=== PATIENT | male | born 1935 | race Caucasian/White ===

== ENCOUNTER → 2018-07-04 | Outpatient (CLI) | payer MEDICARE ==
--- NOTE | 2018-07-04 14:16 | XR ---
EXAMINATION TYPE: XR chest 2V DATE OF EXAM: 07/04/2018 COMPARISON: NONE TECHNIQUE: PA and lateral views submitted. HISTORY: Shortness of breath FINDINGS: The lungs are clear and there is no pneumothorax, pleural effusion, or focal pneumonia. The sternum is somewhat prominent bilaterally and there is a 7 mm nodule left upper lobe. Additional nodule in th e right upper lobe. These could potentially related to granuloma. Hypertrophic and degenerative dyson e of the spine. No overt failure. IMPRESSION: 1. Mediastinum is prominent could been the basis of adenopathy. Additionally there is a single nodule noted bilaterally. Recommend follow-up CT scan of the chest.
== END | disposition home or self-care (01) ==
LOC: RADXRMAIN 13:44
PROVIDERS: ATTEND Internal Medicine Hematology & Oncology
DX: R91.1 Solitary pulmonary nodule (principal); I12.9 Hypertensive chronic kidney disease with stage 1 through stage 4 chronic kidney disease, or unspecified chronic kidney disease; N18.9 Chronic kidney disease, unspecified; D63.1 Anemia in chronic kidney disease; M10.9 Gout, unspecified
CPT/HCPCS: 71046

== ENCOUNTER 2018-07-18 13:55 | Inpatient (IN) | payer MEDICARE ==
[2018-07-18 14:58] LABS: Anisocytosis Slight; Basophils % (A) 1 %; Eosinophils # (A) 0.2 k/uL (0-0.7); Eosinophils % (A) 3 %; HCT 42.2 % (39.0-53.0); Hypochromasia Marked; Lymphocytes # (A) 1.2 k/uL (1.0-4.8); Lymphocytes % (A) 20 %; MCH 30.6 pg (25.0-35.0); MCHC 30.9 g/dL (31.0-37.0); MCV 99.2 fL (80.0-100.0); Macrocytosis Slight; Mean Platelet Volume 7.3; Monocytes # (A) 0.5 k/uL (0-1.0); Monocytes % (A) 8 %; Neutrophils % (A) 67 %; Platelet Count 230 k/uL (150-450); RBC 4.25 m/uL (4.30-5.90); RDW 16.8 % (11.5-15.5)
[2018-07-18 15:07] LABS: Albumin 4.4 g/dL (3.5-5.0); Calcium 8.7 mg/dL (8.4-10.2); Total Bilirubin 0.4 mg/dL (0.2-1.3); Total Protein 7.3 g/dL (6.3-8.2)
[2018-07-18 15:09] LABS: Appearance,Urine Clear (Clear); Bilirubin,Urine Negative (Negative); Blood,Urine Negative (Negative); Color,Urine Yellow; Glucose,Urine (UA) Negative (Negative); Ketones,Urine Negative (Negative); Leukocyte Esterase,Urine Negative (Negative); Nitrite,Urine Negative (Negative); PH, Urine 5.5 (5.0-8.0); Protein,Urine 2+ (Negative); Squamous Epithelial Cell,Urine <1 /hpf (0-4); Urobilinogen,Urine <2.0 mg/dL (<2.0); WBC,Urine 1 /hpf (0-5)
[2018-07-18 15:10] LABS: Potassium 6.5 mmol/L (3.5-5.1)
[2018-07-18] MEDS ORDERED: SODIUM POLYSTYRENE SULFONATE 15 GM/60 ML BOTTLE PO STA (15:31)
[2018-07-18] MEDS ORDERED: SODIUM CHLORIDE 0.9% 1,000 ML IV ONE (16:23)
[2018-07-18] MEDS ORDERED: SODIUM CHLORIDE 0.9% 1,000 ML IV STA (16:23)
[2018-07-18] MEDS ORDERED: SODIUM CHLORIDE 0.9% 500 ML IV STA (16:23)
--- NOTE | 2018-07-18 16:25 | ED ---
General Adult HPI - General Chief complaint: Recheck/Abnormal Lab/Rx Stated complaint: abnormal lab-sent by Time Seen by Provider: 07/18/18 15:31 Source: patient, RN notes reviewed, old records reviewed Mode of arrival: ambulatory Limitations: no limitations - History of Present Illness Initial comments: This is a 3-year-old male today. This male presents today for evaluation regarding renal disease renal failure. Patient has had history of worsening kidney function. Had lab tests that showed significant worsening BUN/ creatinine just yesterday. Patient denies any pain no chest pain or shortness with no bowel pain does admit to minor minor decreased appetite and weakness. No recent new changes in medications - Related Data Home Medications Medication Instructions Recorded Confirmed Eye Health Formula 2 cap PO DAILY 07/16/15 07/18/18 Garlic 1 tab PO DAILY 07/16/15 07/18/18 Levothyroxine Sodium [Synthroid] 100 mcg PO DAILY 07/16/15 07/18/18 Lisinopril [Zestril] 10 mg PO DAILY 07/16/15 07/18/18 Multivitamin [Men's Multi-Vitamin] 1 tab PO DAILY 07/16/15 07/18/18 Simvastatin 20 mg PO HS 07/16/15 07/18/18 Theophylline 12 Hour [Wilman-Dur] 100 mg PO HS@199907/16/15 07/18/18 Triamterene/Hydrochlorothiazid 1 cap PO DAILY 07/16/15 07/18/18 [Triamterene-Hctz 37.5-25 mg Cp] Tylenol Arthritis 650 mg PO BID PRN 07/16/15 07/18/18 Verapamil Sr [Isoptin Sr] 240 mg PO DAILY 07/16/15 07/18/18 sitaGLIPtin PHOS/metFORMIN HCL 1 tab PO BID 07/16/15 07/18/18 [Janumet 50-1,000 mg Tablet] Allergies Allergy/AdvReac Type Severity Reaction Status Date / Time ciprofloxacin [From Cipro] Allergy Unknown Verified 07/18/18 14:20 Review of Systems ROS Statement: Those systems with pertinent positive or pertinent negative responses have been documented in the HPI. ROS Other: All systems not noted in ROS Statement are negative. Past Medical History Past Medical History: Thyroid Disorder Additional Past Medical History / Comment(s): 07/16/15 Pt presented to [facility] ER with having been diagnosed with UTI 10 days ago. He took a total of 14 cipro pills and was getting better for a day or so then started getting worse with painful urination, burning, frequent urination and loss of apetite and nauseous. He has lost 10# in 2 weeks. Other HX: NIDDM, hypothyroidism, diverticulosis, rectal polyps,psoriasis, glaucoma,gout History of Any Multi-Drug Resistant Organisms: None Reported Past Surgical History: Cholecystectomy Additional Past Surgical History / Comment(s): colonoscopy with polypectomy Past Anesthesia/Blood Transfusion Reactions: No Reported Reaction Additional Past Anesthesia/Blood Transfusion Reaction / Comment(s): Pt states he has never recieved blood. Past Psychological History: No Psychological Hx Reported Smoking Status: Former smoker Past Alcohol Use History: None Reported Past Drug Use History: None Reported - Past Family History Father Family Medical History: Cancer Additional Family Medical History / Comment(s): Father of prostate cancer. He was an alcoholic Mother Family Medical History: Cancer Additional Family Medical History / Comment(s): Mother of some kind of cancer. General Exam Limitations: no limitations General appearance: alert, in no apparent distress Head exam: Present: atraumatic, normocephalic, normal inspection Eye exam: Present: normal appearance, PERRL, EOMI. Absent: scleral icterus, conjunctival injection, periorbital swelling ENT exam: Present: normal exam, mucous membranes moist Neck exam: Present: normal inspection. Absent: tenderness, meningismus, lymphadenopathy Respiratory exam: Present: normal lung sounds bilaterally. Absent: respiratory distress, wheezes, rales, rhonchi, stridor Cardiovascular Exam: Present: regular rate, normal rhythm, normal heart sounds. Absent: systolic murmur, diastolic murmur, rubs, gallop, clicks GI/Abdominal exam: Present: soft, normal bowel sounds. Absent: distended, tenderness, guarding, rebound, rigid Extremities exam: Present: normal inspection, full ROM, normal capillary refill. Absent: tenderness, pedal edema, joint swelling, calf tenderness Back exam: Present: normal inspection Neurological exam: Present: alert, oriented X3, CN II-XII intact Psychiatric exam: Present: normal affect, normal mood Skin exam: Present: warm, dry, intact, normal color. Absent: rash Course Vital Signs 07/18/18 07/18/18 07/18/18 14:15 16:06 16:17 Temperature 97.6 F Pulse Rate 59 L 70 71 Respiratory 18 18 18 Rate Blood Pressure 175/72 207/89 190/102 O2 Sat by Pulse 98 99 97 Oximetry - Reevaluation(s) Reevaluation #1: 07/18/18 16:24 Medical record and prior lab tests are reviewed EKG Findings - EKG Comments: EKG Findings:: EKG shows sinus bradycardia rate of 56, WA 162, QRS 148, QTc 468 Medical Decision Making - Medical Decision Making 80 female the ER for evaluation, patient coming in with worsening of kidney function, creatinine from 2-3, patient does appear dehydrated on exam Sunday showing renal evaluation and nephrology - Lab Data Result diagrams: 07/18/18 14:45 07/18/18 14:45 Lab Results 07/18/18 07/18/18 07/18/18 Range/Units 14:45 14:45 14:45 WBC 6.0 (3.8-10.6) k/uL RBC 4.25 L (4.30-5.90) m/uL Hgb 13.0 (13.0-17.5) gm/dL Hct 42.2 (39.0-53.0) % MCV 99.2 (80.0-100.0) fL MCH 30.6 (25.0-35.0) pg MCHC 30.9 L (31.0-37.0) g/dL RDW 16.8 H (11.5-15.5) % Plt Count 230 (150-450) k/uL Neutrophils % 67 % Lymphocytes % 20 % Monocytes % 8 % Eosinophils % 3 % Basophils % 1 % Neutrophils # 4.0 (1.3-7.7) k/uL Lymphocytes # 1.2 (1.0-4.8) k/uL Monocytes # 0.5 (0-1.0) k/uL Eosinophils # 0.2 (0-0.7) k/uL Basophils # 0.0 (0-0.2) k/uL Hypochromasia Marked Anisocytosis Slight Macrocytosis Slight Sodium 141 (137-145) mmol/L Potassium 6.5 H* (3.5-5.1) mmol/L Chloride 113 H (98-107) mmol/L Carbon Dioxide 13 L (22-30) mmol/L Anion Gap 15 mmol/L BUN 61 H (9-20) mg/dL Creatinine 3.08 H (0.66-1.25) mg/dL Est GFR (CKD-EPI)AfAm 21 (>60 ml/min/1.73 sqM) Est GFR (CKD-EPI)NonAf 18 (>60 ml/min/1.73 sqM) Glucose 105 H (74-99) mg/dL Calcium 8.7 (8.4-10.2) mg/dL Total Bilirubin 0.4 (0.2-1.3) mg/dL AST 20 (17-59) U/L ALT 22 (21-72) U/L Alkaline Phosphatase 69 (38-126) U/L Total Protein 7.3 (6.3-8.2) g/dL Albumin 4.4 (3.5-5.0) g/dL Amylase 140 H (30-110) U/L Lipase 668 H (23-300) U/L Urine Color Yellow Urine Appearance Clear (Clear) Urine pH 5.5 (5.0-8.0) Ur Specific [place] 1.010 (1.001-1.035) Urine Protein 2+ H (Negative) Urine Glucose (UA) Negative (Negative) Urine Ketones Negative (Negative) Urine Blood Negative (Negative) Urine Nitrite Negative (Negative) Urine Bilirubin Negative (Negative) Urine Urobilinogen <2.0 (<2.0) mg/dL Ur Leukocyte Esterase Negative (Negative) Urine WBC 1 (0-5) /hpf Ur Squamous Epith Cells <1 (0-4) /hpf Disposition Clinical Impression: Acute renal failure, Dehydration Disposition: ADMITTED IP TO THIS HOSP Condition: Fair Is patient prescribed a controlled substance at d/c from ED?: No Referrals: Carmelo Matamoros MD [Primary Care Provider] - 1-2 days
[2018-07-18] MEDS ORDERED: LABETALOL 5 MG/ML VIAL MDV IVP STA (17:23)
[2018-07-18] MEDS ORDERED: hydrALAZINE HCL 20 MG/ML 1 ML VIAL IVP STA (18:21)
[2018-07-18 21:01] LABS: Glucose,Whole Blood 93 mg/dL (75-99)
[2018-07-18] MEDS: VERAPAMIL SR 240 MG TABLET.ER PO SCH (22:51)
[2018-07-18] MEDS: ATORVASTATIN 10 MG TAB PO SCH (22:51)
[2018-07-19 07:14] LABS: Glucose,Whole Blood 78 mg/dL (75-99)
[2018-07-19] MEDS ORDERED: INSULIN ASPART 100 UNIT/ML 1 ML 10 ML VIAL SQ SCH (07:30)
[2018-07-19] MEDS ORDERED: SODIUM BICARB 8.4% 50 ML SYR (1 MEQ/ML) IV ONE (08:45)
[2018-07-19] MEDS ORDERED: LISINOPRIL 10 MG TAB PO SCH (09:00)
--- NOTE | 2018-07-19 09:10 | P.NPCON ---
History of Present Illness - Reason for Consult acute renal failure, hyperkalemia - History of Present Illness Reason for consultation: Acute kidney injury History of present illness: Patient is a 83-year-old male seen in renal consultation for acute kidney injury. Patient appears to have chronic kidney disease stage III with baseline creatinine in the range of 1.5 for 2 from 2014. Patient states he had blood work done yesterday and due to acute renal failure and hyperkalemia he was advised to go to the hospital. His creatinine on admission was 3.08. Labs from today are pending at this time. He was also noted to be hyperkalemic with potassium level of 6.5 for which she did receive Kayexalate. Patient was noted to be extremely acidotic with a bicarb level of 13. He denies diarrhea. Patient states he was started on metformin about a week ago and dose of his lisinopril was decreased. He admits to good urine output. No vomiting or diarrhea. Denies chest pain or shortness of breath. Hemodynamically he is stable. Denies use of NSAIDs. Patient does have history of diabetes mellitus which she states was diagnosed over 20 years ago. Vital signs are stable. General: The patient appeared well nourished and normally developed. HEENT: Head exam is unremarkable. Neck is without jugular venous distension. LUNGS: Lungs are clear to auscultation and percussion. Breath sounds decreased. HEART: Rate and Rhythm are regular. First and second heart sounds normal. No murmurs, rubs or gallops. ABDOMEN: Abdominal exam reveals normal bowel sounds. Non-tender and non- distended. No evidence of peritonitis. EXTREMITITES: No clubbing, cyanosis, or edema. Past Medical History Past Medical History: Diabetes Mellitus, Hyperlipidemia, Hypertension, Osteoarthritis (OA), Thyroid Disorder Additional Past Medical History / Comment(s): Other HX: diverticulosis, rectal polyps,psoriasis, glaucoma,gout; uti; panceatitis History of Any Multi-Drug Resistant Organisms: None Reported Past Surgical History: Cholecystectomy Additional Past Surgical History / Comment(s): colonoscopy with polypectomy Past Anesthesia/Blood Transfusion Reactions: No Reported Reaction Additional Past Anesthesia/Blood Transfusion Reaction / Comment(s): Pt states he has never recieved blood. Past Psychological History: No Psychological Hx Reported Additional Psychological History / Comment(s): Pt lives alone. He is independent. He uses no assistive device or home care. He walks up to 4 miles a day normally. He drives. has 1 small dog, rosales Smoking Status: Former smoker Past Alcohol Use History: None Reported Additional Past Alcohol Use History / Comment(s): Pt states he quit smoking in 1986. He quit drinking alcohol 8 yrs ago-stating " I had my fun with it." Past Drug Use History: None Reported - Past Family History Father Family Medical History: Cancer Additional Family Medical History / Comment(s): Father of prostate cancer. He was an alcoholic Mother Family Medical History: Cancer Additional Family Medical History / Comment(s): Mother of some kind of cancer. Medications and Allergies Home Medications Medication Instructions Recorded Confirmed Type Garlic 1 tab PO DAILY 07/16/15 07/18/18 History Levothyroxine Sodium [Synthroid] 100 mcg PO DAILY 07/16/15 07/18/18 History Lisinopril [Zestril] 10 mg PO DAILY 07/16/15 07/18/18 History Simvastatin 20 mg PO HS 07/16/15 07/18/18 History Verapamil Sr [Isoptin Sr] 240 mg PO HS 07/16/15 07/18/18 History Albuterol Inhaler [Ventolin Hfa 2 puff INHALATION RT-Q6H PRN 07/18/18 07/18/18 History Inhaler] Aspirin [Adult Low Dose Aspirin EC] 81 mg PO DAILY 07/18/18 07/18/18 History Bacitracin Oint 1 applic TOPICAL DAILY 07/18/18 07/18/18 History Epoetin Garcia [Procrit] 4,000 unit SQ Q14D 07/18/18 07/18/18 History Metoprolol Tartrate [Lopressor] 25 mg PO DAILY 07/18/18 07/18/18 History Triamcinolone 0.1% Cream [Kenalog 1 applic TOPICAL DAILY 07/18/18 07/18/18 History 0.1% Cream] Vit C/E/Zn/Coppr/Lutein/Zeaxan 2 cap PO DAILY 07/18/18 07/18/18 History [Preservision Areds 2 Softgel] metFORMIN HCL [Glucophage] 500 mg PO DAILY 07/18/18 07/18/18 History Allergies Allergy/AdvReac Type Severity Reaction Status Date / Time ciprofloxacin [From Cipro] AdvReac Nausea & Verified 07/18/18 16:30 Vomiting Physical Exam Vitals: Vital Signs Temp Pulse Pulse Resp BP BP BP 07/19/18 07:00 97.7 F 93 17 132/84 07/19/18 06:28 97.8 F 71 16 170/71 07/18/18 20:12 74 135/69 07/18/18 19:15 97.3 F L 76 18 198/89 07/18/18 18:56 73 18 178/82 07/18/18 18:22 73 18 180/84 07/18/18 17:36 78 18 220/110 07/18/18 16:17 71 18 190/102 07/18/18 16:06 70 18 207/89 07/18/18 14:15 97.6 F 59 L 18 175/72 Pulse Ox 07/19/18 07:00 07/19/18 06:28 98 07/18/18 20:12 97 07/18/18 19:15 97 07/18/18 18:56 96 07/18/18 18:22 95 07/18/18 17:36 97 07/18/18 16:17 97 07/18/18 16:06 99 07/18/18 14:15 98 Intake and Output 07/18/18 07/19/18 07/19/18 22:59 06:59 14:59 Intake Total 100 Output Total 600 Balance 100 -600 Intake: IV 100 Sodium Chloride 0.9% 1, 100 000 ml @ 100 mls/hr IV . Q10H ONE Rx#:[id number] Output: Urine 600 Other: Voiding Method Toilet Toilet # Voids 1 Results - Lab Results Most recent lab results Calcium 8.7 mg/dL (8.4-10.2) 07/18/18 14:45 07/18/18 14:45 07/18/18 14:45 Assessment and Plan Plan: Assessment: 1. Nonoliguric acute kidney injury likely prerenal. Rule out urinary retention. Creatinine was 3.08 on admission. Labs from today are pending at this time. 2. Metabolic acidosis secondary to acute kidney injury and metformin. 3. Hyperkalemia secondary to acute kidney injury and metabolic acidosis. Lisinopril also contribute factor. 4. Diabetes mellitus. 5. Hypertension with chronic kidney disease. Controlled. 6. Chronic kidney disease stage III with baseline creatinine in the range of 1.5-2 from 2015. Plan: Start normal saline at 50 mL an hour. 2 A of sodium bicarb IV push. Start oral sodium bicarbonate 1300 mg twice daily. Avoid nephrotoxic agents and hypotensive episodes. Discontinue lisinopril for now. Avoid metformin at this time. Follow-up morning labs. Thank you for the consultation. I will continue to follow the patient with you during his hospital stay.
[2018-07-19 09:25] LABS: Anisocytosis Slight; HCT 36.7 % (39.0-53.0); HGB 11.1 gm/dL (13.0-17.5); Hypochromasia Marked; MCH 30.1 pg (25.0-35.0); MCHC 30.3 g/dL (31.0-37.0); MCV 99.1 fL (80.0-100.0); Macrocytosis Slight; Mean Platelet Volume 7.7; Platelet Count 194 k/uL (150-450); RDW 16.5 % (11.5-15.5); WBC 4.8 k/uL (3.8-10.6)
[2018-07-19] MEDS: SODIUM CHLORIDE 0.9% 1,000 ML IV SCH (09:32)
[2018-07-19 09:33] LABS: Albumin 3.3 g/dL (3.5-5.0); Calcium 7.9 mg/dL (8.4-10.2); Potassium 4.8 mmol/L (3.5-5.1); Total Bilirubin 0.3 mg/dL (0.2-1.3); Total Protein 5.8 g/dL (6.3-8.2)
[2018-07-19] MEDS: SODIUM BICARBONATE TAB 650 MG TAB PO SCH ×2 (09:33→21:01)
[2018-07-19] MEDS: METOPROLOL TARTRATE 25 MG TAB PO SCH (09:35)
[2018-07-19] MEDS ORDERED: ALBUTEROL NEBULIZED 2.5 MG/3 ML INHALATION PRN (11:20)
--- NOTE | 2018-07-19 11:20 | P.HPIM ---
History of Present Illness 83-year-old doesn't gentleman came in with a from primary care physician office after he presented with the acute kidney injury patient baseline creatinine 2015 is around 1.4 patient has chronic kidney disease stage III from diabetic nephropathy, patient's creatinine is 2 days about 3 because of which she sent in to ER. Patient blood is on lisinopril as well as metformin since his metformin patient was having problems he believes. Patient is hyperkalemic Azolid potassium of 6.4% capsulate potassium has come down. Patient has a significant anion gap as well as non-anion gap metabolic acidosis from uremia, possible lactic acidosis along with noniron gap metabolic is doses from hyperchloremia patient was seen by nephrology in the recommending 50 mL of IV normal saline along with the bicarbonate supplementation. Lisinopril and metformin were discontinued. Patient had any fever chills patient and diarrhea nausea vomiting. Patient is urinating well. Patient probably has acute blood necrosis nonoliguric. Denied any recent NSAID use. Review of Systems REVIEW OF SYSTEMS: CONSTITUTIONAL: No fever, no malaise, no fatigue. HEENT: No recent visual problems or hearing problems. Denied any sore throat. CARDIOVASCULAR: No chest pain, orthopnea, PND, no palpitations, no syncope. PULMONARY: No shortness of breath, no cough, no hemoptysis. GASTROINTESTINAL: No diarrhea, no nausea, no vomiting, no abdominal pain. Normoactive bowel sounds. NEUROLOGICAL: No headaches, no weakness, no numbness. HEMATOLOGICAL: Denies any bleeding or petechiae. GENITOURINARY: Denies any burning micturition, frequency, or urgency. MUSCULOSKELETAL/RHEUMATOLOGICAL: Denies any joint pain, swelling, or any muscle pain. ENDOCRINE: Denies any polyuria or polydipsia. The rest of the 14-point review of systems is negative. Past Medical History Past Medical History: Diabetes Mellitus, Hyperlipidemia, Hypertension, Osteoarthritis (OA), Thyroid Disorder Additional Past Medical History / Comment(s): Other HX: diverticulosis, rectal polyps,psoriasis, glaucoma,gout; uti; panceatitis History of Any Multi-Drug Resistant Organisms: None Reported Past Surgical History: Cholecystectomy Additional Past Surgical History / Comment(s): colonoscopy with polypectomy Past Anesthesia/Blood Transfusion Reactions: No Reported Reaction Additional Past Anesthesia/Blood Transfusion Reaction / Comment(s): Pt states he has never recieved blood. Past Psychological History: No Psychological Hx Reported Additional Psychological History / Comment(s): Pt lives alone. He is independent. He uses no assistive device or home care. He walks up to 4 miles a day normally. He drives. has 1 small dog, rosales Smoking Status: Former smoker Past Alcohol Use History: None Reported Additional Past Alcohol Use History / Comment(s): Pt states he quit smoking in 1986. He quit drinking alcohol 8 yrs ago-stating " I had my fun with it." Past Drug Use History: None Reported - Past Family History Father Family Medical History: Cancer Additional Family Medical History / Comment(s): Father of prostate cancer. He was an alcoholic Mother Family Medical History: Cancer Additional Family Medical History / Comment(s): Mother of some kind of cancer. Medications and Allergies Home Medications Medication Instructions Recorded Confirmed Type Garlic 1 tab PO DAILY 07/16/15 07/18/18 History Levothyroxine Sodium [Synthroid] 100 mcg PO DAILY 07/16/15 07/18/18 History Lisinopril [Zestril] 10 mg PO DAILY 07/16/15 07/18/18 History Simvastatin 20 mg PO HS 07/16/15 07/18/18 History Verapamil Sr [Isoptin Sr] 240 mg PO HS 07/16/15 07/18/18 History Albuterol Inhaler [Ventolin Hfa 2 puff INHALATION RT-Q6H PRN 07/18/18 07/18/18 History Inhaler] Aspirin [Adult Low Dose Aspirin EC] 81 mg PO DAILY 07/18/18 07/18/18 History Bacitracin Oint 1 applic TOPICAL DAILY 07/18/18 07/18/18 History Epoetin Garcia [Procrit] 4,000 unit SQ Q14D 07/18/18 07/18/18 History Metoprolol Tartrate [Lopressor] 25 mg PO DAILY 07/18/18 07/18/18 History Triamcinolone 0.1% Cream [Kenalog 1 applic TOPICAL DAILY 07/18/18 07/18/18 History 0.1% Cream] Vit C/E/Zn/Coppr/Lutein/Zeaxan 2 cap PO DAILY 07/18/18 07/18/18 History [Preservision Areds 2 Softgel] metFORMIN HCL [Glucophage] 500 mg PO DAILY 07/18/18 07/18/18 History Allergies Allergy/AdvReac Type Severity Reaction Status Date / Time ciprofloxacin [From Cipro] AdvReac Nausea & Verified 07/18/18 16:30 Vomiting Physical Exam Vitals: Vital Signs Temp Pulse Pulse Resp BP BP BP 07/19/18 07:00 97.7 F 93 17 132/84 07/19/18 06:28 97.8 F 71 16 170/71 07/18/18 20:12 74 135/69 07/18/18 19:15 97.3 F L 76 18 198/89 07/18/18 18:56 73 18 178/82 07/18/18 18:22 73 18 180/84 07/18/18 17:36 78 18 220/110 07/18/18 16:17 71 18 190/102 07/18/18 16:06 70 18 207/89 07/18/18 14:15 97.6 F 59 L 18 175/72 Pulse Ox 07/19/18 07:00 07/19/18 06:28 98 07/18/18 20:12 97 07/18/18 19:15 97 07/18/18 18:56 96 07/18/18 18:22 95 07/18/18 17:36 97 07/18/18 16:17 97 07/18/18 16:06 99 07/18/18 14:15 98 Intake and Output 07/18/18 07/19/18 07/19/18 22:59 06:59 14:59 Intake Total 100 Output Total 600 Balance 100 -600 Intake: IV 100 Sodium Chloride 0.9% 1, 100 000 ml @ 100 mls/hr IV . Q10H ONE Rx#:[id number] Output: Urine 600 Other: Voiding Method Toilet Toilet # Voids 1 PHYSICAL EXAMINATION: GENERAL: The patient is alert and oriented x3, not in any acute distress. Well developed, well nourished. HEENT: Pupils are round and equally reacting to light. EOMI. No scleral icterus. No conjunctival pallor. Normocephalic, atraumatic. No pharyngeal erythema. No thyromegaly. CARDIOVASCULAR: S1 and S2 present. No murmurs, rubs, or gallops. PULMONARY: Chest is clear to auscultation, no wheezing or crackles. ABDOMEN: Soft, nontender, nondistended, normoactive bowel sounds. No palpable organomegaly. MUSCULOSKELETAL: No joint swelling or deformity. EXTREMITIES: No cyanosis, clubbing, or pedal edema. NEUROLOGICAL: Gross neurological examination did not reveal any focal deficits. SKIN: No rashes. Results CBC & Chem 7: 07/19/18 09:01 07/19/18 09:01 Labs: Abnormal Lab Results - Last 24 Hours (Table) 07/18/18 07/18/18 07/18/18 Range/Units 14:45 14:45 14:45 RBC 4.25 L (4.30-5.90) m/uL Hgb (13.0-17.5) gm/dL Hct (39.0-53.0) % MCHC 30.9 L (31.0-37.0) g/dL RDW 16.8 H (11.5-15.5) % Potassium 6.5 H* (3.5-5.1) mmol/L Chloride 113 H (98-107) mmol/L Carbon Dioxide 13 L (22-30) mmol/L BUN 61 H (9-20) mg/dL Creatinine 3.08 H (0.66-1.25) mg/dL Glucose 105 H (74-99) mg/dL Calcium (8.4-10.2) mg/dL Total Protein (6.3-8.2) g/dL Albumin (3.5-5.0) g/dL Amylase 140 H (30-110) U/L Lipase 668 H (23-300) U/L Urine Protein 2+ H (Negative) 07/19/18 07/19/18 Range/Units 09:01 09:01 RBC 3.70 L (4.30-5.90) m/uL Hgb 11.1 L (13.0-17.5) gm/dL Hct 36.7 L (39.0-53.0) % MCHC 30.3 L (31.0-37.0) g/dL RDW 16.5 H (11.5-15.5) % Potassium (3.5-5.1) mmol/L Chloride 116 H (98-107) mmol/L Carbon Dioxide 17 L (22-30) mmol/L BUN 52 H (9-20) mg/dL Creatinine 2.64 H (0.66-1.25) mg/dL Glucose 158 H (74-99) mg/dL Calcium 7.9 L (8.4-10.2) mg/dL Total Protein 5.8 L (6.3-8.2) g/dL Albumin 3.3 L (3.5-5.0) g/dL Amylase (30-110) U/L Lipase (23-300) U/L Urine Protein (Negative) Thrombosis Risk Factor Assmnt - Choose All That Apply Any of the Below Risk Factors Present?: No Other Risk Factors: Yes Each Risk Factor Represents 3 Points: Age 75 years or older Other congenital or acquired thrombophilia - If yes, enter type in comment: No Thrombosis Risk Factor Assessment Total Risk Factor Score: 3 Thrombosis Risk Factor Assessment Level: Moderate Risk Assessment and Plan Plan: -Acute renal failure probably due to nonoliguric acute tubular necrosis medication-induced from metformin and lisinopril both of which were discontinued. Patient will be on sliding scale insulin for now -Metabolic acidosis both anion gap from uremia and possible lactic acidosis from metformin which was discontinued and non-anion gap metabolic acidosis from hyperchloremia anion gap metabolic acidosis did improve continue with IV fluids continue with bicarbonate supplementation -Hyperkalemia secondary to acute kidney injury and lisinopril, lisinopril was discontinued 10-chronic kidney disease stage III from diabetic nephropathy -Hypertension -Hyperlipidemia -Hypothyroidism -Type 2 diabetes mellitus patient will be on sliding scale insulin.
[2018-07-19 11:28] LABS: Glucose,Whole Blood 141 mg/dL (75-99)
[2018-07-19] MEDS: INSULIN ASPART 100 UNIT/ML 1 ML 10 ML VIAL SQ SCH ×3 (12:04→21:00)
[2018-07-19 12:13] VITALS: BMI 20.7
[2018-07-19 15:58] LABS: Hemoglobin A1C 4.7 % (4.0-6.0)
[2018-07-19 17:25] LABS: Glucose,Whole Blood 105 mg/dL (75-99)
--- NOTE | 2018-07-19 20:29 | P.CONS ---
History of Present Illness - Reason for Consult Consult date: 07/19/18 Anemia Requesting physician: Jimmy Amaya - Chief Complaint Acute Renal Failure - History of Present Illness Mr Friend is a patient of Dr. Matamoros who was recently seen in office for CBC check and procrit injection for his known Chronic Kidney Disease Anemia. During his evaluation on 07/18/18, his renal function resulted at 3x his normal baseline. He was seen on 07/04/18 as well at that time with increased creatinine and advised to go to ED at that time. Alsoo during this time he was started on metformin and lisinopril was decreased. Mr. friend has a known history of uncontrolled diabetes, Chronic Kidney disease, Gout, COPD, Anemia and Hypertension. On Admission his potassium was elevated, BUN, Creat = 3.08, as well as amylase and lipase. He presented with metabolic acidosis. Nephrology was consulted and IV hydration with sodium bicarb was started. Nephrotoxins held. Metformin held. He denies any decreased or difficulties with urination. Denies any N/V/D. Review of Systems A 14 point review of systems assessed and completed and all negative except HPI Past Medical History Past Medical History: Diabetes Mellitus, Hyperlipidemia, Hypertension, Osteoarthritis (OA), Thyroid Disorder Additional Past Medical History / Comment(s): Other HX: diverticulosis, rectal polyps,psoriasis, glaucoma,gout; uti; panceatitis History of Any Multi-Drug Resistant Organisms: None Reported Past Surgical History: Cholecystectomy Additional Past Surgical History / Comment(s): colonoscopy with polypectomy Past Anesthesia/Blood Transfusion Reactions: No Reported Reaction Additional Past Anesthesia/Blood Transfusion Reaction / Comm: Pt states he has never recieved blood. Past Psychological History: No Psychological Hx Reported Additional Psychological History / Comment(s): Pt lives alone. He is independent. He uses no assistive device or home care. He walks up to 4 miles a day normally. He drives. has 1 small dog, rosales Smoking Status: Former smoker Past Alcohol Use History: None Reported Additional Past Alcohol Use History / Comment(s): Pt states he quit smoking in 1986. He quit drinking alcohol 8 yrs ago-stating " I had my fun with it." Past Drug Use History: None Reported - Past Family History Father Family Medical History: Cancer Additional Family Medical History / Comment(s): Father of prostate cancer. He was an alcoholic Mother Family Medical History: Cancer Additional Family Medical History / Comment(s): Mother of some kind of cancer. Medications and Allergies Home Medications Medication Instructions Recorded Confirmed Type Garlic 1 tab PO DAILY 07/16/15 07/18/18 History Levothyroxine Sodium [Synthroid] 100 mcg PO DAILY 07/16/15 07/18/18 History Lisinopril [Zestril] 10 mg PO DAILY 07/16/15 07/18/18 History Simvastatin 20 mg PO HS 07/16/15 07/18/18 History Verapamil Sr [Isoptin Sr] 240 mg PO HS 07/16/15 07/18/18 History Albuterol Inhaler [Ventolin Hfa 2 puff INHALATION RT-Q6H PRN 07/18/18 07/18/18 History Inhaler] Aspirin [Adult Low Dose Aspirin EC] 81 mg PO DAILY 07/18/18 07/18/18 History Bacitracin Oint 1 applic TOPICAL DAILY 07/18/18 07/18/18 History Epoetin Garcia [Procrit] 4,000 unit SQ Q14D 07/18/18 07/18/18 History Metoprolol Tartrate [Lopressor] 25 mg PO DAILY 07/18/18 07/18/18 History Triamcinolone 0.1% Cream [Kenalog 1 applic TOPICAL DAILY 07/18/18 07/18/18 History 0.1% Cream] Vit C/E/Zn/Coppr/Lutein/Zeaxan 2 cap PO DAILY 07/18/18 07/18/18 History [Preservision Areds 2 Softgel] metFORMIN HCL [Glucophage] 500 mg PO DAILY 07/18/18 07/18/18 History Allergies Allergy/AdvReac Type Severity Reaction Status Date / Time ciprofloxacin [From Cipro] AdvReac Nausea & Verified 07/18/18 16:30 Vomiting Physical Exam Vitals: Vital Signs Temp Pulse Pulse Resp BP BP BP 07/19/18 10:41 68 07/19/18 07:00 97.7 F 93 17 132/84 07/19/18 06:28 97.8 F 71 16 170/71 07/18/18 20:12 74 135/69 07/18/18 19:15 97.3 F L 76 18 198/89 07/18/18 18:56 73 18 178/82 07/18/18 18:22 73 18 180/84 07/18/18 17:36 78 18 220/110 07/18/18 16:17 71 18 190/102 07/18/18 16:06 70 18 207/89 07/18/18 14:15 97.6 F 59 L 18 175/72 Pulse Ox 07/19/18 10:41 07/19/18 07:00 07/19/18 06:28 98 07/18/18 20:12 97 07/18/18 19:15 97 07/18/18 18:56 96 07/18/18 18:22 95 07/18/18 17:36 97 07/18/18 16:17 97 07/18/18 16:06 99 07/18/18 14:15 98 Intake and Output 07/18/18 07/19/18 07/19/18 22:59 06:59 14:59 Intake Total 100 120 Output Total 600 Balance 100 -600 120 Intake: IV 100 Sodium Chloride 0.9% 1, 100 000 ml @ 100 mls/hr IV . Q10H [facility] Rx#:[id number] Oral 120 Output: Urine 600 Other: Voiding Method Toilet Toilet Urinal # Voids 1 Weight 59.874 kg General: NAD, Alert and oriented x3 HEENT: NC, NT, Neck Supple, Trachea Midline LUNGS: Lungs are clear to auscultation. Breath sounds decreased bibasilar, no increased respiratory effort. HEART: RRR, S1, S2. ABDOMEN: normal bowel sounds. Non-tender and non-distended. EXTREMITITES: no rashNo clubbing, cyanosis, or edema. Results CBC & Chem 7: 07/19/18 09:01 07/19/18 09:01 Labs: Abnormal Lab Results - Last 24 Hours (Table) 07/18/18 07/18/18 07/18/18 Range/Units 14:45 14:45 14:45 RBC 4.25 L (4.30-5.90) m/uL Hgb (13.0-17.5) gm/dL Hct (39.0-53.0) % MCHC 30.9 L (31.0-37.0) g/dL RDW 16.8 H (11.5-15.5) % Potassium 6.5 H* (3.5-5.1) mmol/L Chloride 113 H (98-107) mmol/L Carbon Dioxide 13 L (22-30) mmol/L BUN 61 H (9-20) mg/dL Creatinine 3.08 H (0.66-1.25) mg/dL Glucose 105 H (74-99) mg/dL POC Glucose (mg/dL) (75-99) mg/dL Calcium (8.4-10.2) mg/dL Total Protein (6.3-8.2) g/dL Albumin (3.5-5.0) g/dL Amylase 140 H (30-110) U/L Lipase 668 H (23-300) U/L Urine Protein 2+ H (Negative) 07/19/18 07/19/18 07/19/18 Range/Units 09:01 09:01 11:28 RBC 3.70 L (4.30-5.90) m/uL Hgb 11.1 L (13.0-17.5) gm/dL Hct 36.7 L (39.0-53.0) % MCHC 30.3 L (31.0-37.0) g/dL RDW 16.5 H (11.5-15.5) % Potassium (3.5-5.1) mmol/L Chloride 116 H (98-107) mmol/L Carbon Dioxide 17 L (22-30) mmol/L BUN 52 H (9-20) mg/dL Creatinine 2.64 H (0.66-1.25) mg/dL Glucose 158 H (74-99) mg/dL POC Glucose (mg/dL) 141 H (75-99) mg/dL Calcium 7.9 L (8.4-10.2) mg/dL Total Protein 5.8 L (6.3-8.2) g/dL Albumin 3.3 L (3.5-5.0) g/dL Amylase (30-110) U/L Lipase (23-300) U/L Urine Protein (Negative) Assessment and Plan Plan: Assessment and Recommendations: 1. Acute Kidney Injury, On Chronic Kidney Disease Stage 3: - Nephrology is following - No Nephrotoxins 2. Metabolic Acidosis secondary to medications and Acute Kidney Injury - Sodium Bicarbonate and IV Hydration per Nephrology 3. Uncontrolled Diabetes: - Patient re-educated and re-enforced to follow-up with endocrinology for management of diabetes as outpatient 4. Normocytic Anemia secondary to Chronic Kidney Disease: - Received Procrit 40K every two weeks in office - Held this week for hemoglobin greater than 11. Re-education on importance of follow-up with Endocrinology and Nephrology was discussed. Patient states understanding.
[2018-07-19 20:50] VITALS: TEMP 97.9
[2018-07-19] MEDS: ATORVASTATIN 10 MG TAB PO SCH (21:01)
[2018-07-19] MEDS: VERAPAMIL SR 240 MG TABLET.ER PO SCH (21:01)
[2018-07-19 21:33] LABS: Glucose,Whole Blood 168 mg/dL (75-99)
[2018-07-20] MEDS: SODIUM CHLORIDE 0.9% 1,000 ML IV SCH (05:43)
[2018-07-20 06:25] VITALS: BP 147/88; PULSE 50; RESP 18
[2018-07-20] MEDS ORDERED: LEVOTHYROXINE 100 MCG TAB PO SCH (06:30)
[2018-07-20 07:00] LABS: Glucose,Whole Blood 106 mg/dL (75-99)
[2018-07-20] MEDS: SODIUM BICARBONATE TAB 650 MG TAB PO SCH (07:46)
[2018-07-20] MEDS: METOPROLOL TARTRATE 25 MG TAB PO SCH (07:46)
[2018-07-20] MEDS: INSULIN ASPART 100 UNIT/ML 1 ML 10 ML VIAL SQ SCH (07:47)
[2018-07-20 08:11] LABS: Calcium 7.8 mg/dL (8.4-10.2); Potassium 4.9 mmol/L (3.5-5.1)
[2018-07-20] MEDS ORDERED: TRIAMCINOLONE 0.1% CREAM 80 GM TUBE TOPICAL SCH (09:00)
[2018-07-20] MEDS ORDERED: BACITRACIN 500 UNIT/GM OINT 28.4 GM TUBE TOPICAL SCH (09:00)
[2018-07-20] MEDS ORDERED: amLODIPine 5 MG TAB PO SCH (09:00)
--- NOTE | 2018-07-20 09:02 | P.PN ---
Subjective Patient is seen in follow-up for acute kidney injury on chronic kidney disease. Patient has chronic kidney disease stage III with baseline creatinine in the range of 1.5-2 from 2015. Etiology is diabetic kidney disease. Creatinine was 3.08 on admission and is down to 2.6 today. Potassium level is now in the normal range. Oral intake is good. No vomiting or diarrhea. Denies chest pain or shortness of breath. Vital signs are stable. General: The patient appeared well nourished and normally developed. HEENT: Head exam is unremarkable. Neck is without jugular venous distension. LUNGS: Lungs are clear to auscultation and percussion. Breath sounds decreased. HEART: Rate and Rhythm are regular. First and second heart sounds normal. No murmurs, rubs or gallops. ABDOMEN: Abdominal exam reveals normal bowel sounds. Non-tender and non- distended. No evidence of peritonitis. EXTREMITITES: No clubbing, cyanosis, or edema. Objective - Vital Signs Vital signs: Vital Signs Temp 97.9 F 07/20/18 05:00 Pulse 50 L 07/20/18 05:00 Resp 18 07/20/18 05:00 BP 147/88 07/20/18 05:00 Pulse Ox 96 07/20/18 05:00 Intake & Output 07/19/18 07/20/18 07/20/18 18:59 06:59 18:59 Intake Total 470 550 Output Total 169 Balance 301 550 Weight 59.874 kg Intake: Intake, IV Titration 350 550 Amount Sodium Chloride 0.9% 1, 350 550 000 ml @ 50 mls/hr IV . Q20H [facility] Rx#:[id number] Oral 120 Output: Post Void Residual 169 Other: Voiding Method Toilet Toilet Urinal Urinal # Voids 1 - Labs CBC & Chem 7: 07/19/18 09:01 07/20/18 06:55 Labs: Abnormal Lab Results - Last 24 Hours (Table) 07/19/18 07/19/18 07/19/18 Range/Units 09:01 09:01 11:28 RBC 3.70 L (4.30-5.90) m/uL Hgb 11.1 L (13.0-17.5) gm/dL Hct 36.7 L (39.0-53.0) % MCHC 30.3 L (31.0-37.0) g/dL RDW 16.5 H (11.5-15.5) % Chloride 116 H (98-107) mmol/L Carbon Dioxide 17 L (22-30) mmol/L BUN 52 H (9-20) mg/dL Creatinine 2.64 H (0.66-1.25) mg/dL Glucose 158 H (74-99) mg/dL POC Glucose (mg/dL) 141 H (75-99) mg/dL Calcium 7.9 L (8.4-10.2) mg/dL Total Protein 5.8 L (6.3-8.2) g/dL Albumin 3.3 L (3.5-5.0) g/dL 07/19/18 07/19/18 07/20/18 Range/Units 17:13 20:53 06:55 RBC (4.30-5.90) m/uL Hgb (13.0-17.5) gm/dL Hct (39.0-53.0) % MCHC (31.0-37.0) g/dL RDW (11.5-15.5) % Chloride 118 H (98-107) mmol/L Carbon Dioxide 19 L (22-30) mmol/L BUN 53 H (9-20) mg/dL Creatinine 2.60 H (0.66-1.25) mg/dL Glucose (74-99) mg/dL POC Glucose (mg/dL) 105 H 168 H (75-99) mg/dL Calcium 7.8 L (8.4-10.2) mg/dL Total Protein (6.3-8.2) g/dL Albumin (3.5-5.0) g/dL 07/20/18 Range/Units 06:59 RBC (4.30-5.90) m/uL Hgb (13.0-17.5) gm/dL Hct (39.0-53.0) % MCHC (31.0-37.0) g/dL RDW (11.5-15.5) % Chloride (98-107) mmol/L Carbon Dioxide (22-30) mmol/L BUN (9-20) mg/dL Creatinine (0.66-1.25) mg/dL Glucose (74-99) mg/dL POC Glucose (mg/dL) 106 H (75-99) mg/dL Calcium (8.4-10.2) mg/dL Total Protein (6.3-8.2) g/dL Albumin (3.5-5.0) g/dL Assessment and Plan Plan: Assessment: 1. Nonoliguric acute kidney injury mostly prerenal improving with IV hydration. No evidence of urinary retention. Creatinine was 3.08 on admission and is down to 2.6 today. 2. Metabolic acidosis secondary to acute kidney injury and metformin. Improving. 3. Hyperkalemia secondary to acute kidney injury and metabolic acidosis. Lisinopril also contribute factor. Resolved. 4. Diabetes mellitus. 5. Hypertension with chronic kidney disease. Blood pressures on the higher side. 6. Chronic kidney disease stage III with baseline creatinine in the range of 1.5-2 from 2015. Plan: Maintain normal saline at 50 mL an hour. Continue oral sodium bicarbonate 1300 mg twice daily. Avoid nephrotoxic agents and hypotensive episodes. Discontinued lisinopril for now. Avoid metformin at this time. Add amlodipine 5 mg once daily. Anticipate discharge soon. He will need to follow-up as an outpatient in the next 1-2 weeks.
--- NOTE | 2018-07-20 12:28 | P.DS ---
Providers Date of admission: 07/18/18 16:23 Attending physician: Mimi Reese Consults: 07/18/18 16:23 Consult Physician Routine Consulting Provider: Carmelo Matamoros Consult Reason/Comments: known Do you want consulting provider notified?: Yes Consult Physician Routine Consulting Provider: Mari Oro Consult Reason/Comments: renalDz Do you want consulting provider notified?: Yes Primary care physician: [facility] Course: 83-year-old doesn't gentleman came in with a from primary care physician office after he presented with the acute kidney injury patient baseline creatinine 2015 is around 1.4 patient has chronic kidney disease stage III from diabetic nephropathy, patient's creatinine is 2 days about 3 because of which she sent in to ER. Patient blood is on lisinopril as well as metformin since his metformin patient was having problems he believes. Patient is hyperkalemic Azolid potassium of 6.4% capsulate potassium has come down. Patient has a significant anion gap as well as non-anion gap metabolic acidosis from uremia, possible lactic acidosis along with noniron gap metabolic is doses from hyperchloremia patient was seen by nephrology in the recommending 50 mL of IV normal saline along with the bicarbonate supplementation. Lisinopril and metformin were discontinued. Patient had any fever chills patient and diarrhea nausea vomiting. Patient is urinating well. Patient probably has acute blood necrosis nonoliguric. Denied any recent NSAID use. 07/20/2018 Patient's creatinine remained stable compared to yesterday was cleared by neurology and they're recommending to hold off on metformin and lisinopril patient will be discharged on amlodipine 5 mg for blood pressure and patient is not requiring anything for his blood sugars at this time. PHYSICAL EXAMINATION: GENERAL: The patient is alert and oriented x3, not in any acute distress. Well developed, well nourished. HEENT: Pupils are round and equally reacting to light. EOMI. No scleral icterus. No conjunctival pallor. Normocephalic, atraumatic. No pharyngeal erythema. No thyromegaly. CARDIOVASCULAR: S1 and S2 present. No murmurs, rubs, or gallops. PULMONARY: Chest is clear to auscultation, no wheezing or crackles. ABDOMEN: Soft, nontender, nondistended, normoactive bowel sounds. No palpable organomegaly. MUSCULOSKELETAL: No joint swelling or deformity. EXTREMITIES: No cyanosis, clubbing, or pedal edema. NEUROLOGICAL: Gross neurological examination did not reveal any focal deficits. SKIN: No rashes. Assessment and Plan Plan: -Acute renal failure probably due to nonoliguric acute tubular necrosis medication-induced from metformin and lisinopril both of which were discontinued. -Metabolic acidosis both anion gap from uremia and possible lactic acidosis from metformin which was discontinued and non-anion gap metabolic acidosis from hyperchloremia anion gap metabolic acidosis did improve continue with IV fluids , patient is being discharged on bicarbonate tablets -Hyperkalemia secondary to acute kidney injury and lisinopril, lisinopril was discontinued 10-chronic kidney disease stage III from diabetic nephropathy improved now -Hypertension -Hyperlipidemia -Hypothyroidism -Type 2 diabetes mellitus patient will be on sliding scale insulin. Patient Condition at Discharge: Fair Plan - Discharge Summary Discharge Rx Participant: No New Discharge Prescriptions: New amLODIPine [Norvasc] 5 mg PO DAILY #30 tab Discontinued Lisinopril [Zestril] 10 mg PO DAILY metFORMIN HCL [Glucophage] 500 mg PO DAILY No Action Levothyroxine Sodium [Synthroid] 100 mcg PO DAILY Garlic 1 tab PO DAILY Verapamil Sr [Isoptin Sr] 240 mg PO HS Simvastatin 20 mg PO HS Triamcinolone 0.1% Cream [Kenalog 0.1% Cream] 1 applic TOPICAL DAILY Albuterol Inhaler [Ventolin Hfa Inhaler] 2 puff INHALATION RT-Q6H PRN PRN Reason: Shortness Of Breath Vit C/E/Zn/Coppr/Lutein/Zeaxan [Preservision Areds 2 Softgel] 2 cap PO DAILY Metoprolol Tartrate [Lopressor] 25 mg PO DAILY Epoetin Garcia [Procrit] 4,000 unit SQ Q14D Bacitracin Oint 1 applic TOPICAL DAILY Aspirin [Adult Low Dose Aspirin EC] 81 mg PO DAILY Discharge Medication List Garlic 1 tab PO DAILY 07/16/15 [History] Levothyroxine Sodium [Synthroid] 100 mcg PO DAILY 07/16/15 [History] Simvastatin 20 mg PO HS 07/16/15 [History] Verapamil Sr [Isoptin Sr] 240 mg PO HS 07/16/15 [History] Albuterol Inhaler [Ventolin Hfa Inhaler] 2 puff INHALATION RT-Q6H PRN 07/18/18 [ History] Aspirin [Adult Low Dose Aspirin EC] 81 mg PO DAILY 07/18/18 [History] Bacitracin Oint 1 applic TOPICAL DAILY 07/18/18 [History] Epoetin Garcia [Procrit] 4,000 unit SQ Q14D 07/18/18 [History] Metoprolol Tartrate [Lopressor] 25 mg PO DAILY 07/18/18 [History] Triamcinolone 0.1% Cream [Kenalog 0.1% Cream] 1 applic TOPICAL DAILY 07/18/18 [ History] Vit C/E/Zn/Coppr/Lutein/Zeaxan [Preservision Areds 2 Softgel] 2 cap PO DAILY [History] amLODIPine [Norvasc] 5 mg PO DAILY #30 tab 07/20/18 [Rx] Follow up Appointment(s)/Referral(s): Carmelo Matamoros MD [Primary Care Provider] - 3 Days Rosendo Melton DO [STAFF PHYSICIAN] - 1 Week Patient Instructions/Handouts: Amlodipine (By mouth), Dehydration (DC), Acute Kidney Injury (DC), Hyperkalemia (DC) Discharge Disposition: HOME SELF-CARE
--- NOTE | 2018-07-20 14:17 | US ---
EXAMINATION TYPE: US kidneys/renal and bladder DATE OF EXAM: 07/20/2018 COMPARISON: None CLINICAL HISTORY: 82-year-old male with acute kidney injury. Patient stated in hospital for change in medication resulting in interactions and affects on kidneys TECHNIQUE: Multiple sonographic images of the kidneys and bladder are obtained. FINDINGS: EXAM MEASUREMENTS: Right Kidney: 11.5 x 6.4 x 5.3 cm Left Kidney: 11.4 x 5.6 x 5.8 cm Post Void Residual Volume: not assessed as patient just voided half hour prior to coming to US depar tment. Right Kidney: No hydronephrosis. There is a mid cortical cyst = 2.6 x 2.3 x 2.6cm Left Kidney: No hydronephrosis. There is mild perinephric edema which could represent senescent dyson e or could signify chronic kidney disease. Bladder: not prepped Bilateral Jets seen: no, only right ureteral jet was seen after 3 minute observation IMPRESSION: 1. No hydronephrosis. Incidental benign 2.6 cm right renal cyst. 2. Mild perinephric edema could represent senescent change or could signify chronic kidney disease.
== END 2018-07-20 14:34 | disposition home or self-care (01) | DRG 683 ==
LOC: EC 13:55 → 5MS5E 16:23
PROVIDERS: ADMIT Hospitalist; ATTEND Hospitalist
DX: N17.0 Acute kidney failure with tubular necrosis (principal); E87.2 Acidosis; E11.22 Type 2 diabetes mellitus with diabetic chronic kidney disease; E78.5 Hyperlipidemia, unspecified; E86.0 Dehydration; E87.5 Hyperkalemia; E87.8 Other disorders of electrolyte and fluid balance, not elsewhere classified; J44.9 Chronic obstructive pulmonary disease, unspecified; D63.1 Anemia in chronic kidney disease; N18.3 Chronic kidney disease, stage 3 (moderate); E03.9 Hypothyroidism, unspecified; T38.3X5A Adverse effect of insulin and oral hypoglycemic [antidiabetic] drugs, initial encounter; T46.4X5A Adverse effect of angiotensin-converting-enzyme inhibitors, initial encounter; H40.9 Unspecified glaucoma; I12.9 Hypertensive chronic kidney disease with stage 1 through stage 4 chronic kidney disease, or unspecified chronic kidney disease; K57.90 Diverticulosis of intestine, part unspecified, without perforation or abscess without bleeding; L40.9 Psoriasis, unspecified; M10.9 Gout, unspecified; M19.90 Unspecified osteoarthritis, unspecified site; Z79.82 Long term (current) use of aspirin; Z79.84 Long term (current) use of oral hypoglycemic drugs; Z79.899 Other long term (current) drug therapy; Z79.890 Hormone replacement therapy; Z88.1 Allergy status to other antibiotic agents; Z90.49 Acquired absence of other specified parts of digestive tract; Z87.19 Personal history of other diseases of the digestive system; Z87.891 Personal history of nicotine dependence; Z80.42 Family history of malignant neoplasm of prostate; Z81.1 Family history of alcohol abuse and dependence; Y92.009 Unspecified place in unspecified non-institutional (private) residence as the place of occurrence of the external cause
CPT/HCPCS: 36415; 76770; 80048; 80053; 81001; 82150; 83036; 83690; 85025; 85027; 93005; 96361; 96374; 99285

== ENCOUNTER → 2018-08-08 | Outpatient (CLI) | payer MEDICARE ==
--- NOTE | 2018-08-08 13:57 | CT ---
EXAMINATION TYPE: CT chest wo con DATE OF EXAM: 08/08/2018 COMPARISON: None HISTORY: Previous abnormal cxr. CT DLP: [address] of the chest was performed with lung and mediastinal window settings submitted. The la ck of contrast limits evaluation of the vascular, mediastinal and parenchymal structures including th e upper abdomen. LUNGS: The lungs are clear and free of infiltrate. No atelectasis. No pulmonary nodule or mass is de tected. No pleural effusion. No CT evidence of interstitial lung disease. MEDIASTINUM/SAUL: Thoracic aorta is of normal caliber with limited evaluation given lack of contrast . The heart is not enlarged. No evidence for mediastinal mass. No lymph nodes greater than 1cm. UPPER ABDOMEN: Renal cystic changes noted. OTHER: No significant other abnormality. IMPRESSION: 1. No distinct abnormality appreciated at this time.
== END | disposition home or self-care (01) ==
LOC: RADCTMAIN 13:04
PROVIDERS: ATTEND Internal Medicine Hematology & Oncology
DX: R91.8 Other nonspecific abnormal finding of lung field (principal)
CPT/HCPCS: 71250

== ENCOUNTER 2018-12-18 09:20 | Inpatient (IN) | payer MEDICARE ==
[2018-12-18] MEDS ORDERED: IPRATROPIUM-ALBUTEROL 3 ML NEB INHALATION STA ×2 (10:00→12:14)
[2018-12-18] MEDS ORDERED: methylPREDNISolone SOD SUCCI 125 MG/2 ML VIAL IV STA (10:00)
[2018-12-18] MEDS ORDERED: FUROSEMIDE 10 MG/ML 4 ML VIAL IV STA (10:00)
[2018-12-18 10:18] LABS: Anisocytosis Slight; Basophils % (A) 0 %; Eosinophils # (A) 0.1 k/uL (0-0.7); Eosinophils % (A) 1 %; HCT 31.1 % (39.0-53.0); HGB 9.5 gm/dL (13.0-17.5); Hypochromasia Slight; Lymphocytes # (A) 0.6 k/uL (1.0-4.8); Lymphocytes % (A) 6 %; MCH 28.2 pg (25.0-35.0); MCHC 30.7 g/dL (31.0-37.0); Mean Platelet Volume 6.2; Monocytes # (A) 0.7 k/uL (0-1.0); Monocytes % (A) 7 %; Neutrophils # (A) 7.9 k/uL (1.3-7.7); Neutrophils % (A) 83 %; Platelet Count 368 k/uL (150-450); Poikilocytosis Slight; RBC 3.38 m/uL (4.30-5.90); RDW 17.5 % (11.5-15.5); WBC 9.5 k/uL (3.8-10.6)
[2018-12-18 10:30] LABS: Albumin 3.8 g/dL (3.5-5.0); Calcium 8.4 mg/dL (8.4-10.2); Magnesium 2.4 mg/dL (1.6-2.3); Potassium 5.1 mmol/L (3.5-5.1); Total Bilirubin 0.4 mg/dL (0.2-1.3); Total Protein 6.4 g/dL (6.3-8.2)
--- NOTE | 2018-12-18 10:38 | XR ---
EXAMINATION TYPE: XR chest 2V DATE OF EXAM: 12/18/2018 COMPARISON: Prior chest x-ray 07/04/[address] chest 08/08/2018 HISTORY: Difficulty breathing, shortness of breath TECHNIQUE: Frontal and lateral views of the chest are obtained. FINDINGS: There is blunting of the costophrenic angles which is developed in the interval. Heart siz e not significantly changed accounting for differences in technique, there are cardiac leads. Pulmona ry vascularity and tucker show similar appearance. No pneumothorax. The aorta is dense and aneurysmal. There are coronary artery calcifications. Prominent lung volume may be indicative of COPD. Interstiti um is increased. Prominence of pulmonary artery may be due to pulmonary artery hypertension IMPRESSION: Small pleural effusions and associated atelectasis, there may be pulmonary venous hypert ension and interstitial edema, correlate to exclude pneumonia. Aortic aneurysm and additional finding s above. Follow-up recommended.
[2018-12-18 10:40] LABS: Partial Thromboplastin Time 26.8 sec (22.0-30.0); Prothrombin Time 10.5 sec (9.0-12.0)
[2018-12-18 10:43] LABS: Creatine Kinase 259 U/L (55-170)
--- NOTE | 2018-12-18 10:47 | ED ---
SOB HPI - General Chief Complaint: Shortness of Breath Stated Complaint: SAVANNAH Time Seen by Provider: 12/18/18 09:51 Source: patient, RN notes reviewed Mode of arrival: ambulatory Limitations: no limitations - History of Present Illness Initial Comments: This is a 83-year-old male with a history of asthma renal failure who states he is short of breath for last 3-4 days he states she's had edema to his lower extremities with weeping he states he'll get blisters and then the popping yellow fluid comes out. He denies any overt chest pain fevers chills or sweats he does have exertional dyspnea. Minimal cough. He does state that he has a history of smoking he quit smoking past also used to be a drinker he quit drinking alcohol. He has ever prior history of pancreatitis. He also states he did fall recently but states it was a slowed the stent and did not really injure himself he did have a 4 head abrasion. He denies any focal weakness to his upper or lower extremities no other modifying factors at this time. MD Complaint: shortness of breath - Related Data Home Medications Medication Instructions Recorded Confirmed Garlic 1 tab PO DAILY 07/16/15 12/18/18 Simvastatin 20 mg PO HS 07/16/15 12/18/18 Verapamil Sr [Isoptin Sr] 240 mg PO HS 07/16/15 12/18/18 Aspirin [Adult Low Dose Aspirin EC] 81 mg PO DAILY 07/18/18 12/18/18 Vit C/E/Zn/Coppr/Lutein/Zeaxan 2 cap PO DAILY 07/18/18 12/18/18 [Preservision Areds 2 Softgel] Calcitriol [Rocaltrol] 0.25 mcg PO MOWEFR 12/18/18 12/18/18 Calcium Acetate [Phoslo] 667 mg PO DAILY 12/18/18 12/18/18 Ergocalciferol (Vitamin D2) 50,000 unit PO QMONTH 12/18/18 12/18/18 [Vitamin D2] Gabapentin [Neurontin] 300 mg PO BID 12/18/18 12/18/18 Levothyroxine Sodium [Synthroid] 150 mcg PO DAILY 12/18/18 12/18/18 hydrALAZINE HCL [Apresoline] 50 mg PO TID 01/30/19 01/30/19 Previous Rx's Medication Instructions Recorded Sodium Bicarbonate Tab 1,300 mg PO BID #120 tablet 07/20/18 amLODIPine [Norvasc] 5 mg PO DAILY #30 tab 07/20/18 Allergies Allergy/AdvReac Type Severity Reaction Status Date / Time lisinopril Allergy Unknown Verified 12/18/18 10:50 metformin Allergy Unknown Verified 12/18/18 10:50 ciprofloxacin [From Cipro] AdvReac Nausea & Verified 12/18/18 10:50 Vomiting Review of Systems ROS Statement: Those systems with pertinent positive or pertinent negative responses have been documented in the HPI. ROS Other: All systems not noted in ROS Statement are negative. Past Medical History Past Medical History: Diabetes Mellitus, Hyperlipidemia, Hypertension, Osteoarthritis (OA), Thyroid Disorder Additional Past Medical History / Comment(s): Other HX: diverticulosis, rectal polyps,psoriasis, glaucoma,gout; uti; panceatitis History of Any Multi-Drug Resistant Organisms: None Reported Past Surgical History: Cholecystectomy Additional Past Surgical History / Comment(s): colonoscopy with polypectomy Past Anesthesia/Blood Transfusion Reactions: No Reported Reaction Additional Past Anesthesia/Blood Transfusion Reaction / Comment(s): Pt states he has never recieved blood. Past Psychological History: No Psychological Hx Reported Smoking Status: Former smoker Past Alcohol Use History: None Reported Past Drug Use History: None Reported - Past Family History Father Family Medical History: Cancer Additional Family Medical History / Comment(s): Father of prostate cancer. He was an alcoholic Mother Family Medical History: Cancer Additional Family Medical History / Comment(s): Mother of some kind of cancer. General Exam - General Exam Comments Initial Comments: This is a well-developed asthenic appearing male who is awake alert oriented 3 and does demonstrate a [place] Coma Scale of 15 Limitations: no limitations General appearance: alert Head exam: Present: normocephalic, other (Contusion abrasion noted to the right forehead no step-off or crepitation) Eye exam: Present: normal appearance, PERRL, EOMI. Absent: scleral icterus, conjunctival injection, periorbital swelling ENT exam: Present: mucous membranes dry Neck exam: Present: normal inspection, full ROM, other (No stridor JVD or bruits ). Absent: tenderness, meningismus, lymphadenopathy Respiratory exam: Present: wheezes, decreased breath sounds. Absent: respiratory distress, rales, rhonchi, stridor Cardiovascular Exam: Present: regular rate, normal rhythm, normal heart sounds. Absent: systolic murmur, diastolic murmur, rubs, gallop, clicks GI/Abdominal exam: Present: soft, normal bowel sounds. Absent: distended, tenderness, guarding, rebound, rigid Extremities exam: Present: normal inspection, full ROM, normal capillary refill. Absent: tenderness, pedal edema, joint swelling, calf tenderness Back exam: Present: normal inspection Neurological exam: Present: alert, oriented X3, CN II-XII intact Psychiatric exam: Present: normal affect, normal mood Skin exam: Present: warm, normal color, other (Gabo his dermatitis demonstrate a both lower extremities with edema and some excoriation along with some weeping noted.). Absent: rash Course Vital Signs 12/18/18 12/18/18 12/18/18 09:24 10:53 10:59 Temperature 97.9 F Pulse Rate 67 64 62 Respiratory 16 12 Rate Blood Pressure 159/56 O2 Sat by Pulse 96 Oximetry 12/18/18 12/18/18 11:13 11:58 Temperature Pulse Rate 63 63 Respiratory 18 18 Rate Blood Pressure 158/68 151/80 O2 Sat by Pulse 96 97 Oximetry - Reevaluation(s) Reevaluation #1: 12/18/18 11:26 Patient received little relief thus far in his ability to breathe Reevaluation #2: 12/18/18 12:17 Still has not received much relief from the treatment rendered another updraft will be ordered. We did discuss the clinical findings as well as the lab results. Medical Decision Making - Medical Decision Making I did discuss findings with patient he does have a history of chronic renal insufficiency. He presents with evidence of acute chronic renal insufficiency as well as CHF and anemia COPD exacerbation. He will be admitted the case will be discussed with Dr. Matamoros's office and admission to the hospitalist - Lab Data Result diagrams: 12/18/18 09:50 12/18/18 09:50 Lab Results 12/18/18 12/18/18 12/18/18 Range/Units 09:50 09:50 09:50 WBC 9.5 (3.8-10.6) k/uL RBC 3.38 L (4.30-5.90) m/uL Hgb 9.5 L (13.0-17.5) gm/dL Hct 31.1 L (39.0-53.0) % MCV 92.0 (80.0-100.0) fL MCH 28.2 (25.0-35.0) pg MCHC 30.7 L (31.0-37.0) g/dL RDW 17.5 H (11.5-15.5) % Plt Count 368 (150-450) k/uL Neutrophils % 83 % Lymphocytes % 6 % Monocytes % 7 % Eosinophils % 1 % Basophils % 0 % Neutrophils # 7.9 H (1.3-7.7) k/uL Lymphocytes # 0.6 L (1.0-4.8) k/uL Monocytes # 0.7 (0-1.0) k/uL Eosinophils # 0.1 (0-0.7) k/uL Basophils # 0.0 (0-0.2) k/uL Hypochromasia Slight Poikilocytosis Slight Anisocytosis Slight PT (9.0-12.0) sec INR (<1.2) APTT (22.0-30.0) sec D-Dimer (<0.60) mg/L FEU Sodium 138 (137-145) mmol/L Potassium 5.1 (3.5-5.1) mmol/L Chloride 108 H (98-107) mmol/L Carbon Dioxide 15 L (22-30) mmol/L Anion Gap 15 mmol/L BUN 95 H (9-20) mg/dL Creatinine 4.38 H (0.66-1.25) mg/dL Est GFR (CKD-EPI)AfAm 13 (>60 ml/min/1.73 sqM) Est GFR (CKD-EPI)NonAf 12 (>60 ml/min/1.73 sqM) Glucose 157 H (74-99) mg/dL Calcium 8.4 (8.4-10.2) mg/dL Magnesium 2.4 H (1.6-2.3) mg/dL Total Bilirubin 0.4 (0.2-1.3) mg/dL AST 22 (17-59) U/L ALT 34 (21-72) U/L Alkaline Phosphatase 87 (38-126) U/L Total Creatine Kinase 259 H (55-170) U/L CK-MB (CK-2) 5.6 H (0.0-2.4) ng/mL CK-MB (CK-2) Rel Index 2.2 Troponin I <0.012 (0.000-0.034) ng/mL NT-Pro-B Natriuret Pep pg/mL Total Protein 6.4 (6.3-8.2) g/dL Albumin 3.8 (3.5-5.0) g/dL 12/18/18 12/18/18 Range/Units 09:50 09:50 WBC (3.8-10.6) k/uL RBC (4.30-5.90) m/uL Hgb (13.0-17.5) gm/dL Hct (39.0-53.0) % MCV (80.0-100.0) fL MCH (25.0-35.0) pg MCHC (31.0-37.0) g/dL RDW (11.5-15.5) % Plt Count (150-450) k/uL Neutrophils % % Lymphocytes % % Monocytes % % Eosinophils % % Basophils % % Neutrophils # (1.3-7.7) k/uL Lymphocytes # (1.0-4.8) k/uL Monocytes # (0-1.0) k/uL Eosinophils # (0-0.7) k/uL Basophils # (0-0.2) k/uL Hypochromasia Poikilocytosis Anisocytosis PT 10.5 (9.0-12.0) sec INR 1.0 (<1.2) APTT 26.8 (22.0-30.0) sec D-Dimer 4.15 H (<0.60) mg/L FEU Sodium (137-145) mmol/L Potassium (3.5-5.1) mmol/L Chloride (98-107) mmol/L Carbon Dioxide (22-30) mmol/L Anion Gap mmol/L BUN (9-20) mg/dL Creatinine (0.66-1.25) mg/dL Est GFR (CKD-EPI)AfAm (>60 ml/min/1.73 sqM) Est GFR (CKD-EPI)NonAf (>60 ml/min/1.73 sqM) Glucose (74-99) mg/dL Calcium (8.4-10.2) mg/dL Magnesium (1.6-2.3) mg/dL Total Bilirubin (0.2-1.3) mg/dL AST (17-59) U/L ALT (21-72) U/L Alkaline Phosphatase (38-126) U/L Total Creatine Kinase (55-170) U/L CK-MB (CK-2) (0.0-2.4) ng/mL CK-MB (CK-2) Rel Index Troponin I (0.000-0.034) ng/mL NT-Pro-B Natriuret Pep 41690 pg/mL Total Protein (6.3-8.2) g/dL Albumin (3.5-5.0) g/dL - EKG Data -: EKG Interpreted by Me EKG shows normal: sinus rhythm (Sinus rhythm a 66 MD interval 120 QRS duration 152 daily since QTC 472/494 right bundle-branch block pattern and left anterior fascicular block no definite acute ST-T wave changes) - Radiology Data Radiology results: report reviewed (I did review the imaging and reports are is evidence of bilateral pleural effusions recent complete report), image reviewed Critical Care Time Critical Care Time: Yes Critical Care Time: 30 a.m. is in critical care time which consisted presentation with history physical labs x-rays reevaluation of the patient to responsive therapy review of old charting discussion with patient's attending discussion with the hospitalist initial orders documentation of the above. Disposition Clinical Impression: Congestive heart failure, Acute exacerbation of chronic obstructive airways disease, Adult respiratory distress syndrome, Acute on chronic renal failure, Anemia Disposition: ADMITTED IP TO THIS HOSP Condition: Serious Referrals: Carmelo Matamoros MD [Primary Care Provider] - 1-2 days
[2018-12-18 10:56] LABS: Creatine Kinase MB 5.6 ng/mL (0.0-2.4); Troponin I <0.012 ng/mL (0.000-0.034)
[2018-12-18 10:58] LABS: D-Dimer 4.15 mg/L FEU (<0.60)
[2018-12-18] MEDS ORDERED: NITROGLYCERIN OINT 1 INCH/GM PACKET TOPICAL STA (11:30)
--- NOTE | 2018-12-18 12:18 | CT ---
EXAMINATION TYPE: CT brain wo con DATE OF EXAM: 12/18/2018 COMPARISON: HISTORY: Weakness and difficulty breathing. CT DLP: 1138.4 mGycm Automated exposure control for dose reduction was used. Helical imaging through the brain FINDINGS: There is no hemorrhage or hydrocephalus. Cortical atrophy is likely age-related. Periventricular low- attenuation is present, low density also present within the mary and left cerebral peduncle of questi onable chronicity. Cerebral vascular calcifications are present. IMPRESSION: PROBABLE AGE-RELATED ATROPHY AND CHRONIC SMALL VESSEL ISCHEMIA. CONSIDER MRI INDICATED.
--- NOTE | 2018-12-18 15:28 | NM ---
EXAMINATION TYPE: NM pul vent and perfuse DATE OF EXAM: 12/18/2018 COMPARISON: Chest x-ray same date HISTORY: Elevated d-dimer, difficulty breathing and shortness of breath TECHNIQUE: Utilizing inhalation of 42.1 mCi Tc 99m DTPA aerosol and intravenous injection of 5.4 mCi of Tc 99m MAA, ventilation and perfusion images are acquired post injection in multiple projections. FINDINGS: The radio pharmaceutical uptake on perfusion imaging is more homogenous than on ventilation imaging. No significant mismatch evident. IMPRESSION: Low probability for pulmonary embolism
[2018-12-18] MEDS ORDERED: IPRATROPIUM-ALBUTEROL 3 ML NEB INHALATION PRN (15:53)
[2018-12-18] MEDS ORDERED: IPRATROPIUM-ALBUTEROL 3 ML NEB INHALATION SCH (16:00)
--- NOTE | 2018-12-18 16:03 | P.HPIM ---
History of Present Illness H&P Date: 12/18/18 Chief Complaint: Shortness of breath 83-year-old male with PMH of asthma, diabetes mellitus, hypertension, hyperlipidemia, thyroid disorder presents the ED for shortness of breath. Patient reports dyspnea for the past 2 weeks. Patient states that his breathing is worse when bending over or with exertion. Patient also reports lower extremity edema over the past 2 weeks and weeping fluid filled blisters. He denies any cough or chest pain. He denies any PND. Patient denies any exercise, unable to determine her exercise tolerance. He denies any headaches, nausea, vomiting, fever, palpitations, changes in urination or bowel habits. No changes in appetite or weight. On presentation to the ED, his vital signs are stable. CBC showed a hemoglobin of 9.5. D-dimer is elevated at 4.15. CMP shows metabolic acidosis with a creatinine of 4.38. Initial troponin is less than 0.012. BNP was 14,400. Patient is admitted for COPD exacerbation. Nephrology is consulted for possible initiation of dialysis. Review of Systems All systems: negative Past Medical History Past Medical History: Asthma, Cancer, COPD, Diabetes Mellitus, Hyperlipidemia, Hypertension, Osteoarthritis (OA), Renal Disease, Thyroid Disorder Additional Past Medical History / Comment(s): NIDDM type II, neuropathy bilateral legs and feet, current sores bilateral lower legs, current "corn" bottom R foot, CKD stage III/diabetic nephropathy, UTI, gout feet years ago, skin cancer removals, pancreatitis, hypothyroid. History of Any Multi-Drug Resistant Organisms: None Reported Past Surgical History: Cholecystectomy Additional Past Surgical History / Comment(s): colonoscopy with polypectomy, skin cancer removed from forehead. Past Anesthesia/Blood Transfusion Reactions: No Reported Reaction Additional Past Anesthesia/Blood Transfusion Reaction / Comment(s): Pt states he has never recieved blood. Past Psychological History: No Psychological Hx Reported Additional Psychological History / Comment(s): Pt lives alone. He is independent. He uses no assistive device or home care. He drives. has 1 small dog, [employer]sales Smoking Status: Former smoker Past Alcohol Use History: None Reported Additional Past Alcohol Use History / Comment(s): Pt states he quit smoking in 1982. He quit drinking alcohol 5 yrs ago. Past Drug Use History: None Reported - Past Family History Father Family Medical History: Cancer Additional Family Medical History / Comment(s): Father of prostate cancer. He was an alcoholic Mother Family Medical History: Cancer Additional Family Medical History / Comment(s): Mother of some kind of cancer pt unsure which kind. He states he knows she had breast cancer as well. Medications and Allergies Home Medications Medication Instructions Recorded Confirmed Type Garlic 1 tab PO DAILY 07/16/15 12/18/18 History Simvastatin 20 mg PO HS 07/16/15 12/18/18 History Verapamil Sr [Isoptin Sr] 240 mg PO HS 07/16/15 12/18/18 History Aspirin [Adult Low Dose Aspirin EC] 81 mg PO DAILY 07/18/18 12/18/18 History Vit C/E/Zn/Coppr/Lutein/Zeaxan 2 cap PO DAILY 07/18/18 12/18/18 History [Preservision Areds 2 Softgel] Sodium Bicarbonate Tab 1,300 mg PO BID #120 tablet 07/20/18 12/18/18 Rx amLODIPine [Norvasc] 5 mg PO DAILY #30 tab 07/20/18 12/18/18 Rx Calcitriol [Rocaltrol] 0.25 mcg PO MOWEFR 12/18/18 12/18/18 History Calcium Acetate [Phoslo] 667 mg PO DAILY 12/18/18 12/18/18 History Ergocalciferol (Vitamin D2) 50,000 unit PO QMONTH 12/18/18 12/18/18 History [Vitamin D2] Gabapentin [Neurontin] 300 mg PO BID 12/18/18 12/18/18 History Levothyroxine Sodium [Synthroid] 150 mcg PO DAILY 12/18/18 12/18/18 History hydrALAZINE HCL [Apresoline] 50 mg PO TID 12/18/18 12/18/18 History Allergies Allergy/AdvReac Type Severity Reaction Status Date / Time lisinopril Allergy Unknown Verified 12/18/18 10:50 metformin Allergy Unknown Verified 12/18/18 10:50 ciprofloxacin [From Cipro] AdvReac Nausea & Verified 12/18/18 10:50 Vomiting Physical Exam Vitals: Vital Signs Temp Pulse Resp BP Pulse Ox 12/18/18 14:00 82 18 162/69 12/18/18 13:00 80 18 159/96 100 12/18/18 12:32 64 12/18/18 12:24 66 14 12/18/18 11:58 63 18 151/80 97 12/18/18 11:13 63 18 158/68 96 12/18/18 10:59 62 12/18/18 10:53 64 12 12/18/18 09:24 97.9 F 67 16 159/56 96 Intake and Output 12/18/18 12/18/18 12/18/18 06:59 14:59 22:59 Other: Weight 73.028 kg General: [non toxic], [no distress], [appears at stated age] Derm: [warm], [dry] Head: [atraumatic], [normocephalic], [symmetric] Eyes: [EOMI], [no lid lag], [anicteric sclera] Mouth: [no lip lesion], [mucus membranes moist] Cardiovascular: [S1S2 reg], [no murmur], [positive posterior tibial pulse bilateral], Lungs: [Decreased breath sounds bilateral], [no rhonchi, no rales] , [no accessory muscle use] Abdominal: [soft], [ nontender to palpation], [no guarding], [no appreciable organomegaly] Ext: [no gross muscle atrophy], [no edema], [no contractures], [bilateral lower extremity with weeping superficial wounds and blisters] Neuro: [ CN II-XI grossly intact], [no focal neuro deficits] Psych: [Alert], [oriented], [appropriate affect] Results CBC & Chem 7: 12/18/18 09:50 12/18/18 09:50 Labs: Abnormal Lab Results - Last 24 Hours (Table) 12/18/18 12/18/18 12/18/18 Range/Units 09:50 09:50 09:50 RBC 3.38 L (4.30-5.90) m/uL Hgb 9.5 L (13.0-17.5) gm/dL Hct 31.1 L (39.0-53.0) % MCHC 30.7 L (31.0-37.0) g/dL RDW 17.5 H (11.5-15.5) % Neutrophils # 7.9 H (1.3-7.7) k/uL Lymphocytes # 0.6 L (1.0-4.8) k/uL D-Dimer (<0.60) mg/L FEU Chloride 108 H (98-107) mmol/L Carbon Dioxide 15 L (22-30) mmol/L BUN 95 H (9-20) mg/dL Creatinine 4.38 H (0.66-1.25) mg/dL Glucose 157 H (74-99) mg/dL Magnesium 2.4 H (1.6-2.3) mg/dL Total Creatine Kinase 259 H (55-170) U/L CK-MB (CK-2) 5.6 H (0.0-2.4) ng/mL 12/18/18 Range/Units 09:50 RBC (4.30-5.90) m/uL Hgb (13.0-17.5) gm/dL Hct (39.0-53.0) % MCHC (31.0-37.0) g/dL RDW (11.5-15.5) % Neutrophils # (1.3-7.7) k/uL Lymphocytes # (1.0-4.8) k/uL D-Dimer 4.15 H (<0.60) mg/L FEU Chloride (98-107) mmol/L Carbon Dioxide (22-30) mmol/L BUN (9-20) mg/dL Creatinine (0.66-1.25) mg/dL Glucose (74-99) mg/dL Magnesium (1.6-2.3) mg/dL Total Creatine Kinase (55-170) U/L CK-MB (CK-2) (0.0-2.4) ng/mL Thrombosis Risk Factor Assmnt - Choose All That Apply Any of the Below Risk Factors Present?: Yes Each Factor Represents 1 point: Abnormal pulmonary function (COPD), Obesity ( BMI >25) Each Risk Factor Represents 3 Points: Age 75 years or older Thrombosis Risk Factor Assessment Total Risk Factor Score: 5 Thrombosis Risk Factor Assessment Level: High Risk Assessment and Plan Assessment: Assessment and Plan 1. COPD exacerbation 2. ARI on CKD, acute renal failure with metabolic acidosis 3. Hypertension 4. Hypothyroidism 5. DVT and GI prophylaxis 1. Likely secondary to changes in weather. Continue DuoNeb 4 times a day scheduled and as needed for shortness of breath and wheezing. Continue Solu- Medrol 60 mg IV 3 times a day. Could be partially related to fluid overload from acute renal failure, continue Lasix 40 IV twice a day. Oxygen per nasal cannula to maintain oxygen saturation greater than 92%. 2. Creatinine is 4.38 with metabolic acidosis. Avoid nephrotoxins. Continue calcitriol and sodium bicarbonate tablets. Monitor and replace electrolytes. We'll follow nephrology recommendations. 3. BP 149/60. Continue hydralazine 50 mg by mouth 3 times a day, verapamil 240 mg by mouth at bedtime. Monitor vitals, adjust medications as necessary. 4. Stable. Continue Synthroid 150 g by mouth daily. 5. Heparin 5000 units subcutaneously twice a day. Patient being admitted for COPD exacerbation, pending clinical improvement. Noted to have elevated creatinine with metabolic acidosis, follow nephrology recommendations.
[2018-12-18] MEDS: FUROSEMIDE 10 MG/ML 4 ML VIAL IV SCH ×2 (16:40→20:14)
[2018-12-18] MEDS: CALCITRIOL 0.25 MCG CAP PO SCH (16:40)
[2018-12-18] MEDS: hydrALAZINE HCL 50 MG TAB PO SCH ×2 (16:53→22:48)
[2018-12-18] MEDS: methylPREDNISolone SOD SUCCI 125 MG/2 ML VIAL IV SCH ×2 (16:54→22:50)
[2018-12-18] MEDS: NITROGLYCERIN OINT 1 INCH/GM PACKET TOPICAL SCH ×2 (16:54→22:47)
[2018-12-18] MEDS: ATORVASTATIN 10 MG TAB PO SCH (20:14)
[2018-12-18] MEDS: GABAPENTIN 300 MG CAP PO SCH (20:14)
[2018-12-18] MEDS: HEPARIN SODIUM,PORCINE 5,000 UNIT/ML 1 ML VIAL SQ SCH (20:14)
[2018-12-18] MEDS: IPRATROPIUM-ALBUTEROL 3 ML NEB INHALATION SCH (20:15)
[2018-12-18] MEDS: SODIUM BICARBONATE TAB 650 MG TAB PO SCH (20:15)
[2018-12-18] MEDS ORDERED: VERAPAMIL SR 240 MG TABLET.ER PO SCH (21:00)
[2018-12-19 05:57] LABS: Glucose,Whole Blood 196 mg/dL (75-99)
[2018-12-19] MEDS: LEVOTHYROXINE 75 MCG TAB PO SCH (06:14)
[2018-12-19] MEDS ORDERED: INSULIN ASPART 100 UNIT/ML 1 ML 10 ML VIAL SQ SCH (07:30)
[2018-12-19] MEDS: ASPIRIN 81 MG PO SCH (08:34)
[2018-12-19] MEDS: HEPARIN SODIUM,PORCINE 5,000 UNIT/ML 1 ML VIAL SQ SCH ×2 (08:34→21:16)
[2018-12-19] MEDS: FUROSEMIDE 10 MG/ML 4 ML VIAL IV SCH ×2 (08:34→21:16)
[2018-12-19] MEDS: hydrALAZINE HCL 50 MG TAB PO SCH ×3 (08:34→21:16)
[2018-12-19] MEDS: methylPREDNISolone SOD SUCCI 125 MG/2 ML VIAL IV SCH ×3 (08:34→21:17)
[2018-12-19] MEDS: CALCIUM ACETATE 667 MG CAP PO SCH (08:34)
[2018-12-19] MEDS: SODIUM BICARBONATE TAB 650 MG TAB PO SCH ×2 (08:34→21:16)
[2018-12-19] MEDS: GABAPENTIN 300 MG CAP PO SCH ×2 (08:34→21:17)
[2018-12-19] MEDS: NITROGLYCERIN OINT 1 INCH/GM PACKET TOPICAL SCH ×4 (08:35→21:17)
--- NOTE | 2018-12-19 08:46 | P.CRDCN ---
History of Present Illness Consult date: 12/19/18 Requesting physician: Burke Kelly Consult reason: congestive heart failure Chief complaint: Shortness of breath History of present illness: This is an 83-year-old gentleman with history of chronic kidney disease, stage III he states that he was being worked up as an outpatient for possible dialysis. He also has history of hypertension, diabetes, hyperlipidemia, hypothyroidism, he presented to the hospital with progressive weakness and shortness of breath. Patient also has significant bilateral peripheral edema. He has open blistered an ulcerated areas noted on his lower extremities. Patient used to smoke he states that he quit smoking in 1986. According to the patient, he's been getting progressively more short of breath and states that he is extremely weak. He also states that he has had 2 falls, one inside the home and when outside the home. He denies any syncope he states that he just becomes extremely weak and falls to the ground. He does have a small area of ecchymosis noted on his forehead. Chest x-ray shows small pleural effusions and associated atelectasis, there may be some pulmonary venous hypertension and interstitial edema, correlate to exclude pneumonia. CAT scan of the brain reveals probable age-related atrophy and chronic small vessel ischemia. VQ scan was performed which came back low probability for pulmonary embolism. Blood pressure 170/70, heart rate in the 70s, 95% on 2 L of oxygen. White blood cell count 9.5, hemoglobin 9.5, platelet count 368. D- dimer 4.1. Sodium 138, potassium 5.1, BUN 95 and creatinine 4.3. Magnesium 2.4 , troponin 0.012, BNP level 14,400. At the time of my examination this morning , patient appears to be lying comfortably in bed, he is mildly short of breath with conversation. Past Medical History Past Medical History: Asthma, Cancer, COPD, Diabetes Mellitus, Hyperlipidemia, Hypertension, Osteoarthritis (OA), Renal Disease, Thyroid Disorder Additional Past Medical History / Comment(s): NIDDM type II, neuropathy bilateral legs and feet, current sores bilateral lower legs, current "corn" bottom R foot, CKD stage III/diabetic nephropathy, UTI, gout feet years ago, skin cancer removals, pancreatitis, hypothyroid. History of Any Multi-Drug Resistant Organisms: None Reported Past Surgical History: Cholecystectomy Additional Past Surgical History / Comment(s): colonoscopy with polypectomy, skin cancer removed from forehead. Past Anesthesia/Blood Transfusion Reactions: No Reported Reaction Additional Past Anesthesia/Blood Transfusion Reaction / Comment(s): Pt states he has never recieved blood. Past Psychological History: No Psychological Hx Reported Additional Psychological History / Comment(s): Pt lives alone. He is independent. He uses no assistive device or home care. He drives. has 1 small dog, rosales Smoking Status: Former smoker Past Alcohol Use History: None Reported Additional Past Alcohol Use History / Comment(s): Pt states he quit smoking in 1982. He quit drinking alcohol 5 yrs ago. Past Drug Use History: None Reported - Past Family History Father Family Medical History: Cancer Additional Family Medical History / Comment(s): Father of prostate cancer. He was an alcoholic Mother Family Medical History: Cancer Additional Family Medical History / Comment(s): Mother of some kind of cancer pt unsure which kind. He states he knows she had breast cancer as well. Medications and Allergies Home Medications Medication Instructions Recorded Confirmed Type Garlic 1 tab PO DAILY 07/16/15 12/18/18 History Simvastatin 20 mg PO HS 07/16/15 12/18/18 History Verapamil Sr [Isoptin Sr] 240 mg PO HS 07/16/15 12/18/18 History Aspirin [Adult Low Dose Aspirin EC] 81 mg PO DAILY 07/18/18 12/18/18 History Vit C/E/Zn/Coppr/Lutein/Zeaxan 2 cap PO DAILY 07/18/18 12/18/18 History [Preservision Areds 2 Softgel] Sodium Bicarbonate Tab 1,300 mg PO BID #120 tablet 07/20/18 12/18/18 Rx amLODIPine [Norvasc] 5 mg PO DAILY #30 tab 07/20/18 12/18/18 Rx Calcitriol [Rocaltrol] 0.25 mcg PO MOWEFR 12/18/18 12/18/18 History Calcium Acetate [Phoslo] 667 mg PO DAILY 12/18/18 12/18/18 History Ergocalciferol (Vitamin D2) 50,000 unit PO QMONTH 12/18/18 12/18/18 History [Vitamin D2] Gabapentin [Neurontin] 300 mg PO BID 12/18/18 12/18/18 History Levothyroxine Sodium [Synthroid] 150 mcg PO DAILY 12/18/18 12/18/18 History hydrALAZINE HCL [Apresoline] 50 mg PO TID 12/18/18 12/18/18 History Allergies Allergy/AdvReac Type Severity Reaction Status Date / Time lisinopril Allergy Unknown Verified 12/18/18 10:50 metformin Allergy Unknown Verified 12/18/18 10:50 ciprofloxacin [From Cipro] AdvReac Nausea & Verified 12/18/18 10:50 Vomiting Physical Exam Vitals: Vital Signs Temp Pulse Pulse Pulse Resp BP BP 12/19/18 04:00 97.7 F 71 20 170/75 12/18/18 23:42 78 18 12/18/18 23:40 97.9 F 78 18 159/69 12/18/18 20:32 78 12/18/18 20:15 73 12/18/18 20:00 97.8 F 75 18 157/71 12/18/18 16:45 88 12/18/18 16:39 84 12/18/18 16:25 97.6 F 70 18 169/73 12/18/18 15:44 71 18 149/60 12/18/18 14:00 82 18 162/69 12/18/18 13:00 80 18 159/96 12/18/18 12:32 64 12/18/18 12:24 66 14 12/18/18 11:58 63 18 151/80 12/18/18 11:13 63 18 158/68 12/18/18 10:59 62 12/18/18 10:53 64 12 12/18/18 09:24 97.9 F 67 16 159/56 Pulse Ox 12/19/18 04:00 95 12/18/18 23:42 12/18/18 23:40 93 L 12/18/18 20:32 12/18/18 20:15 12/18/18 20:00 93 L 12/18/18 16:45 12/18/18 16:39 12/18/18 16:25 94 L 12/18/18 15:44 100 12/18/18 14:00 12/18/18 13:00 100 12/18/18 12:32 12/18/18 12:24 12/18/18 11:58 97 12/18/18 11:13 96 12/18/18 10:59 12/18/18 10:53 12/18/18 09:24 96 Intake and Output 12/18/18 12/19/18 12/19/18 22:59 06:59 14:59 Intake Total 540 Output Total 500 Balance 540 -500 Intake: Oral 540 Output: Urine 500 Other: Voiding Method Urinal Urinal # Voids 1 1 Weight 69.1 kg PHYSICAL EXAMINATION: GENERAL: 83-year-old gentleman in no acute distress at the time of my examination HEENT: Head is atraumatic, normocephalic. Pupils equal, round. Sclera anicteric. Conjunctiva are clear. Mucous membranes of the mouth are moist. Neck is supple. There is no elevated jugular venous pressure. No carotid bruit is heard. HEART EXAMINATION: Heart S1, S2 normal. No murmur or gallop heard. CHEST EXAMINATION: Lungs reveal rales to bilateral bases with diminished air entry to the bases. ABDOMEN: Soft, nontender. Bowel sounds are heard. No organomegaly noted. EXTREMITIES: 1+ peripheral pulses with 2+ evidence of peripheral edema , evidence of erythema, blistered areas to lower extremities. NEUROLOGIC patient is awake, alert and oriented 3 . . Results 12/18/18 09:50 12/18/18 09:50 Cardiac Enzymes 12/18/18 12/18/18 Range/Units 09:50 09:50 AST 22 (17-59) U/L CK-MB (CK-2) 5.6 H (0.0-2.4) ng/mL Troponin I <0.012 (0.000-0.034) ng/mL Coagulation 12/18/18 Range/Units 09:50 PT 10.5 (9.0-12.0) sec APTT 26.8 (22.0-30.0) sec CBC 12/18/18 Range/Units 09:50 WBC 9.5 (3.8-10.6) k/uL RBC 3.38 L (4.30-5.90) m/uL Hgb 9.5 L (13.0-17.5) gm/dL Hct 31.1 L (39.0-53.0) % Plt Count 368 (150-450) k/uL Comprehensive Metabolic Panel 12/18/18 Range/Units 09:50 Sodium 138 (137-145) mmol/L Potassium 5.1 (3.5-5.1) mmol/L Chloride 108 H (98-107) mmol/L Carbon Dioxide 15 L (22-30) mmol/L BUN 95 H (9-20) mg/dL Creatinine 4.38 H (0.66-1.25) mg/dL Glucose 157 H (74-99) mg/dL Calcium 8.4 (8.4-10.2) mg/dL AST 22 (17-59) U/L ALT 34 (21-72) U/L Alkaline Phosphatase 87 (38-126) U/L Total Protein 6.4 (6.3-8.2) g/dL Albumin 3.8 (3.5-5.0) g/dL Current Medications Generic Name Dose Route Start Last Admin Trade Name Freq PRN Reason Stop Dose Admin Albuterol/Ipratropium 3 ml 12/18/18 20:00 12/18/18 20:15 Duoneb 0.5 Mg-3 Mg/3 Ml Soln INHALATION 3 ml RT-QID SILVIA Administration Albuterol/Ipratropium 3 ml 12/18/18 17:10 Duoneb 0.5 Mg-3 Mg/3 Ml Soln INHALATION RT-Q2H PRN Shortness Of Breath Or Wheezing Amlodipine Besylate 5 mg 12/19/18 09:00 Norvasc PO DAILY [facility] Aspirin 81 mg 12/19/18 09:00 Aspirin PO DAILY [facility] Atorvastatin Calcium 10 mg 12/18/18 21:00 12/18/18 20:14 Lipitor PO 10 mg HS SILVIA Administration Calcitriol 0.25 mcg 12/18/18 13:15 12/18/18 16:40 Rocaltrol PO Not Given MOWEFR [facility] Calcium Acetate 667 mg 12/19/18 09:00 Phoslo PO DAILY [facility] Ergocalciferol 50,000 unit 12/20/18 09:00 Vitamin D2 PO QMONTH [facility] Furosemide 40 mg 12/18/18 13:15 12/18/18 20:14 Lasix IV 40 mg Q12HR SIL[facility] Administration Gabapentin 300 mg 12/18/18 21:00 12/18/18 20:14 Neurontin PO 300 mg BID SILVIA Administration Heparin Sodium (Porcine) 5,000 unit 12/18/18 21:00 12/18/18 20:14 Heparin SQ 5,000 unit Q12HR [facility] Administration Hydralazine HCl 50 mg 12/18/18 16:00 12/18/18 22:48 Apresoline PO 50 mg TID SIL[facility] Administration Insulin Aspart 0 unit 12/19/18 12:30 Novolog SQ ACHS [facility] Protocol Levothyroxine Sodium 150 mcg 12/19/18 06:30 12/19/18 06:14 Synthroid PO 150 mcg DAILY@0630 S[facility] Administration Methylprednisolone Sodium Succinate 60 mg 12/18/18 16:00 12/18/18 22:50 Solu-Medrol IV 60 mg Q8HR [facility] Administration Nitroglycerin 1 inch 12/18/18 18:00 12/18/18 22:47 Nitro-Bid Oint TOPICAL 1 inch QID [facility] Administration Sodium Bicarbonate 1,300 mg 12/18/18 21:00 12/18/18 20:15 Sodium Bicarbonate Tab PO 1,300 mg BID [facility] Administration Verapamil HCl 240 mg 12/18/18 21:00 12/18/18 20:15 Isoptin Sr PO 240 mg HS [facility] Administration Intake and Output 12/18/18 12/19/18 12/19/18 22:59 06:59 14:59 Intake Total 540 Output Total 500 Balance 540 -500 Intake: Oral 540 Output: Urine 500 Other: Voiding Method Urinal Urinal # Voids 1 1 Weight 69.1 kg 12/18/18 09:50 12/18/18 09:50 EKG Interpretations (text) EKG shows a normal sinus rhythm with a right bundle branch block pattern Assessment and Plan Plan: Assessment and plan #1 symptoms of progressively worsening shortness of breath, likely combination of COPD exacerbation and congestive heart failure. LV function unknown BNP 14, 000 #2 acute on chronic kidney disease #3 hypertension #4 diabetes #5 hypothyroidism #6 hyperlipidemia #7 prior history of smoking Plan We will obtain an echocardiogram with Doppler study. Continue IV Lasix, monitoring intake and output along with daily weights and daily lytes BUN and creatinine. Patient is currently on Norvasc and verapamil which we will discontinue, we will start the patient on Coreg for more optimal blood pressure control. He's not on an BARBARA inhibitor or angiotensin danyelle at this time because of his renal function. Continue hydralazine and nitrates. Further recommendations to follow. DNP note has been reviewed, I agree with a documented findings and plan of care. Patient was seen and examined.
[2018-12-19] MEDS ORDERED: amLODIPine 5 MG TAB PO SCH (09:00)
[2018-12-19] MEDS: IPRATROPIUM-ALBUTEROL 3 ML NEB INHALATION SCH ×4 (09:43→21:13)
--- NOTE | 2018-12-19 10:49 | P.NPCON ---
History of Present Illness - Reason for Consult acute renal failure, chronic renal failure - History of Present Illness Reason for consultation: Acute kidney injury on chronic kidney disease History of present illness: Patient is a 83-year-old male seen in renal consultation for acute kidney injury on chronic kidney disease. Patient has chronic kidney disease stage IV with baseline creatinine near 3 secondary to diabetic kidney disease. Patient follows with me outpatient and I have referred him to vascular surgery for vein mapping and AV fistula placement. Patient presented to the hospital with lower extremity edema. He is currently maintained on Lasix 40 mg IV twice daily. Admits to good urine output. No hematuria or dysuria. Denies chest pain. He is quite dyspneic. He does have history of asthma. He has scattered wheezing. He is maintained on IV steroids and bronchodilator therapy. Hemodynamically stable. No fever. No cough. Vital signs are stable. General: The patient appeared well nourished and normally developed. HEENT: Head exam is unremarkable. Neck is without jugular venous distension. LUNGS: Diffuse wheezing. Breath sounds decreased. HEART: Rate and Rhythm are regular. First and second heart sounds normal. No murmurs, rubs or gallops. ABDOMEN: Abdominal exam reveals normal bowel sounds. Non-tender and non- distended. No evidence of peritonitis. EXTREMITITES: No clubbing, cyanosis, or edema. Past Medical History Past Medical History: Asthma, Cancer, COPD, Diabetes Mellitus, Hyperlipidemia, Hypertension, Osteoarthritis (OA), Renal Disease, Thyroid Disorder Additional Past Medical History / Comment(s): NIDDM type II, neuropathy bilateral legs and feet, current sores bilateral lower legs, current "corn" bottom R foot, CKD stage III/diabetic nephropathy, UTI, gout feet years ago, skin cancer removals, pancreatitis, hypothyroid. History of Any Multi-Drug Resistant Organisms: None Reported Past Surgical History: Cholecystectomy Additional Past Surgical History / Comment(s): colonoscopy with polypectomy, skin cancer removed from forehead. Past Anesthesia/Blood Transfusion Reactions: No Reported Reaction Additional Past Anesthesia/Blood Transfusion Reaction / Comment(s): Pt states he has never recieved blood. Past Psychological History: No Psychological Hx Reported Additional Psychological History / Comment(s): Pt lives alone. He is independent. He uses no assistive device or home care. He drives. has 1 small dog, yorkie Smoking Status: Former smoker Past Alcohol Use History: None Reported Additional Past Alcohol Use History / Comment(s): Pt states he quit smoking in 1982. He quit drinking alcohol 5 yrs ago. Past Drug Use History: None Reported - Past Family History Father Family Medical History: Cancer Additional Family Medical History / Comment(s): Father of prostate cancer. He was an alcoholic Mother Family Medical History: Cancer Additional Family Medical History / Comment(s): Mother of some kind of cancer pt unsure which kind. He states he knows she had breast cancer as well. Medications and Allergies Home Medications Medication Instructions Recorded Confirmed Type Garlic 1 tab PO DAILY 07/16/15 12/18/18 History Simvastatin 20 mg PO HS 07/16/15 12/18/18 History Verapamil Sr [Isoptin Sr] 240 mg PO HS 07/16/15 12/18/18 History Aspirin [Adult Low Dose Aspirin EC] 81 mg PO DAILY 07/18/18 12/18/18 History Vit C/E/Zn/Coppr/Lutein/Zeaxan 2 cap PO DAILY 07/18/18 12/18/18 History [Preservision Areds 2 Softgel] Sodium Bicarbonate Tab 1,300 mg PO BID #120 tablet 07/20/18 12/18/18 Rx amLODIPine [Norvasc] 5 mg PO DAILY #30 tab 07/20/18 12/18/18 Rx Calcitriol [Rocaltrol] 0.25 mcg PO MOWEFR 12/18/18 12/18/18 History Calcium Acetate [Phoslo] 667 mg PO DAILY 12/18/18 12/18/18 History Ergocalciferol (Vitamin D2) 50,000 unit PO QMONTH 12/18/18 12/18/18 History [Vitamin D2] Gabapentin [Neurontin] 300 mg PO BID 12/18/18 12/18/18 History Levothyroxine Sodium [Synthroid] 150 mcg PO DAILY 12/18/18 12/18/18 History hydrALAZINE HCL [Apresoline] 50 mg PO TID 12/18/18 12/18/18 History Allergies Allergy/AdvReac Type Severity Reaction Status Date / Time lisinopril Allergy Unknown Verified 12/18/18 10:50 metformin Allergy Unknown Verified 12/18/18 10:50 ciprofloxacin [From Cipro] AdvReac Nausea & Verified 12/18/18 10:50 Vomiting Physical Exam Vitals: Vital Signs Temp Pulse Pulse Pulse Pulse Resp BP 12/19/18 09:55 84 12/19/18 09:44 84 12/19/18 08:45 97.8 F 71 18 12/19/18 04:00 97.7 F 71 20 12/18/18 23:42 78 18 12/18/18 23:40 97.9 F 78 18 12/18/18 20:32 78 12/18/18 20:15 73 12/18/18 20:00 97.8 F 75 18 12/18/18 16:45 88 12/18/18 16:39 84 12/18/18 16:25 97.6 F 70 18 12/18/18 15:44 71 18 149/60 12/18/18 14:00 82 18 162/69 12/18/18 13:00 80 18 159/96 12/18/18 12:32 64 12/18/18 12:24 66 14 12/18/18 11:58 63 18 151/80 12/18/18 11:13 63 18 158/68 12/18/18 10:59 62 12/18/18 10:53 64 12 BP Pulse Ox 12/19/18 09:55 12/19/18 09:44 12/19/18 08:45 166/72 94 L 12/19/18 04:00 170/75 95 12/18/18 23:42 12/18/18 23:40 159/69 93 L 12/18/18 20:32 12/18/18 20:15 12/18/18 20:00 157/71 93 L 12/18/18 16:45 12/18/18 16:39 12/18/18 16:25 169/73 94 L 12/18/18 15:44 100 12/18/18 14:00 12/18/18 13:00 100 12/18/18 12:32 12/18/18 12:24 12/18/18 11:58 97 12/18/18 11:13 96 12/18/18 10:59 12/18/18 10:53 Intake and Output 12/18/18 12/19/18 12/19/18 22:59 06:59 14:59 Intake Total 540 Output Total 500 Balance 540 -500 Intake: Oral 540 Output: Urine 500 Other: Voiding Method Urinal Urinal Urinal # Voids 1 1 Weight 69.1 kg Results - Lab Results Most recent lab results Calcium 8.4 mg/dL (8.4-10.2) 12/18/18 09:50 Magnesium 2.4 mg/dL (1.6-2.3) H 12/18/18 09:50 12/18/18 09:50 12/18/18 09:50 Assessment and Plan Plan: assessment: 1. Acute kidney injury secondary to ATN secondary to cardiorenal syndrome. Possible progression of underlying chronic and disease. Creatinine 4.3 today. 2. Chronic kidney disease stage IV secondary to diabetic kidney disease with baseline creatinine near 3. Patient had refused kidney biopsy. 3. Diabetes mellitus. 4. Metabolic acidosis secondary to acute kidney injury maintained on oral sodium bicarbonate. 5. Anemia of chronic kidney disease. Rule out iron deficiency. 6. Dyspnea secondary to COPD exacerbation as well as volume overload. 7. Volume overload. 8. Hypertension with chronic any disease. 9. Chronic kidney disease mineral bone disease maintained on calcitriol and PhosLo. Plan: Maintain Lasix 40 mg IV twice daily for now. Follow-up echocardiogram. Avoid nephrotoxins. Check iron studies. Add Aranesp. Continue to monitor renal function and urine output. No urgent need for renal replacement therapy at this time. Thank you for the consultation. I will continue to follow patient with you during his hospital stay.
[2018-12-19 11:37] LABS: Potassium 5.2 mmol/L (3.5-5.1)
[2018-12-19 11:38] LABS: Calcium 8.1 mg/dL (8.4-10.2); Magnesium 2.3 mg/dL (1.6-2.3)
[2018-12-19] MEDS: CARVEDILOL 6.25 MG TAB PO SCH ×2 (12:35→17:22)
[2018-12-19 12:39] LABS: Glucose,Whole Blood 249 mg/dL (75-99)
[2018-12-19] MEDS: INSULIN ASPART 100 UNIT/ML 1 ML 10 ML VIAL SQ SCH ×3 (13:01→21:18)
[2018-12-19 14:16] LABS: Hemoglobin A1C 5.3 % (4.0-6.0)
--- NOTE | 2018-12-19 15:03 | P.PN ---
Subjective Progress Note Date: 12/19/18 Principal diagnosis: COPD exacerbation Patient seen and examined. No acute events overnight. Patient continues to report great difficulty in his breathing. Patient states that his breathing has not changed since yesterday. He denies any cough, chest pain or palpitations. Objective - Vital Signs Vital signs: Vital Signs Temp 97.7 F 12/19/18 12:00 Pulse 84 12/19/18 12:58 Resp 20 12/19/18 12:00 BP 161/70 12/19/18 12:00 Pulse Ox 91 L 12/19/18 12:00 Intake & Output 12/18/18 12/19/18 12/19/18 18:59 06:59 18:59 Intake Total 240 300 Output Total 500 Balance 240 -200 Weight 73.028 kg 69.1 kg 69.1 kg Intake: Oral 240 300 Output: Urine 500 Other: Voiding Method Urinal Urinal # Voids 1 - Exam General: [non toxic], [no distress], [appears at stated age] Derm: [warm], [dry] Head: [atraumatic], [normocephalic], [symmetric] Eyes: [EOMI], [no lid lag], [anicteric sclera] Mouth: [no lip lesion], [mucus membranes moist] Cardiovascular: [S1S2 reg], [no murmur], [positive posterior tibial pulse bilateral], Lungs: [Diffuse wheezing bilateral], [no rhonchi, no rales] , [no accessory muscle use] Abdominal: [soft], [ nontender to palpation], [no guarding], [no appreciable organomegaly] Ext: [no gross muscle atrophy], [no edema], [no contractures], [bilateral lower extremity with weeping superficial wounds and blisters] Neuro: [no focal neuro deficits] Psych: [Alert], [oriented], [appropriate affect] - Labs CBC & Chem 7: 12/18/18 09:50 12/19/18 10:46 Labs: Abnormal Lab Results - Last 24 Hours (Table) 12/19/18 12/19/18 12/19/18 Range/Units 05:56 10:46 12:37 Potassium 5.2 H (3.5-5.1) mmol/L Carbon Dioxide 16 L (22-30) mmol/L BUN 103 H* (9-20) mg/dL Creatinine 4.34 H (0.66-1.25) mg/dL Glucose 244 H (74-99) mg/dL POC Glucose (mg/dL) 196 H 249 H (75-99) mg/dL Calcium 8.1 L (8.4-10.2) mg/dL Microbiology - Last 24 Hours (Table) 12/18/18 10:10 Blood Culture - Preliminary Blood No Growth after 24 hours Assessment and Plan Assessment: Assessment and Plan 1. COPD exacerbation 2. ARI on CKD, acute renal failure with metabolic acidosis 3. Hypertension 4. Hypothyroidism 5. DVT and GI prophylaxis 1. Likely secondary to changes in weather. Continue DuoNeb 4 times a day scheduled and as needed for shortness of breath and wheezing. Continue Solu- Medrol 60 mg IV 3 times a day. Could be partially related to fluid overload from acute renal failure, continue Lasix 40 IV twice a day. Oxygen per nasal cannula to maintain oxygen saturation greater than 92%. BNP is 4000, cardiology consulted for concerns of heart failure. Will follow echocardiogram results. Will follow cardiology recommendations. 2. Creatinine is 4.38 to 4.34 with slightly improved metabolic acidosis. Avoid nephrotoxins. Continue calcitriol and sodium bicarbonate tablets. Monitor and replace electrolytes. We'll follow nephrology recommendations. 3. BP 161/70. Continue hydralazine 50 mg by mouth 3 times a day. Stop verapamil and start Coreg 6.25 mg by mouth twice a day. Monitor vitals, adjust medications as necessary. Will follow cardiology recommendations. 4. Stable. Continue Synthroid 150 g by mouth daily. 5. Heparin 5000 units subcutaneously twice a day. Patient being admitted for COPD exacerbation, pending clinical improvement. Noted to have elevated creatinine with metabolic acidosis, follow nephrology recommendations. Cardiology is following.
[2018-12-19 17:15] LABS: Glucose,Whole Blood 182 mg/dL (75-99)
[2018-12-19 20:31] LABS: Iron Saturation 7.96 (15.00-50.00)
--- NOTE | 2018-12-19 20:51 | ECHOF ---
Referral Reason:chf MEASUREMENTS -------- HEIGHT: 170.2 cm WEIGHT: 68.9 kg BP: IVSd: 1.2 cm (0.6 - 1.1) LVIDd: 4.6 cm (3.9 - 5.3) LVPWd: 1.4 cm (0.6 - 1.1) IVSs: 1.5 cm LVIDs: 3.7 cm LVPWs: 1.1 cm LA Diam: 4.5 cm (2.7 - 3.8) RVIDd: 2.6 cm (< 3.3) LAESV Index (A-L): 34.49 ml/m Ao Diam: 2.7 cm (2.0 - 3.7) LA Diam: 4.0 cm (2.7 - 3.8) AV Cusp: 2.2 cm (1.5 - 2.6) EPSS: 0.4 cm MV E Heriberto: 1.17 m/s MV DecT: 194 ms MV A Heriberto: 0.65 m/s MV E/A Ratio: 1.80 RAP: 15.00 mmHg RVSP: 67.11 mmHg MV EF SLOPE: 136.22 mm/s (70 - 150) MV EXCURSION: 23.60 mm (> 18.000) FINDINGS -------- Undetermined rhythm. This was a technically good study. The left ventricular size is normal. There is mild concentric left ventricular hypertrophy. Overa ll left ventricular systolic function is normal with, an EF between 55 - 60 %. The right ventricle is normal in size. The left atrium is moderately dilated. LA is moderately dilated 34-39 ml/m2 The right atrial size is normal. There is mild aortic valve sclerosis. There is no evidence of aortic regurgitation. Mild mitral regurgitation is present. Moderate tricuspid regurgitation present. There is moderate to severe pulmonary hypertension. The right ventricular systolic pressure, as measured by Doppler, is 67.11mmHg. Trace/mild (physiologic) pulmonic regurgitation. The aortic root size is normal. There is no pericardial effusion. CONCLUSIONS -------- 1. The left ventricular size is normal. 2. There is mild concentric left ventricular hypertrophy. 3. Overall left ventricular systolic function is normal with, an EF between 55 - 60 %. 4. The right ventricle is normal in size. 5. The left atrium is moderately dilated. 6. LA is moderately dilated 34-39 ml/m2 7. The right atrial size is normal. 8. There is mild aortic valve sclerosis. 9. Mild mitral regurgitation is present. 10. Moderate tricuspid regurgitation present. 11. There is moderate to severe pulmonary hypertension. 12. The right ventricular systolic pressure, as measured by Doppler, is 67.11mmHg. 13. Trace/mild (physiologic) pulmonic regurgitation. 14. The aortic root size is normal. 15. There is no pericardial effusion. PBX WIRE CHIEF: Joann Oliver RDCS
[2018-12-19 21:09] LABS: Glucose,Whole Blood 159 mg/dL (75-99)
[2018-12-19] MEDS: DARBEPOETIN ALFA 40 MCG/0.4 ML SYRINGE SQ SCH (21:15)
[2018-12-19] MEDS: ATORVASTATIN 10 MG TAB PO SCH (21:16)
[2018-12-20] MEDS: IPRATROPIUM-ALBUTEROL 3 ML NEB INHALATION PRN ×2 (05:34→09:07)
[2018-12-20 05:52] LABS: Glucose,Whole Blood 193 mg/dL (75-99)
[2018-12-20] MEDS: CARVEDILOL 6.25 MG TAB PO SCH ×3 (06:05→16:46)
[2018-12-20] MEDS: FUROSEMIDE 10 MG/ML 4 ML VIAL IV SCH ×3 (06:05→20:58)
[2018-12-20] MEDS: LEVOTHYROXINE 75 MCG TAB PO SCH (06:05)
[2018-12-20] MEDS: INSULIN ASPART 100 UNIT/ML 1 ML 10 ML VIAL SQ SCH ×4 (06:07→20:58)
[2018-12-20] MEDS: SODIUM BICARBONATE TAB 650 MG TAB PO SCH ×3 (07:55→22:38)
[2018-12-20] MEDS: methylPREDNISolone SOD SUCCI 125 MG/2 ML VIAL IV SCH ×3 (07:55→22:37)
[2018-12-20] MEDS: HEPARIN SODIUM,PORCINE 5,000 UNIT/ML 1 ML VIAL SQ SCH ×2 (07:55→20:58)
[2018-12-20] MEDS: CALCIUM ACETATE 667 MG CAP PO SCH (07:56)
[2018-12-20] MEDS: hydrALAZINE HCL 50 MG TAB PO SCH ×3 (07:56→20:57)
[2018-12-20] MEDS: GABAPENTIN 300 MG CAP PO SCH ×2 (07:56→20:57)
[2018-12-20] MEDS: ASPIRIN 81 MG PO SCH (07:56)
[2018-12-20] MEDS: NITROGLYCERIN OINT 1 INCH/GM PACKET TOPICAL SCH ×4 (07:56→22:36)
[2018-12-20 08:21] LABS: Calcium 8.1 mg/dL (8.4-10.2); Magnesium 2.4 mg/dL (1.6-2.3)
[2018-12-20] MEDS: IPRATROPIUM-ALBUTEROL 3 ML NEB INHALATION SCH ×4 (08:31→20:31)
[2018-12-20] MEDS ORDERED: ERGOCALCIFEROL 50,000 UNIT CAP PO SCH (09:00)
--- NOTE | 2018-12-20 09:13 | XR ---
EXAMINATION TYPE: XR chest 1V portable DATE OF EXAM: 12/20/2018 CLINICAL HISTORY: Difficulty breathing progress study. TECHNIQUE: Single AP portable upright view of the chest is obtained. COMPARISON: Chest x-ray from December 18 2018 FINDINGS: Cardiac silhouette size is stable and mildly enlarged. There are persistent small bilatera l pleural effusions. There is mild to moderate central vascular congestion increased in prominence fr om prior. No pneumothorax is seen bilaterally. Osseous structures are demineralized. Degenerative theresa nge right glenohumeral humeral joint is noted. IMPRESSION: Mild cardiomegaly with persistent small right greater than left pleural effusions, new mi ld interstitial edema and more prominent mild to moderate central vascular congestion is felt present . Suspect worsening CHF exacerbation. Correlate clinically.
[2018-12-20] MEDS ORDERED: FUROSEMIDE 10 MG/ML 4 ML VIAL IV STA (09:19)
[2018-12-20] MEDS ORDERED: SODIUM BICARB 8.4% 50 ML SYR (1 MEQ/ML) IV STA (09:27)
--- NOTE | 2018-12-20 09:28 | P.PN ---
Subjective Patient is seen in follow-up for acute kidney injury on chronic kidney disease. Patient is chronic kidney disease stage IV with baseline creatinine near 3 secondary to diabetic kidney disease. I have referred him to vascular surgery for vein mapping and AV fistula placement as an outpatient. Patient presented to the hospital with lower extremity edema and shortness of breath. He is maintained on Lasix 40 mg IV twice daily. Renal function is stable with creatinine at 4.29 today. Patient is quite dyspneic. He's currently receiving a breathing treatment. He is also on IV steroids. Admits to good urine output. Vital signs are stable. General: The patient appeared well nourished and normally developed. HEENT: Head exam is unremarkable. Neck is without jugular venous distension. LUNGS: Diffuse wheezing. Breath sounds decreased. HEART: Rate and Rhythm are regular. First and second heart sounds normal. No murmurs, rubs or gallops. ABDOMEN: Abdominal exam reveals normal bowel sounds. Non-tender and non- distended. No evidence of peritonitis. EXTREMITITES: Trace edema. Objective - Vital Signs Vital signs: Vital Signs Temp 97.7 F 12/19/18 16:00 Pulse 90 12/20/18 09:17 Resp 18 12/20/18 04:00 BP 149/72 12/20/18 04:00 Pulse Ox 90 L 12/20/18 04:00 Intake & Output 12/19/18 12/20/18 12/20/18 18:59 06:59 18:59 Intake Total 418 Output Total 175 150 Balance 243 -150 Weight 69.1 kg 69 kg Intake: Oral 418 Output: Urine 175 150 Other: Voiding Method Urinal # Voids 1 1 - Labs CBC & Chem 7: 12/18/18 09:50 12/20/18 07:38 Labs: Abnormal Lab Results - Last 24 Hours (Table) 12/19/18 12/19/18 12/19/18 Range/Units 10:46 10:57 12:37 Potassium 5.2 H (3.5-5.1) mmol/L Chloride (98-107) mmol/L Carbon Dioxide 16 L (22-30) mmol/L BUN 103 H* (9-20) mg/dL Creatinine 4.34 H (0.66-1.25) mg/dL Glucose 244 H (74-99) mg/dL POC Glucose (mg/dL) 249 H (75-99) mg/dL Calcium 8.1 L (8.4-10.2) mg/dL Magnesium (1.6-2.3) mg/dL Iron 23 L (65-175) ug/dL Iron Saturation 7.96 L (15.00-50.00) 12/19/18 12/19/18 12/20/18 Range/Units 17:14 21:07 05:52 Potassium (3.5-5.1) mmol/L Chloride (98-107) mmol/L Carbon Dioxide (22-30) mmol/L BUN (9-20) mg/dL Creatinine (0.66-1.25) mg/dL Glucose (74-99) mg/dL POC Glucose (mg/dL) 182 H 159 H 193 H (75-99) mg/dL Calcium (8.4-10.2) mg/dL Magnesium (1.6-2.3) mg/dL Iron (65-175) ug/dL Iron Saturation (15.00-50.00) 12/20/18 Range/Units 07:38 Potassium (3.5-5.1) mmol/L Chloride 108 H (98-107) mmol/L Carbon Dioxide 15 L (22-30) mmol/L BUN 113 H* (9-20) mg/dL Creatinine 4.29 H (0.66-1.25) mg/dL Glucose 171 H (74-99) mg/dL POC Glucose (mg/dL) (75-99) mg/dL Calcium 8.1 L (8.4-10.2) mg/dL Magnesium 2.4 H (1.6-2.3) mg/dL Iron (65-175) ug/dL Iron Saturation (15.00-50.00) Microbiology - Last 24 Hours (Table) 12/18/18 10:10 Blood Culture - Preliminary Blood No Growth after 24 hours Assessment and Plan Plan: assessment: 1. Acute kidney injury secondary to ATN secondary to cardiorenal syndrome. Possible progression of underlying chronic kidney disease. Creatinine stable at 4.29 today. 2. Chronic kidney disease stage IV secondary to diabetic kidney disease with baseline creatinine near 3. Patient had refused kidney biopsy. 3. Diabetes mellitus. 4. Metabolic acidosis secondary to acute kidney injury maintained on oral sodium bicarbonate. 5. Anemia of chronic kidney disease. Maintained on Aranesp. Severe iron deficiency noted. 6. Dyspnea secondary to COPD exacerbation as well as volume overload. 7. Volume overload. 8. Hypertension with chronic any disease. Controlled. 9. Chronic kidney disease mineral bone disease maintained on calcitriol and PhosLo. 10. Diastolic CHF with moderate tricuspid regurgitation and moderate to severe pulmonary hypertension. Plan: Maintain Lasix 40 mg IV twice daily for now. IV iron 3 doses. Avoid nephrotoxins. Continue to monitor renal function and urine output. No urgent need for renal replacement therapy at this time. Continue to assess on day-to-day basis. Check chest x-ray today. Check ABG. Increase dose of oral sodium bicarbonate.
[2018-12-20 09:30] LABS: ABG Base Excess -8.5 mmol/L; ABG HCO3 18 mmol/L (21-25); ABG Oxygen Saturation 93.2 % (94-97); ABG PCO2 36 mmHg (35-45); ABG PH 7.31 (7.35-7.45); ABG PO2 69 mmHg (83-108); ABG TCO2 19 mmol/L (19-24)
[2018-12-20] MEDS: SODIUM FERRIC GLUCONAT-SUCROSE 125 MG in SODIUM CHLORIDE 0.9% 100 ML IVPB SCH (10:15)
--- NOTE | 2018-12-20 10:15 | P.PN ---
Subjective Progress Note Date: 12/20/18 Principal diagnosis: CHF exacerbation Patient was seen and examined. Called by RN regarding patient's respiratory status. Patient continues to complain of dyspnea, worsened today. He also complains of wheezing. He denies any chest pain or palpitations. STAT Chest Xray ordered along with ABG. Chest XRay shows interstitial edema, central vascular congestion and small bilateral pleural effusions. RN notified for continuous pulse ox, Lasix 40 mg IV PUSH x 1 and albuterol neb treatment. Patient states he would like to be FULL CODE. Objective - Vital Signs Vital signs: Vital Signs Temp 97.7 F 12/19/18 16:00 Pulse 90 12/20/18 09:17 Resp 18 12/20/18 04:00 BP 149/72 12/20/18 04:00 Pulse Ox 90 L 12/20/18 04:00 Intake & Output 12/19/18 12/20/18 12/20/18 18:59 06:59 18:59 Intake Total 418 Output Total 175 150 Balance 243 -150 Weight 69.1 kg 69 kg Intake: Oral 418 Output: Urine 175 150 Other: Voiding Method Urinal # Voids 1 1 - Exam General: [non toxic], [labored breathing, unable to speak in full sentences], [ appears at stated age] Derm: [warm], [dry] Head: [atraumatic], [normocephalic], [symmetric] Eyes: [EOMI], [no lid lag], [anicteric sclera] Mouth: [no lip lesion], [mucus membranes moist] Cardiovascular: [S1S2 reg], [tachycardic], [positive DP pulse bilateral] Lungs: [Diffuse wheezing bilaterally], [rales at the bases] , [no accessory muscle use] Abdominal: [soft], [ nontender to palpation], [no guarding], [no appreciable organomegaly] Ext: [no gross muscle atrophy], [no edema], [no contractures], [bilateral lower extremity with weeping superficial wounds and blisters] Neuro: [no focal neuro deficits] Psych: [Alert], [oriented], [appropriate affect] - Labs CBC & Chem 7: 12/18/18 09:50 12/20/18 07:38 Labs: Abnormal Lab Results - Last 24 Hours (Table) 01/12/19/18 12/19/18 Range/Units 10:46 10:57 12:37 Potassium 5.2 H (3.5-5.1) mmol/L Chloride (98-107) mmol/L Carbon Dioxide 16 L (22-30) mmol/L BUN 103 H* (9-20) mg/dL Creatinine 4.34 H (0.66-1.25) mg/dL Glucose 244 H (74-99) mg/dL POC Glucose (mg/dL) 249 H (75-99) mg/dL Calcium 8.1 L (8.4-10.2) mg/dL Magnesium (1.6-2.3) mg/dL Iron 23 L (65-175) ug/dL Iron Saturation 7.96 L (15.00-50.00) 12/19/18 12/19/18 12/20/18 Range/Units 17:14 21:07 05:52 Potassium (3.5-5.1) mmol/L Chloride (98-107) mmol/L Carbon Dioxide (22-30) mmol/L BUN (9-20) mg/dL Creatinine (0.66-1.25) mg/dL Glucose (74-99) mg/dL POC Glucose (mg/dL) 182 H 159 H 193 H (75-99) mg/dL Calcium (8.4-10.2) mg/dL Magnesium (1.6-2.3) mg/dL Iron (65-175) ug/dL Iron Saturation (15.00-50.00) 12/20/18 Range/Units 07:38 Potassium (3.5-5.1) mmol/L Chloride 108 H (98-107) mmol/L Carbon Dioxide 15 L (22-30) mmol/L BUN 113 H* (9-20) mg/dL Creatinine 4.29 H (0.66-1.25) mg/dL Glucose 171 H (74-99) mg/dL POC Glucose (mg/dL) (75-99) mg/dL Calcium 8.1 L (8.4-10.2) mg/dL Magnesium 2.4 H (1.6-2.3) mg/dL Iron (65-175) ug/dL Iron Saturation (15.00-50.00) Microbiology - Last 24 Hours (Table) 12/18/18 10:10 Blood Culture - Preliminary Blood No Growth after 24 hours Assessment and Plan Assessment: Assessment and Plan 1. Acute respiratory failure 2. COPD exacerbation 3. Metabolic acidosis 4. ARI on CKD, acute renal failure 5. Hypertension 6. Hypothyroidism 7. DVT and GI prophylaxis 1. Multifactorial. Combination of fluid overload from acute renal failure and COPD exacerbation. Worsening dyspnea this morning. Given Lasix 40 mg IV at 6 AM, will give 1 dose of Lasix 40 mg IV push now. Stat chest x-ray shows worsening interstitial edema, pleural effusions bilaterally. Will check ABG, lactic acid. RN notified to start continuous pulse ox. Telemetry monitoring. Patient is low threshold for intubation. 2. Continue DuoNeb 4 times a day scheduled and as needed for shortness of breath and wheezing. Continue Solu-Medrol 60 mg IV 3 times a day. Could be partially related to fluid overload from acute renal failure, continue IV diuresing. Oxygen per nasal cannula to maintain oxygen saturation greater than 92%. BNP is 4000, cardiology consulted for concerns of heart failure. Will follow echocardiogram results. Will follow cardiology recommendations. 3. Bicarbonate is 15, same as admission. Likely secondary to combination of respiratory distress and CKD. Will follow ABGs results. Continue sodium bicarb tablets as per nephro recommendations. Daily BMP. 4. Creatinine is 4.38 to 4.34 to 4.29 with metabolic acidosis. Avoid nephrotoxins. Continue calcitriol and sodium bicarbonate tablets. Monitor and replace electrolytes. We'll follow nephrology recommendations. 5. BP 149/60. Continue hydralazine 50 mg by mouth 3 times a day. Stop verapamil and start Coreg 6.25 mg by mouth twice a day. Monitor vitals, adjust medications as necessary. Will follow cardiology recommendations. 6. Stable. Continue Synthroid 150 g by mouth daily. 7. Heparin 5000 units subcutaneously twice a day. Patient being admitted for COPD exacerbation, showing signs of respiratory distress and fluid overload. He is being given a total of 80 mg of Lasix this morning along with breathing treatments. He is maintaining low 90s on 3 L nasal cannula. There is a low threshold for intubation. We'll follow ABG results. We will follow nephrology and cardiology recommendations.
[2018-12-20] MEDS: CALCITRIOL 0.25 MCG CAP PO SCH (11:49)
[2018-12-20 12:02] LABS: Glucose,Whole Blood 142 mg/dL (75-99)
--- NOTE | 2018-12-20 12:08 | P.PN ---
Subjective Progress Note Date: 12/20/18 This is an 83-year-old gentleman with history of chronic kidney disease, stage III he states that he was being worked up as an outpatient for possible dialysis. He also has history of hypertension, diabetes, hyperlipidemia, hypothyroidism, he presented to the hospital with progressive weakness and shortness of breath. Patient also has significant bilateral peripheral edema. He has open blistered an ulcerated areas noted on his lower extremities. Patient used to smoke he states that he quit smoking in 1986. According to the patient, he's been getting progressively more short of breath and states that he is extremely weak. He also states that he has had 2 falls, one inside the home and when outside the home. He denies any syncope he states that he just becomes extremely weak and falls to the ground. He does have a small area of ecchymosis noted on his forehead. Chest x-ray shows small pleural effusions and associated atelectasis, there may be some pulmonary venous hypertension and interstitial edema, correlate to exclude pneumonia. CAT scan of the brain reveals probable age-related atrophy and chronic small vessel ischemia. VQ scan was performed which came back low probability for pulmonary embolism. Blood pressure 170/70, heart rate in the 70s, 95% on 2 L of oxygen. White blood cell count 9.5, hemoglobin 9.5, platelet count 368. D- dimer 4.1. Sodium 138, potassium 5.1, BUN 95 and creatinine 4.3. Magnesium 2.4 , troponin 0.012, BNP level 14,400. At the time of my examination this morning , patient appears to be lying comfortably in bed, he is mildly short of breath with conversation. 12/20/2018 Patient was seen and examined this morning, patient is currently on IV Lasix, renal function today, BUN 113 and creatinine 4.2, magnesium 2.4. Complaining of feeling short of breath today. He is on IV steroids as well. Patient states he's been putting out fair amounts of urine although the documentation is not suggestive of that. Objective - Vital Signs Vital signs: Vital Signs Temp 98.1 F 12/20/18 08:00 Pulse 90 12/20/18 11:54 Resp 18 12/20/18 08:00 BP 154/75 12/20/18 08:00 Pulse Ox 93 L 12/20/18 09:11 Intake & Output 12/19/18 12/20/18 12/20/18 18:59 06:59 18:59 Intake Total 418 118 Output Total 175 150 Balance 243 -150 118 Weight 69.1 kg 69 kg Intake: Oral 418 118 Output: Urine 175 150 Other: Voiding Method Urinal Urinal # Voids 1 1 1 - Exam PHYSICAL EXAMINATION: GENERAL: 83-year-old gentleman in no acute distress at the time of my examination HEENT: Head is atraumatic, normocephalic. Pupils equal, round. Sclera anicteric. Conjunctiva are clear. Mucous membranes of the mouth are moist. Neck is supple. There is no elevated jugular venous pressure. No carotid bruit is heard. HEART EXAMINATION: Heart S1, S2 normal. No murmur or gallop heard. CHEST EXAMINATION: Lungs reveal rales to bilateral bases with diminished air entry to the bases. ABDOMEN: Soft, nontender. Bowel sounds are heard. No organomegaly noted. EXTREMITIES: 1+ peripheral pulses with 2+ evidence of peripheral edema , evidence of erythema, blistered areas to lower extremities. NEUROLOGIC patient is awake, alert and oriented 3 . . - Labs CBC & Chem 7: 12/18/18 09:50 12/20/18 07:38 Labs: Abnormal Lab Results - Last 24 Hours (Table) 12/19/18 12/19/18 12/19/18 Range/Units 10:57 12:37 17:14 ABG pH (7.35-7.45) ABG pO2 (83-108) mmHg ABG HCO3 (21-25) mmol/L ABG O2 Saturation (94-97) % Chloride (98-107) mmol/L Carbon Dioxide (22-30) mmol/L BUN (9-20) mg/dL Creatinine (0.66-1.25) mg/dL Glucose (74-99) mg/dL POC Glucose (mg/dL) 249 H 182 H (75-99) mg/dL Calcium (8.4-10.2) mg/dL Magnesium (1.6-2.3) mg/dL Iron 23 L (65-175) ug/dL Iron Saturation 7.96 L (15.00-50.00) 12/19/18 12/20/18 12/20/18 Range/Units 21:07 05:52 07:38 ABG pH (7.35-7.45) ABG pO2 (83-108) mmHg ABG HCO3 (21-25) mmol/L ABG O2 Saturation (94-97) % Chloride 108 H (98-107) mmol/L Carbon Dioxide 15 L (22-30) mmol/L BUN 113 H* (9-20) mg/dL Creatinine 4.29 H (0.66-1.25) mg/dL Glucose 171 H (74-99) mg/dL POC Glucose (mg/dL) 159 H 193 H (75-99) mg/dL Calcium 8.1 L (8.4-10.2) mg/dL Magnesium 2.4 H (1.6-2.3) mg/dL Iron (65-175) ug/dL Iron Saturation (15.00-50.00) 12/20/18 12/20/18 Range/Units 09:20 11:34 ABG pH 7.31 L (7.35-7.45) ABG pO2 69 L (83-108) mmHg ABG HCO3 18 L (21-25) mmol/L ABG O2 Saturation 93.2 L (94-97) % Chloride (98-107) mmol/L Carbon Dioxide (22-30) mmol/L BUN (9-20) mg/dL Creatinine (0.66-1.25) mg/dL Glucose (74-99) mg/dL POC Glucose (mg/dL) 142 H (75-99) mg/dL Calcium (8.4-10.2) mg/dL Magnesium (1.6-2.3) mg/dL Iron (65-175) ug/dL Iron Saturation (15.00-50.00) Microbiology - Last 24 Hours (Table) 12/18/18 10:10 Blood Culture - Preliminary Blood No Growth after 24 hours Assessment and Plan Plan: Assessment and plan #1 symptoms of progressively worsening shortness of breath, likely combination of COPD exacerbation and congestive heart failure. LV function unknown BNP 14, 000 #2 acute on chronic kidney disease #3 hypertension #4 diabetes #5 hypothyroidism #6 hyperlipidemia #7 prior history of smoking Plan Echocardiogram with Doppler study was performed which revealed an ejection fraction of 55-60%. Moderate tricuspid regurg, moderate to severe pulmonary hypertension. We will continue current dose of IV Lasix. Patient is also scheduled to receive some iron today. Continue to monitor intake and output and daily weights. Review chest x-ray done today. DNP note has been reviewed, I agree with a documented findings and plan of care. Patient was seen and examined.
[2018-12-20 16:51] LABS: Glucose,Whole Blood 147 mg/dL (75-99)
[2018-12-20 20:39] LABS: Glucose,Whole Blood 132 mg/dL (75-99)
[2018-12-20] MEDS: ATORVASTATIN 10 MG TAB PO SCH (20:57)
[2018-12-20] MEDS: MELATONIN 3 MG TABLET PO SCH (23:21)
[2018-12-21] MEDS ORDERED: DOCUSATE 100 MG CAP PO PRN (04:07)
[2018-12-21] MEDS ORDERED: BISACODYL 10 MG SUPP RECTAL STA (04:07)
[2018-12-21] MEDS: LEVOTHYROXINE 75 MCG TAB PO SCH (06:52)
[2018-12-21] MEDS: CARVEDILOL 6.25 MG TAB PO SCH ×2 (06:52→17:36)
[2018-12-21] MEDS: INSULIN ASPART 100 UNIT/ML 1 ML 10 ML VIAL SQ SCH ×4 (06:53→21:26)
[2018-12-21 07:27] LABS: Calcium 7.9 mg/dL (8.4-10.2); Magnesium 2.4 mg/dL (1.6-2.3); Potassium 4.5 mmol/L (3.5-5.1)
[2018-12-21] MEDS: IPRATROPIUM-ALBUTEROL 3 ML NEB INHALATION SCH ×4 (08:01→19:59)
[2018-12-21 08:05] LABS: Glucose,Whole Blood 167 mg/dL (75-99)
[2018-12-21] MEDS: CALCIUM ACETATE 667 MG CAP PO SCH (08:50)
[2018-12-21] MEDS: SODIUM FERRIC GLUCONAT-SUCROSE 125 MG in SODIUM CHLORIDE 0.9% 100 ML IVPB SCH (09:01)
[2018-12-21] MEDS: ASPIRIN 81 MG PO SCH (09:02)
[2018-12-21] MEDS: HEPARIN SODIUM,PORCINE 5,000 UNIT/ML 1 ML VIAL SQ SCH (09:02)
[2018-12-21] MEDS: ONDANSETRON 4 MG/2 ML VIAL IVP PRN ×2 (09:02→20:59)
[2018-12-21] MEDS: NITROGLYCERIN OINT 1 INCH/GM PACKET TOPICAL SCH ×4 (09:02→23:04)
[2018-12-21] MEDS: methylPREDNISolone SOD SUCCI 125 MG/2 ML VIAL IV SCH (09:02)
[2018-12-21] MEDS: SODIUM BICARBONATE TAB 650 MG TAB PO SCH ×3 (09:02→22:13)
[2018-12-21] MEDS: GABAPENTIN 300 MG CAP PO SCH ×3 (09:02→21:28)
[2018-12-21] MEDS: hydrALAZINE HCL 50 MG TAB PO SCH ×3 (09:02→23:03)
[2018-12-21 09:55] LABS: Anisocytosis Slight; HCT 30.7 % (39.0-53.0); HGB 9.7 gm/dL (13.0-17.5); Hypochromasia Moderate; MCH 29.4 pg (25.0-35.0); MCHC 31.8 g/dL (31.0-37.0); MCV 92.7 fL (80.0-100.0); Platelet Count 317 k/uL (150-450); Poikilocytosis Slight; RBC 3.31 m/uL (4.30-5.90); RDW 17.3 % (11.5-15.5); WBC 8.9 k/uL (3.8-10.6)
[2018-12-21 11:09] LABS: Glucose,Whole Blood 186 mg/dL (75-99)
--- NOTE | 2018-12-21 13:04 | P.PN ---
Subjective Progress Note Date: 12/21/18 And examined for the follow-up of acute kidney injury. Nauseated and throwing up. Elevated BUN/creatinine. On Lasix and steroids. Computed tomography scan of the abdomen and pelvis pending results. Objective - Vital Signs Vital signs: Vital Signs Temp 97.8 F 12/21/18 12:00 Pulse 122 H 12/21/18 12:00 Resp 18 12/21/18 12:00 BP 132/77 12/21/18 12:00 Pulse Ox 93 L 12/21/18 12:00 Intake & Output 12/20/18 12/21/18 12/21/18 18:59 06:59 18:59 Intake Total 118 Output Total 850 Balance 118 -850 Weight 72 kg Intake: Oral 118 Output: Urine 850 Other: Voiding Method Urinal Urinal # Voids 1 1 - Exam Lying in bed no acute distress S1-S2 heard Lungs clear Trace edema - Labs CBC & Chem 7: 12/21/18 06:49 12/21/18 06:49 Labs: Abnormal Lab Results - Last 24 Hours (Table) 12/20/18 12/20/18 12/21/18 Range/Units 16:28 20:38 06:49 RBC (4.30-5.90) m/uL Hgb (13.0-17.5) gm/dL Hct (39.0-53.0) % RDW (11.5-15.5) % Carbon Dioxide 20 L (22-30) mmol/L BUN 125 H* (9-20) mg/dL Creatinine 4.23 H (0.66-1.25) mg/dL Glucose 173 H (74-99) mg/dL POC Glucose (mg/dL) 147 H 132 H (75-99) mg/dL Calcium 7.9 L (8.4-10.2) mg/dL Magnesium 2.4 H (1.6-2.3) mg/dL 12/21/18 12/21/18 12/21/18 Range/Units 06:49 08:04 11:08 RBC 3.31 L (4.30-5.90) m/uL Hgb 9.7 L (13.0-17.5) gm/dL Hct 30.7 L (39.0-53.0) % RDW 17.3 H (11.5-15.5) % Carbon Dioxide (22-30) mmol/L BUN (9-20) mg/dL Creatinine (0.66-1.25) mg/dL Glucose (74-99) mg/dL POC Glucose (mg/dL) 167 H 186 H (75-99) mg/dL Calcium (8.4-10.2) mg/dL Magnesium (1.6-2.3) mg/dL Microbiology - Last 24 Hours (Table) 12/18/18 10:10 Blood Culture - Preliminary Blood No Growth after 72 hours Assessment and Plan Assessment: #1 acute kidney injury secondary to cardiorenal syndrome with worsening renal function. #2 CK D3 baseline creatinine near 3, Secondary to diabetic kidney disease. #3 metabolic acidosis #4 COPD #5 hypertension with chronic kidney disease #6 diastolic CHF with pulmonary hypertension Plan: 1 nausea and vomiting suspected uremic symptoms. Awaiting CAT scan of the abdomen and pelvis results. 2 stop Lasix and decrease the dose of steroids as it can also elevated BUNs leading to symptoms #3 if symptoms does not improve by tomorrow we will get vascular surgery consult for initiation of dialysis.
[2018-12-21] MEDS ORDERED: SODIUM CHLORIDE 0.9% 1,000 ML IV SCH (13:15)
--- NOTE | 2018-12-21 14:11 | P.PN ---
Subjective Progress Note Date: 12/21/18 Principal diagnosis: uremia, nausea and vomiting, shortness of breath Patient seen and examined. Multiple episodes of coffee-ground emesis this morning. Patient continues to appeared dyspneic and short of breath. He is on 3 L saturating low 90s. Computed tomography scan of the abdomen and pelvis was ordered and read was pending at the time of examination. Discussed the case with Nephrology Dr. Patton, decision made for dialysis today. There is consult placed for Dr. Phillip, to gain vascular access. I discussed the case with Dr. Phillip around 2 PM, he will complacent Vik within a couple hours. Objective - Vital Signs Vital signs: Vital Signs Temp 97.8 F 12/21/18 12:00 Pulse 122 H 12/21/18 12:00 Resp 18 12/21/18 12:00 BP 132/77 12/21/18 12:00 Pulse Ox 93 L 12/21/18 12:00 Intake & Output 12/20/18 12/21/18 12/21/18 18:59 06:59 18:59 Intake Total 118 Output Total 850 Balance 118 -850 Weight 72 kg Intake: Oral 118 Output: Urine 850 Other: Voiding Method Urinal Urinal # Voids 1 1 - Exam General: [non toxic], [labored breathing, unable to speak in full sentences], [ appears at stated age] Derm: [warm], [dry] Head: [atraumatic], [normocephalic], [symmetric] Eyes: [EOMI], [no lid lag], [anicteric sclera] Mouth: [no lip lesion], [mucus membranes moist] Cardiovascular: [S1S2 reg], [tachycardic], [positive DP pulse bilateral] Lungs: [Diffuse wheezing bilaterally], [Rales bilaterally] , [no accessory muscle use] Abdominal: [soft], [mild distention], [no guarding], [no appreciable organomegaly] Ext: [no gross muscle atrophy], [1+ edema], [no contractures], [bilateral lower extremity with weeping superficial wounds and blisters] Neuro: [no focal neuro deficits] Psych: [Alert], [oriented], [appropriate affect] - Labs CBC & Chem 7: 12/21/18 06:49 12/21/18 06:49 Labs: Abnormal Lab Results - Last 24 Hours (Table) 12/20/18 12/20/18 12/21/18 Range/Units 16:28 20:38 06:49 RBC (4.30-5.90) m/uL Hgb (13.0-17.5) gm/dL Hct (39.0-53.0) % RDW (11.5-15.5) % Carbon Dioxide 20 L (22-30) mmol/L BUN 125 H* (9-20) mg/dL Creatinine 4.23 H (0.66-1.25) mg/dL Glucose 173 H (74-99) mg/dL POC Glucose (mg/dL) 147 H 132 H (75-99) mg/dL Calcium 7.9 L (8.4-10.2) mg/dL Magnesium 2.4 H (1.6-2.3) mg/dL 12/21/18 12/21/18 12/21/18 Range/Units 06:49 08:04 11:08 RBC 3.31 L (4.30-5.90) m/uL Hgb 9.7 L (13.0-17.5) gm/dL Hct 30.7 L (39.0-53.0) % RDW 17.3 H (11.5-15.5) % Carbon Dioxide (22-30) mmol/L BUN (9-20) mg/dL Creatinine (0.66-1.25) mg/dL Glucose (74-99) mg/dL POC Glucose (mg/dL) 167 H 186 H (75-99) mg/dL Calcium (8.4-10.2) mg/dL Magnesium (1.6-2.3) mg/dL Microbiology - Last 24 Hours (Table) 12/18/18 10:10 Blood Culture - Preliminary Blood No Growth after 72 hours Assessment and Plan Assessment: Assessment and Plan 1. nausea and vomiting, coffee-ground emesis 2. Acute respiratory failure 3. COPD exacerbation 4. Metabolic acidosis 5. ARI on CKD, acute renal failure 6. Hypertension 7. Hypothyroidism 8. DVT and GI prophylaxis 1. Likely secondary to uremia (worsened with Lasix and SoluMedrol). CT of the abdomen pelvis has been ordered and is pending read. Discussed with nephrology , agreeable for dialysis. Discussed with vascular surgery Dr. Phillip, will obtain a Vik within a couple hours. Dialyze today. 2. Multifactorial. Combination of fluid overload from acute renal failure and COPD exacerbation. Worsening dyspnea this morning. Nephrology and vascular surgery agreeable for dialysis today. Stat chest x-ray shows worsening interstitial edema, pleural effusions bilaterally. Lactic acid is negative. ABG shows metabolic acidosis. Telemetry monitoring. Patient is low threshold for intubation. We'll consult pulmonology. 3. Continue DuoNeb 4 times a day scheduled and as needed for shortness of breath and wheezing. Continue Solu-Medrol 60 mg IV 3 times a day. Could be partially related to fluid overload from acute renal failure, continue IV diuresing. Oxygen per nasal cannula to maintain oxygen saturation greater than 92%. BNP is 4000, cardiology consulted for concerns of heart failure. Echocardiogram shows EF of 55-60% with mild LVH. Will follow cardiology recommendations. 4. Bicarbonate is 15 to 20. Likely secondary to combination of respiratory distress and CKD. AB G shows metabolic acidosis. Continue sodium bicarb tablets as per nephro recommendations. Daily BMP. 5. Creatinine is 4.38 to 4.34 to 4.29 to 4.23 with metabolic acidosis. Avoid nephrotoxins. Continue calcitriol and sodium bicarbonate tablets. Monitor and replace electrolytes. We'll follow nephrology recommendations. 6. BP 132/77. Continue hydralazine 50 mg by mouth 3 times a day. Stop verapamil and start Coreg 6.25 mg by mouth twice a day. Monitor vitals, adjust medications as necessary. Will follow cardiology recommendations. 7. Stable. Continue Synthroid 150 g by mouth daily. 8. Heparin 5000 units subcutaneously twice a day. Patient being admitted for COPD exacerbation, showing signs of respiratory distress and fluid overload. discussed with nephrology and vascular surgery, agreeable for dialysis, Dr. Phillip will insert a Vik within a couple hours. He is maintaining low 90s on 3 L nasal cannula. There is a low threshold for intubation. We will follow nephrology, cardiology and pulmonology recommendations.
--- NOTE | 2018-12-21 14:14 | P.PN ---
Subjective Progress Note Date: 12/21/18 This is an 83-year-old gentleman with history of chronic kidney disease, stage III he states that he was being worked up as an outpatient for possible dialysis. He also has history of hypertension, diabetes, hyperlipidemia, hypothyroidism, he presented to the hospital with progressive weakness and shortness of breath. Patient also has significant bilateral peripheral edema. He has open blistered an ulcerated areas noted on his lower extremities. Patient used to smoke he states that he quit smoking in 1986. According to the patient, he's been getting progressively more short of breath and states that he is extremely weak. He also states that he has had 2 falls, one inside the home and when outside the home. He denies any syncope he states that he just becomes extremely weak and falls to the ground. He does have a small area of ecchymosis noted on his forehead. Chest x-ray shows small pleural effusions and associated atelectasis, there may be some pulmonary venous hypertension and interstitial edema, correlate to exclude pneumonia. CAT scan of the brain reveals probable age-related atrophy and chronic small vessel ischemia. VQ scan was performed which came back low probability for pulmonary embolism. Blood pressure 170/70, heart rate in the 70s, 95% on 2 L of oxygen. White blood cell count 9.5, hemoglobin 9.5, platelet count 368. D- dimer 4.1. Sodium 138, potassium 5.1, BUN 95 and creatinine 4.3. Magnesium 2.4 , troponin 0.012, BNP level 14,400. At the time of my examination this morning , patient appears to be lying comfortably in bed, he is mildly short of breath with conversation. 12/20/2018 Patient was seen and examined this morning, patient is currently on IV Lasix, renal function today, BUN 113 and creatinine 4.2, magnesium 2.4. Complaining of feeling short of breath today. He is on IV steroids as well. Patient states he's been putting out fair amounts of urine although the documentation is not suggestive of that. 12/21/2018 Patient was seen and examined this morning, being a short of breath today. Overall states he just does not feel well, very weak, nauseated. BUN 125 and creatinine 4.2. Blood pressure 132/70, heart rate in the 1 teens. Objective - Vital Signs Vital signs: Vital Signs Temp 97.8 F 12/21/18 12:00 Pulse 122 H 12/21/18 12:00 Resp 18 12/21/18 12:00 BP 132/77 12/21/18 12:00 Pulse Ox 93 L 12/21/18 12:00 Intake & Output 12/20/18 12/21/18 12/21/18 18:59 06:59 18:59 Intake Total 118 Output Total 850 Balance 118 -850 Weight 72 kg Intake: Oral 118 Output: Urine 850 Other: Voiding Method Urinal Urinal # Voids 1 1 - Exam PHYSICAL EXAMINATION: GENERAL: 83-year-old gentleman in mild distress at the time of my examination HEENT: Head is atraumatic, normocephalic. Pupils equal, round. Sclera anicteric. Conjunctiva are clear. Mucous membranes of the mouth are moist. Neck is supple. There is no elevated jugular venous pressure. No carotid bruit is heard. HEART EXAMINATION: Heart S1, S2 normal. No murmur or gallop heard. CHEST EXAMINATION: Lungs reveal rales to bilateral bases with diminished air entry to the bases. ABDOMEN: Soft, nontender. Bowel sounds are heard. No organomegaly noted. EXTREMITIES: 1+ peripheral pulses with 2+ evidence of peripheral edema , evidence of erythema, blistered areas to lower extremities. NEUROLOGIC patient is awake, alert and oriented 3 . . - Labs CBC & Chem 7: 12/21/18 06:49 12/21/18 06:49 Labs: Abnormal Lab Results - Last 24 Hours (Table) 12/20/18 12/20/18 12/21/18 Range/Units 16:28 20:38 06:49 RBC (4.30-5.90) m/uL Hgb (13.0-17.5) gm/dL Hct (39.0-53.0) % RDW (11.5-15.5) % Carbon Dioxide 20 L (22-30) mmol/L BUN 125 H* (9-20) mg/dL Creatinine 4.23 H (0.66-1.25) mg/dL Glucose 173 H (74-99) mg/dL POC Glucose (mg/dL) 147 H 132 H (75-99) mg/dL Calcium 7.9 L (8.4-10.2) mg/dL Magnesium 2.4 H (1.6-2.3) mg/dL 12/21/18 12/21/18 12/21/18 Range/Units 06:49 08:04 11:08 RBC 3.31 L (4.30-5.90) m/uL Hgb 9.7 L (13.0-17.5) gm/dL Hct 30.7 L (39.0-53.0) % RDW 17.3 H (11.5-15.5) % Carbon Dioxide (22-30) mmol/L BUN (9-20) mg/dL Creatinine (0.66-1.25) mg/dL Glucose (74-99) mg/dL POC Glucose (mg/dL) 167 H 186 H (75-99) mg/dL Calcium (8.4-10.2) mg/dL Magnesium (1.6-2.3) mg/dL Microbiology - Last 24 Hours (Table) 12/18/18 10:10 Blood Culture - Preliminary Blood No Growth after 72 hours Assessment and Plan Plan: Assessment and plan #1 symptoms of progressively worsening shortness of breath, likely combination of COPD exacerbation and congestive heart failure. LV function unknown BNP 14, 000 #2 acute on chronic kidney disease #3 hypertension #4 diabetes #5 hypothyroidism #6 hyperlipidemia #7 prior history of smoking Plan Echocardiogram with Doppler study was performed which revealed an ejection fraction of 55-60%. Moderate tricuspid regurg, moderate to severe pulmonary hypertension. We will continue current dose of IV Lasix. Patient may require dialysis soon, overall patient is doing much worse today than yesterday. We will speak with nephrology. DNP note has been reviewed, I agree with a documented findings and plan of care. Patient was seen and examined.
--- NOTE | 2018-12-21 15:28 | CT ---
EXAMINATION TYPE: CT abdomen pelvis wo con DATE OF EXAM: 12/21/2018 HISTORY: Pain and distention. CT DLP: 527.3 mGycm. Automated Exposure Control for Dose Reduction was Utilized. TECHNIQUE: CT scan of the abdomen and pelvis is performed without oral or IV contrast. COMPARISON: CT abdomen and pelvis July 16, 2015 FINDINGS: Within the limitations of a non-contrast study, the following observations are made. LUNG BASES: There is partial visualization of new small to moderate-sized bilateral pleural effusions and associated compressive atelectasis. Heart size is felt mildly enlarged with three-vessel fairly severe coronary artery calcification. LIVER/GB: Multiple cholecystectomy clips are redemonstrated. PANCREAS: No significant abnormality is seen. SPLEEN: No significant abnormality is seen. ADRENALS: No significant abnormality is seen. KIDNEYS: There is stable 2.4 cm simple appearing cyst laterally upper to mid pole level right kidney axial image 29. Bladder is distended extending into the upper pelvis and anterior lower abdomen, susi elate clinically to assess for possible catheterization. Scattered pelvic phleboliths are seen. BOWEL: No suspicious small or large bowel dilatation. Sigmoid colonic diverticulosis is present. GENITAL ORGANS: No gross abnormality seen. LYMPH NODES: No greater than 1cm abdominal or pelvic lymph nodes are appreciated. OSSEOUS STRUCTURES: Spine is straightened on sagittal images. Moderate multilevel spurring and disc s pace narrowing throughout the thoracolumbar spine is redemonstrated. Large bridging osteophytes in th e anterior and lateral thoracic spine are redemonstrated. Demineralization is present. Some narrowing and sclerosis bilateral sacroiliac joints is redemonstrated. Moderate to severe narrowing with mild to moderate spurring bilateral hip joints is redemonstrated. OTHER: Mild to moderate diffuse soft tissue anasarca over the abdomen and pelvis extending into bilat eral thigh region is seen. Moderate calcified plaque infrarenal dominant aorta extends into iliac bra nch vessels. IMPRESSION: 1. No bowel obstruction. No significant abdominal or pelvic ascites. 2. Small to moderate-sized bilateral pleural effusions with associated compressive atelectasis only p artially imaged with mild to moderate diffuse soft tissue anasarca, suspect fluid overload state, cor relate clinically this may be what is desired. 3. Note is made of distended bladder, correlate clinically.
[2018-12-21 16:16] LABS: Glucose,Whole Blood 307 mg/dL (75-99)
[2018-12-21 16:49] LABS: Anisocytosis Slight; HCT 29.6 % (39.0-53.0); HGB 9.2 gm/dL (13.0-17.5); Hypochromasia Moderate; MCH 28.4 pg (25.0-35.0); MCHC 30.9 g/dL (31.0-37.0); MCV 91.7 fL (80.0-100.0); Mean Platelet Volume 7.3; Platelet Count 273 k/uL (150-450); Poikilocytosis Slight; RBC 3.23 m/uL (4.30-5.90); RDW 17.4 % (11.5-15.5); WBC 12.7 k/uL (3.8-10.6)
[2018-12-21] MEDS ORDERED: LIDOCAINE 1% INJ 10MG/ML (20 ML MDV) ONE (17:00)
[2018-12-21] MEDS ORDERED: HEPARIN SODIUM 1,000 UN/ML (10ML VL) ONE (17:00)
[2018-12-21 17:04] LABS: Calcium 7.6 mg/dL (8.4-10.2); Potassium 4.3 mmol/L (3.5-5.1)
[2018-12-21 17:45] LABS: Amorphous Sediment,Urine Rare /hpf; Appearance,Urine Clear (Clear); Bilirubin,Urine Negative (Negative); Blood,Urine Negative (Negative); Color,Urine Yellow; Glucose,Urine (UA) Negative (Negative); Ketones,Urine Negative (Negative); Leukocyte Esterase,Urine Negative (Negative); Mucus,Urine Rare /hpf; Nitrite,Urine Negative (Negative); Protein,Urine 1+ (Negative); RBC,Urine <1 /hpf (0-5); Specific Gravity,Urine 1.011 (1.001-1.035); Urobilinogen,Urine <2.0 mg/dL (<2.0); WBC,Urine <1 /hpf (0-5)
[2018-12-21 17:50] LABS: Glucose,Whole Blood 151 mg/dL (75-99)
--- NOTE | 2018-12-21 17:58 | CONS ---
CONSULTATION HISTORY: This is an 83-year-old gentleman who has been admitted with acute shortness of breath and edema and history of diabetes and hypertension. The patient has acute kidney injury. BUN and creatinine high. I was consulted for placement of urgent dialysis catheter. He had a CT of the abdomen which showed no bowel obstruction. MEDICAL HISTORY: History of asthma, COPD, diabetes mellitus, hypertension, acute renal disease, thyroid disorder. SURGICAL HISTORY: Patient had a cholecystectomy in the past. PHYSICAL EXAMINATION: Patient is very short of breath. The patient's lungs have bilateral rhonchi. CT also showed patient has a large pleural effusion bilateral. Abdomen is soft, nontender. The patient has swelling of both lower extremities. ASSESSMENT: Acute renal failure. PLAN: Placement of the dialysis catheter. Risks and complication discussed, bleeding, infection, thrombosis. MMODL / IJN: [id number] /
--- NOTE | 2018-12-21 18:40 | PCN ---
PROCEDURE NOTE PREOP: Acute on chronic renal failure. PROCEDURE: A dialysis catheter placed right femoral approach. DESCRIPTION OF PROCEDURE: Patient was seen in the intensive care unit. Right groin was shaved and prepped and drapes applied in usual sterile manner. 1% lidocaine plain infiltrated. Micropuncture introduced into the right femoral vein and micropuncture guidewire was passed and 4- Maltese dilator advanced on top of the guidewire. Then we passed a regular guidewire. Then we advanced the dilator. 20 cm dialysis catheter advanced on top of the guidewire. Flushed with heparin saline and hep-locked. Secured with 3-0 nylon. Dressing applied. Patient tolerated the procedure well. MMODL / IJN: [id number] /
[2018-12-21] MEDS ORDERED: HEPARIN SODIUM,PORCINE 5,000 UNIT/ML 1 ML VIAL IV ONE (18:56)
[2018-12-21] MEDS ORDERED: HEPARIN SODIUM,PORCINE 5,000 UNIT/ML 1 ML VIAL IV PRN (18:56)
[2018-12-21] MEDS ORDERED: HEPARIN SOD,PORK IN 0.45% NACL 25,000 UNIT in 0.45% NACL 1 250ML.BAG IV SCH (19:00)
[2018-12-21 19:21] LABS: INR 0.9 (<1.2); Partial Thromboplastin Time 25.3 sec (22.0-30.0)
[2018-12-21] MEDS: SODIUM CHLORIDE 0.9% 500 ML 500 ML IV SCH (20:23)
[2018-12-21] MEDS: ATORVASTATIN 10 MG TAB PO SCH ×2 (20:47→21:28)
[2018-12-21] MEDS: PANTOPRAZOLE 40 MG/10 ML VIAL IVP SCH (20:48)
[2018-12-21 21:11] LABS: Glucose,Whole Blood 164 mg/dL (75-99)
[2018-12-21] MEDS: MELATONIN 3 MG TABLET PO SCH (21:28)
[2018-12-21] MEDS ORDERED: CARVEDILOL 6.25 MG TAB PO STA (21:52)
[2018-12-21] MEDS ORDERED: hydrALAZINE HCL 20 MG/ML 1 ML VIAL IVP PRN (21:54)
[2018-12-21 21:57] LABS: Prothrombin Time 10.1 sec (9.0-12.0)
[2018-12-21 23:03] LABS: Anisocytosis Slight; Basophils % (A) 0 %; Eosinophils # (A) 0.1 k/uL (0-0.7); Eosinophils % (A) 1 %; HCT 31.8 % (39.0-53.0); HGB 9.9 gm/dL (13.0-17.5); Hypochromasia Moderate; Lymphocytes # (A) 0.3 k/uL (1.0-4.8); Lymphocytes % (A) 2 %; MCH 28.4 pg (25.0-35.0); MCHC 31.1 g/dL (31.0-37.0); MCV 91.2 fL (80.0-100.0); Mean Platelet Volume 6.2; Monocytes # (A) 1.2 k/uL (0-1.0); Monocytes % (A) 9 %; Neutrophils # (A) 11.3 k/uL (1.3-7.7); Neutrophils % (A) 86 %; Platelet Count 255 k/uL (150-450); Poikilocytosis Slight; RBC 3.48 m/uL (4.30-5.90); RDW 17.1 % (11.5-15.5); WBC 13.2 k/uL (3.8-10.6)
[2018-12-21 23:11] LABS: Hepatitis B Surface AB- Quant 3.5 mIU/mL
--- NOTE | 2018-12-22 03:14 | XR ---
EXAMINATION TYPE: XR chest 1V portable DATE OF EXAM: 12/22/2018 COMPARISON: December 20, 2018 HISTORY: Short of breath TECHNIQUE: Single frontal view of the chest is obtained. FINDINGS: There is blunting of the costophrenic angles. There is mild pulmonary edema. There are lar ge pulmonary tucker consistent with pulmonary congestion. There is airspace infiltrate left lower lobe. IMPRESSION: There is evidence of congestive heart failure with pleural effusions. There is increasin g infiltrate left lower lobe compared to last exam.
[2018-12-22 03:44] LABS: ABG Base Excess -0.4 mmol/L; ABG HCO3 25 mmol/L (21-25); ABG Oxygen Saturation 77.5 % (94-97); ABG PCO2 41 mmHg (35-45); ABG PH 7.39 (7.35-7.45); ABG TCO2 26 mmol/L (19-24)
[2018-12-22 06:11] LABS: Anisocytosis Slight; Basophils % (A) 0 %; Eosinophils % (A) 0 %; HCT 30.3 % (39.0-53.0); HGB 9.5 gm/dL (13.0-17.5); Hypochromasia Moderate; Lymphocytes # (A) 0.4 k/uL (1.0-4.8); Lymphocytes % (A) 3 %; MCH 28.6 pg (25.0-35.0); MCHC 31.4 g/dL (31.0-37.0); MCV 91.1 fL (80.0-100.0); Mean Platelet Volume 6.4; Monocytes # (A) 1.2 k/uL (0-1.0); Monocytes % (A) 11 %; Neutrophils # (A) 9.6 k/uL (1.3-7.7); Neutrophils % (A) 84 %; Platelet Count 235 k/uL (150-450); Poikilocytosis Slight; RBC 3.33 m/uL (4.30-5.90); WBC 11.4 k/uL (3.8-10.6)
[2018-12-22] MEDS: LEVOTHYROXINE 75 MCG TAB PO SCH ×2 (06:16→09:04)
[2018-12-22 06:23] LABS: Albumin 3.4 g/dL (3.5-5.0); Calcium 7.5 mg/dL (8.4-10.2); Magnesium 2.2 mg/dL (1.6-2.3); Phosphorus 6.9 mg/dL (2.5-4.5); Potassium 4.1 mmol/L (3.5-5.1); Total Bilirubin 0.6 mg/dL (0.2-1.3)
[2018-12-22 06:43] LABS: Glucose,Whole Blood 143 mg/dL (75-99)
[2018-12-22] MEDS: INSULIN ASPART 100 UNIT/ML 1 ML 10 ML VIAL SQ SCH ×4 (06:49→20:10)
[2018-12-22] MEDS: IPRATROPIUM-ALBUTEROL 3 ML NEB INHALATION SCH ×4 (07:17→19:34)
[2018-12-22] MEDS: ONDANSETRON 4 MG/2 ML VIAL IVP PRN (07:58)
[2018-12-22] MEDS: PANTOPRAZOLE 40 MG/10 ML VIAL IVP SCH ×2 (08:08→19:59)
[2018-12-22] MEDS ORDERED: VANCOMYCIN IV PER PHARMACY 1 EACH MISC MISCELLANE PRN (09:03)
[2018-12-22] MEDS: CALCIUM ACETATE 667 MG CAP PO SCH (09:04)
[2018-12-22] MEDS: hydrALAZINE HCL 50 MG TAB PO SCH ×3 (09:04→22:15)
[2018-12-22] MEDS: GABAPENTIN 300 MG CAP PO SCH ×2 (09:04→19:59)
[2018-12-22] MEDS: SODIUM BICARBONATE TAB 650 MG TAB PO SCH ×3 (09:04→22:15)
[2018-12-22] MEDS: NITROGLYCERIN OINT 1 INCH/GM PACKET TOPICAL SCH ×4 (09:08→22:15)
[2018-12-22] MEDS: SODIUM FERRIC GLUCONAT-SUCROSE 125 MG in SODIUM CHLORIDE 0.9% 100 ML IVPB SCH (09:08)
[2018-12-22] MEDS: ASPIRIN 81 MG PO SCH (09:09)
[2018-12-22] MEDS: METOPROLOL TARTRATE 50 MG TAB PO SCH ×2 (09:11→19:59)
[2018-12-22] MEDS ORDERED: VANCOMYCIN 1,250 MG in SODIUM CHLORIDE 0.9% 250 ML IVPB ONE (10:00)
[2018-12-22] MEDS: CEFEPIME 1 GM in SODIUM CHLORIDE 0.9% 50 ML IVPB SCH (10:06)
--- NOTE | 2018-12-22 10:17 | CONS ---
CONSULTATION DATE OF SERVICE: 12/22/2018. HISTORY: This is an 83-year-old gentleman with a history of multiple medical problems including COPD/asthma, diabetes, hyperlipidemia, stage 3 chronic kidney disease, pancreatitis, UTI, gout, hypertension, who was seen in the emergency room on December 18. The patient was evaluated there because of increasing shortness of breath. He also apparently had weight gain and swollen ankles and feet. In addition, his legs were weeping. For that reason, he was admitted to the hospital. I was consulted yesterday because the patient apparently developed some coffee-ground emesis and some respiratory distress with new onset atrial fibrillation/RVR. For that reason, the patient was transferred to the intensive care unit for further management. Through the night, his oxygen requirements went up and he is now currently on BiPAP at 14 and 5 and 100%. The patient did have dialysis yesterday. It was an acute dialysis and 2 L was removed. Dialysis is anticipated today. He is not receiving any IV fluids. A blood gas was done when he first got to the ICU and his PO2 was only 44, pCO2 of 41, pH of 7.39. That was on a non-rebreather mask. His chest x-ray showed fluid overload. Currently, the patient is doing reasonably well on the BiPAP. His saturations are in the mid 90s. Dialysis is anticipated today as I mentioned. He was a smoker in the past quite heavily and he also used to be a heavy drinker but quit drinking alcohol. HOME MEDICATIONS: 1. Garlic. 2. Simvastatin. 3. Verapamil. 4. Low-dose aspirin. 5. Eye vitamins. 6. Calcitriol. 7. PhosLo. 8. Vitamin D2. 9. Gabapentin. 10.Levothyroxine. 11.Hydralazine. 12.Sodium bicarbonate tablets. 13.Amlodipine. ALLERGIES: LISINOPRIL, METFORMIN, CIPROFLOXACIN. MEDICAL HISTORY: As mentioned, includes all the things I mentioned earlier including COPD/asthma, diabetes, hyperlipidemia, chronic kidney disease stage III, pancreatitis, UTI, gout, hypertension and hypothyroidism. He also apparently has a history of diverticular disease and psoriasis. He does have a history of glaucoma as well. SURGICAL HISTORY: Includes cholecystectomy, colonoscopy with polypectomy. SOCIAL HISTORY: Positive for previous heavy tobacco and alcohol use. No illicit drug use. FAMILY HISTORY: Positive for prostate cancer and alcoholism. REVIEW OF SYSTEMS: Cannot be readily obtained from the patient because he is on the BiPAP and he is very short of breath. He states his primary issue currently is shortness of breath, which has improved since he has been here in the ICU. He denies any chest pain or chest discomfort. PHYSICAL EXAMINATION: Current vital signs are reviewed, his temperature is 98.5 heart rate about 100, respiratory rate about 18, blood pressure 127/85, mean 99, and his saturations are in the mid 90s on BiPAP at 14 and 5 and 100%. Appears in no acute distress. Appears to be quite a bit tachypneic and dyspneic. HEENT EXAMINATION: Hard to assess. No gross abnormalities. NECK: Supple. Full range of motion. No adenopathy or thyromegaly. CARDIOVASCULAR EXAMINATION: Reveals mild tachycardia. Heart rate about 100. It is irregular. He is clearly in atrial fibrillation. No murmur noted. LUNGS: Coarse rhonchi. Some bibasilar crackles. No wheezes. ABDOMEN: Soft. Bowel sounds are heard. EXTREMITIES: Wrapped. There is some edema. SKIN: Very thin and parchment-like. There are multiple areas of ecchymoses. The legs are weeping. NEUROLOGIC EXAMINATION: Difficult to assess, but he does move all 4 extremities. LABS: Reviewed. White count 11.4, hemoglobin 9.5, hematocrit 30.3, platelet count 335,00. Sodium 140, potassium 4.1 chloride 105, CO2 of 22, anion gap is 13, BUN 100 and creatinine 3.04. Albumin 3.4. Chest x-ray is consistent with fluid overload. ASSESSMENT: 1. New onset atrial fibrillation. 2. Acute respiratory distress, multifactorial, in part related to underlying chronic obstructive pulmonary disease exacerbation, atrial fibrillation with RVR, and fluid overload from his chronic kidney disease. 3. Status post hemodialysis yesterday with 2 L removed. 4. History of diabetes mellitus. 5. Hyperlipidemia. 6. Stage III chronic kidney disease. 7. History of alcoholic pancreatitis. 8. Previous history of urinary tract infection. 9. History of gout. 10.History of hypertension. 11.Possible upper GI bleed with coffee-grounds emesis. PLAN: Hemodialysis today. Medications are reviewed. Additional recommendations and suggestions are forthcoming. Prognosis is guarded. The patient will be seen by Cardiology. Hopefully they will decide to do something for his atrial fibrillation. Additional recommendations and suggestions are forthcoming. Prognosis is guarded. MMODL / IJN: [id number] /
--- NOTE | 2018-12-22 10:18 | P.PN ---
Subjective Progress Note Date: 12/22/18 Seen and examined for the follow-up of acute kidney injury on dialysis. Vik catheter was placed yesterday in the right femoral and had 2 hours of dialysis treatment. Nausea and vomiting is better but today he is on BiPAP. Chest x-ray showed right lower lobe infiltrate. CAT scan of the abdomen did not show any obstruction. Objective - Vital Signs Vital signs: Vital Signs Temp 98.5 F 12/22/18 08:00 Pulse 89 12/22/18 10:00 Resp 14 12/22/18 10:00 BP 120/93 12/22/18 10:00 Pulse Ox 91 L 12/22/18 10:00 Intake & Output 12/21/18 12/22/18 12/22/18 18:59 06:59 18:59 Intake Total 20 200 Output Total 695 2441 105 Balance -075 -2421 95 Weight 66.2 kg Intake: IV 20 0 Sodium Chloride 0.9% 500 20 0 ml 500 ml @ 10 mls/hr IV .Q24H [facility] Rx#:[id number] Intake, IV Titration 100 Amount Sodium Ferric Gluconat- 100 Sucrose 125 mg In Sodium Chloride 0.9% 100 ml @ 100 mls/hr IVPB DAILY [facility] Rx#:[id number] Oral 100 Output: Urine 695 440 105 Stool 1 Other 1999 Other: Voiding Method Indwelling Catheter Indwelling Catheter Indwelling Catheter # Emeses 2 - Exam Lying in bed no acute distress On BiPAP S1-S2 heard Lungs clear edema - Labs CBC & Chem 7: 12/22/18 05:18 12/22/18 05:18 Labs: Abnormal Lab Results - Last 24 Hours (Table) 12/21/18 12/21/18 12/21/18 Range/Units 11:08 16:04 16:40 WBC 12.7 H (3.8-10.6) k/uL RBC 3.23 L (4.30-5.90) m/uL Hgb 9.2 L (13.0-17.5) gm/dL Hct 29.6 L (39.0-53.0) % MCHC 30.9 L (31.0-37.0) g/dL RDW 17.4 H (11.5-15.5) % Neutrophils # (1.3-7.7) k/uL Lymphocytes # (1.0-4.8) k/uL Monocytes # (0-1.0) k/uL APTT (22.0-30.0) sec ABG pO2 (83-108) mmHg ABG Total CO2 (19-24) mmol/L ABG O2 Saturation (94-97) % BUN (9-20) mg/dL Creatinine (0.66-1.25) mg/dL Glucose (74-99) mg/dL POC Glucose (mg/dL) 186 H 307 H (75-99) mg/dL Calcium (8.4-10.2) mg/dL Phosphorus (2.5-4.5) mg/dL Ammonia (<30) umol/L Total Protein (6.3-8.2) g/dL Albumin (3.5-5.0) g/dL Urine Protein (Negative) Amorphous Sediment (None) /hpf Urine Mucus (None) /hpf 12/21/18 12/21/18 12/21/18 Range/Units 16:40 16:40 17:29 WBC (3.8-10.6) k/uL RBC (4.30-5.90) m/uL Hgb (13.0-17.5) gm/dL Hct (39.0-53.0) % MCHC (31.0-37.0) g/dL RDW (11.5-15.5) % Neutrophils # (1.3-7.7) k/uL Lymphocytes # (1.0-4.8) k/uL Monocytes # (0-1.0) k/uL APTT (22.0-30.0) sec ABG pO2 (83-108) mmHg ABG Total CO2 (19-24) mmol/L ABG O2 Saturation (94-97) % BUN 140 H* (9-20) mg/dL Creatinine 4.02 H (0.66-1.25) mg/dL Glucose 204 H (74-99) mg/dL POC Glucose (mg/dL) 151 H (75-99) mg/dL Calcium 7.6 L (8.4-10.2) mg/dL Phosphorus (2.5-4.5) mg/dL Ammonia 36 H (<30) umol/L Total Protein (6.3-8.2) g/dL Albumin (3.5-5.0) g/dL Urine Protein (Negative) Amorphous Sediment (None) /hpf Urine Mucus (None) /hpf 12/21/18 12/21/18 12/21/18 Range/Units 17:30 21:00 22:44 WBC 13.2 H (3.8-10.6) k/uL RBC 3.48 L (4.30-5.90) m/uL Hgb 9.9 L (13.0-17.5) gm/dL Hct 31.8 L (39.0-53.0) % MCHC (31.0-37.0) g/dL RDW 17.1 H (11.5-15.5) % Neutrophils # 11.3 H (1.3-7.7) k/uL Lymphocytes # 0.3 L (1.0-4.8) k/uL Monocytes # 1.2 H (0-1.0) k/uL APTT (22.0-30.0) sec ABG pO2 (83-108) mmHg ABG Total CO2 (19-24) mmol/L ABG O2 Saturation (94-97) % BUN (9-20) mg/dL Creatinine (0.66-1.25) mg/dL Glucose (74-99) mg/dL POC Glucose (mg/dL) 164 H (75-99) mg/dL Calcium (8.4-10.2) mg/dL Phosphorus (2.5-4.5) mg/dL Ammonia (<30) umol/L Total Protein (6.3-8.2) g/dL Albumin (3.5-5.0) g/dL Urine Protein 1+ H (Negative) Amorphous Sediment Rare H (None) /hpf Urine Mucus Rare H (None) /hpf 12/22/18 12/22/18 12/22/18 Range/Units 01:21 03:38 05:18 WBC 11.4 H (3.8-10.6) k/uL RBC 3.33 L (4.30-5.90) m/uL Hgb 9.5 L (13.0-17.5) gm/dL Hct 30.3 L (39.0-53.0) % MCHC (31.0-37.0) g/dL RDW 17.0 H (11.5-15.5) % Neutrophils # 9.6 H (1.3-7.7) k/uL Lymphocytes # 0.4 L (1.0-4.8) k/uL Monocytes # 1.2 H (0-1.0) k/uL APTT 36.4 H (22.0-30.0) sec ABG pO2 44 L* (83-108) mmHg ABG Total CO2 26 H (19-24) mmol/L ABG O2 Saturation 77.5 L (94-97) % BUN (9-20) mg/dL Creatinine (0.66-1.25) mg/dL Glucose (74-99) mg/dL POC Glucose (mg/dL) (75-99) mg/dL Calcium (8.4-10.2) mg/dL Phosphorus (2.5-4.5) mg/dL Ammonia (<30) umol/L Total Protein (6.3-8.2) g/dL Albumin (3.5-5.0) g/dL Urine Protein (Negative) Amorphous Sediment (None) /hpf Urine Mucus (None) /hpf 12/22/18 12/22/18 Range/Units 05:18 06:32 WBC (3.8-10.6) k/uL RBC (4.30-5.90) m/uL Hgb (13.0-17.5) gm/dL Hct (39.0-53.0) % MCHC (31.0-37.0) g/dL RDW (11.5-15.5) % Neutrophils # (1.3-7.7) k/uL Lymphocytes # (1.0-4.8) k/uL Monocytes # (0-1.0) k/uL APTT (22.0-30.0) sec ABG pO2 (83-108) mmHg ABG Total CO2 (19-24) mmol/L ABG O2 Saturation (94-97) % BUN 100 H (9-20) mg/dL Creatinine 3.04 H (0.66-1.25) mg/dL Glucose 137 H (74-99) mg/dL POC Glucose (mg/dL) 143 H (75-99) mg/dL Calcium 7.5 L (8.4-10.2) mg/dL Phosphorus 6.9 H (2.5-4.5) mg/dL Ammonia (<30) umol/L Total Protein 6.0 L (6.3-8.2) g/dL Albumin 3.4 L (3.5-5.0) g/dL Urine Protein (Negative) Amorphous Sediment (None) /hpf Urine Mucus (None) /hpf Microbiology - Last 24 Hours (Table) 12/18/18 10:10 Blood Culture - Preliminary Blood No Growth after 72 hours Assessment and Plan Assessment: #1 acute kidney injury secondary to cardiorenal syndrome/ATN with worsening renal function. #2 CKD3 baseline creatinine near 3, Secondary to diabetic kidney disease. #3 metabolic acidosis #4 COPD #5 hypertension with chronic kidney disease #6 diastolic CHF with pulmonary hypertension #7 right lower lobe pneumonia Plan: #1 As he is on BiPAP plan hemodialysis again today and tomorrow with full treatment. #2 on antibiotics Vanco cefepime per primary team. Vanco trough less than 20. #3 Lasix and steroids on hold with worsening BUNs. #4 avoid nephrotoxic agents and hypotensive episodes
--- NOTE | 2018-12-22 10:23 | PN ---
PROGRESS NOTE HISTORY: Mr. Rosas is an 83-year-old male who presented with symptoms of progressive dyspnea. He has a known history of chronic disease and has been progressing to worsening status. Yesterday he became more uremic with nausea and progressive dyspnea. Underwent placement of dialysis catheter and underwent dialysis yesterday. Hemodynamically stable but he continues to be dyspneic, requiring BiPAP. He denies any symptoms of chest discomfort. He denies any dizziness. He is in atrial fibrillation with episode of rapid ventricular response. 2 L were removed yesterday. His chest x-ray continues to show evidence of congestive heart failure. He had heme-positive aspirate from his NG tube after vomiting. He continues on aspirin, Lipitor 10 mg daily, calcium, PhosLo, Coreg 6.25 mg twice a day, hydralazine 50 mg 3 times a day. PHYSICAL EXAMINATION: Blood pressure 127/80 with a heart rate in the one teens. LUNGS: Clear anteriorly. HEART: Irregular regular. S1, S2. No S3. No rub appreciated. ABDOMEN: Soft, nontender. EXTREMITIES: Chronic skin changes with minimal edema. IMPRESSION: 1. End-stage renal disease, dialysis started yesterday. 2. Atrial fibrillation, new onset, started yesterday. 3. History of hypertension. 4. Symptoms of congestive heart failure secondary to the fluid overload related to the chronic kidney disease. 5. History of diabetes. 6. Hyperlipidemia. 7. Prior history of smoking. RECOMMENDATIONS: I will stop the Coreg and switch him to metoprolol to control his heart rate better. We will continue to hold anticoagulation today to see if he has any further evidence of bleeding. Depending on his progress, further recommendations will be made. MMODL / IJN: [id number] /
[2018-12-22 12:06] LABS: Glucose,Whole Blood 150 mg/dL (75-99)
--- NOTE | 2018-12-22 12:49 | P.PN ---
Subjective Progress Note Date: 12/22/18 Principal diagnosis: uremia, coffee-ground emesis, shortness of breath Patient was examined. No acute events overnight. yesterday, Vik placed in the right groin by Dr. Phillip, dialysis initiated. Patient is undergoing dialysis today. Also planned for tomorrow. Patient reports no improvement in his breathing. He continues to complain of shortness of breath. No further episodes of nausea and vomiting. He is currently on BiPAP, saturating low 90s. Objective - Vital Signs Vital signs: Vital Signs Temp 98.5 F 12/22/18 08:00 Pulse 114 H 12/22/18 11:39 Resp 14 12/22/18 11:00 BP 128/69 12/22/18 11:00 Pulse Ox 92 L 12/22/18 11:00 Intake & Output 12/21/18 12/22/18 12/22/18 18:59 06:59 18:59 Intake Total 20 570 Output Total 695 2441 165 Balance -245 -3022 405 Weight 66.2 kg Intake: IV 20 20 Sodium Chloride 0.9% 500 20 20 ml 500 ml @ 10 mls/hr IV .Q24H [facility] Rx#:[id number] Intake, IV Titration 450 Amount Cefepime 1 gm In Sodium 100 Chloride 0.9% 50 ml @ 100 mls/hr IVPB DAILY [facility] Rx #:[id number] Sodium Ferric Gluconat- 100 Sucrose 125 mg In Sodium Chloride 0.9% 100 ml @ 100 mls/hr IVPB DAILY [facility] Rx#:[id number] Vancomycin 1,250 mg In 250 Sodium Chloride 0.9% 250 ml @ 125 mls/hr IVPB ONCE ONE Rx#:[id number] Oral 100 Output: Urine 695 440 165 Stool 1 Other 1999 Other: Voiding Method Indwelling Catheter Indwelling Catheter Indwelling Catheter # Emeses 2 - Exam General: [non toxic], [labored breathing, on BiPAP], [appears at stated age] Derm: [warm], [dry] Head: [atraumatic], [normocephalic], [symmetric] Eyes: [EOMI], [no lid lag], [anicteric sclera] Mouth: [no lip lesion], [mucus membranes moist] Cardiovascular: [S1S2 reg], [tachycardic], [positive DP pulse bilateral] Lungs: [Diffuse wheezing bilaterally, slightly improved from yesterday], [Rales bilaterally] , [no accessory muscle use] Abdominal: [soft], [mild distention], [no guarding], [no appreciable organomegaly], [right groin Vik] Ext: [no gross muscle atrophy], [no edema], [no contractures], [bilateral lower extremity with weeping superficial wounds and blisters] Neuro: [no focal neuro deficits] Psych: [Alert], [oriented], [appropriate affect] - Labs CBC & Chem 7: 12/22/18 05:18 12/22/18 05:18 Labs: Abnormal Lab Results - Last 24 Hours (Table) 12/21/18 12/21/18 12/21/18 Range/Units 16:04 16:40 16:40 WBC 12.7 H (3.8-10.6) k/uL RBC 3.23 L (4.30-5.90) m/uL Hgb 9.2 L (13.0-17.5) gm/dL Hct 29.6 L (39.0-53.0) % MCHC 30.9 L (31.0-37.0) g/dL RDW 17.4 H (11.5-15.5) % Neutrophils # (1.3-7.7) k/uL Lymphocytes # (1.0-4.8) k/uL Monocytes # (0-1.0) k/uL APTT (22.0-30.0) sec ABG pO2 (83-108) mmHg ABG Total CO2 (19-24) mmol/L ABG O2 Saturation (94-97) % BUN 140 H* (9-20) mg/dL Creatinine 4.02 H (0.66-1.25) mg/dL Glucose 204 H (74-99) mg/dL POC Glucose (mg/dL) 307 H (75-99) mg/dL Calcium 7.6 L (8.4-10.2) mg/dL Phosphorus (2.5-4.5) mg/dL Ammonia (<30) umol/L Total Protein (6.3-8.2) g/dL Albumin (3.5-5.0) g/dL Urine Protein (Negative) Amorphous Sediment (None) /hpf Urine Mucus (None) /hpf 02/02/19 02/02/19 02/02/19 Range/Units 16:40 17:29 17:30 WBC (3.8-10.6) k/uL RBC (4.30-5.90) m/uL Hgb (13.0-17.5) gm/dL Hct (39.0-53.0) % MCHC (31.0-37.0) g/dL RDW (11.5-15.5) % Neutrophils # (1.3-7.7) k/uL Lymphocytes # (1.0-4.8) k/uL Monocytes # (0-1.0) k/uL APTT (22.0-30.0) sec ABG pO2 (83-108) mmHg ABG Total CO2 (19-24) mmol/L ABG O2 Saturation (94-97) % BUN (9-20) mg/dL Creatinine (0.66-1.25) mg/dL Glucose (74-99) mg/dL POC Glucose (mg/dL) 151 H (75-99) mg/dL Calcium (8.4-10.2) mg/dL Phosphorus (2.5-4.5) mg/dL Ammonia 36 H (<30) umol/L Total Protein (6.3-8.2) g/dL Albumin (3.5-5.0) g/dL Urine Protein 1+ H (Negative) Amorphous Sediment Rare H (None) /hpf Urine Mucus Rare H (None) /hpf 12/21/18 12/21/18 12/22/18 Range/Units 21:00 22:44 01:21 WBC 13.2 H (3.8-10.6) k/uL RBC 3.48 L (4.30-5.90) m/uL Hgb 9.9 L (13.0-17.5) gm/dL Hct 31.8 L (39.0-53.0) % MCHC (31.0-37.0) g/dL RDW 17.1 H (11.5-15.5) % Neutrophils # 11.3 H (1.3-7.7) k/uL Lymphocytes # 0.3 L (1.0-4.8) k/uL Monocytes # 1.2 H (0-1.0) k/uL APTT 36.4 H (22.0-30.0) sec ABG pO2 (83-108) mmHg ABG Total CO2 (19-24) mmol/L ABG O2 Saturation (94-97) % BUN (9-20) mg/dL Creatinine (0.66-1.25) mg/dL Glucose (74-99) mg/dL POC Glucose (mg/dL) 164 H (75-99) mg/dL Calcium (8.4-10.2) mg/dL Phosphorus (2.5-4.5) mg/dL Ammonia (<30) umol/L Total Protein (6.3-8.2) g/dL Albumin (3.5-5.0) g/dL Urine Protein (Negative) Amorphous Sediment (None) /hpf Urine Mucus (None) /hpf 12/22/18 12/22/18 12/22/18 Range/Units 03:38 05:18 05:18 WBC 11.4 H (3.8-10.6) k/uL RBC 3.33 L (4.30-5.90) m/uL Hgb 9.5 L (13.0-17.5) gm/dL Hct 30.3 L (39.0-53.0) % MCHC (31.0-37.0) g/dL RDW 17.0 H (11.5-15.5) % Neutrophils # 9.6 H (1.3-7.7) k/uL Lymphocytes # 0.4 L (1.0-4.8) k/uL Monocytes # 1.2 H (0-1.0) k/uL APTT (22.0-30.0) sec ABG pO2 44 L* (83-108) mmHg ABG Total CO2 26 H (19-24) mmol/L ABG O2 Saturation 77.5 L (94-97) % BUN 100 H (9-20) mg/dL Creatinine 3.04 H (0.66-1.25) mg/dL Glucose 137 H (74-99) mg/dL POC Glucose (mg/dL) (75-99) mg/dL Calcium 7.5 L (8.4-10.2) mg/dL Phosphorus 6.9 H (2.5-4.5) mg/dL Ammonia (<30) umol/L Total Protein 6.0 L (6.3-8.2) g/dL Albumin 3.4 L (3.5-5.0) g/dL Urine Protein (Negative) Amorphous Sediment (None) /hpf Urine Mucus (None) /hpf 12/22/18 12/22/18 Range/Units 06:32 11:54 WBC (3.8-10.6) k/uL RBC (4.30-5.90) m/uL Hgb (13.0-17.5) gm/dL Hct (39.0-53.0) % MCHC (31.0-37.0) g/dL RDW (11.5-15.5) % Neutrophils # (1.3-7.7) k/uL Lymphocytes # (1.0-4.8) k/uL Monocytes # (0-1.0) k/uL APTT (22.0-30.0) sec ABG pO2 (83-108) mmHg ABG Total CO2 (19-24) mmol/L ABG O2 Saturation (94-97) % BUN (9-20) mg/dL Creatinine (0.66-1.25) mg/dL Glucose (74-99) mg/dL POC Glucose (mg/dL) 143 H 150 H (75-99) mg/dL Calcium (8.4-10.2) mg/dL Phosphorus (2.5-4.5) mg/dL Ammonia (<30) umol/L Total Protein (6.3-8.2) g/dL Albumin (3.5-5.0) g/dL Urine Protein (Negative) Amorphous Sediment (None) /hpf Urine Mucus (None) /hpf Microbiology - Last 24 Hours (Table) 12/18/18 10:10 Blood Culture - Preliminary Blood No Growth after 96 hours Assessment and Plan Assessment: Assessment and Plan 1. Uremic encephalopathy 2. Nausea and vomiting, coffee-ground emesis 3. Acute respiratory failure 4. COPD exacerbation 5. Hospital-acquired pneumonia 6. 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 Hypertension 8. Hypothyroidism 9. DVT and GI prophylaxis 1. Encephalopathy likely secondary to uremia. Patient was initiated dialysis yesterday, to undergo dialysis today and tomorrow. Ammonia slightly elevated at 36. Fall precautions. Daily BMP. 2. Likely secondary to uremia (worsened with Lasix and SoluMedrol). CT of the abdomen pelvis shows no GI pathology. Dialysis initiated yesterday, for dialysis today and tomorrow. Hemoglobin has been stable at 9.5. Protonix 40 mg IV BID. 3. Multifactorial. Combination of fluid overload from acute renal failure and COPD exacerbation. Nephrology and vascular surgery agreeable for dialysis today and tomorrow. Chest xray this morning shows persistent CHF with pleural effusion. IV Lasix and SoluMedrol is on hold due to hyperuricemia. BiPAP or nasal cannula to maintain an oxygen saturation greater than 92%. BNP is 4000, cardiology consulted for concerns of heart failure. Echocardiogram shows EF of 55-60% with mild LVH 4. Continue DuoNeb 4 times a day scheduled and as needed for shortness of breath and wheezing. Could be partially related to fluid overload from acute renal failure, continue IV diuresing. Oxygen per nasal cannula or BiPAP to maintain oxygen saturation greater than 92%. Will follow pulmonology recommendations. 5. Infiltrate in the left lower lobe seen on chest x-ray this morning. Will start vancomycin IV per levels along with cefepime for broad-spectrum antibiotic coverage. Follow up chest x ray in the morning. Will follow blood cultures and procalcitonin. Follow Pulmonology recommendations. 6. Creatinine is 4.38 to 4.34 to 4.29 to 4.23 to 3.04. Avoid nephrotoxins. Continue calcitriol and sodium bicarbonate tablets. Monitor and replace electrolytes. For dialysis today and tomorrow. Will follow Nephrology recommendations. 6. BP 128/69. Continue hydralazine 50 mg by mouth 3 times a day. Stop verapamil and start Coreg 6.25 mg by mouth twice a day. Monitor vitals, adjust medications as necessary. Will follow cardiology recommendations. 7. Stable. Continue Synthroid 150 g by mouth daily. 8. Heparin 5000 units subcutaneously twice a day. Protonix 40 mg IV twice daily. Minimally improved after initiation of dialysis, currently on BiPAP. Will need dialysis today and tomorrow, for removal of 2L today. Will follow cardiology, nephrology, pulmonology recommendations. IV antibiotics per concerns of pneumonia.
[2018-12-22 17:18] LABS: Glucose,Whole Blood 124 mg/dL (75-99)
[2018-12-22] MEDS: SODIUM CHLORIDE 0.9% 500 ML 500 ML IV SCH (18:27)
[2018-12-22] MEDS: ATORVASTATIN 40 MG TAB PO SCH (19:59)
[2018-12-22 20:20] LABS: Glucose,Whole Blood 119 mg/dL (75-99)
[2018-12-22] MEDS: IPRATROPIUM-ALBUTEROL 3 ML NEB INHALATION PRN (23:17)
[2018-12-23] MEDS: IPRATROPIUM-ALBUTEROL 3 ML NEB INHALATION PRN (03:06)
[2018-12-23 05:14] LABS: Anisocytosis Slight; Basophils % (A) 0 %; Eosinophils % (A) 0 %; HCT 32.7 % (39.0-53.0); HGB 9.8 gm/dL (13.0-17.5); Hypochromasia Marked; Lymphocytes # (A) 0.6 k/uL (1.0-4.8); Lymphocytes % (A) 5 %; MCH 27.8 pg (25.0-35.0); MCHC 30.1 g/dL (31.0-37.0); MCV 92.5 fL (80.0-100.0); Mean Platelet Volume 7.3; Monocytes # (A) 1.3 k/uL (0-1.0); Monocytes % (A) 11 %; Neutrophils # (A) 9.8 k/uL (1.3-7.7); Neutrophils % (A) 82 %; Platelet Count 212 k/uL (150-450); RBC 3.54 m/uL (4.30-5.90); RDW 16.8 % (11.5-15.5); WBC 11.9 k/uL (3.8-10.6)
[2018-12-23 05:30] LABS: Calcium 7.8 mg/dL (8.4-10.2); Magnesium 2.3 mg/dL (1.6-2.3); Phosphorus 6.4 mg/dL (2.5-4.5); Potassium 4.1 mmol/L (3.5-5.1); Total Bilirubin 0.6 mg/dL (0.2-1.3); Total Protein 5.5 g/dL (6.3-8.2)
[2018-12-23] MEDS ORDERED: VANCOMYCIN 1,250 MG in SODIUM CHLORIDE 0.9% 250 ML IVPB ONE (06:00)
[2018-12-23] MEDS: LEVOTHYROXINE 75 MCG TAB PO SCH (06:59)
[2018-12-23] MEDS: INSULIN ASPART 100 UNIT/ML 1 ML 10 ML VIAL SQ SCH ×4 (07:00→21:59)
[2018-12-23 07:11] LABS: Glucose,Whole Blood 114 mg/dL (75-99)
[2018-12-23] MEDS ORDERED: HEPARIN SODIUM,PORCINE 5,000 UNIT/ML 1 ML VIAL IV PRN (07:33)
[2018-12-23] MEDS ORDERED: HEPARIN SODIUM,PORCINE 5,000 UNIT/ML 1 ML VIAL IV ONE (07:33)
--- NOTE | 2018-12-23 07:51 | PN ---
PROGRESS NOTE Mr. Rosas is an 83-year-old male who presented with symptoms of progressive dyspnea with worsening renal function, underwent removal of 2 L of fluid yesterday. He continues to be in atrial fibrillation with episode of rapid ventricular response. He continues to be dyspneic. He has no chest discomfort. He denies any dizziness. He denies any palpitation. He is unaware of the arrhythmia. He had no further episode of bleeding. He continues to have temporary dialysis catheter placed in the right groin. He is scheduled to undergo repeat dialysis today. His blood pressure has been stable. He continued be on aspirin 81 mg daily, Lipitor 40 mg daily, hydralazine 50 mg 3 times a day, nitro paste 1 inch q.6 hours, and metoprolol tartrate 50 mg twice a day. PHYSICAL EXAMINATION: Blood pressure running in the one teens to 120s with the heart rate in the 120s. LUNGS: Clear anteriorly. HEART: Irregular, irregular, S1, S2. No S3 with systolic murmur. No diastolic murmur. ABDOMEN: Soft, nontender. EXTREMITIES: No edema with chronic skin change and decreased distal pulses. LAB DATA: Lab data revealed BUN and creatinine of 81 and 2.83. Hemoglobin of 9.8, white blood cell of 11.9. Potassium 4.1. IMPRESSION: 1. End-stage renal disease, on hemodialysis started on Sunday. 2. Atrial fibrillation of new onset, not documented in the past. 3. Hypertension. 4. Symptoms of dyspnea and fluid overload, improving with the dialysis. The patient continues on the BiPAP, but his overall oxygenation is better. 5. Prior history of smoking. 6. History of hyperlipidemia. 7. History of diabetes. RECOMMENDATION: I will increase the dose of his beta danyelle. I will start him on IV heparin until the decision is made regarding the dialysis catheter. Depending on his progress, further recommendation will be made. MMODL / IJN: [id number] /
[2018-12-23] MEDS: IPRATROPIUM-ALBUTEROL 3 ML NEB INHALATION SCH ×4 (07:56→19:10)
[2018-12-23 08:43] LABS: Anisocytosis Slight; Basophils % (A) 0 %; Eosinophils # (A) 0.1 k/uL (0-0.7); Eosinophils % (A) 0 %; HCT 33.2 % (39.0-53.0); HGB 9.7 gm/dL (13.0-17.5); Hypochromasia Marked; Lymphocytes # (A) 0.7 k/uL (1.0-4.8); Lymphocytes % (A) 6 %; MCH 27.7 pg (25.0-35.0); MCHC 29.4 g/dL (31.0-37.0); MCV 94.3 fL (80.0-100.0); Mean Platelet Volume 7.1; Monocytes # (A) 1.3 k/uL (0-1.0); Monocytes % (A) 10 %; Neutrophils # (A) 10.2 k/uL (1.3-7.7); Neutrophils % (A) 82 %; Platelet Count 215 k/uL (150-450); RBC 3.52 m/uL (4.30-5.90); RDW 16.6 % (11.5-15.5); WBC 12.4 k/uL (3.8-10.6)
[2018-12-23 08:50] LABS: Partial Thromboplastin Time 29.1 sec (22.0-30.0); Prothrombin Time 11.1 sec (9.0-12.0)
[2018-12-23] MEDS: CALCIUM ACETATE 667 MG CAP PO SCH (09:15)
--- NOTE | 2018-12-23 09:18 | XR ---
EXAMINATION TYPE: XR chest 1V portable DATE OF EXAM: 12/23/2018 COMPARISON: 12/22/2018 HISTORY: Shortness of breath TECHNIQUE: Single frontal view of the chest is obtained. FINDINGS: Bilateral consolidation and pleural effusion. Heart is enlarged. Atherosclerotic change ao rta. Arthropathy of the shoulders. IMPRESSION: Stable bilateral consolidation and pleural effusion underlying venous congestion not exc luded.
[2018-12-23] MEDS: ASPIRIN 81 MG PO SCH (09:23)
[2018-12-23] MEDS: CEFEPIME 1 GM in SODIUM CHLORIDE 0.9% 50 ML IVPB SCH (09:24)
[2018-12-23] MEDS: GABAPENTIN 300 MG CAP PO SCH ×2 (09:24→20:31)
[2018-12-23] MEDS: hydrALAZINE HCL 50 MG TAB PO SCH ×3 (09:25→21:58)
[2018-12-23] MEDS: METOPROLOL TARTRATE 50 MG TAB PO SCH ×3 (09:25→21:58)
[2018-12-23] MEDS: PANTOPRAZOLE 40 MG/10 ML VIAL IVP SCH ×2 (09:25→20:30)
[2018-12-23] MEDS: SODIUM BICARBONATE TAB 650 MG TAB PO SCH ×3 (09:26→21:58)
[2018-12-23] MEDS: SODIUM FERRIC GLUCONAT-SUCROSE 125 MG in SODIUM CHLORIDE 0.9% 100 ML IVPB SCH (09:38)
[2018-12-23] MEDS: HEPARIN SOD,PORK IN 0.45% NACL 25,000 UNIT in 0.45% NACL 1 250ML.BAG IV SCH (10:46)
[2018-12-23 11:54] LABS: Glucose,Whole Blood 96 mg/dL (75-99)
--- NOTE | 2018-12-23 13:21 | P.PN ---
Subjective Progress Note Date: 12/23/18 Principal diagnosis: uremia, shortness of breath Patient seen and examined. No acute events overnight. Patient is off of BiPAP , currently saturating 97% on 5 L nasal cannula. His heart rate is 100 110, irregularly irregular. Patient reports improvement in his breathing, states that his eating well. He denies any chest pain or palpitations. He has no complaints this morning. Undergoing dialysis at this time. Objective - Vital Signs Vital signs: Vital Signs Temp 97.5 F L 12/23/18 12:00 Pulse 101 H 12/23/18 12:00 Resp 13 12/23/18 12:15 BP 121/74 12/23/18 12:00 Pulse Ox 97 12/23/18 12:00 Intake & Output 12/22/18 12/23/18 12/23/18 18:59 06:59 18:59 Intake Total 705 5 800 Output Total 2300 365 160 Balance -1595 -360 640 Weight 96.4 kg Intake: IV 55 5 200 Cefepime 1 gm In Sodium 50 Chloride 0.9% 50 ml @ 100 mls/hr IVPB DAILY [facility] Rx #:[id number] Sodium Chloride 0.9% 500 55 5 50 ml 500 ml @ 10 mls/hr IV .Q24H [facility] Rx#:[id number] Sodium Ferric Gluconat- 100 Sucrose 125 mg In Sodium Chloride 0.9% 100 ml @ 100 mls/hr IVPB DAILY [facility] Rx#:[id number] Intake, IV Titration 450 Amount Cefepime 1 gm In Sodium 100 Chloride 0.9% 50 ml @ 100 mls/hr IVPB DAILY [facility] Rx #:[id number] Sodium Ferric Gluconat- 100 Sucrose 125 mg In Sodium Chloride 0.9% 100 ml @ 100 mls/hr IVPB DAILY [facility] Rx#:[id number] Vancomycin 1,250 mg In 250 Sodium Chloride 0.9% 250 ml @ 125 mls/hr IVPB ONCE ONE Rx#:[id number] Oral 200 600 Output: Urine 300 365 160 Other 2000 Other: Voiding Method Indwelling Catheter Indwelling Catheter Indwelling Catheter - Exam General: [non toxic], [eating lunch comfortably], [appears at stated age] Derm: [warm], [dry] Head: [atraumatic], [normocephalic], [symmetric] Eyes: [EOMI], [no lid lag], [anicteric sclera] Mouth: [no lip lesion], [mucus membranes moist] Cardiovascular: [S1S2 reg], [irregularly irregular], [positive DP pulse bilateral] Lungs: [clear to auscultation bilaterally, with some rales at the bases], [no accessory muscle use] Abdominal: [soft], [mild distention], [no guarding], [no appreciable organomegaly], [right groin Vik] Ext: [no gross muscle atrophy], [no edema], [no contractures], [bilateral lower extremity with weeping superficial wounds and blisters] Neuro: [no focal neuro deficits] Psych: [Alert], [oriented], [appropriate affect] - Labs CBC & Chem 7: 12/23/18 08:24 12/23/18 04:40 Labs: Abnormal Lab Results - Last 24 Hours (Table) 12/22/18 12/22/18 12/22/18 Range/Units 13:35 17:06 20:09 WBC (3.8-10.6) k/uL RBC (4.30-5.90) m/uL Hgb (13.0-17.5) gm/dL Hct (39.0-53.0) % MCHC (31.0-37.0) g/dL RDW (11.5-15.5) % Neutrophils # (1.3-7.7) k/uL Lymphocytes # (1.0-4.8) k/uL Monocytes # (0-1.0) k/uL BUN (9-20) mg/dL Creatinine (0.66-1.25) mg/dL Glucose (74-99) mg/dL POC Glucose (mg/dL) 124 H 119 H (75-99) mg/dL Calcium (8.4-10.2) mg/dL Phosphorus (2.5-4.5) mg/dL AST (17-59) U/L Total Protein (6.3-8.2) g/dL Albumin (3.5-5.0) g/dL Procalcitonin 0.73 H (0.02-0.09) ng/mL 12/23/18 12/23/18 12/23/18 Range/Units 04:40 04:40 06:59 WBC 11.9 H (3.8-10.6) k/uL RBC 3.54 L (4.30-5.90) m/uL Hgb 9.8 L (13.0-17.5) gm/dL Hct 32.7 L (39.0-53.0) % MCHC 30.1 L (31.0-37.0) g/dL RDW 16.8 H (11.5-15.5) % Neutrophils # 9.8 H (1.3-7.7) k/uL Lymphocytes # 0.6 L (1.0-4.8) k/uL Monocytes # 1.3 H (0-1.0) k/uL BUN 81 H (9-20) mg/dL Creatinine 2.83 H (0.66-1.25) mg/dL Glucose 110 H (74-99) mg/dL POC Glucose (mg/dL) 114 H (75-99) mg/dL Calcium 7.8 L (8.4-10.2) mg/dL Phosphorus 6.4 H (2.5-4.5) mg/dL AST 14 L (17-59) U/L Total Protein 5.5 L (6.3-8.2) g/dL Albumin 3.0 L (3.5-5.0) g/dL Procalcitonin (0.02-0.09) ng/mL 12/23/18 Range/Units 08:24 WBC 12.4 H (3.8-10.6) k/uL RBC 3.52 L (4.30-5.90) m/uL Hgb 9.7 L (13.0-17.5) gm/dL Hct 33.2 L (39.0-53.0) % MCHC 29.4 L (31.0-37.0) g/dL RDW 16.6 H (11.5-15.5) % Neutrophils # 10.2 H (1.3-7.7) k/uL Lymphocytes # 0.7 L (1.0-4.8) k/uL Monocytes # 1.3 H (0-1.0) k/uL BUN (9-20) mg/dL Creatinine (0.66-1.25) mg/dL Glucose (74-99) mg/dL POC Glucose (mg/dL) (75-99) mg/dL Calcium (8.4-10.2) mg/dL Phosphorus (2.5-4.5) mg/dL AST (17-59) U/L Total Protein (6.3-8.2) g/dL Albumin (3.5-5.0) g/dL Procalcitonin (0.02-0.09) ng/mL Microbiology - Last 24 Hours (Table) 12/18/18 10:10 Blood Culture - Preliminary Blood No Growth after 120 hours Assessment and Plan Assessment: Assessment and Plan 1. Uremic encephalopathy 2. Atrial fibrillation with RVR 3. Nausea and vomiting, coffee-ground emesis 4. Acute respiratory failure 5. COPD exacerbation 6. Hospital-acquired pneumonia 7. 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 Hypertension 9. Hypothyroidism 10. DVT and GI prophylaxis Resolved: uremic encephalopathy, nausea and vomiting/coffee-ground emesis 1. Encephalopathy likely secondary to uremia. Patient was initiated dialysis yesterday, to undergo dialysis today and tomorrow. Ammonia slightly elevated at 36. Fall precautions. Mentation has improved today. 2. New onset. Started on metoprolol 50 mg by mouth 3 times a day. Anticoagulation with heparin drip started today by cardiology. Telemetry monitoring. Keep potassium greater than 4 and magnesium greater than 2. Follow cardiology recommendations. 3. Likely secondary to uremia (worsened with Lasix and SoluMedrol). CT of the abdomen pelvis shows no GI pathology. Dialysis initiated /, for dialysis today and tomorrow. Hemoglobin has been stable at 9.5 - 9.8, unlikely active GI bleed. FOBT negative, gastric occult blood positive. Protonix 40 mg IV BID. 4. Multifactorial. Combination of fluid overload from acute renal failure and COPD exacerbation. Nephrology and vascular surgery agreeable for dialysis today and tomorrow. Chest xray this morning shows persistent CHF with pleural effusion. IV Lasix and SoluMedrol is on hold due to hyperemia. BiPAP or nasal cannula to maintain an oxygen saturation greater than 92%. BNP is 4000, cardiology consulted for concerns of heart failure. Echocardiogram shows EF of 55-60% with mild LVH. 5. Continue DuoNeb 4 times a day scheduled and as needed for shortness of breath and wheezing. Could be partially related to fluid overload from acute renal failure, continue diuresing. Oxygen per nasal cannula or BiPAP to maintain oxygen saturation greater than 92%. Will follow pulmonology recommendations. 6. Infiltrate in the left lower lobe seen on chest x-ray this morning. Continue vancomycin IV per levels along with cefepime for broad-spectrum antibiotic coverage. Follow up chest x ray in the morning. Procalcitonin elevated. Will follow blood cultures. Follow Pulmonology recommendations. 7. Creatinine is 4.38 to 4.34 to 4.29 to 4.23 to 3.04 to 2.83. Avoid nephrotoxins. Continue calcitriol and sodium bicarbonate tablets. Monitor and replace electrolytes. For dialysis today. Will follow Nephrology recommendations. 8. BP 121/74. Continue hydralazine 50 mg by mouth 3 times a day. Stop Coreg and start Metoprolol 50 mg by mouth three times daily. Monitor vitals, adjust medications as necessary. Will follow cardiology recommendations. 9. Stable. Continue Synthroid 150 g by mouth daily. 10. Heparin 5000 units subcutaneously twice a day. Protonix 40 mg IV twice daily. Breathing and mentation improved after initiation of dialysis, currently on nasal canula. Will follow cardiology, nephrology, pulmonology recommendations. IV antibiotics for concerns of pneumonia.
[2018-12-23] MEDS: CALCITRIOL 0.25 MCG CAP PO SCH (13:31)
--- NOTE | 2018-12-23 15:16 | P.PN ---
Subjective Progress Note Date: 12/23/18 This is an 82-year-old male patient who came into the hospital and subsequently the intensive care unit because of increased shortness of breath. The patient had increased weight gain and he has also developed increased swelling in lower extremities bilaterally. His legs were weeping at one point. The patient got moved to the intensive care unit yesterday as the patient developed some coffee- ground emesis and he was also found to be in respiratory distress with new onset atrial fibrillation with rapid ventricular response. The patient was immediately placed on a BiPAP at a pressure of 14/5 cm of water. Subsequently improved. He underwent a dialysis were 2 L of fluid was removed and the patient was taken off the BiPAP. The patient the chest x-ray was showing fluid overload. This patient is feeling better. Currently is off the BiPAP. No chest pain. No cough or sputum production. He is going to have another session of hemodialysis today. The intention is to take 2-1/2 L of fluids. In terms of his cardiac status, the patient is currently in atrial fibrillation with rate being under much better control. He is on IV heparin and there is no evidence of any GI bleeding at this point in time. His Gastroccult was positive and his fluid causing was negative on 12/22/2018. In terms of comorbidities, the patient is known to have COPD/asthma, diabetes mellitus, stage III chronic kidney disease with subsequent decompensation and the patient has been on dialysis since 12/21/2018, history of hypertension, UTI, gout, history of pancreatitis, diabetes mellitus and hypothyroidism. There is echocardiogram shows a normal ejection fraction of 55-60%. There was moderate degree of pulmonary hypertension with a PA pressure of 67. The patient had moderate degree of tricuspid regurgitation also. He had mild concentric left ventricular hypertrophy. Objective - Vital Signs Vital signs: Vital Signs Temp 97.5 F L 12/23/18 12:00 Pulse 117 H 12/23/18 13:00 Resp 14 12/23/18 13:00 BP 109/62 12/23/18 13:00 Pulse Ox 95 12/23/18 13:00 Intake & Output 12/22/18 12/23/18 12/23/18 18:59 06:59 18:59 Intake Total 705 5 810 Output Total 2300 365 185 Balance -1595 -360 625 Weight 96.4 kg Intake: IV 55 5 210 Cefepime 1 gm In Sodium 50 Chloride 0.9% 50 ml @ 100 mls/hr IVPB DAILY [facility] Rx #:[id number] Sodium Chloride 0.9% 500 55 5 60 ml 500 ml @ 10 mls/hr IV .Q24H [facility] Rx#:[id number] Sodium Ferric Gluconat- 100 Sucrose 125 mg In Sodium Chloride 0.9% 100 ml @ 100 mls/hr IVPB DAILY [facility] Rx#:[id number] Intake, IV Titration 450 Amount Cefepime 1 gm In Sodium 100 Chloride 0.9% 50 ml @ 100 mls/hr IVPB DAILY [facility] Rx #:[id number] Sodium Ferric Gluconat- 100 Sucrose 125 mg In Sodium Chloride 0.9% 100 ml @ 100 mls/hr IVPB DAILY [facility] Rx#:[id number] Vancomycin 1,250 mg In 250 Sodium Chloride 0.9% 250 ml @ 125 mls/hr IVPB ONCE ONE Rx#:[id number] Oral 200 600 Output: Urine 300 365 185 Other 2000 Other: Voiding Method Indwelling Catheter Indwelling Catheter Indwelling Catheter - Exam Gen. appearance the patient is calm comfortable likely distress, currently is on 5 L of oxygen nasal cannula and he is currently off the BiPAP. Head exam was generally normal. There was no scleral icterus or corneal arcus. Mucous membranes were moist. Neck was supple and without jugular venous distension, thyromegaly, or carotid bruits. Carotids were easily palpable bilaterally. There was no adenopathy. Lungs sounds are diminished bilaterally otherwise clear. There is no significant crackles wheezes or rhonchi. Heart sounds are irregular S1-S2, there is faint murmur heard along the left lateral sternal border. Abdominal exam revealed normal bowel sounds. The abdomen was soft, non-tender, and without masses, organomegaly, or appreciable enlargement of the abdominal aorta. Extremities are swollen and the patient is +1 pitting edema in all 4 extremities mainly in the lower extremities bilaterally. He also has multiple open blisters in his lower extremities bilaterally. - Labs CBC & Chem 7: 12/23/18 08:24 12/23/18 04:40 Labs: Abnormal Lab Results - Last 24 Hours (Table) 12/22/18 12/22/18 12/22/18 Range/Units 13:35 17:06 20:09 WBC (3.8-10.6) k/uL RBC (4.30-5.90) m/uL Hgb (13.0-17.5) gm/dL Hct (39.0-53.0) % MCHC (31.0-37.0) g/dL RDW (11.5-15.5) % Neutrophils # (1.3-7.7) k/uL Lymphocytes # (1.0-4.8) k/uL Monocytes # (0-1.0) k/uL BUN (9-20) mg/dL Creatinine (0.66-1.25) mg/dL Glucose (74-99) mg/dL POC Glucose (mg/dL) 124 H 119 H (75-99) mg/dL Calcium (8.4-10.2) mg/dL Phosphorus (2.5-4.5) mg/dL AST (17-59) U/L Total Protein (6.3-8.2) g/dL Albumin (3.5-5.0) g/dL Procalcitonin 0.73 H (0.02-0.09) ng/mL 12/23/18 12/23/18 12/23/18 Range/Units 04:40 04:40 06:59 WBC 11.9 H (3.8-10.6) k/uL RBC 3.54 L (4.30-5.90) m/uL Hgb 9.8 L (13.0-17.5) gm/dL Hct 32.7 L (39.0-53.0) % MCHC 30.1 L (31.0-37.0) g/dL RDW 16.8 H (11.5-15.5) % Neutrophils # 9.8 H (1.3-7.7) k/uL Lymphocytes # 0.6 L (1.0-4.8) k/uL Monocytes # 1.3 H (0-1.0) k/uL BUN 81 H (9-20) mg/dL Creatinine 2.83 H (0.66-1.25) mg/dL Glucose 110 H (74-99) mg/dL POC Glucose (mg/dL) 114 H (75-99) mg/dL Calcium 7.8 L (8.4-10.2) mg/dL Phosphorus 6.4 H (2.5-4.5) mg/dL AST 14 L (17-59) U/L Total Protein 5.5 L (6.3-8.2) g/dL Albumin 3.0 L (3.5-5.0) g/dL Procalcitonin (0.02-0.09) ng/mL 12/23/18 Range/Units 08:24 WBC 12.4 H (3.8-10.6) k/uL RBC 3.52 L (4.30-5.90) m/uL Hgb 9.7 L (13.0-17.5) gm/dL Hct 33.2 L (39.0-53.0) % MCHC 29.4 L (31.0-37.0) g/dL RDW 16.6 H (11.5-15.5) % Neutrophils # 10.2 H (1.3-7.7) k/uL Lymphocytes # 0.7 L (1.0-4.8) k/uL Monocytes # 1.3 H (0-1.0) k/uL BUN (9-20) mg/dL Creatinine (0.66-1.25) mg/dL Glucose (74-99) mg/dL POC Glucose (mg/dL) (75-99) mg/dL Calcium (8.4-10.2) mg/dL Phosphorus (2.5-4.5) mg/dL AST (17-59) U/L Total Protein (6.3-8.2) g/dL Albumin (3.5-5.0) g/dL Procalcitonin (0.02-0.09) ng/mL Microbiology - Last 24 Hours (Table) 12/18/18 10:10 Blood Culture - Preliminary Blood No Growth after 120 hours Assessment and Plan Plan: Assessment 1 acute hypoxic history failure requiring BiPAP, essentially secondary to fluid overload and a component of CHF with diastolic dysfunction. The patient underwent dialysis and today another session of dialysis will be done with the intention of removing 20 half liters of fluids. He is currently on 5 L of oxygen nasal cannula and his shortness of breath is improved 2 new onset atrial fibrillation, and the patient is currently still in A. fib with a controlled rate and the patient is currently on IV heparin per broomcorn seeder recommendation 3 preserved LV function with an ejection fraction of 55-60% and moderate to severe pulmonary hypertension with a PA pressure of 67 4 diabetes mellitus 5 End stage renal disease currently on hemodialysis, the patient has a dialysis catheter in his right groin and he has undergone 3 sessions of hemodialysis since December 21 where a total of 6.5 L of fluid was removed. Note that he had stage III kidney disease earlier. 6 hyperlipidemia 7 chronic ulceration of the lower extremities bilaterally 8 history of alcoholic pancreatitis 9 hypertension 10 gout 11 questionable GI bleed although this has not been officially confirm that the patient is able to get IV heparin without any major complications. 12 COPD 13 hypothyroidism Plan in terms of today's evaluation, the patient is still having a component of pulmonary vessel congestion and his chest x-ray. The patient will be having another session of hemodialysis. The patient will continued IV heparin for now. He is currently on Lopressor 50 mg by mouth 3 times a day. He is also on IV Lasix as the patient is producing some urine output and is receiving 60 mg IV Lasix every 12 hours. The antibiotic coverage essentially empiric and the patient on IV cefepime. Outpatient medications have been ordered resume. The patient on oral bicarb. IV fluids have be kept on to KVO. Discontinue the BiPAP therapy for now. Repeat chest x-ray in the morning. We'll continue to follow.
--- NOTE | 2018-12-23 15:30 | PN ---
PROGRESS NOTE Patient is seen for followup for acute kidney injury. Currently, he is seen on hemodialysis. Patient is tolerating his treatment well. He will be eating this afternoon. His blood pressure is stable with systolic of around 105 mmHg. Patient is afebrile with a heart rate is staying about 100 per minute. The patient is maintained on 5 L nasal cannula. Examination of the heart S1, S2. Examination lungs bilateral breath sounds are heard. Decreased breath sounds at bases. Abdomen is soft, distended, nontender. Examination of lower extremities shows edema 1+ bilaterally. INFORMATION SECURITY DIRECTOR exam is grossly intact. LAB: Show hemoglobin 9.7, sodium 141, potassium 4.1, serum creatinine 2.83. ASSESSMENT: 1. Acute kidney injury, acute tubular necrosis, currently hemodialysis dependent, not much urine output noted. We will maintain patient on a Sunday, Sunday, Sunday schedule for dialysis. 2. 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 Baseline creatinine was around 3. 3. Chronic obstructive pulmonary disease. 4. Hypertension with chronic kidney disease. Currently, blood pressure is stable and slightly on the lower side. 5. Volume overload UF of about 2 L today. We can resume IV Lasix. We will plan for UF only tomorrow with dialysis. 6. Diastolic heart failure, ejection fraction 55-60 percent. 7. COPD exacerbation. 8. Atrial fibrillation with a RVR, currently with controlled ventricular response. 9. Hospital-acquired pneumonia. Plan UF only tomorrow. Resume IV push Lasix. Repeat labs in a.m.. MMSHAYL / KENN: [id number] /
[2018-12-23 17:40] LABS: Glucose,Whole Blood 153 mg/dL (75-99)
[2018-12-23 17:44] LABS: Hepatitis A Antibody IgM Non-Reactive (Non-Reactive); Hepatitis B Core IgM Non-Reactive (Non-Reactive)
[2018-12-23] MEDS: FUROSEMIDE 10 MG/ML 10 ML VIAL IV SCH (20:31)
[2018-12-23] MEDS: ATORVASTATIN 40 MG TAB PO SCH (20:31)
[2018-12-23 21:08] LABS: Glucose,Whole Blood 144 mg/dL (75-99)
[2018-12-24 02:31] LABS: Anisocytosis Slight; Basophils % (A) 0 %; Eosinophils # (A) 0.1 k/uL (0-0.7); Eosinophils % (A) 1 %; HCT 30.5 % (39.0-53.0); HGB 9.2 gm/dL (13.0-17.5); Hypochromasia Moderate; Lymphocytes # (A) 0.7 k/uL (1.0-4.8); Lymphocytes % (A) 5 %; MCH 27.8 pg (25.0-35.0); MCHC 30.2 g/dL (31.0-37.0); MCV 91.8 fL (80.0-100.0); Mean Platelet Volume 7.8; Monocytes # (A) 1.3 k/uL (0-1.0); Monocytes % (A) 10 %; Neutrophils # (A) 10.2 k/uL (1.3-7.7); Neutrophils % (A) 82 %; Platelet Count 184 k/uL (150-450); RBC 3.32 m/uL (4.30-5.90); RDW 16.8 % (11.5-15.5); WBC 12.4 k/uL (3.8-10.6)
[2018-12-24 02:48] LABS: Calcium 7.4 mg/dL (8.4-10.2); Magnesium 2.2 mg/dL (1.6-2.3); Potassium 4.2 mmol/L (3.5-5.1)
[2018-12-24 02:53] LABS: Vancomycin,Random 16.2 ug/mL
[2018-12-24] MEDS: LEVOTHYROXINE 75 MCG TAB PO SCH (05:59)
[2018-12-24] MEDS: SODIUM CHLORIDE 0.9% 500 ML 500 ML IV SCH ×2 (06:07→21:18)
[2018-12-24] MEDS: INSULIN ASPART 100 UNIT/ML 1 ML 10 ML VIAL SQ SCH ×4 (06:57→21:18)
[2018-12-24 07:05] LABS: Glucose,Whole Blood 203 mg/dL (75-99)
[2018-12-24 07:21] LABS: Glucose,Whole Blood 211 mg/dL (75-99)
--- NOTE | 2018-12-24 08:22 | PN ---
PROGRESS NOTE Mr. Rosas is an 83-year-old male with end-stage renal disease, who presented with progressive symptoms of dyspnea, underwent dialysis, he is feeling better. He is in atrial fibrillation with controlled ventricular response most of the time. He denies any symptoms of chest pain. He denies any dizziness, palpitation. He denies any nausea. He is on IV heparin at this time. Awaiting decision regarding placement of his dialysis catheter. His nausea that he had initially has resolved completely. He continues to be on the IV heparin, Rocaltrol, PhosLo, Neurontin, hydralazine 50 mg 3 times a day, metoprolol tartrate 50 mg 3 times a day. PHYSICAL EXAMINATION: Blood pressure 109/60 with a heart rate in the 90s. LUNGS: Clear. HEART: Irregular, regular, S1, S2. No S3 with systolic murmur. ABDOMEN: Soft, nontender. EXTREMITIES: With chronic discoloration with decreased distal pulses. No significant edema. LAB DATA: Revealed a hemoglobin 9.2, BUN and creatinine 65 and 2.66. IMPRESSION: 1. End-stage renal disease, on hemodialysis. 2. Atrial fibrillation. 3. Symptoms of progressive dyspnea and congestive heart failure with preserved systolic function related to the heart failure, improving. 4. History of alcoholic pancreatitis. 5. History of hyperlipidemia. 6. History of diabetes mellitus. RECOMMENDATION: From the cardiac standpoint, I will cut down the dose of hydralazine. Will await the decision of the Nephrology Team regarding placement of a catheter in a different location than his right groin and once that is done, then will initiate anticoagulation with oral treatment. MMODL / IJN: [id number] /
--- NOTE | 2018-12-24 08:26 | XR ---
EXAMINATION TYPE: XR chest 1V DATE OF EXAM: 12/24/2018 COMPARISON: Prior chest x-ray 12/23/2018 HISTORY: Abnormal chest x-ray, congestive heart failure TECHNIQUE: Single frontal view of the chest is obtained. FINDINGS: Findings are similar to prior exam. Pulmonary artery and lung volumes appear prominently, consider COPD, pulmonary artery hypertension. Basilar increased density suggests pleural effusions an d probable associated atelectasis or edema. Heart remains enlarged. No evident pneumothorax. There ar e cardiac leads. Perihilar vascular indistinctness and prominence of interstitium is noted. IMPRESSION: Findings suggest pulmonary venous hypertension and interstitial edema, volume overload. Possible pleural effusions and additional findings above. Follow-up recommended.
[2018-12-24] MEDS: IPRATROPIUM-ALBUTEROL 3 ML NEB INHALATION SCH ×4 (08:46→19:33)
[2018-12-24] MEDS: FUROSEMIDE 10 MG/ML 10 ML VIAL IV SCH ×2 (08:54→21:17)
[2018-12-24] MEDS: ASPIRIN 81 MG PO SCH (08:55)
[2018-12-24] MEDS ORDERED: VANCOMYCIN 1,250 MG in SODIUM CHLORIDE 0.9% 250 ML IVPB ONE (09:00)
[2018-12-24] MEDS: CEFEPIME 1 GM in SODIUM CHLORIDE 0.9% 50 ML IVPB SCH (09:26)
[2018-12-24] MEDS: GABAPENTIN 300 MG CAP PO SCH ×2 (09:26→21:18)
[2018-12-24] MEDS: hydrALAZINE HCL 50 MG TAB PO SCH ×3 (09:27→23:14)
[2018-12-24] MEDS: SODIUM BICARBONATE TAB 650 MG TAB PO SCH ×3 (09:27→21:18)
[2018-12-24] MEDS: CALCIUM ACETATE 667 MG CAP PO SCH (09:27)
[2018-12-24] MEDS: PANTOPRAZOLE 40 MG/10 ML VIAL IVP SCH ×2 (09:28→21:23)
[2018-12-24] MEDS: METOPROLOL TARTRATE 50 MG TAB PO SCH ×3 (09:28→21:23)
--- NOTE | 2018-12-24 10:30 | P.PN ---
Subjective Progress Note Date: 12/24/18 This is an 82-year-old male patient who came into the hospital and subsequently the intensive care unit because of increased shortness of breath. The patient had increased weight gain and he has also developed increased swelling in lower extremities bilaterally. His legs were weeping at one point. The patient got moved to the intensive care unit yesterday as the patient developed some coffee- ground emesis and he was also found to be in respiratory distress with new onset atrial fibrillation with rapid ventricular response. The patient was immediately placed on a BiPAP at a pressure of 14/5 cm of water. Subsequently improved. He underwent a dialysis were 2 L of fluid was removed and the patient was taken off the BiPAP. The patient the chest x-ray was showing fluid overload. This patient is feeling better. Currently is off the BiPAP. No chest pain. No cough or sputum production. He is going to have another session of hemodialysis today. The intention is to take 2-1/2 L of fluids. In terms of his cardiac status, the patient is currently in atrial fibrillation with rate being under much better control. He is on IV heparin and there is no evidence of any GI bleeding at this point in time. His Gastroccult was positive and his fluid causing was negative on 12/22/2018. In terms of comorbidities, the patient is known to have COPD/asthma, diabetes mellitus, stage III chronic kidney disease with subsequent decompensation and the patient has been on dialysis since 12/21/2018, history of hypertension, UTI, gout, history of pancreatitis, diabetes mellitus and hypothyroidism. There is echocardiogram shows a normal ejection fraction of 55-60%. There was moderate degree of pulmonary hypertension with a PA pressure of 67. The patient had moderate degree of tricuspid regurgitation also. He had mild concentric left ventricular hypertrophy. On today's evaluation of 12/24/2018, the patient is awake alert and he is not having any respiratory distress. He is currently off the BiPAP. FiO2 is being gradually weaned off. The patient underwent hemodialysis yesterday. There was more than 2 L of ultrafiltration. The chest x-ray from today still showing a left-sided pleural effusion. The overall volume status improved compared to yesterday. No nausea. No vomiting. No emesis. He remains nature fibrillation and the rate is under better control for now. He remains on IV heparin. The transition to oral in to coagulation will be done after insertion of a permanent dialysis port. He has a congested cough. Unable to bring up much sputum. The lower extremity ulcers and wounds are currently inactive and stable. The patient remains on IV cefepime. The patient is awake. Tolerating his diet. There has been no other significant events overnight. Objective - Vital Signs Vital signs: Vital Signs Temp 98.9 F 12/24/18 08:00 Pulse 103 H 12/24/18 09:08 Resp 14 12/24/18 09:00 BP 101/69 12/24/18 09:00 Pulse Ox 98 12/24/18 09:00 Intake & Output 12/23/18 12/24/18 12/24/18 18:59 06:59 18:59 Intake Total 940.586 0 320 Output Total 215 150 60 Balance 725.586 -150 260 Weight 61 kg Intake: IV 260 320 Cefepime 1 gm In Sodium 50 50 Chloride 0.9% 50 ml @ 100 mls/hr IVPB DAILY [facility] Rx #:[id number] Sodium Chloride 0.9% 500 110 20 ml 500 ml @ 10 mls/hr IV .Q24H [facility] Rx#:[id number] Sodium Ferric Gluconat- 100 Sucrose 125 mg In Sodium Chloride 0.9% 100 ml @ 100 mls/hr IVPB DAILY [facility] Rx#:[id number] Vancomycin 1,250 mg In 250 Sodium Chloride 0.9% 250 ml @ 125 mls/hr IVPB ONCE ONE Rx#:[id number] Intake, IV Titration 80.586 0 Amount Heparin Sod,Pork in 0.45% 80.586 0 NaCl 25,000 unit In 0.45 % NaCl 1 250ml.bag @ 10. 37 UNITS/KG/HR 9.99 mls/ hr IV .Q24H [facility] Rx#: [id number] Oral 600 Output: Urine 215 150 60 Other: Voiding Method Indwelling Catheter Indwelling Catheter Indwelling Catheter - Exam Gen. appearance the patient is calm comfortable likely distress, currently is on 5 L of oxygen nasal cannula and he is currently off the BiPAP. Head exam was generally normal. There was no scleral icterus or corneal arcus. Mucous membranes were moist. Neck was supple and without jugular venous distension, thyromegaly, or carotid bruits. Carotids were easily palpable bilaterally. There was no adenopathy. Lungs sounds are diminished bilaterally otherwise clear. There is no significant crackles wheezes or rhonchi. Heart sounds are irregular S1-S2, there is faint murmur heard along the left lateral sternal border. Abdominal exam revealed normal bowel sounds. The abdomen was soft, non-tender, and without masses, organomegaly, or appreciable enlargement of the abdominal aorta. Extremities are swollen and the patient is +1 pitting edema in all 4 extremities mainly in the lower extremities bilaterally. He also has multiple open blisters in his lower extremities bilaterally. - Labs CBC & Chem 7: 12/24/18 02:05 12/24/18 02:05 Labs: Abnormal Lab Results - Last 24 Hours (Table) 12/22/18 12/23/18 12/23/18 Range/Units 13:35 17:28 18:03 WBC (3.8-10.6) k/uL RBC (4.30-5.90) m/uL Hgb (13.0-17.5) gm/dL Hct (39.0-53.0) % MCHC (31.0-37.0) g/dL RDW (11.5-15.5) % Neutrophils # (1.3-7.7) k/uL Lymphocytes # (1.0-4.8) k/uL Monocytes # (0-1.0) k/uL APTT >200.0 H* (22.0-30.0) sec BUN (9-20) mg/dL Creatinine (0.66-1.25) mg/dL Glucose (74-99) mg/dL POC Glucose (mg/dL) 153 H (75-99) mg/dL Calcium (8.4-10.2) mg/dL Phosphorus (2.5-4.5) mg/dL Procalcitonin 0.73 H (0.02-0.09) ng/mL 12/23/18 12/24/18 12/24/18 Range/Units 20:57 02:05 02:05 WBC 12.4 H (3.8-10.6) k/uL RBC 3.32 L (4.30-5.90) m/uL Hgb 9.2 L (13.0-17.5) gm/dL Hct 30.5 L (39.0-53.0) % MCHC 30.2 L (31.0-37.0) g/dL RDW 16.8 H (11.5-15.5) % Neutrophils # 10.2 H (1.3-7.7) k/uL Lymphocytes # 0.7 L (1.0-4.8) k/uL Monocytes # 1.3 H (0-1.0) k/uL APTT (22.0-30.0) sec BUN 65 H (9-20) mg/dL Creatinine 2.66 H (0.66-1.25) mg/dL Glucose 133 H (74-99) mg/dL POC Glucose (mg/dL) 144 H (75-99) mg/dL Calcium 7.4 L (8.4-10.2) mg/dL Phosphorus 5.0 H (2.5-4.5) mg/dL Procalcitonin (0.02-0.09) ng/mL 12/24/18 12/24/18 12/24/18 Range/Units 02:08 06:54 07:09 WBC (3.8-10.6) k/uL RBC (4.30-5.90) m/uL Hgb (13.0-17.5) gm/dL Hct (39.0-53.0) % MCHC (31.0-37.0) g/dL RDW (11.5-15.5) % Neutrophils # (1.3-7.7) k/uL Lymphocytes # (1.0-4.8) k/uL Monocytes # (0-1.0) k/uL APTT 65.2 H (22.0-30.0) sec BUN (9-20) mg/dL Creatinine (0.66-1.25) mg/dL Glucose (74-99) mg/dL POC Glucose (mg/dL) 203 H 211 H (75-99) mg/dL Calcium (8.4-10.2) mg/dL Phosphorus (2.5-4.5) mg/dL Procalcitonin (0.02-0.09) ng/mL Microbiology - Last 24 Hours (Table) 12/22/18 13:35 Blood Culture - Preliminary Blood No Growth after 24 hours 12/18/18 10:10 Blood Culture - Preliminary Blood No Growth after 120 hours Assessment and Plan Plan: Assessment 1 acute hypoxic history failure requiring BiPAP, essentially secondary to fluid overload and a component of CHF with diastolic dysfunction. The patient underwent dialysis and there was significant improvement in the volume status and overall pulmonary status following dialysis. Currently is on oxygen by nasal cannula which is being weaned down to maintain a saturation above 90% and the patient's BiPAP has been discontinued. Chest x-ray from today shows improvement in the volume status and there is some left-sided pleural effusion in place. 2 new onset atrial fibrillation, and the patient is currently still in A. fib with a controlled rate and the patient is currently on IV heparin per deburr technician recommendation. The rate is under better control. The transition to IV heparin to oral anticoagulation will be done once the permacath was inserted. 3 preserved LV function with an ejection fraction of 55-60% and moderate to severe pulmonary hypertension with a PA pressure of 67 4 diabetes mellitus 5 End stage renal disease currently on hemodialysis, the patient has a dialysis catheter in his right groin and he has undergone 3 sessions of hemodialysis since December 21 where a total of 6.5 L of fluid was removed. Note that he had stage III kidney disease earlier. 6 hyperlipidemia 7 chronic ulceration of the lower extremities bilaterally 8 history of alcoholic pancreatitis 9 hypertension 10 gout 11 questionable GI bleed although this has not been officially confirm that the patient is able to get IV heparin without any major complications. 12 COPD 13 hypothyroidism Plan Continue IV heparin. Rate control is achieved regarding the atrial fibrillation. Discontinue the BiPAP. Wean FiO2 as tolerated. Left-sided pleural effusion will be noted. This will be monitored and a thoracentesis will be done if needed in the future. The patient has responded nicely to dialysis. Awaiting a permanent permacath insertion and following that the patient can be transitioned to oral anticoagulation. Sit up this patient on a chair today. We'll continue to follow.
[2018-12-24 12:08] LABS: Glucose,Whole Blood 373 mg/dL (75-99)
--- NOTE | 2018-12-24 12:50 | P.PN ---
Subjective Progress Note Date: 12/24/18 Patient is seen and examined at bedside currently receiving updraft, reporting fatigue and weakness. Patient apparently received hemodialysis yesterday with 2.5 L of fluid ultrafiltrate, still currently in A. fib ventricular rate controlled on metoprolol and receiving IV heparin for anticoagulation. Still afebrile no acute is events overnight Objective - Vital Signs Vital signs: Vital Signs Temp 98.9 F 12/24/18 08:00 Pulse 103 H 12/24/18 09:08 Resp 14 12/24/18 09:00 BP 101/69 12/24/18 09:00 Pulse Ox 98 12/24/18 09:00 Intake & Output 12/23/18 12/24/18 12/24/18 18:59 06:59 18:59 Intake Total 940.586 0 20 Output Total 215 150 60 Balance 725.586 -150 -40 Weight 61 kg Intake: IV 260 20 Cefepime 1 gm In Sodium 50 Chloride 0.9% 50 ml @ 100 mls/hr IVPB DAILY [facility] Rx #:[id number] Sodium Chloride 0.9% 500 110 20 ml 500 ml @ 10 mls/hr IV .Q24H [facility] Rx#:[id number] Sodium Ferric Gluconat- 100 Sucrose 125 mg In Sodium Chloride 0.9% 100 ml @ 100 mls/hr IVPB DAILY [facility] Rx#:[id number] Intake, IV Titration 80.586 0 Amount Heparin Sod,Pork in 0.45% 80.586 0 NaCl 25,000 unit In 0.45 % NaCl 1 250ml.bag @ 10. 37 UNITS/KG/HR 9.99 mls/ hr IV .Q24H [facility] Rx#: [id number] Oral 600 Output: Urine 215 150 60 Other: Voiding Method Indwelling Catheter Indwelling Catheter Indwelling Catheter - Exam Constitutional: No acute distress, conversant, pleasant Eyes: Anicteric sclerae, moist conjunctiva, no lid-lag, PERRLA ENMT: NC/AT,Oropharynx clear, no erythema, exudates Neck:Supple, FROM, no masses, or JVD, No carotid bruits; No thyromegaly Lungs: Expiratory wheezes, breathing unlabored, diminished in the bases Cardiovascular: Regular rate irregularly irregular rhythm, No murmurs, gallops , or rubs no peripheral edema Abdominal: Soft Nontender, nom distended, no guarding, no rebound or rigidity, Normoactive bowel sounds No hepatomegaly, No splenomegaly, No palpable mass No abdominal wall hernia noted Skin: Normal temperature, tone, texture, turgor, No induration No subcutaneous nodules, No rash, lesions, No ulcers Extremities:No digital cyanosis No clubbing, Pedal pulses intact and symmetrical Radial pulses intact and symmetrical Normal gait and station, No calf tenderness Psychiatric: Alert and oriented to person, place and time, Appropriate affect Intact judgement Neuro: Muscles Strength 5/5 in all 4 extremities, Sensation to light touch grossly present throughout, Cranial nerves II-XII grossly intact. No focal sensory deficits - Labs CBC & Chem 7: 12/24/18 02:05 12/24/18 02:05 Labs: Abnormal Lab Results - Last 24 Hours (Table) 12/22/18 12/23/18 12/23/18 Range/Units 13:35 17:28 18:03 WBC (3.8-10.6) k/uL RBC (4.30-5.90) m/uL Hgb (13.0-17.5) gm/dL Hct (39.0-53.0) % MCHC (31.0-37.0) g/dL RDW (11.5-15.5) % Neutrophils # (1.3-7.7) k/uL Lymphocytes # (1.0-4.8) k/uL Monocytes # (0-1.0) k/uL APTT >200.0 H* (22.0-30.0) sec BUN (9-20) mg/dL Creatinine (0.66-1.25) mg/dL Glucose (74-99) mg/dL POC Glucose (mg/dL) 153 H (75-99) mg/dL Calcium (8.4-10.2) mg/dL Phosphorus (2.5-4.5) mg/dL Procalcitonin 0.73 H (0.02-0.09) ng/mL 12/23/18 12/24/18 12/24/18 Range/Units 20:57 02:05 02:05 WBC 12.4 H (3.8-10.6) k/uL RBC 3.32 L (4.30-5.90) m/uL Hgb 9.2 L (13.0-17.5) gm/dL Hct 30.5 L (39.0-53.0) % MCHC 30.2 L (31.0-37.0) g/dL RDW 16.8 H (11.5-15.5) % Neutrophils # 10.2 H (1.3-7.7) k/uL Lymphocytes # 0.7 L (1.0-4.8) k/uL Monocytes # 1.3 H (0-1.0) k/uL APTT (22.0-30.0) sec BUN 65 H (9-20) mg/dL Creatinine 2.66 H (0.66-1.25) mg/dL Glucose 133 H (74-99) mg/dL POC Glucose (mg/dL) 144 H (75-99) mg/dL Calcium 7.4 L (8.4-10.2) mg/dL Phosphorus 5.0 H (2.5-4.5) mg/dL Procalcitonin (0.02-0.09) ng/mL 12/24/18 12/24/18 12/24/18 Range/Units 02:08 06:54 07:09 WBC (3.8-10.6) k/uL RBC (4.30-5.90) m/uL Hgb (13.0-17.5) gm/dL Hct (39.0-53.0) % MCHC (31.0-37.0) g/dL RDW (11.5-15.5) % Neutrophils # (1.3-7.7) k/uL Lymphocytes # (1.0-4.8) k/uL Monocytes # (0-1.0) k/uL APTT 65.2 H (22.0-30.0) sec BUN (9-20) mg/dL Creatinine (0.66-1.25) mg/dL Glucose (74-99) mg/dL POC Glucose (mg/dL) 203 H 211 H (75-99) mg/dL Calcium (8.4-10.2) mg/dL Phosphorus (2.5-4.5) mg/dL Procalcitonin (0.02-0.09) ng/mL Microbiology - Last 24 Hours (Table) 12/22/18 13:35 Blood Culture - Preliminary Blood No Growth after 24 hours 12/18/18 10:10 Blood Culture - Preliminary Blood No Growth after 120 hours Assessment and Plan (1) Acute respiratory failure with hypoxia Narrative/Plan: * Multifactorial secondary to diastolic CHF superimposed on acute COPD exacerbation * Chest x-ray this morning showing pulmonary venous hypertension and interstitial edema volume overload and likely left-sided pleural effusion * Continue supportive therapy patient received BiPAP overnight * Continue with breathing treatments Current Visit: Yes Status: Acute Code(s): J96.01 - ACUTE RESPIRATORY FAILURE WITH HYPOXIA SNOMED Code(s): 47926346 (2) Acute diastolic CHF (congestive heart failure) Narrative/Plan: * Previous echocardiogram performed 12/19 indicating preserved LVEF 55-60% with a moderately dilated left atrium * Moderate tricuspid regurgitation * Moderate to severe pulmonary hypertension Current Visit: Yes Status: Resolved Code(s): I50.31 - ACUTE DIASTOLIC ( CONGESTIVE) HEART FAILURE SNOMED Code(s): 661619096 (3) Acute exacerbation of chronic obstructive airways disease Narrative/Plan: * Continue scheduled and when necessary DuoNeb bronchodilator breathing treatments Current Visit: Yes Status: Acute Code(s): J44.1 - CHRONIC OBSTRUCTIVE PULMONARY DISEASE W (ACUTE) EXACERBATION SNOMED Code(s): 315777445 (4) Atrial fibrillation with RVR Narrative/Plan: * Currently rate controlled on metoprolol 50mg TID * Currently anticoagulated with IV heparin * echocardiogram showing preserved ejection fraction likely has diastolic CHF Current Visit: Yes Status: Resolved Code(s): I48.91 - UNSPECIFIED ATRIAL FIBRILLATION SNOMED Code(s): 655416198907809 (5) End stage renal disease on dialysis Narrative/Plan: * Patient previously CK D stage III progressing to end-stage renal disease * Nephrology following patient received hemodialysis yesterday * Approximately 2.5 L ultrafiltrate dialyzed yesterday, planning for more hemodialysis today * Scheduled to have permanent dialysis port placed tomorrow Current Visit: Yes Status: Acute Code(s): N18.6 - END STAGE RENAL DISEASE; Z99.2 - DEPENDENCE ON RENAL DIALYSIS SNOMED Code(s): 591679696 Plan: Disposition * Patient continues to improve daily will plan to discontinue antibiotics tomorrow Anticipated discharge 2 - 3 days
[2018-12-24 17:32] LABS: Glucose,Whole Blood 92 mg/dL (75-99)
--- NOTE | 2018-12-24 19:01 | PN ---
PROGRESS NOTE Patient is seen for followup for acute kidney injury. Currently, patient is sitting up on a bedside chair. He is comfortable. He is trying to eat. The patient had dialysis yesterday. He will be dialyzed again today mainly for ultrafiltration. PHYSICAL EXAMINATION: This morning, blood pressure was 100/60. The patient is afebrile. Heart rate about 90 per minute. Examination of the heart S1, S2. Examination of the lungs bilateral breath sounds are heard. Decreased breath sounds at bases. ABDOMEN: Soft, distended, and nontender. Examination of lower extremity shows edema 2+ bilaterally. STAFF DEVELOPMENT NURSE exam is grossly intact. LABS SHOW: Sodium 138, potassium 4.2, chloride 103, hemoglobin 9.2, serum creatinine 2.6, phosphorus was 5.0. ASSESSMENT: 1. Acute kidney injury, currently hemodialysis dependent. Will proceed with a permanent access placement with IJ PermCath by Dr. Phillip. Patient will have ultrafiltration today and then he will be dialyzed again tomorrow. 2. Fluid overload, slowly improving. 3. 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 Baseline creatinine around 3. 4. Chronic obstructive pulmonary disease. 5. Diastolic heart failure, acute on top of chronic EF 55-60 percent. 6. Atrial fibrillation with RVR, currently with controlled ventricular response. 7. Hospital-acquired pneumonia. 8. CKD mineral bone disorder maintained on calcitriol and PhosLo. PLAN: Hemodialysis in a.m. Continue with IV Lasix and proceed with IJ PermCath placement. MMODL / IJN: [id number] /
[2018-12-24 21:18] LABS: Glucose,Whole Blood 176 mg/dL (75-99)
[2018-12-24] MEDS: ATORVASTATIN 40 MG TAB PO SCH (21:18)
[2018-12-25] MEDS: HEPARIN SOD,PORK IN 0.45% NACL 25,000 UNIT in 0.45% NACL 1 250ML.BAG IV SCH ×2 (03:57→11:00)
[2018-12-25 05:34] LABS: Magnesium 1.9 mg/dL (1.6-2.3); Phosphorus 5.3 mg/dL (2.5-4.5); Potassium 4.2 mmol/L (3.5-5.1)
[2018-12-25] MEDS: LEVOTHYROXINE 75 MCG TAB PO SCH (05:38)
[2018-12-25 05:42] LABS: Anisocytosis Slight; Basophils % (A) 0 %; Eosinophils # (A) 0.2 k/uL (0-0.7); Eosinophils % (A) 1 %; HCT 31.2 % (39.0-53.0); HGB 9.5 gm/dL (13.0-17.5); Hypochromasia Marked; Lymphocytes # (A) 0.7 k/uL (1.0-4.8); Lymphocytes % (A) 5 %; MCH 28.6 pg (25.0-35.0); MCHC 30.5 g/dL (31.0-37.0); MCV 93.6 fL (80.0-100.0); Mean Platelet Volume 6.8; Monocytes # (A) 1.1 k/uL (0-1.0); Monocytes % (A) 8 %; Neutrophils # (A) 10.8 k/uL (1.3-7.7); Neutrophils % (A) 83 %; Platelet Count 188 k/uL (150-450); RBC 3.33 m/uL (4.30-5.90); RDW 17.1 % (11.5-15.5); WBC 13.1 k/uL (3.8-10.6)
--- NOTE | 2018-12-25 07:50 | PN ---
PROGRESS NOTE Mr. Rosas is an 83-year-old male who presented with symptoms of progressive dyspnea, was noted to be in worsening renal failure. He is starting dialysis. He had episode of atrial fibrillation, remains in atrial fibrillation yet. His rate is controlled most of the time. He is undergoing dialysis today. He is denying any chest pain. He denies any dizziness. He denies any nausea. He continued to have a dialysis catheter placed in the right groin. He continues to be at this time on aspirin 81 mg daily, Lipitor 40 mg daily, IV heparin, Lasix 60 mg IV q.12 hours, hydralazine 25 mg 3 times a day, metoprolol tartrate 50 mg 3 times a day. PHYSICAL EXAMINATION: Blood pressure 120/90 with the heart rate in the 90s. LUNGS: Clear. HEART: Irregular, irregular. S1, S2. No S3 with a systolic murmur. ABDOMEN: Soft, nontender. EXTREMITIES: With chronic skin changes and trace edema. LAB DATA: Lab data revealed a hemoglobin 9.5, white blood cell of 13.1. BUN and creatinine 86 and 3.2. Potassium 4.2. IMPRESSION: 1. End-stage renal disease, on hemodialysis. 2. Atrial fibrillation, rate controlled on IV heparin. 3. History of hypertension. 4. Hyperlipidemia. RECOMMENDATION: From the cardiac standpoint, we will await the decision to place a permanent dialysis catheter prior to switch him to oral anticoagulation. In the meantime will continue present regimen and follow his blood pressure to make further adjustment as needed. MMODL / IJN: [id number] /
[2018-12-25] MEDS: IPRATROPIUM-ALBUTEROL 3 ML NEB INHALATION SCH ×4 (08:13→20:30)
[2018-12-25 08:56] LABS: ABG PO2 44 mmHg (83-108)
--- NOTE | 2018-12-25 09:17 | XR ---
EXAMINATION TYPE: XR chest 1V portable DATE OF EXAM: 12/25/2018 COMPARISON: Prior chest x-ray 12/24/2018 HISTORY: Shortness of breath TECHNIQUE: Single frontal view of the chest is obtained. FINDINGS: Findings are similar to prior exam. IMPRESSION: Correlate for congestive heart failure, there may be effusions and associated edema vers us atelectasis, pneumonia not excluded. Possible pulmonary artery hypertension. Cardiomegaly.
--- NOTE | 2018-12-25 10:13 | P.PN ---
Subjective Progress Note Date: 12/25/18 Patient seen and examined at bedside, did well with breakfast this morning, reports his breathing is improved. Patient reports he was previously ambulatory and living independently in [place]. Was able to ambulate approximately 3 feet yesterday with physical therapy, is also been up and sitting in the chair at times. Received ultrafiltration yesterday approximately 2 L and is currently receiving hemodialysis. Currently waiting permanent dialysis catheter placement to be done either today or tomorrow. Patient has been normotensive for the most part but at times borderline hypotensive during hemodialysis. Denies episodes of headaches or lightheadedness The patient continues to remain in A. fib but is rate controlled Objective - Vital Signs Vital signs: Vital Signs Temp 98.2 F 12/25/18 08:00 Pulse 117 H 12/25/18 09:00 Resp 15 12/25/18 09:00 BP 99/61 12/25/18 09:00 Pulse Ox 96 12/25/18 09:00 Intake & Output 12/24/18 12/25/18 12/25/18 18:59 06:59 18:59 Intake Total 1000 1050.545 140 Output Total 295 415 20 Balance 705 635.545 120 Weight 61.2 kg Intake: IV 400 130 20 Cefepime 1 gm In Sodium 50 Chloride 0.9% 50 ml @ 100 mls/hr IVPB DAILY [facility] Rx #:[id number] Sodium Chloride 0.9% 500 100 130 20 ml 500 ml @ 10 mls/hr IV .Q24H [facility] Rx#:[id number] Vancomycin 1,250 mg In 250 Sodium Chloride 0.9% 250 ml @ 125 mls/hr IVPB ONCE ONE Rx#:[id number] Intake, IV Titration 180.545 Amount Heparin Sod,Pork in 0.45% 180.545 NaCl 25,000 unit In 0.45 % NaCl 1 250ml.bag @ 10. 37 UNITS/KG/HR 9.99 mls/ hr IV .Q24H [facility] Rx#: [id number] Oral 600 740 120 Output: Urine 295 415 20 Other: Voiding Method Indwelling Catheter Indwelling Catheter Indwelling Catheter # Voids 1 - Exam Constitutional: No acute distress, conversant, pleasant Eyes: Anicteric sclerae, moist conjunctiva, no lid-lag, PERRLA ENMT: NC/AT,Oropharynx clear, no erythema, exudates Neck:Supple, FROM, no masses, or JVD, No carotid bruits; No thyromegaly Lungs: Clear to auscultation, breathing unlabored, diminished in the bases Cardiovascular: Regular rate irregularly irregular rhythm, No murmurs, gallops , or rubs, +1 pitting edema Abdominal: Soft Nontender, nom distended, no guarding, no rebound or rigidity, Normoactive bowel sounds No hepatomegaly, No splenomegaly, No palpable mass No abdominal wall hernia noted Skin: Multiple open blisters on lower extremities bilaterally that are dressed Extremities:No digital cyanosis No clubbing, Pedal pulses intact and symmetrical Radial pulses intact and symmetrical Normal gait and station, No calf tenderness Psychiatric: Alert and oriented to person, place and time, Appropriate affect Intact judgement Neuro: Muscles Strength 5/5 in all 4 extremities, Sensation to light touch grossly present throughout, Cranial nerves II-XII grossly intact. No focal sensory deficits - Labs CBC & Chem 7: 12/25/18 04:40 12/25/18 04:40 Labs: Abnormal Lab Results - Last 24 Hours (Table) 12/22/18 12/24/18 12/24/18 Range/Units 03:38 11:56 21:06 WBC (3.8-10.6) k/uL RBC (4.30-5.90) m/uL Hgb (13.0-17.5) gm/dL Hct (39.0-53.0) % MCHC (31.0-37.0) g/dL RDW (11.5-15.5) % Neutrophils # (1.3-7.7) k/uL Lymphocytes # (1.0-4.8) k/uL Monocytes # (0-1.0) k/uL APTT (22.0-30.0) sec ABG pO2 44 L* (83-108) mmHg BUN (9-20) mg/dL Creatinine (0.66-1.25) mg/dL Glucose (74-99) mg/dL POC Glucose (mg/dL) 373 H 176 H (75-99) mg/dL Calcium (8.4-10.2) mg/dL Phosphorus (2.5-4.5) mg/dL 12/25/18 12/25/18 12/25/18 Range/Units 04:40 04:40 04:40 WBC 13.1 H (3.8-10.6) k/uL RBC 3.33 L (4.30-5.90) m/uL Hgb 9.5 L (13.0-17.5) gm/dL Hct 31.2 L (39.0-53.0) % MCHC 30.5 L (31.0-37.0) g/dL RDW 17.1 H (11.5-15.5) % Neutrophils # 10.8 H (1.3-7.7) k/uL Lymphocytes # 0.7 L (1.0-4.8) k/uL Monocytes # 1.1 H (0-1.0) k/uL APTT 33.2 H (22.0-30.0) sec ABG pO2 (83-108) mmHg BUN 86 H (9-20) mg/dL Creatinine 3.20 H (0.66-1.25) mg/dL Glucose 126 H (74-99) mg/dL POC Glucose (mg/dL) (75-99) mg/dL Calcium 7.0 L (8.4-10.2) mg/dL Phosphorus 5.3 H (2.5-4.5) mg/dL Microbiology - Last 24 Hours (Table) 12/22/18 13:35 Blood Culture - Preliminary Blood No Growth after 48 hours 12/18/18 10:10 Blood Culture - Final Blood No Growth after 144 hours Assessment and Plan (1) Acute respiratory failure with hypoxia Narrative/Plan: * Multifactorial secondary to diastolic CHF superimposed on acute COPD exacerbation * Chest x-ray suggestive of CHF with left-sided effusions versus atelectasis * Continue supportive therapy patient received BiPAP overnight * Continue with breathing treatments * Currently on antibiotics we'll likely discontinue vancomycin and cefepime today Current Visit: Yes Status: Acute Code(s): J96.01 - ACUTE RESPIRATORY FAILURE WITH HYPOXIA SNOMED Code(s): 58195137 (2) Acute diastolic CHF (congestive heart failure) Narrative/Plan: * Previous echocardiogram performed 12/19 indicating preserved LVEF 55-60% with a moderately dilated left atrium * Moderate tricuspid regurgitation * Moderate to severe pulmonary hypertension Current Visit: Yes Status: Resolved Code(s): I50.31 - ACUTE DIASTOLIC ( CONGESTIVE) HEART FAILURE SNOMED Code(s): 141519423 (3) Acute exacerbation of chronic obstructive airways disease Narrative/Plan: * Continue scheduled and when necessary DuoNeb bronchodilator breathing treatments Current Visit: Yes Status: Acute Code(s): J44.1 - CHRONIC OBSTRUCTIVE PULMONARY DISEASE W (ACUTE) EXACERBATION SNOMED Code(s): 297222475 (4) Atrial fibrillation with RVR Narrative/Plan: * Currently rate controlled on metoprolol 50mg TID * Currently anticoagulated with IV heparin, plans to switch to DOAC post permanent dialysis catheter placement * echocardiogram showing preserved ejection fraction likely has diastolic CHF Current Visit: Yes Status: Resolved Code(s): I48.91 - UNSPECIFIED ATRIAL FIBRILLATION SNOMED Code(s): 058579810572104 (5) End stage renal disease on dialysis Narrative/Plan: * Patient previously CKD stage III progressing to end-stage renal disease * Nephrology following patient received hemodialysis yesterday * Approximately 2 L ultrafiltrated yesterday, planning for more hemodialysis today * Scheduled to have permanent dialysis catheter placed today or tomorrow Current Visit: Yes Status: Acute Code(s): N18.6 - END STAGE RENAL DISEASE; Z99.2 - DEPENDENCE ON RENAL DIALYSIS SNOMED Code(s): 883470947 Plan: Disposition * Patient continues to improve daily will plan to discontinue antibiotics today * Anticipated discharge 2 - 3 days
[2018-12-25] MEDS: PANTOPRAZOLE 40 MG/10 ML VIAL IVP SCH ×2 (10:26→21:29)
[2018-12-25] MEDS: METOPROLOL TARTRATE 50 MG TAB PO SCH ×3 (10:26→21:24)
[2018-12-25] MEDS: ASPIRIN 81 MG PO SCH (10:27)
[2018-12-25] MEDS: CALCIUM ACETATE 667 MG CAP PO SCH (10:27)
[2018-12-25] MEDS: GABAPENTIN 300 MG CAP PO SCH ×2 (10:27→21:24)
[2018-12-25 10:46] LABS: Glucose,Whole Blood 192 mg/dL (75-99)
[2018-12-25] MEDS: hydrALAZINE HCL 50 MG TAB PO SCH (10:48)
[2018-12-25] MEDS: CEFEPIME 1 GM in SODIUM CHLORIDE 0.9% 50 ML IVPB SCH (10:48)
[2018-12-25] MEDS: FUROSEMIDE 10 MG/ML 10 ML VIAL IV SCH (10:50)
[2018-12-25] MEDS: INSULIN ASPART 100 UNIT/ML 1 ML 10 ML VIAL SQ SCH ×4 (10:55→21:33)
[2018-12-25] MEDS: SODIUM BICARBONATE TAB 650 MG TAB PO SCH ×3 (10:55→21:23)
[2018-12-25 12:16] LABS: Glucose,Whole Blood 245 mg/dL (75-99)
[2018-12-25] MEDS: CALCITRIOL 0.25 MCG CAP PO SCH (14:13)
--- NOTE | 2018-12-25 14:53 | PN ---
PROGRESS NOTE Patient is seen for followup for acute kidney injury, currently hemodialysis dependent. Patient was dialyzed this morning. He tolerated the procedure well and had about 2.5 L of ultrafiltration. Patient will need a new IJ PermCath placed. PHYSICAL EXAMINATION: This morning, blood pressure was 125/76, heart rate of 108 per minute. Patient is afebrile. Examination of the heart, S1, S2. Examination of the lungs, bilateral breath sounds are heard. Abdomen is soft, nontender. Examination of the lower extremities shows no significant edema. EVENT SERVICES MANAGER exam is grossly intact. LABS SHOW: Sodium 138, potassium 4.2, chloride 102, BUN 86, serum creatinine 3.2, hemoglobin 9.5 g/dL. ASSESSMENT: 1. Acute kidney injury, acute tubular necrosis, currently hemodialysis-dependent. Urine output about 700 mL for 24 hours. Patient will be maintained on dialysis, awaiting new catheter placement. 2. Volume overload, currently improving. 3. Acute respiratory failure, hypoxic and hypercapnic, currently improved. 4. Atrial fibrillation with RVR, now with controlled ventricular response. PLAN: 1. Obtain IJ PermCath. 2. Hemodialysis will be on Sunday. MMODL / IJN: [id number] /
[2018-12-25 17:03] LABS: Glucose,Whole Blood 156 mg/dL (75-99)
--- NOTE | 2018-12-25 17:53 | P.PN ---
Subjective Progress Note Date: 12/25/18 This is an 82-year-old male patient who came into the hospital and subsequently the intensive care unit because of increased shortness of breath. The patient had increased weight gain and he has also developed increased swelling in lower extremities bilaterally. His legs were weeping at one point. The patient got moved to the intensive care unit yesterday as the patient developed some coffee- ground emesis and he was also found to be in respiratory distress with new onset atrial fibrillation with rapid ventricular response. The patient was immediately placed on a BiPAP at a pressure of 14/5 cm of water. Subsequently improved. He underwent a dialysis were 2 L of fluid was removed and the patient was taken off the BiPAP. The patient the chest x-ray was showing fluid overload. This patient is feeling better. Currently is off the BiPAP. No chest pain. No cough or sputum production. He is going to have another session of hemodialysis today. The intention is to take 2-1/2 L of fluids. In terms of his cardiac status, the patient is currently in atrial fibrillation with rate being under much better control. He is on IV heparin and there is no evidence of any GI bleeding at this point in time. His Gastroccult was positive and his fluid causing was negative on 12/22/2018. In terms of comorbidities, the patient is known to have COPD/asthma, diabetes mellitus, stage III chronic kidney disease with subsequent decompensation and the patient has been on dialysis since 12/21/2018, history of hypertension, UTI, gout, history of pancreatitis, diabetes mellitus and hypothyroidism. There is echocardiogram shows a normal ejection fraction of 55-60%. There was moderate degree of pulmonary hypertension with a PA pressure of 67. The patient had moderate degree of tricuspid regurgitation also. He had mild concentric left ventricular hypertrophy. On today's evaluation of 12/24/2018, the patient is awake alert and he is not having any respiratory distress. He is currently off the BiPAP. FiO2 is being gradually weaned off. The patient underwent hemodialysis yesterday. There was more than 2 L of ultrafiltration. The chest x-ray from today still showing a left-sided pleural effusion. The overall volume status improved compared to yesterday. No nausea. No vomiting. No emesis. He remains nature fibrillation and the rate is under better control for now. He remains on IV heparin. The transition to oral in to coagulation will be done after insertion of a permanent dialysis port. He has a congested cough. Unable to bring up much sputum. The lower extremity ulcers and wounds are currently inactive and stable. The patient remains on IV cefepime. The patient is awake. Tolerating his diet. There has been no other significant events overnight. On today's evaluation of 12/25/2018, the patient is doing well. The patient would have another session of hemodialysis. He remains in atrial fibrillation. He remains on IV heparin. A permacath has not been inserted yet. No respiratory distress. No cough or sputum production. He is afebrile. Hemodynamically stable. His pulse ox is 97% on 3 L of oxygen by nasal cannula. Hemoglobin stable at 9.5. The follow-up chest x-ray from today shows CHF with some interstitial edema and atelectatic changes in lung bases and there is interval improvement in left-sided pleural effusion. Remains on IV cefepime as an empiric antibiotic coverage. Tolerating his diet. Objective - Vital Signs Vital signs: Vital Signs Temp 98.3 F 12/25/18 16:00 Pulse 68 12/25/18 16:58 Resp 13 12/25/18 16:00 BP 114/65 12/25/18 16:00 Pulse Ox 97 12/25/18 16:00 Intake & Output 12/24/18 12/25/18 12/25/18 18:59 06:59 18:59 Intake Total 1000 1050.545 513.818 Output Total 295 415 56 Balance 705 635.545 457.818 Weight 61.2 kg Intake: IV 400 130 90 Cefepime 1 gm In Sodium 50 Chloride 0.9% 50 ml @ 100 mls/hr IVPB DAILY [facility] Rx #:[id number] Sodium Chloride 0.9% 500 100 130 90 ml 500 ml @ 10 mls/hr IV .Q24H [facility] Rx#:[id number] Vancomycin 1,250 mg In 250 Sodium Chloride 0.9% 250 ml @ 125 mls/hr IVPB ONCE ONE Rx#:[id number] Intake, IV Titration 180.545 63.818 Amount Heparin Sod,Pork in 0.45% 180.545 63.818 NaCl 25,000 unit In 0.45 % NaCl 1 250ml.bag @ 10. 37 UNITS/KG/HR 9.99 mls/ hr IV .Q24H [facility] Rx#: [id number] Oral 600 740 360 Output: Urine 295 415 55 Stool 1 Other: Voiding Method Indwelling Catheter Indwelling Catheter Indwelling Catheter # Voids 1 - Exam Gen. appearance the patient is calm comfortable likely distress, currently is on 5 L of oxygen nasal cannula and he is currently off the BiPAP. Head exam was generally normal. There was no scleral icterus or corneal arcus. Mucous membranes were moist. Neck was supple and without jugular venous distension, thyromegaly, or carotid bruits. Carotids were easily palpable bilaterally. There was no adenopathy. Lungs sounds are diminished bilaterally otherwise clear. There is no significant crackles wheezes or rhonchi. Heart sounds are irregular S1-S2, there is faint murmur heard along the left lateral sternal border. Abdominal exam revealed normal bowel sounds. The abdomen was soft, non-tender, and without masses, organomegaly, or appreciable enlargement of the abdominal aorta. Extremities are swollen and the patient is +1 pitting edema in all 4 extremities mainly in the lower extremities bilaterally. He also has multiple open blisters in his lower extremities bilaterally. - Labs CBC & Chem 7: 12/25/18 04:40 12/25/18 04:40 Labs: Abnormal Lab Results - Last 24 Hours (Table) 12/22/18 12/24/18 12/25/18 Range/Units 03:38 21:06 04:40 WBC 13.1 H (3.8-10.6) k/uL RBC 3.33 L (4.30-5.90) m/uL Hgb 9.5 L (13.0-17.5) gm/dL Hct 31.2 L (39.0-53.0) % MCHC 30.5 L (31.0-37.0) g/dL RDW 17.1 H (11.5-15.5) % Neutrophils # 10.8 H (1.3-7.7) k/uL Lymphocytes # 0.7 L (1.0-4.8) k/uL Monocytes # 1.1 H (0-1.0) k/uL APTT (22.0-30.0) sec ABG pO2 44 L* (83-108) mmHg BUN (9-20) mg/dL Creatinine (0.66-1.25) mg/dL Glucose (74-99) mg/dL POC Glucose (mg/dL) 176 H (75-99) mg/dL Calcium (8.4-10.2) mg/dL Phosphorus (2.5-4.5) mg/dL 12/25/18 12/25/18 12/25/18 Range/Units 04:40 04:40 10:31 WBC (3.8-10.6) k/uL RBC (4.30-5.90) m/uL Hgb (13.0-17.5) gm/dL Hct (39.0-53.0) % MCHC (31.0-37.0) g/dL RDW (11.5-15.5) % Neutrophils # (1.3-7.7) k/uL Lymphocytes # (1.0-4.8) k/uL Monocytes # (0-1.0) k/uL APTT 33.2 H 103.0 H* (22.0-30.0) sec ABG pO2 (83-108) mmHg BUN 86 H (9-20) mg/dL Creatinine 3.20 H (0.66-1.25) mg/dL Glucose 126 H (74-99) mg/dL POC Glucose (mg/dL) (75-99) mg/dL Calcium 7.0 L (8.4-10.2) mg/dL Phosphorus 5.3 H (2.5-4.5) mg/dL 12/25/18 12/25/18 12/25/18 Range/Units 10:34 12:04 16:45 WBC (3.8-10.6) k/uL RBC (4.30-5.90) m/uL Hgb (13.0-17.5) gm/dL Hct (39.0-53.0) % MCHC (31.0-37.0) g/dL RDW (11.5-15.5) % Neutrophils # (1.3-7.7) k/uL Lymphocytes # (1.0-4.8) k/uL Monocytes # (0-1.0) k/uL APTT (22.0-30.0) sec ABG pO2 (83-108) mmHg BUN (9-20) mg/dL Creatinine (0.66-1.25) mg/dL Glucose (74-99) mg/dL POC Glucose (mg/dL) 192 H 245 H 156 H (75-99) mg/dL Calcium (8.4-10.2) mg/dL Phosphorus (2.5-4.5) mg/dL Microbiology - Last 24 Hours (Table) 12/22/18 13:35 Blood Culture - Preliminary Blood No Growth after 72 hours Assessment and Plan Plan: Assessment 1 acute hypoxic history failure requiring BiPAP, essentially secondary to fluid overload and a component of CHF with diastolic dysfunction. The patient underwent dialysis and there was significant improvement in the volume status and overall pulmonary status following dialysis. Currently is on oxygen by nasal cannula which is being weaned down to maintain a saturation above 90% and the patient's BiPAP has been discontinued. Chest x-ray from today shows improvement in the volume status and there is some left-sided pleural effusion in place. 2 new onset atrial fibrillation, and the patient is currently still in A. fib with a controlled rate and the patient is currently on IV heparin per fisher gill net recommendation. The rate is under better control. The transition to IV heparin to oral anticoagulation will be done once the permacath was inserted. 3 preserved LV function with an ejection fraction of 55-60% and moderate to severe pulmonary hypertension with a PA pressure of 67 4 diabetes mellitus 5 End stage renal disease currently on hemodialysis, the patient has a dialysis catheter in his right groin and he has undergone several sessions of hemodialysis, total of 4 with significant ultrafiltration. There has been improvement in his volume status. His oxidation is also improved. 6 hyperlipidemia 7 chronic ulceration of the lower extremities bilaterally 8 history of alcoholic pancreatitis 9 hypertension 10 gout 11 questionable GI bleed although this has not been officially confirm that the patient is able to get IV heparin without any major complications. 12 COPD 13 hypothyroidism Plan The plan is to insert an IJ permacath by vascular surgery. The patient had another session of hemodialysis today. He is producing urine output. Will start long-term anticoagulation once the permacath has been inserted. We'll stop the IV Lasix. Continue metoprolol for rate control 50 mg by mouth 3 times a day. Rest of the medication were all reviewed. No other changes from our standpoint. We'll continue to follow. Continued IV heparin until permacath was inserted and following that transition this patient to oral anticoagulants.
[2018-12-25] MEDS: SODIUM CHLORIDE 0.9% 500 ML 500 ML IV SCH (18:46)
[2018-12-25 21:23] LABS: Glucose,Whole Blood 107 mg/dL (75-99)
[2018-12-25] MEDS: ATORVASTATIN 40 MG TAB PO SCH (21:24)
[2018-12-26] MEDS: LEVOTHYROXINE 75 MCG TAB PO SCH (06:01)
[2018-12-26 06:31] LABS: Anisocytosis Slight; Basophils % (A) 0 %; Eosinophils # (A) 0.4 k/uL (0-0.7); Eosinophils % (A) 3 %; HCT 31.6 % (39.0-53.0); HGB 9.7 gm/dL (13.0-17.5); Hypochromasia Marked; Lymphocytes % (A) 7 %; MCH 28.6 pg (25.0-35.0); MCHC 30.6 g/dL (31.0-37.0); MCV 93.4 fL (80.0-100.0); Monocytes # (A) 1.3 k/uL (0-1.0); Monocytes % (A) 10 %; Neutrophils # (A) 10.3 k/uL (1.3-7.7); Neutrophils % (A) 78 %; Platelet Count 178 k/uL (150-450); RBC 3.39 m/uL (4.30-5.90); WBC 13.3 k/uL (3.8-10.6)
[2018-12-26 06:43] LABS: Partial Thromboplastin Time 26.3 sec (22.0-30.0)
[2018-12-26 06:44] LABS: Calcium 7.1 mg/dL (8.4-10.2); Phosphorus 4.3 mg/dL (2.5-4.5); Potassium 4.2 mmol/L (3.5-5.1)
[2018-12-26] MEDS: INSULIN ASPART 100 UNIT/ML 1 ML 10 ML VIAL SQ SCH ×4 (07:05→21:50)
[2018-12-26 07:07] LABS: Glucose,Whole Blood 121 mg/dL (75-99)
--- NOTE | 2018-12-26 07:42 | PN ---
PROGRESS NOTE Mr. Rosas is an 83-year-old male who presented with symptoms of progressive dyspnea and symptoms of congestive heart failure with worsening renal failure. He was started on hemodialysis. He is feeling better. He was in atrial fibrillation, back in sinus mechanism at this point. Hemodynamically stable. He is on no pressor. He is scheduled to undergo permanent dialysis catheter placement today. He denies any dizziness or palpitation. His breathing has been stable. His nausea has resolved. He continues to be on IV heparin, Lipitor 40 mg daily, metoprolol tartrate 50 mg 3 times a day. PHYSICAL EXAMINATION: Blood pressure 118/80 with a heart rate in the 60s. LUNGS: Clear anteriorly. HEART: Regular rate and rhythm, S1, S2. No S3 with systolic murmur, no diastolic murmur. ABDOMEN: Soft, nontender. EXTREMITIES: With chronic skin changes with decreased distal pulses but no significant edema. LAB DATA: Revealed BUN and creatinine 65 and 2.78. Potassium 4.2, hemoglobin of 9.7. IMPRESSION: 1. Paroxysmal atrial fibrillation back in sinus mechanism. 2. End-stage renal disease undergoing hemodialysis, scheduled to undergo permanent dialysis catheter placement. 3. Hypertension, stable. 4. Hyperlipidemia. 5. Chronic ulceration of lower extremities, stable. RECOMMENDATION: From the cardiac standpoint once his PermCath has been inserted, then I will proceed with adding anticoagulation in the form of Eliquis 2.5 mg twice a day. Continue with his medical regimen. Increase his level of activity. MMODL / IJN: [id number] /
[2018-12-26] MEDS ORDERED: IV FLUID CONTINUATION 1,000 ML IV ONE (07:45)
[2018-12-26] MEDS ORDERED: fentaNYL (PF) 50 MCG/ML 2 ML AMP IV ONE (07:52)
[2018-12-26] MEDS ORDERED: MIDAZOLAM 2 MG/2 ML VIAL IV ONE (07:56)
[2018-12-26] MEDS ORDERED: HEPARIN SODIUM 1,000 UN/ML (10ML VL) IRRIGATION ONE (08:15)
[2018-12-26] MEDS: IPRATROPIUM-ALBUTEROL 3 ML NEB INHALATION SCH ×4 (08:16→20:37)
--- NOTE | 2018-12-26 09:23 | XR ---
EXAMINATION TYPE: XR chest 1V portable DATE OF EXAM: 12/26/2018 COMPARISON: 12/25/2018 HISTORY: Shortness of breath TECHNIQUE: Single frontal view of the chest is obtained. FINDINGS: The heart is enlarged and there is bilateral consolidation and pleural effusion greater on the left. Arthropathy of the shoulders. Interstitium stable. Correlate for underlying COPD. IMPRESSION: 1. Stable bilateral consolidation and pleural effusion greater on the left.
--- NOTE | 2018-12-26 09:51 | PCN ---
PROCEDURE NOTE PREOPERATIVE DIAGNOSIS: Acute chronic renal failure. PROCEDURE: 1. Removal of the temporary dialysis catheter right femoral approach. 2. Ultrasound-guided placement of 19 cm dialysis catheter right internal jugular approach. SEDATION TIME: 30 minutes. PROCEDURE DESCRIPTION: This patient was brought to the research laboratory technician. Right groin and neck was prepped and draped in usual sterile manner and 1% of Xylocaine was infiltrated in the groin area. The catheter was removed. Pressure was held. Then attention was paid to the right IJ area. Ultrasound-guided 1% lidocaine was used and the needle was introduced into the right internal jugular vein. Micropuncture guidewire was passed. A 4-[place] sheath advanced on top of the guidewire. After that, we passed a regular guidewire which was parked at the inferior vena cava. Then we created a tunnel, through the tunnel we brought 19 cm dialysis catheter and dilator was advanced on the guidewire sheath then sheath was advanced and through the sheath we introduced the dialysis catheter. Tip of the catheter in superior vena cava and atrium, flushed with heparin saline and hep- locked. Incision was closed with Vicryl and secured with 3-0 nylon. Dressing applied. Patient tolerated the procedure well. MMODL / IJN: [id number] /
[2018-12-26 10:47] VITALS: BMI 21.2
[2018-12-26] MEDS: SODIUM BICARBONATE TAB 650 MG TAB PO SCH (11:02)
[2018-12-26] MEDS: METOPROLOL TARTRATE 50 MG TAB PO SCH ×3 (11:02→21:54)
[2018-12-26] MEDS: ASPIRIN 81 MG PO SCH (11:02)
[2018-12-26] MEDS: GABAPENTIN 300 MG CAP PO SCH ×2 (11:02→21:54)
[2018-12-26] MEDS: CALCIUM ACETATE 667 MG CAP PO SCH (11:03)
[2018-12-26] MEDS: HEPARIN SOD,PORK IN 0.45% NACL 25,000 UNIT in 0.45% NACL 1 250ML.BAG IV SCH (11:10)
[2018-12-26] MEDS: APIXABAN 5 MG TAB PO SCH ×2 (11:24→21:54)
--- NOTE | 2018-12-26 11:52 | P.PN ---
Subjective Patient is seen in follow-up for acute kidney injury, currently hemodialysis dependent. Tolerated hemodialysis well yesterday. Currently sitting up in bed. He is working with physical therapy. Denies active chest pain or shortness of breath. Urine output about 10-20 mL an hour. Vital signs are stable. General: The patient appeared well nourished and normally developed. HEENT: Head exam is unremarkable. Neck is without jugular venous distension. LUNGS: Breath sounds decreased. HEART: Rate and Rhythm are regular. First and second heart sounds normal. No murmurs, rubs or gallops. ABDOMEN: Abdominal exam reveals normal bowel sounds. Non-tender and non- distended. No evidence of peritonitis. EXTREMITITES: No clubbing, cyanosis, or edema. Objective - Vital Signs Vital signs: Vital Signs Temp 97.8 F 12/26/18 04:00 Pulse 65 12/26/18 10:55 Resp 14 12/26/18 10:00 BP 127/82 12/26/18 10:00 Pulse Ox 97 12/26/18 10:00 Intake & Output 12/25/18 12/26/18 12/26/18 18:59 06:59 18:59 Intake Total 533.818 478.034 110 Output Total 76 195 15 Balance 457.818 283.034 95 Weight 61.3 kg 61.3 kg Intake: IV 110 120 90 Sodium Chloride 0.9% 500 110 120 40 ml 500 ml @ 10 mls/hr IV .Q24H [facility] Rx#:[id number] Intake, IV Titration 63.818 108.034 Amount Heparin Sod,Pork in 0.45% 63.818 108.034 NaCl 25,000 unit In 0.45 % NaCl 1 250ml.bag @ 10. 37 UNITS/KG/HR 9.99 mls/ hr IV .Q24H [facility] Rx#: [id number] Oral 360 250 20 Output: Urine 75 195 15 Stool 1 Other: Voiding Method Indwelling Catheter Indwelling Catheter Indwelling Catheter - Labs CBC & Chem 7: 12/26/18 05:52 12/26/18 05:52 Labs: Abnormal Lab Results - Last 24 Hours (Table) 12/25/18 12/25/18 12/25/18 Range/Units 10:31 12:04 16:45 WBC (3.8-10.6) k/uL RBC (4.30-5.90) m/uL Hgb (13.0-17.5) gm/dL Hct (39.0-53.0) % MCHC (31.0-37.0) g/dL RDW (11.5-15.5) % Neutrophils # (1.3-7.7) k/uL Monocytes # (0-1.0) k/uL APTT 103.0 H* (22.0-30.0) sec BUN (9-20) mg/dL Creatinine (0.66-1.25) mg/dL Glucose (74-99) mg/dL POC Glucose (mg/dL) 245 H 156 H (75-99) mg/dL Calcium (8.4-10.2) mg/dL 12/25/18 12/25/18 12/26/18 Range/Units 17:40 21:10 05:52 WBC 13.3 H (3.8-10.6) k/uL RBC 3.39 L (4.30-5.90) m/uL Hgb 9.7 L (13.0-17.5) gm/dL Hct 31.6 L (39.0-53.0) % MCHC 30.6 L (31.0-37.0) g/dL RDW 17.0 H (11.5-15.5) % Neutrophils # 10.3 H (1.3-7.7) k/uL Monocytes # 1.3 H (0-1.0) k/uL APTT 34.7 H (22.0-30.0) sec BUN (9-20) mg/dL Creatinine (0.66-1.25) mg/dL Glucose (74-99) mg/dL POC Glucose (mg/dL) 107 H (75-99) mg/dL Calcium (8.4-10.2) mg/dL 12/26/18 12/26/18 Range/Units 05:52 06:55 WBC (3.8-10.6) k/uL RBC (4.30-5.90) m/uL Hgb (13.0-17.5) gm/dL Hct (39.0-53.0) % MCHC (31.0-37.0) g/dL RDW (11.5-15.5) % Neutrophils # (1.3-7.7) k/uL Monocytes # (0-1.0) k/uL APTT (22.0-30.0) sec BUN 65 H (9-20) mg/dL Creatinine 2.78 H (0.66-1.25) mg/dL Glucose 107 H (74-99) mg/dL POC Glucose (mg/dL) 121 H (75-99) mg/dL Calcium 7.1 L (8.4-10.2) mg/dL Microbiology - Last 24 Hours (Table) 12/22/18 13:35 Blood Culture - Preliminary Blood No Growth after 72 hours Assessment and Plan Plan: assessment: 1. Acute kidney injury secondary to ATN secondary to cardiorenal syndrome. Possible progression of underlying chronic kidney disease. Now hemodialysis dependent. He had a permacath placed this morning. 2. Chronic kidney disease stage IV secondary to diabetic kidney disease with baseline creatinine near 3. Patient had refused kidney biopsy. 3. Diabetes mellitus. 4. Metabolic acidosis secondary to acute kidney injury. Better. 5. Anemia of chronic kidney disease. Maintained on Aranesp. Status post IV iron. 6. Dyspnea secondary to COPD exacerbation as well as volume overload. 7. Volume overload. Better with ultrafiltration. 8. Hypertension with chronic any disease. Controlled. 9. Chronic kidney disease mineral bone disease maintained on calcitriol and PhosLo. 10. Diastolic CHF with moderate tricuspid regurgitation and moderate to severe pulmonary hypertension. 11. Atrial fibrillation. Rate controlled. Plan: Discontinue sodium bicarbonate. Hemodialysis tomorrow.
--- NOTE | 2018-12-26 12:06 | P.PN ---
Subjective Progress Note Date: 12/26/18 Principal diagnosis: Acute hypoxic respiratory failure initially requiring BiPAP support secondary to fluid volume overload and diastolic congestive heart failure. This is an 82-year-old male patient who came into the hospital and subsequently the intensive care unit because of increased shortness of breath. The patient had increased weight gain and he has also developed increased swelling in lower extremities bilaterally. His legs were weeping at one point. The patient got moved to the intensive care unit yesterday as the patient developed some coffee- ground emesis and he was also found to be in respiratory distress with new onset atrial fibrillation with rapid ventricular response. The patient was immediately placed on a BiPAP at a pressure of 14/5 cm of water. Subsequently improved. He underwent a dialysis were 2 L of fluid was removed and the patient was taken off the BiPAP. The patient the chest x-ray was showing fluid overload. This patient is feeling better. Currently is off the BiPAP. No chest pain. No cough or sputum production. He is going to have another session of hemodialysis today. The intention is to take 2-1/2 L of fluids. In terms of his cardiac status, the patient is currently in atrial fibrillation with rate being under much better control. He is on IV heparin and there is no evidence of any GI bleeding at this point in time. His Gastroccult was positive and his fluid causing was negative on 12/22/2018. In terms of comorbidities, the patient is known to have COPD/asthma, diabetes mellitus, stage III chronic kidney disease with subsequent decompensation and the patient has been on dialysis since 12/21/2018, history of hypertension, UTI, gout, history of pancreatitis, diabetes mellitus and hypothyroidism. There is echocardiogram shows a normal ejection fraction of 55-60%. There was moderate degree of pulmonary hypertension with a PA pressure of 67. The patient had moderate degree of tricuspid regurgitation also. He had mild concentric left ventricular hypertrophy. On today's evaluation of 12/24/2018, the patient is awake alert and he is not having any respiratory distress. He is currently off the BiPAP. FiO2 is being gradually weaned off. The patient underwent hemodialysis yesterday. There was more than 2 L of ultrafiltration. The chest x-ray from today still showing a left-sided pleural effusion. The overall volume status improved compared to yesterday. No nausea. No vomiting. No emesis. He remains nature fibrillation and the rate is under better control for now. He remains on IV heparin. The transition to oral in to coagulation will be done after insertion of a permanent dialysis port. He has a congested cough. Unable to bring up much sputum. The lower extremity ulcers and wounds are currently inactive and stable. The patient remains on IV cefepime. The patient is awake. Tolerating his diet. There has been no other significant events overnight. On today's evaluation of 12/25/2018, the patient is doing well. The patient would have another session of hemodialysis. He remains in atrial fibrillation. He remains on IV heparin. A permacath has not been inserted yet. No respiratory distress. No cough or sputum production. He is afebrile. Hemodynamically stable. His pulse ox is 97% on 3 L of oxygen by nasal cannula. Hemoglobin stable at 9.5. The follow-up chest x-ray from today shows CHF with some interstitial edema and atelectatic changes in lung bases and there is interval improvement in left-sided pleural effusion. Remains on IV cefepime as an empiric antibiotic coverage. Tolerating his diet. The patient is seen today 12/26/2018 in follow-up in the intensive care unit. He is currently sitting up in a chair at the bedside. He is awake and alert in no acute distress. Chest x-ray reveals continued pleural effusions left greater than right. He did undergo removal of a temporary dialysis catheter from the right femoral approach and had a right internal jugular catheter placed today. The plan is for hemodialysis again tomorrow. He currently denies any worsening shortness of breath. He has a loose nonproductive cough. He is maintaining good O2 saturations in the upper 90s on 2 L/m per nasal cannula. He's been afebrile. Hemodynamically stable. The cultures reveal no growth to date. White count 13.3. Hemoglobin 9.7. Creatinine 2.78. He is anticoagulated with Eliquis. Remains on bronchodilators. Objective - Vital Signs Vital signs: Vital Signs Temp 98.4 F 12/26/18 11:00 Pulse 68 12/26/18 11:00 Resp 15 12/26/18 11:00 BP 119/74 12/26/18 11:00 Pulse Ox 98 12/26/18 11:00 Intake & Output 12/25/18 12/26/18 12/26/18 18:59 06:59 18:59 Intake Total 533.818 478.034 130 Output Total 76 195 30 Balance 457.818 283.034 100 Weight 61.3 kg 61.3 kg Intake: IV 110 120 110 Sodium Chloride 0.9% 500 110 120 60 ml 500 ml @ 10 mls/hr IV .Q24H [facility] Rx#:[id number] Intake, IV Titration 63.818 108.034 Amount Heparin Sod,Pork in 0.45% 63.818 108.034 NaCl 25,000 unit In 0.45 % NaCl 1 250ml.bag @ 10. 37 UNITS/KG/HR 9.99 mls/ hr IV .Q24H [facility] Rx#: [id number] Oral 360 250 20 Output: Urine 75 195 30 Stool 1 Other: Voiding Method Indwelling Catheter Indwelling Catheter Indwelling Catheter - Exam Gen. appearance the patient is calm comfortable no acute distress, currently is on 3 L of oxygen nasal cannula and he is currently off the BiPAP. Head exam was generally normal. There was no scleral icterus or corneal arcus. Mucous membranes were moist. Neck was supple and without jugular venous distension, thyromegaly, or carotid bruits. Carotids were easily palpable bilaterally. There was no adenopathy. Right internal jugular hemodialysis catheter placed Lungs sounds are diminished bilaterally otherwise clear. There is no significant crackles wheezes or rhonchi. Heart sounds are irregular S1-S2, there is faint murmur heard along the left lateral sternal border. Abdominal exam revealed normal bowel sounds. The abdomen was soft, non-tender, and without masses, organomegaly, or appreciable enlargement of the abdominal aorta. Extremities are swollen and the patient is +1 pitting edema in all 4 extremities mainly in the lower extremities bilaterally. He also has multiple open blisters in his lower extremities bilaterally. Femoral hemodialysis catheter removed. - Labs CBC & Chem 7: 12/26/18 05:52 12/26/18 05:52 Labs: Abnormal Lab Results - Last 24 Hours (Table) 12/25/18 12/25/18 12/25/18 Range/Units 12:04 16:45 17:40 WBC (3.8-10.6) k/uL RBC (4.30-5.90) m/uL Hgb (13.0-17.5) gm/dL Hct (39.0-53.0) % MCHC (31.0-37.0) g/dL RDW (11.5-15.5) % Neutrophils # (1.3-7.7) k/uL Monocytes # (0-1.0) k/uL APTT 34.7 H (22.0-30.0) sec BUN (9-20) mg/dL Creatinine (0.66-1.25) mg/dL Glucose (74-99) mg/dL POC Glucose (mg/dL) 245 H 156 H (75-99) mg/dL Calcium (8.4-10.2) mg/dL 12/25/18 12/26/18 12/26/18 Range/Units 21:10 05:52 05:52 WBC 13.3 H (3.8-10.6) k/uL RBC 3.39 L (4.30-5.90) m/uL Hgb 9.7 L (13.0-17.5) gm/dL Hct 31.6 L (39.0-53.0) % MCHC 30.6 L (31.0-37.0) g/dL RDW 17.0 H (11.5-15.5) % Neutrophils # 10.3 H (1.3-7.7) k/uL Monocytes # 1.3 H (0-1.0) k/uL APTT (22.0-30.0) sec BUN 65 H (9-20) mg/dL Creatinine 2.78 H (0.66-1.25) mg/dL Glucose 107 H (74-99) mg/dL POC Glucose (mg/dL) 107 H (75-99) mg/dL Calcium 7.1 L (8.4-10.2) mg/dL 12/26/18 Range/Units 06:55 WBC (3.8-10.6) k/uL RBC (4.30-5.90) m/uL Hgb (13.0-17.5) gm/dL Hct (39.0-53.0) % MCHC (31.0-37.0) g/dL RDW (11.5-15.5) % Neutrophils # (1.3-7.7) k/uL Monocytes # (0-1.0) k/uL APTT (22.0-30.0) sec BUN (9-20) mg/dL Creatinine (0.66-1.25) mg/dL Glucose (74-99) mg/dL POC Glucose (mg/dL) 121 H (75-99) mg/dL Calcium (8.4-10.2) mg/dL Microbiology - Last 24 Hours (Table) 12/22/18 13:35 Blood Culture - Preliminary Blood No Growth after 72 hours Assessment and Plan Assessment: Assessment 1 acute hypoxic history failure requiring BiPAP, essentially secondary to fluid overload and a component of CHF with diastolic dysfunction. The patient underwent dialysis and there was significant improvement in the volume status and overall pulmonary status following dialysis. Currently is on oxygen by nasal cannula which is being weaned down to maintain a saturation above 90% and the patient's BiPAP has been discontinued. Chest x-ray from today shows improvement in the volume status and there is some left-sided pleural effusion in place. 2 new onset atrial fibrillation, and the patient is currently still in A. fib with a controlled rate and the patient is currently on IV heparin per cardiac catheterization technician recommendation. The rate is under better control. The transition to IV heparin to oral anticoagulation will be done once the permacath was inserted. 3 preserved LV function with an ejection fraction of 55-60% and moderate to severe pulmonary hypertension with a PA pressure of 67 4 diabetes mellitus 5 End stage renal disease currently on hemodialysis, the patient has a dialysis catheter in his right groin and he has undergone several sessions of hemodialysis, total of 4 with significant ultrafiltration. There has been improvement in his volume status. His oxidation is also improved. 6 hyperlipidemia 7 chronic ulceration of the lower extremities bilaterally 8 history of alcoholic pancreatitis 9 hypertension 10 gout 11 questionable GI bleed although this has not been officially confirm that the patient is able to get IV heparin without any major complications. 12 COPD 13 hypothyroidism Plan Patient was seen and evaluated by Dr. Estrada. Right internal jugular permacath placed by vascular surgery today. Right temporary femoral catheter removed. The patient's chest x-ray remains stable. He is down to 3 L/m per nasal cannula. He could be transferred out of the intensive care unit today. The plan is for hemodialysis tomorrow. We'll continue to follow make further recommendations based on his clinical status. He is Eliquis has been resumed. I, the cosigning physician, performed a history & physical examination of the patient. Lungs sounds with bilateral crackles left greater than right. Maintaining good O2 saturations in the 90s on 3 L/m per nasal cannula. I discussed the assessment and plan of care with my nurse practitioner, Brit Rodriguez. I attest to the above note as dictated by her.
[2018-12-26 12:10] LABS: Glucose,Whole Blood 166 mg/dL (75-99)
--- NOTE | 2018-12-26 13:16 | P.PN ---
Subjective Progress Note Date: 12/26/18 Patient seen and examined at bedside, recently returned from having his permanent dialysis catheter placed in his right IJ, patient hungry wanting to eat. Reports his breathing is improved. No acute events overnight Objective - Vital Signs Vital signs: Vital Signs Temp 98.8 F 12/26/18 12:00 Pulse 61 12/26/18 13:00 Resp 11 L 12/26/18 13:00 BP 133/67 12/26/18 13:00 Pulse Ox 97 12/26/18 13:00 Intake & Output 12/25/18 12/26/18 12/26/18 18:59 06:59 18:59 Intake Total 533.818 478.034 130 Output Total 76 195 30 Balance 457.818 283.034 100 Weight 61.3 kg 61.3 kg Intake: IV 110 120 110 Sodium Chloride 0.9% 500 110 120 60 ml 500 ml @ 10 mls/hr IV .Q24H [facility] Rx#:[id number] Intake, IV Titration 63.818 108.034 Amount Heparin Sod,Pork in 0.45% 63.818 108.034 NaCl 25,000 unit In 0.45 % NaCl 1 250ml.bag @ 10. 37 UNITS/KG/HR 9.99 mls/ hr IV .Q24H [facility] Rx#: [id number] Oral 360 250 20 Output: Urine 75 195 30 Stool 1 Other: Voiding Method Indwelling Catheter Indwelling Catheter Indwelling Catheter - Exam Constitutional: No acute distress, conversant, pleasant Eyes: Anicteric sclerae, moist conjunctiva, no lid-lag, PERRLA ENMT: NC/AT,Oropharynx clear, no erythema, exudates Neck:Supple, FROM, no masses, or JVD, No carotid bruits; No thyromegaly Lungs: Clear to auscultation, breathing unlabored, diminished in the bases Cardiovascular: Regular rate irregularly irregular rhythm, No murmurs, gallops , or rubs, +1 pitting edema Abdominal: Soft Nontender, nom distended, no guarding, no rebound or rigidity, Normoactive bowel sounds No hepatomegaly, No splenomegaly, No palpable mass No abdominal wall hernia noted Skin: Multiple open blisters on lower extremities bilaterally that are dressed Extremities:No digital cyanosis No clubbing, Pedal pulses intact and symmetrical Radial pulses intact and symmetrical Normal gait and station, No calf tenderness Psychiatric: Alert and oriented to person, place and time, Appropriate affect Intact judgement Neuro: Muscles Strength 5/5 in all 4 extremities, Sensation to light touch grossly present throughout, Cranial nerves II-XII grossly intact. No focal sensory deficits - Labs CBC & Chem 7: 12/26/18 05:52 12/26/18 05:52 Labs: Abnormal Lab Results - Last 24 Hours (Table) 12/25/18 12/25/18 12/25/18 Range/Units 16:45 17:40 21:10 WBC (3.8-10.6) k/uL RBC (4.30-5.90) m/uL Hgb (13.0-17.5) gm/dL Hct (39.0-53.0) % MCHC (31.0-37.0) g/dL RDW (11.5-15.5) % Neutrophils # (1.3-7.7) k/uL Monocytes # (0-1.0) k/uL APTT 34.7 H (22.0-30.0) sec BUN (9-20) mg/dL Creatinine (0.66-1.25) mg/dL Glucose (74-99) mg/dL POC Glucose (mg/dL) 156 H 107 H (75-99) mg/dL Calcium (8.4-10.2) mg/dL 12/26/18 12/26/18 12/26/18 Range/Units 05:52 05:52 06:55 WBC 13.3 H (3.8-10.6) k/uL RBC 3.39 L (4.30-5.90) m/uL Hgb 9.7 L (13.0-17.5) gm/dL Hct 31.6 L (39.0-53.0) % MCHC 30.6 L (31.0-37.0) g/dL RDW 17.0 H (11.5-15.5) % Neutrophils # 10.3 H (1.3-7.7) k/uL Monocytes # 1.3 H (0-1.0) k/uL APTT (22.0-30.0) sec BUN 65 H (9-20) mg/dL Creatinine 2.78 H (0.66-1.25) mg/dL Glucose 107 H (74-99) mg/dL POC Glucose (mg/dL) 121 H (75-99) mg/dL Calcium 7.1 L (8.4-10.2) mg/dL 12/26/18 Range/Units 11:58 WBC (3.8-10.6) k/uL RBC (4.30-5.90) m/uL Hgb (13.0-17.5) gm/dL Hct (39.0-53.0) % MCHC (31.0-37.0) g/dL RDW (11.5-15.5) % Neutrophils # (1.3-7.7) k/uL Monocytes # (0-1.0) k/uL APTT (22.0-30.0) sec BUN (9-20) mg/dL Creatinine (0.66-1.25) mg/dL Glucose (74-99) mg/dL POC Glucose (mg/dL) 166 H (75-99) mg/dL Calcium (8.4-10.2) mg/dL Microbiology - Last 24 Hours (Table) 12/22/18 13:35 Blood Culture - Preliminary Blood No Growth after 72 hours Assessment and Plan (1) Acute respiratory failure with hypoxia Narrative/Plan: * Multifactorial secondary to diastolic CHF superimposed on acute COPD exacerbation * Chest x-ray suggestive of CHF with left-sided effusions versus atelectasis * Continue supportive therapy patient currently on 3 L nasal cannula we'll plan to wean as tolerated * Continue breathing treatments Current Visit: Yes Status: Resolved Code(s): J96.01 - ACUTE RESPIRATORY FAILURE WITH HYPOXIA SNOMED Code(s): 48356438 (2) Acute diastolic CHF (congestive heart failure) Narrative/Plan: * Previous echocardiogram performed 12/19 indicating preserved LVEF 55-60% with a moderately dilated left atrium * Moderate tricuspid regurgitation * Moderate to severe pulmonary hypertension Current Visit: Yes Status: Resolved Code(s): I50.31 - ACUTE DIASTOLIC ( CONGESTIVE) HEART FAILURE SNOMED Code(s): 142671795 (3) Acute exacerbation of chronic obstructive airways disease Narrative/Plan: * Continue scheduled and when necessary DuoNeb bronchodilator breathing treatments Current Visit: Yes Status: Resolved Code(s): J44.1 - CHRONIC OBSTRUCTIVE PULMONARY DISEASE W (ACUTE) EXACERBATION SNOMED Code(s): 895897711 (4) Atrial fibrillation with RVR Narrative/Plan: * Currently rate controlled on metoprolol 50mg TID * Discontinue IV heparin plans to switch to DOAC post permanent dialysis catheter placement * Initiated on eliquis 5mg PO BID today * echocardiogram showing preserved ejection fraction likely has diastolic CHF Current Visit: Yes Status: Resolved Code(s): I48.91 - UNSPECIFIED ATRIAL FIBRILLATION SNOMED Code(s): 204061377865517 (5) End stage renal disease on dialysis Narrative/Plan: * Patient previously CKD stage III progressing to end-stage renal disease * Nephrology following patient received hemodialysis yesterday * Scheduled for hemodialysis tomorrow * Patient had dialysis catheter placed today Current Visit: Yes Status: Chronic Code(s): N18.6 - END STAGE RENAL DISEASE ; Z99.2 - DEPENDENCE ON RENAL DIALYSIS SNOMED Code(s): 091757667 Plan: Patient doing much better today: Initiated on DOAC medically stable enough to be transferred to the telemetry floor Anticipated discharge tomorrow that's probablyto for physical therapy likely shelter [facility] tomorrow
--- NOTE | 2018-12-26 13:28 | XR ---
EXAMINATION TYPE: XR chest 1V portable DATE OF EXAM: 12/26/2018 COMPARISON: 12/26/2018 HISTORY: Catheter insertion TECHNIQUE: Single frontal view of the chest is obtained. FINDINGS: Bilateral consolidation and pleural effusion greater on the left stable. No pneumothorax. Dialysis catheter seen with the tip overlying the cavoatrial junction. Diffuse osteopenia and arthropathy shoulders. IMPRESSION: 1. Catheter seen with the tip overlying the cavoatrial junction and no pneumothorax. 2. Bilateral consolidation and pleural effusion stable.
[2018-12-26] MEDS: DARBEPOETIN ALFA 40 MCG/0.4 ML SYRINGE SQ SCH (13:51)
[2018-12-26 17:18] LABS: Glucose,Whole Blood 100 mg/dL (75-99)
[2018-12-26] MEDS: PANTOPRAZOLE 40 MG TABLET PO SCH (17:49)
[2018-12-26 20:38] LABS: Glucose,Whole Blood 151 mg/dL (75-99)
[2018-12-26] MEDS: ATORVASTATIN 40 MG TAB PO SCH (21:54)
[2018-12-26] MEDS: PANTOPRAZOLE 40 MG/10 ML VIAL IVP SCH (23:23)
[2018-12-26] MEDS: CARVEDILOL 6.25 MG TAB PO SCH (23:24)
[2018-12-27] MEDS: SODIUM CHLORIDE 0.9% 500 ML 500 ML IV SCH (00:35)
[2018-12-27 06:12] LABS: Glucose,Whole Blood 96 mg/dL (75-99)
[2018-12-27 06:35] LABS: Anisocytosis Slight; Basophils % (A) 0 %; Eosinophils # (A) 0.4 k/uL (0-0.7); Eosinophils % (A) 3 %; HGB 10.3 gm/dL (13.0-17.5); Hypochromasia Marked; Lymphocytes % (A) 7 %; MCH 29.3 pg (25.0-35.0); MCHC 31.3 g/dL (31.0-37.0); MCV 93.9 fL (80.0-100.0); Mean Platelet Volume 7.1; Monocytes % (A) 7 %; Neutrophils # (A) 11.4 k/uL (1.3-7.7); Neutrophils % (A) 81 %; Platelet Count 186 k/uL (150-450); RBC 3.52 m/uL (4.30-5.90); RDW 16.8 % (11.5-15.5)
[2018-12-27] MEDS: INSULIN ASPART 100 UNIT/ML 1 ML 10 ML VIAL SQ SCH ×2 (06:40→15:07)
[2018-12-27] MEDS: PANTOPRAZOLE 40 MG TABLET PO SCH (06:41)
[2018-12-27] MEDS: LEVOTHYROXINE 75 MCG TAB PO SCH (06:42)
[2018-12-27 07:04] LABS: Calcium 7.2 mg/dL (8.4-10.2); Magnesium 1.8 mg/dL (1.6-2.3); Phosphorus 4.6 mg/dL (2.5-4.5); Potassium 4.1 mmol/L (3.5-5.1)
[2018-12-27] MEDS: IPRATROPIUM-ALBUTEROL 3 ML NEB INHALATION SCH ×2 (08:52→12:07)
[2018-12-27 11:29] LABS: Glucose,Whole Blood 109 mg/dL (75-99)
[2018-12-27 12:03] VITALS: BP 122/60; RESP 20; TEMP 97.2
[2018-12-27 12:23] VITALS: PULSE 80
--- NOTE | 2018-12-27 14:31 | PN ---
PROGRESS NOTE Patient is seen for followup for acute kidney injury, currently hemodialysis dependent. He is maintained on a Sunday, Sunday, Sunday schedule. Patient has been tolerating his treatment well. He is currently awake, comfortable. Denies any complaints. Blood pressure this morning 122/60, heart rate 77 per minute. He is afebrile. Examination of the heart, S1, S2. Examination of the lungs, bilateral breath sounds are heard. Abdomen is soft, nontender. Examination of the lower extremities shows no significant edema. Chronic skin changes are noted. LABS: Show sodium of 139, potassium 4.1, BUN of 70, serum creatinine 2.98, hemoglobin 10.3 g/dL. ASSESSMENT: 1. Acute kidney injury, currently hemodialysis dependent. Urine output is on the lower side. 2. Volume overload, now improved. 3. Chronic kidney disease mineral bone disorder, maintained on calcitriol and PhosLo. 4. Chronic atrial fibrillation with controlled ventricular response. 5. Anemia of chronic disease, maintained on Aranesp. PLAN: Hemodialysis today and then follow up as outpatient for hemodialysis. MMODL / IJN: [id number] /
[2018-12-27] MEDS: CALCITRIOL 0.25 MCG CAP PO SCH (15:07)
[2018-12-27] MEDS: CALCIUM ACETATE 667 MG CAP PO SCH (15:07)
[2018-12-27] MEDS: METOPROLOL TARTRATE 50 MG TAB PO SCH (15:07)
[2018-12-27] MEDS: GABAPENTIN 300 MG CAP PO SCH (15:07)
--- NOTE | 2018-12-27 15:38 | P.PN ---
Subjective Progress Note Date: 12/27/18 This is a pleasant 83-year-old gentleman who presented with symptoms of progressive dyspnea as well as symptoms of congestive heart failure and worsening renal failure. He was initiated on hemodialysis. He does have underlying paroxysmal atrial fibrillation and has been started on Eliquis. He has had some oozing from his permanent dialysis catheter morning. His Eliquis dose is currently 5mg BID. Objective - Vital Signs Vital signs: Vital Signs Temp 97.2 F L 12/27/18 11:50 Pulse 80 12/27/18 12:22 Resp 20 12/27/18 11:50 BP 122/60 12/27/18 11:50 Pulse Ox 97 12/27/18 11:50 Intake & Output 12/26/18 12/27/18 12/27/18 18:59 06:59 18:59 Intake Total 730 260 360 Output Total 330 600 Balance 400 -340 360 Weight 61.3 kg 67.5 kg Intake: IV 110 10 Sodium Chloride 0.9% 500 60 10 ml 500 ml @ 10 mls/hr IV .Q24H [facility] Rx#:[id number] Oral 620 250 360 Output: Urine 330 325 Post Void Residual 275 Other: Voiding Method Indwelling Catheter Indwelling Catheter # Bowel Movements 1 - Exam PHYSICAL EXAMINATION: HEENT: Head is atraumatic, normocephalic. Pupils equal, round. Neck is supple. There is no elevated jugular venous pressure. HEART EXAMINATION: Heart sounds irregularly irregular, S1 and S2 with a systolic murmur. CHEST EXAMINATION: Lungs reveal coarse wheezing and rhonchi anteriorly. No chest wall tenderness is noted on palpation or with deep breathing. Left subclavian permanent dialysis catheter with oozing noted. ABDOMEN: Soft, nontender. Bowel sounds are heard. No organomegaly noted. EXTREMITIES: Diminished peripheral pulses with no evidence of peripheral edema with chronic skin changes. NEUROLOGIC patient is awake, alert and oriented x3. . - Labs CBC & Chem 7: 12/27/18 06:12 12/27/18 06:12 Labs: Abnormal Lab Results - Last 24 Hours (Table) 12/26/18 12/26/18 12/27/18 Range/Units 17:06 20:26 06:12 WBC 14.0 H (3.8-10.6) k/uL RBC 3.52 L (4.30-5.90) m/uL Hgb 10.3 L (13.0-17.5) gm/dL Hct 33.0 L (39.0-53.0) % RDW 16.8 H (11.5-15.5) % Neutrophils # 11.4 H (1.3-7.7) k/uL BUN (9-20) mg/dL Creatinine (0.66-1.25) mg/dL POC Glucose (mg/dL) 100 H 151 H (75-99) mg/dL Calcium (8.4-10.2) mg/dL Phosphorus (2.5-4.5) mg/dL 12/27/18 12/27/18 Range/Units 06:12 11:24 WBC (3.8-10.6) k/uL RBC (4.30-5.90) m/uL Hgb (13.0-17.5) gm/dL Hct (39.0-53.0) % RDW (11.5-15.5) % Neutrophils # (1.3-7.7) k/uL BUN 70 H (9-20) mg/dL Creatinine 2.98 H (0.66-1.25) mg/dL POC Glucose (mg/dL) 109 H (75-99) mg/dL Calcium 7.2 L (8.4-10.2) mg/dL Phosphorus 4.6 H (2.5-4.5) mg/dL Microbiology - Last 24 Hours (Table) 12/22/18 13:35 Blood Culture - Preliminary Blood No Growth after 96 hours Assessment and Plan Assessment: #1 paroxysmal atrial fibrillation #2 end-stage renal disease, undergoing hemodialysis #3 hypertension #4 hyperlipidemia Plan: From cardiology's perspective, we will hold Eliquis and reevaluate dialysis catheter site in the morning. Further recommendations to follow. C[employer] WORKER note has been reviewed, I agree with a documented findings and plan of care. Patient was seen and examined.
[2018-12-27] MEDS: APIXABAN 5 MG TAB PO SCH (15:49)
[2018-12-27] MEDS: ASPIRIN 81 MG PO SCH (15:49)
--- NOTE | 2018-12-27 16:29 | P.PN ---
Subjective Progress Note Date: 12/27/18 Principal diagnosis: Acute hypoxic respiratory failure, secondary to fluid volume overload and diastolic congestive heart failure This is an 82-year-old male patient who came into the hospital and subsequently the intensive care unit because of increased shortness of breath. The patient had increased weight gain and he has also developed increased swelling in lower extremities bilaterally. His legs were weeping at one point. The patient got moved to the intensive care unit yesterday as the patient developed some coffee- ground emesis and he was also found to be in respiratory distress with new onset atrial fibrillation with rapid ventricular response. The patient was immediately placed on a BiPAP at a pressure of 14/5 cm of water. Subsequently improved. He underwent a dialysis were 2 L of fluid was removed and the patient was taken off the BiPAP. The patient the chest x-ray was showing fluid overload. This patient is feeling better. Currently is off the BiPAP. No chest pain. No cough or sputum production. He is going to have another session of hemodialysis today. The intention is to take 2-1/2 L of fluids. In terms of his cardiac status, the patient is currently in atrial fibrillation with rate being under much better control. He is on IV heparin and there is no evidence of any GI bleeding at this point in time. His Gastroccult was positive and his fluid causing was negative on 12/22/2018. In terms of comorbidities, the patient is known to have COPD/asthma, diabetes mellitus, stage III chronic kidney disease with subsequent decompensation and the patient has been on dialysis since 12/21/2018, history of hypertension, UTI, gout, history of pancreatitis, diabetes mellitus and hypothyroidism. There is echocardiogram shows a normal ejection fraction of 55-60%. There was moderate degree of pulmonary hypertension with a PA pressure of 67. The patient had moderate degree of tricuspid regurgitation also. He had mild concentric left ventricular hypertrophy. On today's evaluation of 12/24/2018, the patient is awake alert and he is not having any respiratory distress. He is currently off the BiPAP. FiO2 is being gradually weaned off. The patient underwent hemodialysis yesterday. There was more than 2 L of ultrafiltration. The chest x-ray from today still showing a left-sided pleural effusion. The overall volume status improved compared to yesterday. No nausea. No vomiting. No emesis. He remains nature fibrillation and the rate is under better control for now. He remains on IV heparin. The transition to oral in to coagulation will be done after insertion of a permanent dialysis port. He has a congested cough. Unable to bring up much sputum. The lower extremity ulcers and wounds are currently inactive and stable. The patient remains on IV cefepime. The patient is awake. Tolerating his diet. There has been no other significant events overnight. On today's evaluation of 12/25/2018, the patient is doing well. The patient would have another session of hemodialysis. He remains in atrial fibrillation. He remains on IV heparin. A permacath has not been inserted yet. No respiratory distress. No cough or sputum production. He is afebrile. Hemodynamically stable. His pulse ox is 97% on 3 L of oxygen by nasal cannula. Hemoglobin stable at 9.5. The follow-up chest x-ray from today shows CHF with some interstitial edema and atelectatic changes in lung bases and there is interval improvement in left-sided pleural effusion. Remains on IV cefepime as an empiric antibiotic coverage. Tolerating his diet. The patient is seen today 12/26/2018 in follow-up in the intensive care unit. He is currently sitting up in a chair at the bedside. He is awake and alert in no acute distress. Chest x-ray reveals continued pleural effusions left greater than right. He did undergo removal of a temporary dialysis catheter from the right femoral approach and had a right internal jugular catheter placed today. The plan is for hemodialysis again tomorrow. He currently denies any worsening shortness of breath. He has a loose nonproductive cough. He is maintaining good O2 saturations in the upper 90s on 2 L/m per nasal cannula. He's been afebrile. Hemodynamically stable. The cultures reveal no growth to date. White count 13.3. Hemoglobin 9.7. Creatinine 2.78. He is anticoagulated with Eliquis. Remains on bronchodilators. On 12/27/2018 patient seen in follow-up on selective care unit. In no acute distress, he is resting in bed, awake and alert, states he is chronically fatigued, but no apparent distress. 2 L per nasal cannula his pulse ox is 97%, he is afebrile, patient is on hemodialysis, and she will be on the Sunday, Sunday and Sunday schedule. He received a permacath inserted into his right internal jugular, the temporary dialysis has been removed from the right femoral area. Lung sounds are diminished, today's labs have been noted, white blood cell count is 14.0, hemoglobin 10.3, electrodes are within normal limits, B1 is 70 and creatinine is 2.98. no complaints of dyspnea and chest pain, his last chest x-ray done yesterday, and showed bilateral consolidation and pleural effusion greater on the left side, no pneumothorax. No fever or chills Objective - Vital Signs Vital signs: Vital Signs Temp 97.2 F L 12/27/18 11:50 Pulse 80 12/27/18 12:22 Resp 20 12/27/18 11:50 BP 122/60 12/27/18 11:50 Pulse Ox 97 12/27/18 11:50 Intake & Output 12/26/18 12/27/18 12/27/18 18:59 06:59 18:59 Intake Total 730 260 720 Output Total 330 600 Balance 400 -340 720 Weight 61.3 kg 67.5 kg Intake: IV 110 10 Sodium Chloride 0.9% 500 60 10 ml 500 ml @ 10 mls/hr IV .Q24H [facility] Rx#:[id number] Oral 620 250 720 Output: Urine 330 325 Post Void Residual 275 Other: Voiding Method Indwelling Catheter Indwelling Catheter # Bowel Movements 1 - Exam GENERAL EXAM: Alert, pleasant, frail-looking 83-year-old white malecomfortable in no apparent distress. HEAD: Normocephalic/atraumatic. EYES: Normal reaction of pupils, equal size. Conjunctiva pink, sclera white. NOSE: Clear with pink turbinates. THROAT: No erythema or exudates. NECK: No masses, no JVD, no thyroid enlargement, no adenopathy. CHEST: No chest wall deformity. Symmetrical expansion. right IJ permacath present LUNGS: Equal air entry with no crackles, wheeze, rhonchi or dullness. CVS: Regular rate and rhythm, normal S1 and S2, no gallops, no murmurs, no rubs ABDOMEN: Soft, nontender. No hepatosplenomegaly, normal bowel sounds, no guarding or rigidity. EXTREMITIES: No clubbing, no edema, no cyanosis, 2+ pulses and upper and lower extremities. MUSCULOSKELETAL: Muscle strength and tone normal. SPINE: No scoliosis or deformity SKIN: No rashes CENTRAL NERVOUS SYSTEM: Alert and oriented -3. No focal deficits, tone is normal in all 4 extremities. PSYCHIATRIC: Alert and oriented -3. Appropriate affect. Intact judgment and insight. - Labs CBC & Chem 7: 12/27/18 06:12 12/27/18 06:12 Labs: Abnormal Lab Results - Last 24 Hours (Table) 12/26/18 12/26/18 12/27/18 Range/Units 17:06 20:26 06:12 WBC 14.0 H (3.8-10.6) k/uL RBC 3.52 L (4.30-5.90) m/uL Hgb 10.3 L (13.0-17.5) gm/dL Hct 33.0 L (39.0-53.0) % RDW 16.8 H (11.5-15.5) % Neutrophils # 11.4 H (1.3-7.7) k/uL BUN (9-20) mg/dL Creatinine (0.66-1.25) mg/dL POC Glucose (mg/dL) 100 H 151 H (75-99) mg/dL Calcium (8.4-10.2) mg/dL Phosphorus (2.5-4.5) mg/dL 12/27/18 12/27/18 Range/Units 06:12 11:24 WBC (3.8-10.6) k/uL RBC (4.30-5.90) m/uL Hgb (13.0-17.5) gm/dL Hct (39.0-53.0) % RDW (11.5-15.5) % Neutrophils # (1.3-7.7) k/uL BUN 70 H (9-20) mg/dL Creatinine 2.98 H (0.66-1.25) mg/dL POC Glucose (mg/dL) 109 H (75-99) mg/dL Calcium 7.2 L (8.4-10.2) mg/dL Phosphorus 4.6 H (2.5-4.5) mg/dL Microbiology - Last 24 Hours (Table) 12/22/18 13:35 Blood Culture - Preliminary Blood No Growth after 120 hours Assessment and Plan Plan: 1 acute hypoxic history failure requiring BiPAP, essentially secondary to fluid overload and a component of CHF with diastolic dysfunction. The patient underwent dialysis and there was significant improvement in the volume status and overall pulmonary status following dialysis. Currently is on oxygen by nasal cannula which is being weaned down to maintain a saturation above 90% and the patient's BiPAP has been discontinued. Chest x-ray from today shows improvement in the volume status and there is some left-sided pleural effusion in place. 2 new onset atrial fibrillation, and the patient is currently still in A. fib with a controlled rate and the patient is currently on IV heparin per high school social studies teacher recommendation. The rate is under better control. The transition to IV heparin to oral anticoagulation will be done once the permacath was inserted. 3 preserved LV function with an ejection fraction of 55-60% and moderate to severe pulmonary hypertension with a PA pressure of 67 4 diabetes mellitus 5 End stage renal disease currently on hemodialysis, the patient has a dialysis catheter in his right groin and he has undergone several sessions of hemodialysis, total of 4 with significant ultrafiltration. There has been improvement in his volume status. His oxidation is also improved. 6 hyperlipidemia 7 chronic ulceration of the lower extremities bilaterally 8 history of alcoholic pancreatitis 9 hypertension 10 gout 11 questionable GI bleed although this has not been officially confirm that the patient is able to get IV heparin without any major complications. 12 COPD 13 hypothyroidism Plan: Patient is stable for discharge to the subacute rehab from pulmonary perspective , patient will continue on hemodialysis Sunday schedule. No worsening dyspnea, no chest pain, no acute events overnight. Cultures are negative, no fever or chills.Vital signs are stable, patient is maintaining good oxygenation. oral anticoagulation has been resumed I performed a history & physical examination of the patient and discussed their management with my nurse practitioner, Jasmin Sánchez. I reviewed the nurse practitioner's note and agree with the documented findings and plan of care. Lung sounds are positive for diminished bbreath sounds. The findings and the impression was discussed with the patient. I attest to the documentation by the nurse practitioner. Time with Patient: Less than 30
--- NOTE | 2018-12-27 16:40 | P.DS ---
Providers Date of admission: 12/18/18 13:07 Expected date of discharge: 12/27/18 Attending physician: Burke Kelly MD Consults: 12/18/18 13:07 Consult Physician Routine Consulting Provider: Ti Malcolm Consult Reason/Comments: CHF, acute chronic renal failure Do you want consulting provider notified?: Yes Consult Physician Routine Consulting Provider: Mari Oro Consult Reason/Comments: Acute chronic renal failure, CHF Do you want consulting provider notified?: Yes 12/21/18 13:23 Consult Physician Routine Consulting Provider: Angus Phillip Consult Reason/Comments: Vik catheter insertion for dialysis Do you want consulting provider notified?: Yes 12/21/18 14:09 Consult Physician Stat Consulting Provider: Edie Camargo Consult Reason/Comments: Pulmonary edema, Renal failure Do you want consulting provider notified?: Yes Primary care physician: Carmelo Matamoros - Discharge Diagnosis(es) (1) Acute respiratory failure with hypoxia Status: Resolved (2) Acute diastolic CHF (congestive heart failure) Status: Resolved (3) Acute exacerbation of chronic obstructive airways disease Status: Resolved (4) Atrial fibrillation with RVR Status: Resolved (5) End stage renal disease on dialysis Status: Chronic Hospital Course: The patient is a 83-year-old male with a past medical history of chronic disease stage III, COPD, type 2 diabetes, hypertension, and hypothyroidism that presented with chief complaint of dyspnea and was admitted with acute respiratory failure with hypoxemia of multifactorial etiology secondary to acute COPD exacerbation superimposed on a volume overload from decompensated CKD stage III progressing to end-stage renal disease in the setting of acute diastolic CHF exacerbation. The patient was immediately placed on BiPAP by pulmonology, nephrology also saw the patient and scheduled the patient to have hemodialysis starting 12/21/18 after having a temporary dialysis catheter placement. The patient was initially started on Lasix 40 mg IV twice a day along with systemic steroids IV Solu-Medrol, scheduled and prn albuterol Atrovent DuoNeb breathing treatment. With dialysis the patient's fluid overloaded state improved and he was eventually weaned off BiPAP. During hospital admission the patient subsequently went into A. fib with RVR and was started on diltiazem and IV heparin drip and later transitioned to oral metoprolol for rate control. 2 echocardiogram confirmed a preserved LVEF of 55- 60% with a moderately dilated left atrium with moderate tricuspid regurgitation and moderate pulmonary hypertension, further workup of his dyspnea included a VQ scan indicating indicating low probability of PE. The patient is also started on empiric IV antibiotics with vancomycin and cefepime and this was eventually discontinued as the patient remained afebrile with negative blood cultures. As a patient status gradually improved and he was upgraded to a permanent dialysis catheter in his right IJ and then was subsequently transitioned to DOAC Eliquis 5 mg PO BID. he was discharged to [facility] with [facility] with ongoing physical therapy and to have hemodialysis. This discharge process took approximately 35 minutes Exam Gen. appearance the patient is calm comfortable no acute distress, currently is on 2 L of oxygen nasal cannula and he is currently off the BiPAP. Head exam was generally normal. There was no scleral icterus or corneal arcus. Mucous membranes were moist. Neck was supple and without jugular venous distension, thyromegaly, or carotid bruits. Carotids were easily palpable bilaterally. There was no adenopathy. Right internal jugular hemodialysis catheter placed Lungs sounds are diminished bilaterally otherwise clear. There is no significant crackles wheezes or rhonchi. Heart sounds are irregular S1-S2, there is faint murmur heard along the left lateral sternal border. Abdominal: Normoactive bowel sounds soft nontender nondistended Extremities are swollen and the patient is +1 pitting edema in all 4 extremities mainly in the lower extremities bilaterally. He also has multiple open blisters in his lower extremities bilaterally. Patient Condition at Discharge: Good Plan - Discharge Summary Discharge Rx Participant: No New Discharge Prescriptions: New Apixaban [Eliquis] 5 mg PO BID #60 tab Metoprolol Tartrate [Lopressor] 50 mg PO TID #90 tab Continue Garlic 1 tab PO DAILY Simvastatin 20 mg PO HS Vit C/E/Zn/Coppr/Lutein/Zeaxan [Preservision Areds 2 Softgel] 2 cap PO DAILY Aspirin [Adult Low Dose Aspirin EC] 81 mg PO DAILY Sodium Bicarbonate Tab 1,300 mg PO BID #120 tablet Levothyroxine Sodium [Synthroid] 150 mcg PO DAILY Gabapentin [Neurontin] 300 mg PO BID Calcitriol [Rocaltrol] 0.25 mcg PO MOWEFR Ergocalciferol (Vitamin D2) [Vitamin D2] 50,000 unit PO QMONTH Calcium Acetate [PhosLo] 667 mg PO DAILY Discontinued Verapamil Sr [Isoptin Sr] 240 mg PO HS amLODIPine [Norvasc] 5 mg PO DAILY #30 tab hydrALAZINE HCL [Apresoline] 50 mg PO TID Discharge Medication List Garlic 1 tab PO DAILY 07/16/15 [History] Simvastatin 20 mg PO HS 07/16/15 [History] Aspirin [Adult Low Dose Aspirin EC] 81 mg PO DAILY 07/18/18 [History] Vit C/E/Zn/Coppr/Lutein/Zeaxan [Preservision Areds 2 Softgel] 2 cap PO DAILY [History] Sodium Bicarbonate Tab 1,300 mg PO BID #120 tablet 07/20/18 [Rx] Calcitriol [Rocaltrol] 0.25 mcg PO MOWEFR 12/18/18 [History] Calcium Acetate [PhosLo] 667 mg PO DAILY 12/18/18 [History] Ergocalciferol (Vitamin D2) [Vitamin D2] 50,000 unit PO QMONTH 12/18/18 [History ] Gabapentin [Neurontin] 300 mg PO BID 12/18/18 [History] Levothyroxine Sodium [Synthroid] 150 mcg PO DAILY 12/18/18 [History] Apixaban [Eliquis] 5 mg PO BID #60 tab 12/27/18 [Rx] Metoprolol Tartrate [Lopressor] 50 mg PO TID #90 tab 12/27/18 [Rx] Follow up Appointment(s)/Referral(s): aCrmelo Matamoros MD [Primary Care Provider] - 1-2 days Activity/Diet/Wound Care/Special Instructions: Dialysis scheduled for Sunday, Sunday and Sunday at 3:00pm at the [facility]. First treatment scheduled for December 30 at 3pm. For questions regarding dialysis they can be reached at [phone]. Discharge Disposition: TRANSFER TO SNF/ECF
[2018-12-27] MEDS ORDERED: APIXABAN 2.5 MG TABLET PO SCH (21:00)
--- NOTE | 2018-12-30 07:44 | IR ---
Fluoroscopy HISTORY: Dialysis catheter placement 0.4 minutes fluoroscopy time supplied to the referring clinician. 120 intraoperative C-arm images do cument the procedure. See dictated report from vascular surgery.
== END 2018-12-27 16:17 | DRG 673 ==
LOC: EC 09:20 → 3SCARD 13:07 → 2SICU 12-21 15:56 → 3SCARD 12-27 00:08
PROVIDERS: ADMIT Family Medicine; ATTEND Family Medicine
PROC: 06HM33Z Insertion of Infusion Device into Right Femoral Vein, Percutaneous Approach (ICD-10-PCS; principal; 2018-12-21)
PROC: 5A1D70Z Performance of Urinary Filtration, Intermittent, Less than 6 Hours Per Day (ICD-10-PCS; 2018-12-21)
PROC: 5A09457 Assistance with Respiratory Ventilation, 24-96 Consecutive Hours, Continuous Positive Airway Pressure (ICD-10-PCS; 2018-12-22)
PROC: 06PY33Z Removal of Infusion Device from Lower Vein, Percutaneous Approach (ICD-10-PCS; 2018-12-26)
PROC: 0JH63XZ Insertion of Tunneled Vascular Access Device into Chest Subcutaneous Tissue and Fascia, Percutaneous Approach (ICD-10-PCS; 2018-12-26 07:26)
PROC: 05HM33Z Insertion of Infusion Device into Right Internal Jugular Vein, Percutaneous Approach (ICD-10-PCS; 2018-12-26 07:26)
DX: N17.0 Acute kidney failure with tubular necrosis (principal); I50.33 Acute on chronic diastolic (congestive) heart failure; J96.01 Acute respiratory failure with hypoxia; J96.02 Acute respiratory failure with hypercapnia; J18.9 Pneumonia, unspecified organism; J44.1 Chronic obstructive pulmonary disease with (acute) exacerbation; I13.2 Hypertensive heart and chronic kidney disease with heart failure and with stage 5 chronic kidney disease, or end stage renal disease; E87.2 Acidosis; G93.49 Other encephalopathy; J98.11 Atelectasis; J44.0 Chronic obstructive pulmonary disease with (acute) lower respiratory infection; N18.6 End stage renal disease; I95.9 Hypotension, unspecified; E11.22 Type 2 diabetes mellitus with diabetic chronic kidney disease; I27.20 Pulmonary hypertension, unspecified; E11.42 Type 2 diabetes mellitus with diabetic polyneuropathy; I07.1 Rheumatic tricuspid insufficiency; D63.1 Anemia in chronic kidney disease; I48.0 Paroxysmal atrial fibrillation; E03.9 Hypothyroidism, unspecified; E61.1 Iron deficiency; E78.5 Hyperlipidemia, unspecified; H40.9 Unspecified glaucoma; M10.9 Gout, unspecified; E83.89 Other disorders of mineral metabolism; K57.90 Diverticulosis of intestine, part unspecified, without perforation or abscess without bleeding; L40.9 Psoriasis, unspecified; M19.90 Unspecified osteoarthritis, unspecified site; Z87.891 Personal history of nicotine dependence; Z87.440 Personal history of urinary (tract) infections; Z85.828 Personal history of other malignant neoplasm of skin; Z79.82 Long term (current) use of aspirin; Z79.899 Other long term (current) drug therapy; Z79.890 Hormone replacement therapy; Z88.1 Allergy status to other antibiotic agents; Z88.8 Allergy status to other drugs, medicaments and biological substances; Z90.49 Acquired absence of other specified parts of digestive tract; Z86.010 Personal history of colon polyps; Z80.3 Family history of malignant neoplasm of breast; Z80.42 Family history of malignant neoplasm of prostate; Y95 Nosocomial condition
CPT/HCPCS: 36415; 36558; 36600; 70450; 71045; 71046; 74176; 76937; 77001; 78582; 80048; 80053; 80074; 80202; 81001; 82140; 82271; 82272; 82550; 82553; 82728; 82805; 83036; 83540; 83550; 83605; 83735; 83880; 84100; 84145; 84484; 85025; 85027; 85379; 85610; 85730; 86704; 86706; 87040; 87340; 90935; 93005; 93306; 94640; 94660; 94760; 96374; 96375; 99291

== ENCOUNTER 2019-01-05 15:14 | Observation (INO) | payer MEDICARE ==
[2019-01-05 16:01] LABS: Anisocytosis Slight; Basophils # (A) 0.1 k/uL (0-0.2); Basophils % (A) 1 %; Eosinophils # (A) 0.3 k/uL (0-0.7); Eosinophils % (A) 5 %; HCT 28.7 % (39.0-53.0); HGB 8.9 gm/dL (13.0-17.5); Hypochromasia Moderate; Lymphocytes # (A) 1.1 k/uL (1.0-4.8); Lymphocytes % (A) 15 %; MCH 28.7 pg (25.0-35.0); MCHC 31.2 g/dL (31.0-37.0); MCV 92.2 fL (80.0-100.0); Mean Platelet Volume 6.7; Monocytes # (A) 0.5 k/uL (0-1.0); Monocytes % (A) 6 %; Neutrophils # (A) 5.6 k/uL (1.3-7.7); Neutrophils % (A) 72 %; Platelet Count 235 k/uL (150-450); RBC 3.11 m/uL (4.30-5.90); RDW 16.6 % (11.5-15.5); WBC 7.7 k/uL (3.8-10.6)
[2019-01-05 16:10] LABS: Calcium 7.6 mg/dL (8.4-10.2); Potassium 4.1 mmol/L (3.5-5.1)
--- NOTE | 2019-01-05 16:10 | ED ---
Recheck HPI <Manuel Wilcox - Last Filed: 01/05/19 16:34> - General Source: patient, EMS, RN notes reviewed Mode of arrival: EMS Limitations: no limitations <Lc Estrella - Last Filed: 01/05/19 16:38> - General Chief Complaint: Recheck/Abnormal Lab/Rx Stated Complaint: bleeding from dialysis site Time Seen by Provider: 01/05/19 15:19 - History of Present Illness Initial Comments: This an 83-year-old male presents emergency Department from our went chief complaint of bleeding around dialysis catheter site. Patient states has been bleeding on and off over the last week. Patient has been on Eliquis. 3 days ago for staph. Patient states occasionally stops bleeding but then reoccurs. Patient has been bleeding most the day denies any associated pain. Denies any headache or dizziness no chest pain or shortness of breath. Patient believes Dr. Phillip was a vascular surgeon that placed this (Lc Estrella) - Related Data Home Medications Medication Instructions Recorded Confirmed Garlic 1 tab PO DAILY 07/16/15 12/18/18 Simvastatin 20 mg PO HS 07/16/15 12/18/18 Aspirin [Adult Low Dose Aspirin EC] 81 mg PO DAILY 07/18/18 12/18/18 Vit C/E/Zn/Coppr/Lutein/Zeaxan 2 cap PO DAILY 07/18/18 12/18/18 [Preservision Areds 2 Softgel] Calcitriol [Rocaltrol] 0.25 mcg PO MOWEFR 12/18/18 12/18/18 Calcium Acetate [PhosLo] 667 mg PO DAILY 12/18/18 12/18/18 Ergocalciferol (Vitamin D2) 50,000 unit PO QMONTH 12/18/18 12/18/18 [Vitamin D2] Gabapentin [Neurontin] 300 mg PO BID 12/18/18 12/18/18 Levothyroxine Sodium [Synthroid] 150 mcg PO DAILY 12/18/18 12/18/18 Previous Rx's Medication Instructions Recorded Sodium Bicarbonate Tab 1,300 mg PO BID #120 tablet 07/20/18 Apixaban [Eliquis] 5 mg PO BID #60 tab 12/27/18 Metoprolol Tartrate [Lopressor] 50 mg PO TID #90 tab 02/08/19 Allergies Allergy/AdvReac Type Severity Reaction Status Date / Time lisinopril Allergy Unknown Verified 01/05/19 15:24 metformin Allergy Unknown Verified 01/05/19 15:24 ciprofloxacin [From Cipro] AdvReac Nausea & Verified 01/05/19 15:24 Vomiting Review of Systems ROS Other: All systems not noted in ROS Statement are negative. <Manuel Wilcox - Last Filed: 01/05/19 16:34> ROS Other: All systems not noted in ROS Statement are negative. <Lc Estrella - Last Filed: 01/05/19 16:38> ROS Statement: Those systems with pertinent positive or pertinent negative responses have been documented in the HPI. Past Medical History Past Medical History: Asthma, Cancer, COPD, Diabetes Mellitus, Hyperlipidemia, Hypertension, Osteoarthritis (OA), Renal Disease, Thyroid Disorder Additional Past Medical History / Comment(s): NIDDM type II, neuropathy bilateral legs and feet, current sores bilateral lower legs, current "corn" bottom R foot, CKD stage III/diabetic nephropathy, UTI, gout feet years ago, skin cancer removals, pancreatitis, hypothyroid. History of Any Multi-Drug Resistant Organisms: None Reported Past Surgical History: Cholecystectomy Additional Past Surgical History / Comment(s): colonoscopy with polypectomy, skin cancer removed from forehead. Past Anesthesia/Blood Transfusion Reactions: No Reported Reaction Additional Past Anesthesia/Blood Transfusion Reaction / Comment(s): Pt states he has never recieved blood. Past Psychological History: No Psychological Hx Reported Smoking Status: Former smoker Past Alcohol Use History: None Reported Past Drug Use History: None Reported - Past Family History Father Family Medical History: Cancer Additional Family Medical History / Comment(s): Father of prostate cancer. He was an alcoholic Mother Family Medical History: Cancer Additional Family Medical History / Comment(s): Mother of some kind of cancer pt unsure which kind. He states he knows she had breast cancer as well. <Lc Estrella - Last Filed: 01/05/19 16:38> General Exam Limitations: no limitations General appearance: alert, in no apparent distress Head exam: Present: atraumatic, normocephalic, normal inspection Neck exam: Present: normal inspection, full ROM. Absent: tenderness, meningismus, lymphadenopathy Respiratory exam: Present: normal lung sounds bilaterally, other (Right-sided chest catheter noted, there is mild bleeding around the site.). Absent: respiratory distress, wheezes, rales, rhonchi, stridor Cardiovascular Exam: Present: regular rate, normal rhythm, normal heart sounds. Absent: systolic murmur, diastolic murmur, rubs, gallop, clicks Skin exam: Present: warm, dry, intact, normal color. Absent: rash <Lc Estrella - Last Filed: 01/05/19 16:38> Course <Manuel Wilcox - Last Filed: 01/05/19 16:34> <Lc Estrella - Last Filed: 01/05/19 16:38> Vital Signs 01/05/19 15:20 Temperature 97.6 F Pulse Rate 64 Respiratory 16 Rate Blood Pressure 144/74 O2 Sat by Pulse 96 Oximetry - Reevaluation(s) Reevaluation #1: 01/05/19 16:14 Patient reevaluated by myself, Dr. Wilcox. Patient only with mild oozing at this point. Case was discussed with Dr. James who states patient has been bleeding for the past week. Eliquis. 3 days ago and patient is continuing to bleed. He would like vascular evaluation. Case was also discussed with Dr. Phillip who will evaluate patient. He does recommend admission as pressure dressing and DT SKI LIFT OPERATOR. He also would like nephrology consult and transfuse if blood level drops less than 7. He does not feel patient needs immediate intervention. He is concerned that pulling the line Immediately would cause patient to bleed more. 01/05/19 16:34 Case again discussed with Dr. James, who will admit. (Manuel Wilcox) Medical Decision Making - Lab Data Result diagrams: 01/05/19 15:40 01/05/19 15:40 <Manuel Wilcox - Last Filed: 01/05/19 16:34> - Lab Data Result diagrams: 01/05/19 15:40 01/05/19 15:40 <Lc Estrella - Last Filed: 01/05/19 16:38> - Lab Data Lab Results 01/05/19 01/05/19 Range/Units 15:40 15:40 WBC 7.7 (3.8-10.6) k/uL RBC 3.11 L (4.30-5.90) m/uL Hgb 8.9 L (13.0-17.5) gm/dL Hct 28.7 L (39.0-53.0) % MCV 92.2 (80.0-100.0) fL MCH 28.7 (25.0-35.0) pg MCHC 31.2 (31.0-37.0) g/dL RDW 16.6 H (11.5-15.5) % Plt Count 235 (150-450) k/uL Neutrophils % 72 % Lymphocytes % 15 % Monocytes % 6 % Eosinophils % 5 % Basophils % 1 % Neutrophils # 5.6 (1.3-7.7) k/uL Lymphocytes # 1.1 (1.0-4.8) k/uL Monocytes # 0.5 (0-1.0) k/uL Eosinophils # 0.3 (0-0.7) k/uL Basophils # 0.1 (0-0.2) k/uL Hypochromasia Moderate Anisocytosis Slight Sodium 141 (137-145) mmol/L Potassium 4.1 (3.5-5.1) mmol/L Chloride 100 (98-107) mmol/L Carbon Dioxide 31 H (22-30) mmol/L Anion Gap 10 mmol/L BUN 42 H (9-20) mg/dL Creatinine 2.76 H (0.66-1.25) mg/dL Est GFR (CKD-EPI)AfAm 24 (>60 ml/min/1.73 sqM) Est GFR (CKD-EPI)NonAf 20 (>60 ml/min/1.73 sqM) Glucose 199 H (74-99) mg/dL Calcium 7.6 L (8.4-10.2) mg/dL Disposition <Manuel Wilcox - Last Filed: 01/05/19 16:34> <Lc Estrella - Last Filed: 01/05/19 16:38> Clinical Impression: Bleeding due to dialysis catheter placement, Anemia Disposition: ADMITTED IP TO THIS HOSP Condition: Fair Referrals: Steven Al MD [Primary Care Provider] - 1-2 days
[2019-01-05] MEDS ORDERED: DESMOPRESSIN ACETATE 19 MCG in SODIUM CHLORIDE 0.9% 50 ML IV ONE (16:36)
[2019-01-05] MEDS ORDERED: ACETAMINOPHEN TAB 325 MG TAB PO PRN (16:39)
[2019-01-05] MEDS ORDERED: NALOXONE 0.4 MG/ML 1 ML VIAL IV PRN (16:39)
--- NOTE | 2019-01-05 17:10 | XR ---
EXAMINATION TYPE: XR chest 1V DATE OF EXAM: 01/05/2019 COMPARISON: December 26, 2018 HISTORY: Bleeding TECHNIQUE: Single frontal view of the chest is obtained. FINDINGS: There is no heart failure nor confluent pneumonic infiltrate. Costophrenic angles are sharon r. There is right central venous catheter with the tip in the superior vena cava. No pneumothorax. IMPRESSION: No active cardiopulmonary disease. There is clearing of left pleural effusion compared t o old exam.
[2019-01-05 19:18] LABS: Anisocytosis Slight; Basophils % (A) 1 %; Eosinophils # (A) 0.3 k/uL (0-0.7); Eosinophils % (A) 4 %; HCT 29.5 % (39.0-53.0); HGB 9.1 gm/dL (13.0-17.5); Hypochromasia Marked; Lymphocytes # (A) 1.3 k/uL (1.0-4.8); Lymphocytes % (A) 17 %; MCH 28.7 pg (25.0-35.0); MCHC 30.8 g/dL (31.0-37.0); MCV 93.2 fL (80.0-100.0); Mean Platelet Volume 6.9; Monocytes # (A) 0.6 k/uL (0-1.0); Monocytes % (A) 7 %; Neutrophils # (A) 5.4 k/uL (1.3-7.7); Neutrophils % (A) 69 %; Platelet Count 246 k/uL (150-450); RBC 3.16 m/uL (4.30-5.90); RDW 16.2 % (11.5-15.5); WBC 7.8 k/uL (3.8-10.6)
[2019-01-05] MEDS ORDERED: NA PHOS,M-B/NA PHOS,DI-BA 133 ML ENEMA RECTAL PRN (20:26)
[2019-01-05] MEDS ORDERED: MAGNESIUM HYDROXIDE 2,400 MG/10 ML CUP PO PRN (20:26)
[2019-01-05] MEDS ORDERED: BISACODYL 10 MG SUPP RECTAL PRN (20:26)
[2019-01-05 21:31] LABS: Glucose,Whole Blood 122 mg/dL (75-99)
[2019-01-05] MEDS: SODIUM BICARBONATE TAB 650 MG TAB PO SCH (22:52)
[2019-01-05] MEDS: METOPROLOL TARTRATE 50 MG TAB PO SCH (22:52)
[2019-01-05] MEDS: ATORVASTATIN 10 MG TAB PO SCH (22:53)
[2019-01-05] MEDS: GABAPENTIN 300 MG CAP PO SCH (22:53)
[2019-01-05] MEDS: INSULIN ASPART (NovoLOG) 100 UNIT/ML VIAL SQ SCH (22:53)
[2019-01-05 23:50] LABS: Anisocytosis Slight; Basophils # (A) 0.1 k/uL (0-0.2); Basophils % (A) 1 %; Eosinophils # (A) 0.4 k/uL (0-0.7); Eosinophils % (A) 4 %; HCT 30.2 % (39.0-53.0); HGB 9.6 gm/dL (13.0-17.5); Hypochromasia Moderate; Lymphocytes # (A) 1.6 k/uL (1.0-4.8); Lymphocytes % (A) 16 %; MCH 29.3 pg (25.0-35.0); MCHC 31.7 g/dL (31.0-37.0); MCV 92.4 fL (80.0-100.0); Monocytes # (A) 0.6 k/uL (0-1.0); Monocytes % (A) 6 %; Neutrophils # (A) 7.1 k/uL (1.3-7.7); Neutrophils % (A) 71 %; Platelet Count 264 k/uL (150-450); RBC 3.27 m/uL (4.30-5.90); RDW 16.5 % (11.5-15.5); WBC 10.1 k/uL (3.8-10.6)
[2019-01-06 04:26] VITALS: RESP 16
[2019-01-06] MEDS: METOPROLOL TARTRATE 50 MG TAB PO SCH ×2 (06:22→15:41)
[2019-01-06] MEDS: LEVOTHYROXINE 75 MCG TAB PO SCH (06:23)
[2019-01-06 07:04] LABS: Glucose,Whole Blood 110 mg/dL (75-99)
[2019-01-06] MEDS: INSULIN ASPART (NovoLOG) 100 UNIT/ML VIAL SQ SCH ×4 (07:44→21:10)
[2019-01-06] MEDS: GABAPENTIN 300 MG CAP PO SCH ×2 (09:28→23:08)
[2019-01-06] MEDS: SODIUM BICARBONATE TAB 650 MG TAB PO SCH ×2 (09:28→18:36)
[2019-01-06 11:36] LABS: Glucose,Whole Blood 117 mg/dL (75-99)
[2019-01-06 11:43] LABS: Calcium 7.8 mg/dL (8.4-10.2); Potassium 4.5 mmol/L (3.5-5.1)
[2019-01-06] MEDS ORDERED: CALCITRIOL 0.25 MCG CAP PO SCH (12:00)
--- NOTE | 2019-01-06 12:37 | CONS ---
DATE OF CONSULTATION: 01/06/2019 This is an 83-year-old gentleman who came with acute chronic renal failure. The patient has been on Eliquis. The patient had a dialysis catheter place, went to the residential. He came last night with history of bleeding from the exit site of the catheter. The patient was seen by emergency physician and placed a compression wrap around the catheter. Today I examined. There was no bleeding noted. Pressure dressing was removed. The patient's medical history include acute on chronic renal failure. PHYSICAL EXAMINATION: On examination, neck is supple. Trachea is central. Patient had right IJ catheter the. Exit site is dry and clean. No evidence of any bleeding noted and no redness. No discharge noted. Chest is clear on auscultation. ABDOMEN: Soft. Femoral pulses are present. PLAN: The patient will have dialysis today and the patient will be discharged to the residential. I will discuss with Nephrology for creation of fistula. MMTONEY / KENN: [id number] / MTDD
[2019-01-06] MEDS ORDERED: ALBUTEROL NEBULIZED 2.5 MG/3 ML INHALATION PRN (12:53)
--- NOTE | 2019-01-06 13:00 | P.HPIM ---
History of Present Illness H&P Date: 01/06/19 Chief Complaint: Bleeding around the catheter site 82-year-old male with PMH of ESRD on HD Sunday was a Sunday, hypertension, diabetes mellitus, atrial fibrillation, presents to the ED from [facility] for bleeding around the catheter site. Patient was recently discharged on 12/27/2018 after prolonged hospital course. Patient initially presented with CKD, volume overload. Patient was noted to go into respiratory distress which required an ICU admission and continuous BiPAP. Hemodialysis was initiated during that time and patient subsequently improved. During this time, he also developed atrial fibrillation with RVR which required anticoagulation with Eliquis. He was discharged to [facility] after his hospitalization. Patient reports that there has been bleeding around the dialysis catheter site on and off over the past week. Patient has no other complaints except for that. He denies any headaches, lower extremity edema, nausea, vomiting, fever, cough, chest pain, shortness of breath, palpitations, changes in urination or bowel habits. No changes in appetite or weight. No numbness, weakness, tingling of any of the extremities. No dizziness. Review of Systems All systems: negative Past Medical History Past Medical History: Asthma, Cancer, COPD, Diabetes Mellitus, Hyperlipidemia, Hypertension, Osteoarthritis (OA), Renal Disease, Thyroid Disorder Additional Past Medical History / Comment(s): NIDDM type II, neuropathy bilateral legs and feet, current sores bilateral lower legs, current "corn" bottom R foot, CKD stage III/diabetic nephropathy, UTI, gout feet years ago, skin cancer removals, pancreatitis, hypothyroid. History of Any Multi-Drug Resistant Organisms: None Reported Past Surgical History: Cholecystectomy Additional Past Surgical History / Comment(s): colonoscopy with polypectomy, skin cancer removed from forehead. Past Anesthesia/Blood Transfusion Reactions: No Reported Reaction Additional Past Anesthesia/Blood Transfusion Reaction / Comment(s): Pt states he has never recieved blood. Past Psychological History: No Psychological Hx Reported Additional Psychological History / Comment(s): Pt lives alone. He is independent. He uses no assistive device or home care. He drives. has 1 small dog, rosales Smoking Status: Former smoker Past Alcohol Use History: None Reported Additional Past Alcohol Use History / Comment(s): Pt states he quit smoking in 1982. He quit drinking alcohol 5 yrs ago. Past Drug Use History: None Reported - Past Family History Father Family Medical History: Cancer Additional Family Medical History / Comment(s): Father of prostate cancer. He was an alcoholic Mother Family Medical History: Cancer Additional Family Medical History / Comment(s): Mother of some kind of cancer pt unsure which kind. He states he knows she had breast cancer as well. Medications and Allergies Home Medications Medication Instructions Recorded Confirmed Type Garlic 1 tab PO DAILY@169907/16/15 01/05/19 History Simvastatin 20 mg PO HS 07/16/15 01/05/19 History Aspirin [Adult Low Dose Aspirin EC] 81 mg PO DAILY@169907/18/18 01/05/19 History Vit C/E/Zn/Coppr/Lutein/Zeaxan 2 cap PO DAILY@169907/18/18 01/05/19 History [Preservision Areds 2 Softgel] Calcitriol [Rocaltrol] 0.25 mcg PO MOWEFR 12/18/18 01/05/19 History Calcium Acetate [PhosLo] 667 mg PO DAILY@169912/18/18 01/05/19 History Ergocalciferol (Vitamin D2) 50,000 unit PO Q30D 12/18/18 01/05/19 History [Vitamin D2] Gabapentin [Neurontin] 300 mg PO BID 12/18/18 01/05/19 History Levothyroxine Sodium [Synthroid] 150 mcg PO DAILY@0600 12/18/18 01/05/19 History Apixaban [Eliquis] 5 mg PO BID@0800,1700 01/05/19 01/05/19 History B Complex & C No.20/Folic Acid 1 mg PO DAILY@169901/05/19 01/05/19 History [Nephrocaps Softgel] Bisacodyl [Dulcolax] 10 mg RECTAL DAILY PRN 01/05/19 01/05/19 History Magnesium Hydroxide [Milk of 7,200 mg PO DAILY PRN 01/05/19 01/05/19 History Magnesia Concentrate] Metoprolol Tartrate [Lopressor] 50 mg PO TID@0600,1400,2100 01/05/19 01/05/19 History Na Phos,M-B/Na Phos,Di-Ba [Fleet 133 ml RECTAL DAILY PRN 01/05/19 01/05/19 History Adult] Nepro 1 can PO QID 01/05/19 01/05/19 History SILVER sulfADIAZINE Cream 1 applic TOPICAL DAILY 01/05/19 01/05/19 History [Silvadene 1% Cream] Sodium Bicarbonate Tab 1,300 mg PO BID@0800,1700 01/05/19 01/05/19 History Allergies Allergy/AdvReac Type Severity Reaction Status Date / Time lisinopril Allergy Unknown Verified 01/05/19 16:51 metformin Allergy Unknown Verified 01/05/19 16:51 ciprofloxacin [From Cipro] AdvReac Nausea & Verified 01/05/19 16:51 Vomiting Physical Exam Vitals: Vital Signs Temp Pulse Pulse Resp BP BP Pulse Ox 01/06/19 07:41 98.7 F 59 L 158/81 93 L 01/06/19 06:22 68 152/78 01/06/19 04:25 16 01/06/19 02:30 62 156/78 01/06/19 00:47 166/72 01/06/19 00:40 98.0 F 60 18 95 01/05/19 22:45 70 179/69 01/05/19 20:15 98.0 F 69 18 166/72 93 L 01/05/19 18:15 98.2 F 60 164/54 99 01/05/19 17:15 80 18 01/05/19 17:00 80 18 154/87 95 01/05/19 15:20 97.6 F 64 16 144/74 96 Intake and Output 01/05/19 01/06/19 01/06/19 22:59 06:59 14:59 Intake Total 250 Balance 250 Intake: Oral 250 Other: Voiding Method Toilet # Voids 2 # Bowel Movements 1 1 Weight 63.503 kg 63 kg General: [non toxic], [no distress], [appears at stated age] Derm: [warm], [dry] Head: [atraumatic], [normocephalic], [symmetric] Eyes: [EOMI], [no lid lag], [anicteric sclera] Mouth: [no lip lesion], [mucus membranes moist] Cardiovascular: [S1S2 reg], [no murmur], [positive posterior tibial pulse bilateral], [right chest port] Lungs: [CTA bilateral], [no rhonchi, no rales] , [no accessory muscle use] Abdominal: [soft], [ nontender to palpation], [no guarding], [no appreciable organomegaly] Ext: [no gross muscle atrophy], [no edema], [no contractures] Neuro: [ CN II-XI grossly intact], [no focal neuro deficits] Psych: [Alert], [oriented], [appropriate affect], [slow to respond] Results CBC & Chem 7: 01/05/19 23:29 01/06/19 11:14 Labs: Abnormal Lab Results - Last 24 Hours (Table) 01/05/19 01/05/19 01/05/19 Range/Units 15:40 15:40 19:00 RBC 3.11 L 3.16 L (4.30-5.90) m/uL Hgb 8.9 L 9.1 L (13.0-17.5) gm/dL Hct 28.7 L 29.5 L (39.0-53.0) % MCHC 30.8 L (31.0-37.0) g/dL RDW 16.6 H 16.2 H (11.5-15.5) % Carbon Dioxide 31 H (22-30) mmol/L BUN 42 H (9-20) mg/dL Creatinine 2.76 H (0.66-1.25) mg/dL Glucose 199 H (74-99) mg/dL POC Glucose (mg/dL) (75-99) mg/dL Calcium 7.6 L (8.4-10.2) mg/dL 01/05/19 01/05/19 01/06/19 Range/Units 21:30 23:29 07:03 RBC 3.27 L (4.30-5.90) m/uL Hgb 9.6 L (13.0-17.5) gm/dL Hct 30.2 L (39.0-53.0) % MCHC (31.0-37.0) g/dL RDW 16.5 H (11.5-15.5) % Carbon Dioxide (22-30) mmol/L BUN (9-20) mg/dL Creatinine (0.66-1.25) mg/dL Glucose (74-99) mg/dL POC Glucose (mg/dL) 122 H 110 H (75-99) mg/dL Calcium (8.4-10.2) mg/dL 01/06/19 01/06/19 Range/Units 11:14 11:35 RBC (4.30-5.90) m/uL Hgb (13.0-17.5) gm/dL Hct (39.0-53.0) % MCHC (31.0-37.0) g/dL RDW (11.5-15.5) % Carbon Dioxide 37 H (22-30) mmol/L BUN 50 H (9-20) mg/dL Creatinine 2.68 H (0.66-1.25) mg/dL Glucose 118 H (74-99) mg/dL POC Glucose (mg/dL) 117 H (75-99) mg/dL Calcium 7.8 L (8.4-10.2) mg/dL Thrombosis Risk Factor Assmnt - Choose All That Apply Any of the Below Risk Factors Present?: No Each Risk Factor Represents 3 Points: Age 75 years or older Thrombosis Risk Factor Assessment Total Risk Factor Score: 3 Thrombosis Risk Factor Assessment Level: Moderate Risk Assessment and Plan Assessment: Assessment and Plan 1. Bleeding around the catheter site 2. Atrial fibrillation 3. ESRD 4. Hypertension 5. Hypothyroidism 6. COPD 7. Diabetes mellitus 1. Hemoglobin has ranged from 8.9-9.6, stable since admission. Patient is also on Eliquis, will hold. Patient examined by Dr. Phillip, no bleeding noted. Daily CBC. Will follow vascular surgery recommendations. Transfuse if hemoglobin less than 7. 2. Diagnosed during previous admission. Continue metoprolol 50 mg by mouth 3 times a day. Holding Eliquis due to catheter bleed. Telemetry monitoring. Keep potassium greater than 4 and magnesium greater than 2. 3. BUN 50, creatinine 2.6 today. Dialysis Sunday. Nephrology consulted to initiate dialysis. Continue calcitriol, calcium acetate. Continue sodium bicarbonate for metabolic acidosis. Daily BMP. 4. BP 158/81. Continue metoprolol. Monitor vitals, adjust medications as necessary. 5. Stable. Continue Synthroid. 6. Stable. Albuterol nebulizer as needed for shortness of breath or wheezing. 7. [id number] glucose 117. Insulin sliding scale. Regular Accu-Cheks. Hypoglycemic precautions. Patient admitted for bleeding around the catheter site. Dr. Phillip is evaluated the patient, no bleed noted. Nephrology consulted for dialysis. Hopeful dialysis today, and discharge either today or tomorrow.
[2019-01-06 13:30] LABS: Hemoglobin A1C 5.5 % (4.0-6.0)
[2019-01-06 15:42] VITALS: BMI 21.7
[2019-01-06 16:33] LABS: Glucose,Whole Blood 136 mg/dL (75-99)
[2019-01-06] MEDS ORDERED: CALCIUM ACETATE 667 MG CAP PO SCH (17:00)
[2019-01-06] MEDS ORDERED: VIT A,C & E-LUTEIN-MINERALS 1 EACH TAB PO SCH (17:00)
[2019-01-06] MEDS ORDERED: FOLIC ACID-VIT B COMPLEX-VIT C 1 CAP PO SCH (17:00)
[2019-01-06 19:58] LABS: Glucose,Whole Blood 156 mg/dL (75-99)
[2019-01-06] MEDS: ATORVASTATIN 10 MG TAB PO SCH (23:08)
[2019-01-07] MEDS: METOPROLOL TARTRATE 50 MG TAB PO SCH ×2 (00:05→09:34)
[2019-01-07 00:49] VITALS: TEMP 97.8
[2019-01-07] MEDS: LEVOTHYROXINE 75 MCG TAB PO SCH (06:14)
[2019-01-07 07:21] LABS: Glucose,Whole Blood 94 mg/dL (75-99)
[2019-01-07 07:33] VITALS: BP 141/70; PULSE 57
[2019-01-07] MEDS: INSULIN ASPART (NovoLOG) 100 UNIT/ML VIAL SQ SCH ×2 (08:14→11:53)
[2019-01-07 08:26] LABS: Calcium 8.3 mg/dL (8.4-10.2); Potassium 4.7 mmol/L (3.5-5.1)
[2019-01-07 09:25] LABS: Anisocytosis Slight; Basophils % (A) 1 %; Eosinophils # (A) 0.4 k/uL (0-0.7); Eosinophils % (A) 5 %; HCT 31.1 % (39.0-53.0); HGB 9.4 gm/dL (13.0-17.5); Hypochromasia Marked; Lymphocytes # (A) 1.1 k/uL (1.0-4.8); Lymphocytes % (A) 15 %; MCH 28.6 pg (25.0-35.0); MCHC 30.4 g/dL (31.0-37.0); MCV 94.2 fL (80.0-100.0); Mean Platelet Volume 6.4; Monocytes # (A) 0.5 k/uL (0-1.0); Monocytes % (A) 7 %; Neutrophils # (A) 5.2 k/uL (1.3-7.7); Neutrophils % (A) 70 %; Platelet Count 289 k/uL (150-450); RDW 16.7 % (11.5-15.5); WBC 7.5 k/uL (3.8-10.6)
[2019-01-07] MEDS: SODIUM BICARBONATE TAB 650 MG TAB PO SCH (09:33)
[2019-01-07] MEDS: GABAPENTIN 300 MG CAP PO SCH (09:33)
[2019-01-07 11:21] LABS: Glucose,Whole Blood 131 mg/dL (75-99)
--- NOTE | 2019-01-07 16:29 | P.DS ---
Providers Date of admission: 01/05/19 16:17 Expected date of discharge: 01/07/19 Attending physician: Burke Kelly MD Consults: 01/05/19 16:39 Consult Physician Stat Consulting Provider: Angus Phillip Consult Reason/Comments: Dialysis catheter bleeding Do you want consulting provider notified?: Yes 01/06/19 11:01 Consult Physician Routine Consulting Provider: Rosendo Melton Consult Reason/Comments: HD Do you want consulting provider notified?: Yes Primary care physician: [facility] Course: Bleeding around the catheter site Atrial fibrillation ESRD Anemia of chronic disease Hypertension Hypothyroidism COPD Diabetes mellitus The patient is a 83-year-old male was placed in observation due to concern for bleeding around his dialysis catheter site. Dr. Phillip with vascular surgery was consulted and recommended continuing using the dialysis catheter pending creation of a fistula. The patient's hemoglobin remained stable 8.9-9.6 and his Eliquis was resumed and his antihypertensive regimen and continued with metoprolol 50mg PO BID. nephrology was consulted and the patient scheduled to have hemodialysis After which a patient was discharged back to halfway in stable condition. This discharge process took approximately 30 minutes. Focused exam Neck: Right IJ catheter exit site is dry and clean no overt bleeding or surrounding redness. Patient Condition at Discharge: Good Plan - Discharge Summary New Discharge Prescriptions: Continue Garlic 1 tab PO DAILY@1700 Simvastatin 20 mg PO HS Vit C/E/Zn/Coppr/Lutein/Zeaxan [Preservision Areds 2 Softgel] 2 cap PO DAILY@ 1700 Aspirin [Adult Low Dose Aspirin EC] 81 mg PO DAILY@1700 Levothyroxine Sodium [Synthroid] 150 mcg PO DAILY@0600 Gabapentin [Neurontin] 300 mg PO BID Calcitriol [Rocaltrol] 0.25 mcg PO MOWEFR Ergocalciferol (Vitamin D2) [Vitamin D2] 50,000 unit PO Q30D Calcium Acetate [PhosLo] 667 mg PO DAILY@1700 Na Phos,M-B/Na Phos,Di-Ba [Fleet Adult] 133 ml RECTAL DAILY PRN PRN Reason: Constipation Bisacodyl [Dulcolax] 10 mg RECTAL DAILY PRN PRN Reason: Constipation Nepro 1 can PO QID Sodium Bicarbonate Tab 1,300 mg PO BID@0800,1700 Metoprolol Tartrate [Lopressor] 50 mg PO TID@0600,1400,2100 Apixaban [Eliquis] 5 mg PO BID@0800,1700 SILVER sulfADIAZINE Cream [Silvadene 1% Cream] 1 applic TOPICAL DAILY B Complex & C No.20/Folic Acid [Nephrocaps Softgel] 1 mg PO DAILY@1700 Magnesium Hydroxide [Milk of Magnesia Concentrate] 7,200 mg PO DAILY PRN PRN Reason: Constipation Discharge Medication List Garlic 1 tab PO DAILY@169907/16/15 [History] Simvastatin 20 mg PO HS 07/16/15 [History] Aspirin [Adult Low Dose Aspirin EC] 81 mg PO DAILY@169907/18/18 [History] Vit C/E/Zn/Coppr/Lutein/Zeaxan [Preservision Areds 2 Softgel] 2 cap PO DAILY@ 169907/18/18 [History] Calcitriol [Rocaltrol] 0.25 mcg PO MOWEFR 12/18/18 [History] Calcium Acetate [PhosLo] 667 mg PO DAILY@169912/18/18 [History] Ergocalciferol (Vitamin D2) [Vitamin D2] 50,000 unit PO Q30D 12/18/18 [History] Gabapentin [Neurontin] 300 mg PO BID 12/18/18 [History] Levothyroxine Sodium [Synthroid] 150 mcg PO DAILY@0600 12/18/18 [History] Apixaban [Eliquis] 5 mg PO BID@0800,1700 01/05/19 [History] B Complex & C No.20/Folic Acid [Nephrocaps Softgel] 1 mg PO DAILY@17001/05/19 [History] Bisacodyl [Dulcolax] 10 mg RECTAL DAILY PRN 01/05/19 [History] Magnesium Hydroxide [Milk of Magnesia Concentrate] 7,200 mg PO DAILY PRN [History] Metoprolol Tartrate [Lopressor] 50 mg PO TID@0600,1400,2100 01/05/19 [History] Na Phos,M-B/Na Phos,Di-Ba [Fleet Adult] 133 ml RECTAL DAILY PRN 01/05/19 [ History] Nepro 1 can PO QID 01/05/19 [History] SILVER sulfADIAZINE Cream [Silvadene 1% Cream] 1 applic TOPICAL DAILY 01/05/19 [ History] Sodium Bicarbonate Tab 1,300 mg PO BID@0800,1700 01/05/19 [History] Follow up Appointment(s)/Referral(s): Steven Al MD [Primary Care Provider] - 1-2 days Activity/Diet/Wound Care/Special Instructions: Apply telfa non stick bandage to areas of blisters on torso and right shoulder. Discharge Disposition: TRANSFER TO SNF/ECF
--- NOTE | 2019-01-08 06:58 | CONS ---
CONSULTATION REASON FOR CONSULT: End-stage renal disease. HISTORY OF PRESENT ILLNESS: The patient is an 82-year-old male with history of acute kidney injury, currently hemodialysis dependent since his last admission to the hospital. The patient is maintained on a Sunday, Sunday, Sunday schedule. He was admitted to the hospital after his prolonged bleeding was noted from the catheter site. The patient was evaluated by vascular surgery. He had a pressure dressing and the bleeding seems to have stopped. The patient was dialyzed last night. He did not have any significant bleeding and he will be discharged today. PAST MEDICAL HISTORY: Recent acute kidney injury, currently hemodialysis dependent, history of type 2 diabetes, hyperlipidemia, hypertension, COPD, hypothyroidism. PAST SURGICAL HISTORY: Colonoscopy, a PermCath placement. MEDICATIONS: Prior to admission included simvastatin, aspirin, calcitriol, PhosLo, vitamin D2, Neurontin, Synthroid, Eliquis, Dulcolax, Lopressor, sodium bicarb. ALLERGIES: INCLUDE LISINOPRIL, METFORMIN, CIPRO. PHYSICAL EXAMINATION: Patient is comfortable, awake. He is not in any acute distress. Alert and oriented x3. Blood pressure is 141/70. Heart rate 57 per minute. He is afebrile. Examination of the heart S1, S2. Examination of the lungs bilateral breath sounds are heard. Abdomen is soft, nontender. Examination of lower extremities shows no significant edema. WEDGER MACHINE exam is grossly intact. Patient moving all 4 extremities. LABS: Hemoglobin 9.4, sodium 140, potassium 4.7, BUN 31, serum creatinine 1.97. ASSESSMENT: 1. Acute kidney injury, currently hemodialysis dependent. Urine output has been on the lower side. However, patient seems to have voided quite frequently during his hospital stay. We will monitor for recovery as outpatient. 2. Bleeding from catheter site, currently improved. 3. CKD mineral bone disorder maintained on PhosLo. 4. Metabolic acidosis. Maintained on oral sodium bicarb which we can discontinue as patient is currently on hemodialysis. PLAN: The patient does not need a treatment today, he can be discharged. He will be dialyzed tomorrow as outpatient. We need to DC the sodium bicarb. MMODL / IJN: [id number] /
== END 2019-01-07 14:03 ==
LOC: EC 15:14 → 1SOBS 16:17 → 4SSUR 17:22
PROVIDERS: ADMIT Family Medicine; ATTEND Family Medicine
DX: T82.838A Hemorrhage due to vascular prosthetic devices, implants and grafts, initial encounter (principal); Y84.1 Kidney dialysis as the cause of abnormal reaction of the patient, or of later complication, without mention of misadventure at the time of the procedure; I48.91 Unspecified atrial fibrillation; N18.6 End stage renal disease; E11.22 Type 2 diabetes mellitus with diabetic chronic kidney disease; I12.0 Hypertensive chronic kidney disease with stage 5 chronic kidney disease or end stage renal disease; D63.8 Anemia in other chronic diseases classified elsewhere; E03.9 Hypothyroidism, unspecified; J44.9 Chronic obstructive pulmonary disease, unspecified; E11.21 Type 2 diabetes mellitus with diabetic nephropathy; Z99.2 Dependence on renal dialysis; E78.5 Hyperlipidemia, unspecified; M19.90 Unspecified osteoarthritis, unspecified site; G62.9 Polyneuropathy, unspecified; E11.40 Type 2 diabetes mellitus with diabetic neuropathy, unspecified; L97.929 Non-pressure chronic ulcer of unspecified part of left lower leg with unspecified severity; L97.919 Non-pressure chronic ulcer of unspecified part of right lower leg with unspecified severity; L84 Corns and callosities; I12.9 Hypertensive chronic kidney disease with stage 1 through stage 4 chronic kidney disease, or unspecified chronic kidney disease; N17.9 Acute kidney failure, unspecified; N18.3 Chronic kidney disease, stage 3 (moderate); E87.2 Acidosis; M89.9 Disorder of bone, unspecified; M10.9 Gout, unspecified; Z85.828 Personal history of other malignant neoplasm of skin; Z87.440 Personal history of urinary (tract) infections; Z90.49 Acquired absence of other specified parts of digestive tract; Z87.891 Personal history of nicotine dependence; Z80.42 Family history of malignant neoplasm of prostate; Z81.1 Family history of alcohol abuse and dependence; Z80.3 Family history of malignant neoplasm of breast; Z79.82 Long term (current) use of aspirin; Z79.01 Long term (current) use of anticoagulants; Z79.899 Other long term (current) drug therapy; Z79.890 Hormone replacement therapy; Z88.1 Allergy status to other antibiotic agents; Z88.8 Allergy status to other drugs, medicaments and biological substances
CPT/HCPCS: 90970; 99285; 36415; 97162; 97166; 80048 ×3; 85025 ×2; 83036; 71045; G0378 ×4; 90935

== ENCOUNTER → 2019-03-04 | Outpatient (CLI) | payer MEDICARE ==
[2019-03-04 08:25] LABS: Anisocytosis Slight; Basophils # (A) 0.1 k/uL (0-0.2); Basophils % (A) 1 %; Eosinophils # (A) 0.5 k/uL (0-0.7); Eosinophils % (A) 7 %; HCT 40.9 % (39.0-53.0); Hypochromasia Slight; Lymphocytes # (A) 1.1 k/uL (1.0-4.8); Lymphocytes % (A) 15 %; MCH 30.7 pg (25.0-35.0); MCHC 30.9 g/dL (31.0-37.0); MCV 99.3 fL (80.0-100.0); Macrocytosis Slight; Monocytes # (A) 0.6 k/uL (0-1.0); Monocytes % (A) 8 %; Neutrophils # (A) 5.1 k/uL (1.3-7.7); Neutrophils % (A) 67 %; Platelet Count 290 k/uL (150-450); RBC 4.12 m/uL (4.30-5.90); RDW 17.3 % (11.5-15.5); WBC 7.6 k/uL (3.8-10.6)
[2019-03-04 08:40] LABS: HGB 12.7 gm/dL (13.0-17.5)
[2019-03-04 10:47] LABS: Albumin 4.2 g/dL (3.80-4.90); Albumin/Globulin Ratio 2.1 (1.60-3.17); Anion Gap 10.2 mmol/L (4.00-12.00); Calcium 8.9 mg/dL (8.7-10.3); Carbon Dioxide 31.8 mmol/L (21.6-31.8); Potassium 4.3 mmol/L (3.5-5.5); Total Bilirubin 0.3 mg/dL (0.2-1.2); Total Protein 6.2 g/dL (6.2-8.2)
[2019-03-04 10:48] LABS: LDL Cholesterol,Calculated 75.6 mg/dL (0.0-131.0); VLDL Calculation 26.4 mg/dL (5.00-40.00)
[2019-03-04 10:55] LABS: T4, Free (Free Thyroxine) 1.4 ng/dL (0.80-1.80)
[2019-03-04 16:00] LABS: Hemoglobin A1C 4.9 % (4.0-6.0)
== END | disposition home or self-care (01) ==
LOC: LABWHC1 06:44
PROVIDERS: ATTEND Internal Medicine Geriatric Medicine
DX: I48.2 Chronic atrial fibrillation (principal); E11.22 Type 2 diabetes mellitus with diabetic chronic kidney disease; N18.6 End stage renal disease; N40.1 Benign prostatic hyperplasia with lower urinary tract symptoms
CPT/HCPCS: 36415; 80053; 80061; 83036; 84153; 84439; 84443; 85025

== ENCOUNTER 2019-03-24 17:03 | Inpatient (IN) | payer MEDICARE ==
[2019-03-24] MEDS ORDERED: ONDANSETRON 4 MG/2 ML VIAL IVP STA (17:15)
[2019-03-24] MEDS ORDERED: SODIUM CHLORIDE 0.9% 1,000 ML IV STA (17:15)
--- NOTE | 2019-03-24 17:16 | ED ---
Weakness HPI - General Stated complaint: weakness/diarrhea Time Seen by Provider: 03/24/19 17:13 Source: RN notes reviewed, old records reviewed - History of Present Illness Initial comments: This is a 3-year-old male the ER for evaluation. States presenting for evaluation regards to altered mental status and weakness. Patient's poor strain, sleeping during questioning. Arousable. No pain no chest pain or shortness of breath. Denies abdominal pain. No fevers cough or congestion or nausea vomiting or diarrhea MD Complaint: generalized weakness -: days(s) Location: generalized Severity: moderate Severity scale (1-10): 4 Quality: constant Consistency: now resolved Improves with: none Worsens with: none Context: history of similar Associated Symptoms: nausea/vomiting, myalgias, other (Missed dialysis) - Related Data Home Medications Medication Instructions Recorded Confirmed Garlic 1 tab PO DAILY@169907/16/15 03/24/19 Simvastatin 20 mg PO HS 07/16/15 03/24/19 Aspirin [Adult Low Dose Aspirin EC] 81 mg PO DAILY@169907/18/18 03/24/19 Vit C/E/Zn/Coppr/Lutein/Zeaxan 2 cap PO DAILY@169907/18/18 03/24/19 [Preservision Areds 2 Softgel] Calcitriol [Rocaltrol] 0.25 mcg PO MOWEFR 12/18/18 03/24/19 Calcium Acetate [PhosLo] 667 mg PO DAILY@169912/18/18 03/24/19 Ergocalciferol (Vitamin D2) 50,000 unit PO Q30D 12/18/18 03/24/19 [Vitamin D2] Gabapentin [Neurontin] 300 mg PO BID 12/18/18 03/24/19 Levothyroxine Sodium [Synthroid] 150 mcg PO DAILY@0600 12/18/18 03/24/19 Apixaban [Eliquis] 5 mg PO BID@0800,1700 01/05/19 03/24/19 B Complex & C No.20/Folic Acid 1 mg PO DAILY@0 01/05/19 03/24/19 [Nephrocaps Softgel] Sodium Bicarbonate Tab 1,300 mg PO BID@0800,1700 01/05/19 03/24/19 Furosemide [Lasix] 40 mg PO BID 03/24/19 03/24/19 Metoprolol Tartrate [Lopressor] 25 mg PO BID 03/24/19 03/24/19 Allergies Allergy/AdvReac Type Severity Reaction Status Date / Time lisinopril Allergy Unknown Verified 03/24/19 17:33 metformin Allergy Unknown Verified 03/24/19 17:33 ciprofloxacin [From Cipro] AdvReac Nausea & Verified 03/24/19 17:33 Vomiting Review of Systems ROS Statement: Those systems with pertinent positive or pertinent negative responses have been documented in the HPI. ROS Other: All systems not noted in ROS Statement are negative. Past Medical History Past Medical History: Asthma, Cancer, COPD, Diabetes Mellitus, Hyperlipidemia, Hypertension, Osteoarthritis (OA), Renal Disease, Thyroid Disorder Additional Past Medical History / Comment(s): NIDDM type II, neuropathy bila teral legs and feet, current sores bilateral lower legs, current "corn" bottom R foot, CKD stage III/diabetic nephropathy, UTI, gout feet years ago, skin cancer removals, pancreatitis, hypothyroid. History of Any Multi-Drug Resistant Organisms: None Reported Past Surgical History: Cholecystectomy Additional Past Surgical History / Comment(s): colonoscopy with polypectomy, skin cancer removed from forehead. Past Anesthesia/Blood Transfusion Reactions: No Reported Reaction Additional Past Anesthesia/Blood Transfusion Reaction / Comment(s): Pt states he has never recieved blood. Past Psychological History: No Psychological Hx Reported Additional Psychological History / Comment(s): Pt lives alone. He is independent. He uses no assistive device or home care. He drives. has 1 small dog, [employer]sales Smoking Status: Former smoker Past Alcohol Use History: None Reported Additional Past Alcohol Use History / Comment(s): Pt states he quit smoking in 1982. He quit drinking alcohol 5 yrs ago. Past Drug Use History: None Reported - Past Family History Father Family Medical History: Cancer Additional Family Medical History / Comment(s): Father of prostate cancer. He was an alcoholic Mother Family Medical History: Cancer Additional Family Medical History / Comment(s): Mother of some kind of cancer pt unsure which kind. He states he knows she had breast cancer as well. General Exam General appearance: alert, in no apparent distress Head exam: Present: atraumatic, normocephalic, normal inspection Eye exam: Present: normal appearance, PERRL, EOMI. Absent: scleral icterus, conjunctival injection, periorbital swelling ENT exam: Present: normal exam, mucous membranes moist Neck exam: Present: normal inspection. Absent: tenderness, meningismus, lymphadenopathy Respiratory exam: Present: normal lung sounds bilaterally. Absent: respiratory distress, wheezes, rales, rhonchi, stridor Cardiovascular Exam: Present: regular rate, normal rhythm, normal heart sounds. Absent: systolic murmur, diastolic murmur, rubs, gallop, clicks GI/Abdominal exam: Present: soft, normal bowel sounds. Absent: distended, tenderness, guarding, rebound, rigid Extremities exam: Present: normal inspection, full ROM, normal capillary refill. Absent: tenderness, pedal edema, joint swelling, calf tenderness Back exam: Present: normal inspection Neurological exam: Present: alert, oriented X3, CN II-XII intact Psychiatric exam: Present: normal affect, normal mood Skin exam: Present: warm, dry, intact, normal color. Absent: rash Course Vital Signs 03/24/19 03/24/19 03/24/19 17:16 17:30 18:00 Temperature 98.7 F Pulse Rate 86 86 86 Respiratory 18 Rate Blood Pressure 144/70 143/68 138/73 O2 Sat by Pulse 97 94 L 94 L Oximetry 03/24/19 03/24/19 18:30 19:25 Temperature Pulse Rate 84 81 Respiratory 18 18 Rate Blood Pressure 139/58 140/56 O2 Sat by Pulse 99 96 Oximetry - Reevaluation(s) Reevaluation #1: 03/24/19 18:45 Medical records reviewed Reevaluation #2: 03/24/19 18:45 No active nausea vomiting or diarrhea EKG Findings - EKG Comments: EKG Findings:: EKG shows sinus rhythm rate of 87, SC 142, QRS 150, QTc 500 Medical Decision Making - Medical Decision Making 80 female the ER for evaluation of altered mental status. Patient will be admitted for weakness, needs dialysis today did miss dialysis today. Significant elevation of white count no acute cause infection, will admit to rule out bacteremia. - Lab Data Result diagrams: 03/24/19 17:41 03/24/19 17:41 Lab Results 03/24/19 03/24/19 03/24/19 Range/Units 17:41 17:41 17:41 WBC 19.1 H (3.8-10.6) k/uL RBC 3.58 L (4.30-5.90) m/uL Hgb 11.1 L (13.0-17.5) gm/dL Hct 35.1 L (39.0-53.0) % MCV 98.1 (80.0-100.0) fL MCH 31.1 (25.0-35.0) pg MCHC 31.7 (31.0-37.0) g/dL RDW 16.7 H (11.5-15.5) % Plt Count 247 (150-450) k/uL Neutrophils % 86 % Lymphocytes % 4 % Monocytes % 7 % Eosinophils % 0 % Basophils % 0 % Neutrophils # 16.5 H (1.3-7.7) k/uL Lymphocytes # 0.8 L (1.0-4.8) k/uL Monocytes # 1.4 H (0-1.0) k/uL Eosinophils # 0.1 (0-0.7) k/uL Basophils # 0.0 (0-0.2) k/uL Anisocytosis Slight Macrocytosis Slight PT (9.0-12.0) sec INR (<1.2) APTT (22.0-30.0) sec Sodium 138 (137-145) mmol/L Potassium 4.3 (3.5-5.1) mmol/L Chloride 103 (98-107) mmol/L Carbon Dioxide 20 L (22-30) mmol/L Anion Gap 15 mmol/L BUN 84 H (9-20) mg/dL Creatinine 4.20 H (0.66-1.25) mg/dL Est GFR (CKD-EPI)AfAm 14 (>60 ml/min/1.73 sqM) Est GFR (CKD-EPI)NonAf 12 (>60 ml/min/1.73 sqM) Glucose 108 H (74-99) mg/dL Plasma Lactic Acid Carlton 1.0 (0.7-2.0) mmol/L Calcium 8.4 (8.4-10.2) mg/dL Phosphorus 6.4 H (2.5-4.5) mg/dL Magnesium 2.1 (1.6-2.3) mg/dL Total Bilirubin 0.6 (0.2-1.3) mg/dL AST 62 H (17-59) U/L ALT 18 L (21-72) U/L Alkaline Phosphatase 83 (38-126) U/L Troponin I (0.000-0.034) ng/mL Total Protein 6.4 (6.3-8.2) g/dL Albumin 3.6 (3.5-5.0) g/dL TSH 0.171 L (0.465-4.680) mIU/L 03/24/19 03/24/19 Range/Units 17:41 17:41 WBC (3.8-10.6) k/uL RBC (4.30-5.90) m/uL Hgb (13.0-17.5) gm/dL Hct (39.0-53.0) % MCV (80.0-100.0) fL MCH (25.0-35.0) pg MCHC (31.0-37.0) g/dL RDW (11.5-15.5) % Plt Count (150-450) k/uL Neutrophils % % Lymphocytes % % Monocytes % % Eosinophils % % Basophils % % Neutrophils # (1.3-7.7) k/uL Lymphocytes # (1.0-4.8) k/uL Monocytes # (0-1.0) k/uL Eosinophils # (0-0.7) k/uL Basophils # (0-0.2) k/uL Anisocytosis Macrocytosis PT 10.8 (9.0-12.0) sec INR 1.0 (<1.2) APTT 29.8 (22.0-30.0) sec Sodium (137-145) mmol/L Potassium (3.5-5.1) mmol/L Chloride (98-107) mmol/L Carbon Dioxide (22-30) mmol/L Anion Gap mmol/L BUN (9-20) mg/dL Creatinine (0.66-1.25) mg/dL Est GFR (CKD-EPI)AfAm (>60 ml/min/1.73 sqM) Est GFR (CKD-EPI)NonAf (>60 ml/min/1.73 sqM) Glucose (74-99) mg/dL Plasma Lactic Acid Carlton (0.7-2.0) mmol/L Calcium (8.4-10.2) mg/dL Phosphorus (2.5-4.5) mg/dL Magnesium (1.6-2.3) mg/dL Total Bilirubin (0.2-1.3) mg/dL AST (17-59) U/L ALT (21-72) U/L Alkaline Phosphatase (38-126) U/L Troponin I 0.066 H* (0.000-0.034) ng/mL Total Protein (6.3-8.2) g/dL Albumin (3.5-5.0) g/dL TSH (0.465-4.680) mIU/L - Radiology Data Radiology results: report reviewed (CT brain chest x-ray are negative for acute disease), image reviewed Disposition Clinical Impression: Acute renal failure, Dehydration, End stage renal disease on dialysis, Weakness, Leukocytosis Narrative: ro bacteremia Disposition: ADMITTED IP TO THIS HOSP Condition: Fair Is patient prescribed a controlled substance at d/c from ED?: No Referrals: Carmelo Matamoros MD [Primary Care Provider] - 1-2 days
[2019-03-24 18:01] LABS: Anisocytosis Slight; Basophils % (A) 0 %; Eosinophils # (A) 0.1 k/uL (0-0.7); Eosinophils % (A) 0 %; HCT 35.1 % (39.0-53.0); HGB 11.1 gm/dL (13.0-17.5); Lymphocytes # (A) 0.8 k/uL (1.0-4.8); Lymphocytes % (A) 4 %; MCH 31.1 pg (25.0-35.0); MCHC 31.7 g/dL (31.0-37.0); MCV 98.1 fL (80.0-100.0); Macrocytosis Slight; Mean Platelet Volume 7.4; Monocytes # (A) 1.4 k/uL (0-1.0); Monocytes % (A) 7 %; Neutrophils # (A) 16.5 k/uL (1.3-7.7); Neutrophils % (A) 86 %; Platelet Count 247 k/uL (150-450); RBC 3.58 m/uL (4.30-5.90); RDW 16.7 % (11.5-15.5); WBC 19.1 k/uL (3.8-10.6)
[2019-03-24 18:05] LABS: Partial Thromboplastin Time 29.8 sec (22.0-30.0); Prothrombin Time 10.8 sec (9.0-12.0)
[2019-03-24 18:09] LABS: Albumin 3.6 g/dL (3.5-5.0); Calcium 8.4 mg/dL (8.4-10.2); Magnesium 2.1 mg/dL (1.6-2.3); Phosphorus 6.4 mg/dL (2.5-4.5); Potassium 4.3 mmol/L (3.5-5.1); Total Bilirubin 0.6 mg/dL (0.2-1.3); Total Protein 6.4 g/dL (6.3-8.2)
--- NOTE | 2019-03-24 19:06 | CT ---
EXAMINATION TYPE: CT brain wo con DATE OF EXAM: 03/24/2019 COMPARISON: 12/18/2018 HISTORY: weakness CT DLP: 1137.4 mGycm Automated exposure control for dose reduction was used. FINDINGS: There is cerebral cortical atrophy. There is no mass effect nor midline shift. There is no sign of in tracranial hemorrhage. The calvarium is intact. IMPRESSION: CEREBRAL ATROPHY. NO ACUTE INTRACRANIAL ABNORMALITY. NO CHANGE.
--- NOTE | 2019-03-24 19:12 | XR ---
EXAMINATION TYPE: XR abdomen acute w cxr DATE OF EXAM: 03/24/2019 COMPARISON: None HISTORY: Pain TECHNIQUE: Chest x-ray with supine and upright abdomen FINDINGS: There is no heart failure nor confluent pneumonic infiltrate. There is right central venous catheter with the tip in the superior vena cava. There is significant arthritic disease in the right shoulder with subacromial impingement. There is no sign of intestinal obstruction or pneumoperitoneum. Fecal pattern is normal. There are no pathologic calcifications over the kidneys. There is no evidence of a mass. There are clips from cho lecystectomy.. IMPRESSION: Nonacute abdomen. No active cardiopulmonary disease. Chest is stable compared to 01/05/2019.
[2019-03-24] MEDS ORDERED: SODIUM CHLORIDE 0.9% 1,000 ML IV ONE (19:35)
[2019-03-24] MEDS ORDERED: ALPRAZolam 0.25 MG TAB PO PRN (22:05)
[2019-03-24] MEDS ORDERED: TEMAZEPAM 15 MG CAP PO PRN (22:05)
[2019-03-24] MEDS ORDERED: HYDROcodone/APAP 5-325MG 1 EACH TAB PO PRN (22:05)
--- NOTE | 2019-03-24 22:36 | XR ---
EXAM: XR Chest, 1 View CLINICAL HISTORY: ITS.REASON XR Reason: chf TECHNIQUE: Frontal view of the chest. COMPARISON: Chest radiography 01/05/19 FINDINGS: Lungs: Unremarkable. No consolidation. Pleural space: Unremarkable. No pneumothorax. Heart: Unremarkable. No cardiomegaly. Mediastinum: Unremarkable. Bones/joints: Unremarkable. Vasculature: Ectatic thoracic aortic arch with atherosclerotic calcifications. No hilar or mediastinal enlargement, otherwise. No cardiac silhouette enlargement. Trachea is normal. Tubes, lines and devices: Dialysis catheter identified, tip in the SVC at the level of the right hilum. IMPRESSION: No acute cardiopulmonary disease.
[2019-03-25] MEDS: CALCITRIOL 0.25 MCG CAP PO SCH (00:17)
[2019-03-25 00:26] VITALS: BMI 21.4
[2019-03-25 05:44] LABS: Amorphous Sediment,Urine Rare /hpf; Appearance,Urine Clear (Clear); Bacteria,Urine Rare /hpf; Bilirubin,Urine Negative (Negative); Blood,Urine Small (Negative); Color,Urine Yellow; Glucose,Urine (UA) Negative (Negative); Ketones,Urine Negative (Negative); Leukocyte Esterase,Urine Negative (Negative); Mucus,Urine Rare /hpf; Nitrite,Urine Negative (Negative); PH, Urine 5.5 (5.0-8.0); Protein,Urine 2+ (Negative); RBC,Urine 2 /hpf (0-5); Specific Gravity,Urine 1.015 (1.001-1.035); Squamous Epithelial Cell,Urine 1 /hpf (0-4); Urobilinogen,Urine <2.0 mg/dL (<2.0); WBC,Urine 3 /hpf (0-5)
[2019-03-25] MEDS: LEVOTHYROXINE 75 MCG TAB PO SCH (05:44)
--- NOTE | 2019-03-25 06:03 | HP ---
HISTORY AND PHYSICAL DATE OF SERVICE: 03/24/2019 CHIEF COMPLAINTS: Weakness and diarrhea. HISTORY OF PRESENT ILLNESS: This 83-year-old gentleman with a past medical history of multiple medical problems including asthma, COPD, history of diabetes, hypertension, hyperlipidemia, history of DJD being followed Dr. Matamoros in the outpatient setting apparently receiving hemodialysis through a PermCath on the chest. The patient apparently had a fistula made on the left arm recently. Subsequently, patient complains of severe diarrhea. Patient extremely complains of extreme weakness. Patient had hemodialysis today and the patient came to [facility] and admitted for further evaluation and treatment. The patient had persistent diarrhea. Troponin indeterminate at 0.066 and there is no history of any fever, rigors. No history of headache, loss of consciousness or seizures at this time. PAST MEDICAL HISTORY: History of asthma, COPD, history of diabetes mellitus, hypertension, hyperlipidemia, history of DJD, hypothyroidism, cholecystectomy. MEDICATIONS: Medications prior to admission include home medications are: 1. Vitamin C, Zinc, Copper, Lutein 2 capsules p.o. daily. 2. Sodium bicarbonate 1300 mg p.o. b.i.d. 3. Simvastatin 20 mg q.h.s. 4. Lopressor 25 mg p.o. b.i.d. 5. Synthroid 150 mcg p.o. daily. 6. Garlic 1 tablet p.o. daily. 7. Neurontin 300 mg p.o. b.i.d. 8. Lasix 40 mg b.i.d. 9. Vitamin D2, 50,000 q.30 days. 10.PhosLo 667 daily. 11.Rocaltrol 0.25 mcg Sunday, Sunday and Sunday. 12.Nephrocaps 1 p.o. daily. 13.Aspirin 81 mg daily. 14.Eliquis 5 mg p.o. b.i.d. ALLERGIES: Allergies are LISINOPRIL, METFORMIN, CIPRO. FAMILY HISTORY: History of prostate cancer and alcoholism. SOCIAL HISTORY: Previous history of smoking. No history of alcohol intake. REVIEW OF SYSTEMS: ENT: Diminished hearing and diminished vision. CARDIOVASCULAR SYSTEM: No angina. RESPIRATORY: As mentioned earlier. GI: As mentioned earlier. : As mentioned earlier. NERVOUS SYSTEM: No numbness or weakness. ALLERGY/IMMUNOLOGY: Asthma. MUSCULOSKELETAL: As mentioned earlier. HEMATOLOGY/ONCOLOGY: As mentioned earlier. ENDOCRINE: Hypothyroidism. CONSTITUTIONAL: As mentioned earlier. DERMATOLOGY: Negative. RHEUMATOLOGY: Negative. PSYCHIATRY: As mentioned earlier. PHYSICAL EXAMINATION: The patient is alert and oriented x3. Pulse 81, blood pressure 140/56, respiration 18, temperature 98.7, pulse ox 96% on room air. HEENT: Conjunctive normal. Oral mucosa is dry. Some mild. CARDIOVASCULAR: S1, S2 muffled. No S3, no S4. RESPIRATORY: Breath sounds diminished at the bases. A few scattered rhonchi and crackles. ABDOMEN: Soft. Mild diffuse discomfort. Mild diffuse distention. No mass palpable. LEGS: No edema, no swelling. Minimal infection of the left leg cellulitis, which is improving. NERVOUS SYSTEM: Higher function as mentioned. Moves all 4 limbs. Mild diffuse weakness. Significant diffuse wasting also present. SKIN: As mentioned earlier. JOINTS: No active deforming arthropathy. LYMPHATICS: No lymphadenopathy of the neck, axillae or groin. LABS: WBC 19.1, hemoglobin 11.1. Sodium 138, potassium 4.3, and creatinine is 4.20. ASSESSMENT: 1. Severe weakness secondary to diarrhea, dehydration. 2. Increased WBC for evaluation. 3. Recent left leg cellulitis. 4. Anemia. 5. Chronic renal failure, end stage renal disease on hemodialysis. 6. Troponin 0.066 indeterminate. 7. Low TSH is 0.171. 8. Asthma. 9. Chronic obstructive pulmonary disease. 10.Diabetes mellitus type 2. 11.Hypertension. 12.Hyperlipidemia. 13.History of degenerative joint disease. 14.History of hypothyroidism. 15.History of peripheral neuropathy. 16.History of cholecystectomy. 17.History of PermCath. 18.History of recently created AV graft on the left forearm. RECOMMENDATIONS AND DISCUSSION: This 83-year-old gentleman who presented with multiple complex medical issues, we will monitor the patient closely. Continue the current medications. Continue symptomatic treatment. Gentle hydration has been given. Otherwise, recommend stool for C difficile and continue to monitor. Empiric antibiotics initiated. Obtain cultures. Nephrology evaluation. Will consult Dr. Matamoros as well. Otherwise, resume the home medications. Prognosis guarded because of multiple complex medical issues. Symptomatic treatment also provided and discussed with the patient. Further recommendations to follow. MMODL / IJN: [id number] / [facility]
[2019-03-25] MEDS: SODIUM BICARBONATE TAB 650 MG TAB PO SCH ×2 (07:40→17:34)
[2019-03-25] MEDS: METOPROLOL TARTRATE 50 MG TAB PO SCH ×2 (07:40→21:17)
[2019-03-25] MEDS: GABAPENTIN 300 MG CAP PO SCH ×2 (07:41→21:17)
[2019-03-25] MEDS: PANTOPRAZOLE 40 MG TABLET PO SCH (07:41)
[2019-03-25] MEDS ORDERED: APIXABAN 5 MG TAB PO SCH (08:00)
[2019-03-25] MEDS ORDERED: ENOXAPARIN 40 MG/0.4 ML SYRINGE SQ SCH (09:00)
[2019-03-25 09:04] LABS: Anisocytosis Slight; Basophils # (A) 0.1 k/uL (0-0.2); Basophils % (A) 0 %; Eosinophils # (A) 0.1 k/uL (0-0.7); Eosinophils % (A) 1 %; HCT 34.5 % (39.0-53.0); HGB 10.8 gm/dL (13.0-17.5); Hypochromasia Moderate; Lymphocytes # (A) 0.9 k/uL (1.0-4.8); Lymphocytes % (A) 6 %; MCH 31.9 pg (25.0-35.0); MCHC 31.2 g/dL (31.0-37.0); MCV 102.2 fL (80.0-100.0); Macrocytosis Moderate; Mean Platelet Volume 6.8; Monocytes # (A) 0.9 k/uL (0-1.0); Monocytes % (A) 6 %; Neutrophils # (A) 11.4 k/uL (1.3-7.7); Neutrophils % (A) 84 %; Platelet Count 214 k/uL (150-450); RBC 3.38 m/uL (4.30-5.90); RDW 16.2 % (11.5-15.5); WBC 13.7 k/uL (3.8-10.6)
[2019-03-25 09:21] LABS: Calcium 7.8 mg/dL (8.4-10.2); Potassium 3.9 mmol/L (3.5-5.1)
[2019-03-25] MEDS ORDERED: CHERRY FLAVOR 60 ML BOTTLE PO PRN (11:09)
[2019-03-25] MEDS: VANCOMYCIN ORAL SOLUTION 250 MG/5 ML BOTTLE PO SCH ×3 (12:54→23:24)
[2019-03-25] MEDS: ASPIRIN 81 MG PO SCH (18:25)
[2019-03-25] MEDS: APIXABAN 2.5 MG TABLET PO SCH (18:25)
[2019-03-25] MEDS ORDERED: SODIUM CHLORIDE 0.9% 1,000 ML IV SCH (19:15)
--- NOTE | 2019-03-25 20:49 | CONS ---
CONSULTATION REASON FOR CONSULT: End-stage renal disease. HISTORY OF PRESENT ILLNESS: Patient is a 83-year-old male who was admitted to the hospital with complaints of weakness. The patient apparently fell at home 2 times as he was trying to come to dialysis. He has been having significant diarrhea for the past week or so. Patient's stool was positive for C diff. He is currently maintained on IV fluids. He states he is feeling slightly better. Blood pressure on initial admission was not significantly low. Patient recently had left upper arm AV fistula surgery at [facility]. He states his diarrhea seems to have worsened since then. Stool for C diff was done at that time and it was negative for C difficile colitis about 2 weeks ago. PAST MEDICAL HISTORY: End-stage renal disease. Patient was started on dialysis about 3 months ago after he developed acute kidney injury. He has had some improvement in urine output, but remains hemodialysis dependent. PAST MEDICAL HISTORY: Also significant for COPD, type 2 diabetes, hyperlipidemia, hypertension, CKD, mineral bone disorder, gout, hypothyroidism, skin cancer. PAST SURGICAL HISTORY: Cholecystectomy, PermCath placement, colonoscopy, polypectomy, removal of skin cancer from forehead. SOCIAL HISTORY: Patient is a former smoker. No history of drug abuse or alcohol abuse. MEDICATIONS: Medications at home prior to admission included simvastatin, aspirin, PhosLo, Rocaltrol, vitamin D2, Synthroid. Neurontin, Eliquis, Lasix, Lopressor, sodium bicarb. ALLERGIES: INCLUDE LISINOPRIL, METFORMIN, AND CIPRO. PHYSICAL EXAMINATION: Patient is comfortable, awake, not in any acute distress. Alert and oriented x3. This morning blood pressure when patient was seen was 109/61, heart rate of 80 per minute. Patient is afebrile. Examination of the heart S1, S2. Examination of lungs bilateral breath sounds are heard. Abdomen is soft, nontender. Examination of lower extremities shows no evidence of edema. [employer] exam is grossly intact. LAB: Shows hemoglobin 10.8, sodium 142, potassium 3.9, CO2 17, BUN 79, serum creatinine 3.85. ASSESSMENT: 1. End-stage renal disease, on hemodialysis on a Sunday, Sunday, Sunday schedule. Patient will be dialyzed today and then again in a.m. as tomorrow is his regular treatment day. 2. Metabolic acidosis secondary to diarrhea. Expect improvement with dialysis. 3. C diff colitis, started on oral vancomycin. 4. CKD mineral bone disorder maintained on calcitriol. 5. Hypovolemia. Currently maintained on IV fluids. PLAN: Hemodialysis today with no ultrafiltration. Maintain patient on gentle IV hydration and repeat hemodialysis in a.m. as it is the patient's regular treatment today and continue antibiotics for C difficile colitis. Thank you for this consultation. We will continue to follow the patient with you during his hospitalization. MMODL / IJN: [id number] /
--- NOTE | 2019-03-25 23:25 | PN ---
PROGRESS NOTE DATE OF SERVICE: 03/25/2019 This 83-year-old gentleman who was admitted with weakness and diarrhea had C difficile positive. Patient complains of tiredness and weakness. Patient was seen by multiple consultants, including Dr. Oro. The most recent chest x-ray done showed no acute abnormality. The creatinine has improved to 3.85 at this time. Past medical history reviewed. REVIEW OF SYSTEMS: The patient was seen on hemodialysis today. PHYSICAL EXAMINATION: The patient is alert, oriented x2. Pulse is 84, blood pressure 161/61, respirations 16, temperature 98.6, pulse ox 99% on room air. HEENT: Conjunctivae normal. Oral mucosa moist. NECK: No jugular venous distention. No carotid bruit. No lymph node enlargement. CARDIOVASCULAR SYSTEM: S1, S2 muffled. RESPIRATORY SYSTEM: Breath sounds diminished at the bases. A few scattered rhonchi. ABDOMEN: Soft. Mild diffuse distention. No mass palpable. LEGS: No edema. No swelling. NERVOUS SYSTEM: No focal deficit. LABS: WBC 13.7, hemoglobin 10.8. Sodium 142, potassium 3.9, creatinine 3.85. ASSESSMENT: 1. Severe weakness secondary to diarrhea, dehydration. 2. Acute Clostridium difficile colitis. 3. Increased white count secondary to Clostridium difficile. 4. History of recent left leg cellulitis. 5. Anemia. 6. Chronic renal failure. 7. History of renal disease, on hemodialysis. 8. Troponin 0.066, indeterminate. 9. Low TSH at 0.171. 10.Asthma. 11.Chronic obstructive pulmonary disease. 12.Diabetes mellitus, type 2. 13.Hypertension. 14.Hyperlipidemia. 15.History of degenerative joint disease. 16.History of hypothyroidism. 17.History of peripheral neuropathy. 18.History of cholecystectomy. 19.History of PermCath. 20.History of recently created AV graft in the left forearm. RECOMMENDATIONS AND DISCUSSION: I recommend to continue current medications, continue with the monitoring, symptomatic treatment. Continue with the vancomycin. Will continue to monitor. Guarded prognosis because of multiple complex medical issues. Closely monitor. Follow up with Nephrology and Infectious Disease. Further recommendations to follow. MMODL / IJN: [id number] /
--- NOTE | 2019-03-25 23:52 | P.CONS ---
History of Present Illness - Reason for Consult Consult date: 03/25/19 - Chief Complaint Weakness - History of Present Illness 83 year old male with ESRD on dialysis via permcath chest wall With a left arm fistula that is not yet matured to be used for dialysis. The patient has difficulty with lower extremity edema and ulcerations. He's had treatment to the lower extremities with local wound care as well as antibiotic therapy. Did receive a dose of antibiotic therapy for the fistula placement. The patient relates that he has been having weakness in the day since. He is developed significant diarrhea increasing dehydration and feeling very ill. If her di alysis he actually had fall because was brought in the hospital. He has some relative hypotension and evidence of diarrhea. C. difficile toxin was positive and the consult was requested. The patient relates that he's tolerating dialysis today without great difficulties. No fevers or chills. Review of Systems HEENT:Denies headache or acute visual change. Denies sinus or mouth discomforts. Denies neck stiffness or pain. Denies significant oral cavity pain. Denies difficulty on swallowing. Lungs: Denies significant shortness of breath, cough, sputum production, or hemoptysis. Cardiovascular: Denies significant shortness of breath, chest pain, chest wall pain, orthopnea, dyspnea on exertion, syncope Gastrointestinal: Significant diarrhea, nonbloody, no hematemesis melena or hematochezia. Appetite is poor but no nausea or emesis Musculoskeletal: denies significant myalgias or arthralgias. No new joint swelling. Denies new back pain. Skin: Denies new rash or lesions. No new ulcers or wounds are related.. Neuro: Denies headache or visual change. Generalized weakness multiple falls no seizures Psychiatric:Denies anxiety or depression. Endocrine: Profound fatigue weight has been somewhat stable Past Medical History Past Medical History: Asthma, Cancer, COPD, Diabetes Mellitus, Hyperlipidemia, Hypertension, Osteoarthritis (OA), Renal Disease, Thyroid Disorder Additional Past Medical History / Comment(s): NIDDM type II, neuropathy bilateral legs and feet, current sores bilateral lower legs, current "corn" bottom R foot, CKD stage III/diabetic nephropathy, UTI, gout feet years ago, skin cancer removals, pancreatitis, hypothyroid. History of Any Multi-Drug Resistant Organisms: None Reported Past Surgical History: Cholecystectomy Additional Past Surgical History / Comment(s): colonoscopy with polypectomy, skin cancer removed from forehead. Past Anesthesia/Blood Transfusion Reactions: No Reported Reaction Additional Past Anesthesia/Blood Transfusion Reaction / Comm: Pt states he has never recieved blood. Past Psychological History: No Psychological Hx Reported Additional Psychological History / Comment(s): Pt lives alone. He is independent. He uses no assistive device or home care. He drives. has 1 small dog, rosales. Retired from construction work. No experience Smoking Status: Former smoker Past Alcohol Use History: None Reported Additional Past Alcohol Use History / Comment(s): Pt states he quit smoking in 1982. He quit drinking alcohol 5 yrs ago. Past Drug Use History: None Reported - Past Family History Father Family Medical History: Cancer Additional Family Medical History / Comment(s): Father of prostate cancer. He was an alcoholic Mother Family Medical History: Cancer Additional Family Medical History / Comment(s): Mother of some kind of cancer pt unsure which kind. He states he knows she had breast cancer as well. Medications and Allergies Home Medications and Allergies Comment(s): Current Medications Hydrocodone Bitart/Acetaminophen (Joffre 5-325) 1 each PO Q6HR PRN PRN Reason: Pain Alprazolam (Xanax) 0.25 mg PO TID PRN PRN Reason: Anxiety Apixaban (Eliquis) 2.5 mg PO BID@0800,1700 [facility] Last Admin: 03/25/19 18:25 Dose: 2.5 mg Documented by: Aspirin (Aspirin) 81 mg PO DAILY@1700 [facility] Last Admin: 03/25/19 18:25 Dose: 81 mg Documented by: Calcitriol (Rocaltrol) 0.25 mcg PO MOWEFR [facility] Last Admin: 03/25/19 00:17 Dose: 0.25 mcg Documented by: Bolanos Syrup (Bolanos Syrup) 5 ml PO Q6HR PRN PRN Reason: VANCO FLAVORING Gabapentin (Neurontin) 300 mg PO BID [facility] Last Admin: 03/25/19 21:17 Dose: 300 mg Documented by: Sodium Chloride (Saline 0.9%) 1,000 mls @ 50 mls/hr IV .Q20H [facility] Last Admin: 03/25/19 22:41 Dose: Not Given Documented by: Levothyroxine Sodium (Synthroid) 150 mcg PO DAILY@0600 [facility] Last Admin: 03/25/19 05:44 Dose: 150 mcg Documented by: Metoprolol Tartrate (Lopressor) 25 mg PO BID [facility] Last Admin: 03/25/19 21:17 Dose: 25 mg Documented by: Pantoprazole Sodium (Protonix) 40 mg PO AC-BRKFST [facility] Last Admin: 03/25/19 07:41 Dose: 40 mg Documented by: Sodium Bicarbonate (Sodium Bicarbonate Tab) 1,300 mg PO BID@0800,1700 [facility] Last Admin: 03/25/19 17:34 Dose: Not Given Documented by: Temazepam (Restoril) 15 mg PO HS PRN PRN Reason: Insomnia Vancomycin HCl (Vancomycin Oral Solution) 250 mg PO Q6HR [facility] Last Admin: 03/25/19 23:24 Dose: 250 mg Documented by: Home Medications Medication Instructions Recorded Confirmed Type Garlic 1 tab PO DAILY@169907/16/15 03/24/19 History Simvastatin 20 mg PO HS 07/16/15 03/24/19 History Aspirin [Adult Low Dose Aspirin EC] 81 mg PO DAILY@169907/18/18 03/24/19 History Vit C/E/Zn/Coppr/Lutein/Zeaxan 2 cap PO DAILY@169907/18/18 03/24/19 History [Preservision Areds 2 Softgel] Calcitriol [Rocaltrol] 0.25 mcg PO MOWEFR 12/18/18 03/24/19 History Calcium Acetate [PhosLo] 667 mg PO DAILY@169912/18/18 03/24/19 History Ergocalciferol (Vitamin D2) 50,000 unit PO Q30D 12/18/18 03/24/19 History [Vitamin D2] Gabapentin [Neurontin] 300 mg PO BID 12/18/18 03/24/19 History Levothyroxine Sodium [Synthroid] 150 mcg PO DAILY@0600 12/18/18 03/24/19 History Apixaban [Eliquis] 5 mg PO BID@0800,1700 01/05/19 03/24/19 History B Complex & C No.20/Folic Acid 1 mg PO DAILY@1700 01/05/19 03/24/19 History [Nephrocaps Softgel] Sodium Bicarbonate Tab 1,300 mg PO BID@0800,1700 01/05/19 03/24/19 History Furosemide [Lasix] 40 mg PO BID 03/24/19 03/24/19 History Metoprolol Tartrate [Lopressor] 25 mg PO BID 03/24/19 03/24/19 History Allergies Allergy/AdvReac Type Severity Reaction Status Date / Time lisinopril Allergy Unknown Verified 03/24/19 17:33 metformin Allergy Unknown Verified 03/24/19 17:33 ciprofloxacin [From Cipro] AdvReac Nausea & Verified 03/24/19 17:33 Vomiting Physical Exam Vitals: Vital Signs Temp Pulse Resp BP Pulse Ox 03/25/19 20:00 18 03/25/19 19:11 98.6 F 84 16 161/61 99 03/25/19 18:51 97.6 F 18 157/70 03/25/19 15:12 97.6 F 80 16 147/61 91 L 03/25/19 07:56 98.2 F 116 H 18 109/61 97 03/25/19 01:55 98.4 F 78 17 111/57 95 Intake and Output 03/25/19 03/25/19 03/26/19 14:59 22:59 06:59 Intake Total 550 Output Total 300 Balance 250 Intake: Intake, IV Titration 250 Amount Sodium Chloride 0.9% 1, 250 000 ml @ 50 mls/hr IV . Q20H [facility] Rx#:[id number] Hemodialysis 300 Output: Hemodialysis 300 Other: Voiding Method Urinal # Voids 3 Weight 62.142 kg 83-year-old male receiving hemodialysis HEENT: Anicteric conjunctiva are pink and moist nasal mucosa grossly intact without significant lesions, there is no thrush. Neck: The neck is supple without significant lymphadenopathy or thyromegaly. Lungs: Good bilateral air entry without significant crackles or wheezing. There is no significant bronchial sounds. There is no egophony or dullness. Heart: Regular rate and rhythm with an audible S1-S2, no S3 no S4. There is no significant murmur click or rub, PMI was nondisplaced. Abdomen: Bowel sounds are noted, there is some generalized tenderness to the abdominal exam without cintia guarding or rebound no palpable masses nor organomegaly Extremities: Some generalized edema is noted. Lower extremities evidence of the chronic skin changes likely related to his end-stage renal disease. He has had some pruritus and there are some scratches that are present. He has some difficulty with some ulceration to the left leg that has been somewhat difficult for him to care for. Neuro: Awake alert oriented to person place and time. There are no acute new gross focal sensory motor deficits. Results CBC & Chem 7: 03/25/19 08:35 03/25/19 08:35 Labs: Abnormal Lab Results - Last 24 Hours (Table) 03/25/19 03/25/19 03/25/19 Range/Units 04:40 04:40 08:35 WBC 13.7 H (3.8-10.6) k/uL RBC 3.38 L (4.30-5.90) m/uL Hgb 10.8 L (13.0-17.5) gm/dL Hct 34.5 L (39.0-53.0) % MCV 102.2 H (80.0-100.0) fL RDW 16.2 H (11.5-15.5) % Neutrophils # 11.4 H (1.3-7.7) k/uL Lymphocytes # 0.9 L (1.0-4.8) k/uL Chloride (98-107) mmol/L Carbon Dioxide (22-30) mmol/L BUN (9-20) mg/dL Creatinine (0.66-1.25) mg/dL Glucose (74-99) mg/dL Calcium (8.4-10.2) mg/dL Urine Protein 2+ H (Negative) Urine Blood Small H (Negative) Urine WBC Clumps Rare H (None) /hpf Amorphous Sediment Rare H (None) /hpf Urine Bacteria Rare H (None) /hpf Urine Mucus Rare H (None) /hpf C. difficile (EIA) Intrp Positive A (Negative) 03/25/19 Range/Units 08:35 WBC (3.8-10.6) k/uL RBC (4.30-5.90) m/uL Hgb (13.0-17.5) gm/dL Hct (39.0-53.0) % MCV (80.0-100.0) fL RDW (11.5-15.5) % Neutrophils # (1.3-7.7) k/uL Lymphocytes # (1.0-4.8) k/uL Chloride 110 H (98-107) mmol/L Carbon Dioxide 17 L (22-30) mmol/L BUN 79 H (9-20) mg/dL Creatinine 3.85 H (0.66-1.25) mg/dL Glucose 104 H (74-99) mg/dL Calcium 7.8 L (8.4-10.2) mg/dL Urine Protein (Negative) Urine Blood (Negative) Urine WBC Clumps (None) /hpf Amorphous Sediment (None) /hpf Urine Bacteria (None) /hpf Urine Mucus (None) /hpf C. difficile (EIA) Intrp (Negative) Microbiology - Last 24 Hours (Table) 03/25/19 04:40 Urine Culture - Preliminary Urine,Clean Catch Laboratory Results WBC 13.7 k/uL (3.8-10.6) H 03/25/19 08:35 RBC 3.38 m/uL (4.30-5.90) L 03/25/19 08:35 Hgb 10.8 gm/dL (13.0-17.5) L 03/25/19 08:35 Hct 34.5 % (39.0-53.0) L 03/25/19 08:35 MCV 102.2 fL (80.0-100.0) H 03/25/19 08:35 MCH 31.9 pg (25.0-35.0) 03/25/19 08:35 MCHC 31.2 g/dL (31.0-37.0) 03/25/19 08:35 RDW 16.2 % (11.5-15.5) H 03/25/19 08:35 Plt Count 214 k/uL (150-450) 03/25/19 08:35 Neutrophils % 84 % 03/25/19 08:35 Lymphocytes % 6 % 03/25/19 08:35 Monocytes % 6 % 03/25/19 08:35 Eosinophils % 1 % 03/25/19 08:35 Basophils % 0 % 03/25/19 08:35 Neutrophils # 11.4 k/uL (1.3-7.7) H 03/25/19 08:35 Lymphocytes # 0.9 k/uL (1.0-4.8) L 03/25/19 08:35 Monocytes # 0.9 k/uL (0-1.0) 03/25/19 08:35 Eosinophils # 0.1 k/uL (0-0.7) 03/25/19 08:35 Basophils # 0.1 k/uL (0-0.2) 03/25/19 08:35 Hypochromasia Moderate 03/25/19 08:35 Anisocytosis Slight 03/25/19 08:35 Macrocytosis Moderate 03/25/19 08:35 PT 10.8 sec (9.0-12.0) 03/24/19 17:41 INR 1.0 (<1.2) 03/24/19 17:41 APTT 29.8 sec (22.0-30.0) 03/24/19 17:41 Sodium 142 mmol/L (137-145) 03/25/19 08:35 Potassium 3.9 mmol/L (3.5-5.1) 03/25/19 08:35 Chloride 110 mmol/L (98-107) H 03/25/19 08:35 Carbon Dioxide 17 mmol/L (22-30) L 03/25/19 08:35 Anion Gap 15 mmol/L 03/25/19 08:35 BUN 79 mg/dL (9-20) H 03/25/19 08:35 Creatinine 3.85 mg/dL (0.66-1.25) H 03/25/19 08:35 Est GFR (CKD-EPI)AfAm 16 (>60 ml/min/1.73 sqM) 03/25/19 08:35 Est GFR (CKD-EPI)NonAf 14 (>60 ml/min/1.73 sqM) 03/25/19 08:35 Glucose 104 mg/dL (74-99) H 03/25/19 08:35 Plasma Lactic Acid [place] 1.0 mmol/L (0.7-2.0) 03/24/19 17:41 Calcium 7.8 mg/dL (8.4-10.2) L 03/25/19 08:35 Phosphorus 6.4 mg/dL (2.5-4.5) H 03/24/19 17:41 Magnesium 2.1 mg/dL (1.6-2.3) 03/24/19 17:41 Total Bilirubin 0.6 mg/dL (0.2-1.3) 03/24/19 17:41 AST 62 U/L (17-59) H 03/24/19 17:41 ALT 18 U/L (21-72) L 03/24/19 17:41 Alkaline Phosphatase 83 U/L (38-126) 03/24/19 17:41 Troponin I 0.066 ng/mL (0.000-0.034) H* 03/24/19 17:41 Total Protein 6.4 g/dL (6.3-8.2) 03/24/19 17:41 Albumin 3.6 g/dL (3.5-5.0) 03/24/19 17:41 TSH 0.171 mIU/L (0.465-4.680) L 03/24/19 17:41 Urine Color Yellow 03/25/19 04:40 Urine Appearance Clear (Clear) 03/25/19 04:40 Urine pH 5.5 (5.0-8.0) 03/25/19 04:40 Ur Specific [place] 1.015 (1.001-1.035) 03/25/19 04:40 Urine Protein 2+ (Negative) H 03/25/19 04:40 Urine Glucose (UA) Negative (Negative) 03/25/19 04:40 Urine Ketones Negative (Negative) 03/25/19 04:40 Urine Blood Small (Negative) H 03/25/19 04:40 Urine Nitrite Negative (Negative) 03/25/19 04:40 Urine Bilirubin Negative (Negative) 03/25/19 04:40 Urine Urobilinogen <2.0 mg/dL (<2.0) 03/25/19 04:40 Ur Leukocyte Esterase Negative (Negative) 03/25/19 04:40 Urine RBC 2 /hpf (0-5) 03/25/19 04:40 Urine WBC 3 /hpf (0-5) 03/25/19 04:40 Urine WBC Clumps Rare /hpf (None) H 03/25/19 04:40 Ur Squamous Epith Cells 1 /hpf (0-4) 03/25/19 04:40 Amorphous Sediment Rare /hpf (None) H 03/25/19 04:40 Urine Bacteria Rare /hpf (None) H 03/25/19 04:40 Urine Mucus Rare /hpf (None) H 03/25/19 04:40 C. difficile (EIA) Intrp Positive (Negative) A 03/25/19 04:40 Microbiology 03/25/19 04:40 Urine,Clean Catch Urine Culture - Preliminary Assessment and Plan (1) Clostridium difficile colitis Narrative/Plan: 83-year-old male with multiple medical troubles that includes end- stage renal disease on hemodialysis via PermCath while his fistula matures in his left arm. Patient relates that he's had difficulties with some lower extremity ulcerations that is treated with local care and recently some antibiotics. It is likely his recent antibiotics or the etiology of his current Clostridium difficile colitis. Oral vancomycin therapy has or even started. Rocephin is discontinued trying to limit other antibiotic exposures. Local wound care with therahoney will be applied to the ulcerations the left leg. We'll monitor response to therapy. Current Visit: Yes Status: Acute Code(s): A04.72 - ENTEROCOLITIS D/T CLOSTRIDIUM DIFFICILE, NOT SPCF RECUR SNOMED Code(s): 680454534 (2) End stage renal disease on dialysis Current Visit: Yes Status: Chronic Code(s): N18.6 - END STAGE RENAL DISEASE; Z99.2 - DEPENDENCE ON RENAL DIALYSIS SNOMED Code(s): 627964504 (3) Dehydration Current Visit: Yes Status: Acute Code(s): E86.0 - DEHYDRATION SNOMED Code(s): 56850735 (4) Leukocytosis Current Visit: Yes Status: Acute Code(s): D72.829 - ELEVATED WHITE BLOOD CELL COUNT, UNSPECIFIED SNOMED Code(s): 449487066
[2019-03-26] MEDS: ACETAMINOPHEN TAB 325 MG TAB PO PRN ×2 (01:28→20:41)
[2019-03-26] MEDS: LEVOTHYROXINE 75 MCG TAB PO SCH (05:04)
[2019-03-26] MEDS: VANCOMYCIN ORAL SOLUTION 250 MG/5 ML BOTTLE PO SCH ×3 (05:05→18:19)
[2019-03-26 08:06] LABS: Anisocytosis Slight; Basophils % (A) 0 %; Eosinophils # (A) 0.2 k/uL (0-0.7); Eosinophils % (A) 2 %; HCT 30.1 % (39.0-53.0); HGB 9.4 gm/dL (13.0-17.5); Hypochromasia Slight; Lymphocytes # (A) 1.2 k/uL (1.0-4.8); Lymphocytes % (A) 11 %; MCH 31.4 pg (25.0-35.0); MCHC 31.3 g/dL (31.0-37.0); MCV 100.4 fL (80.0-100.0); Macrocytosis Slight; Mean Platelet Volume 7.4; Monocytes # (A) 1.1 k/uL (0-1.0); Monocytes % (A) 9 %; Neutrophils # (A) 8.5 k/uL (1.3-7.7); Neutrophils % (A) 75 %; Platelet Count 222 k/uL (150-450); RDW 16.9 % (11.5-15.5); WBC 11.3 k/uL (3.8-10.6)
[2019-03-26 08:21] LABS: Calcium 7.4 mg/dL (8.4-10.2); Potassium 3.5 mmol/L (3.5-5.1)
[2019-03-26] MEDS: METOPROLOL TARTRATE 50 MG TAB PO SCH ×2 (08:38→20:41)
[2019-03-26] MEDS: APIXABAN 2.5 MG TABLET PO SCH ×2 (08:38→18:19)
[2019-03-26] MEDS: PANTOPRAZOLE 40 MG TABLET PO SCH (08:38)
[2019-03-26] MEDS: SODIUM BICARBONATE TAB 650 MG TAB PO SCH ×2 (08:38→08:40)
[2019-03-26] MEDS: GABAPENTIN 300 MG CAP PO SCH ×2 (08:38→20:40)
--- NOTE | 2019-03-26 09:28 | P.PN ---
Subjective Progress Note Date: 03/26/19 Doing well. +Cdiff, but Diarrhea is improving. No abdominal pain. No nausea or vomiting. Objective - Vital Signs Vital signs: Vital Signs Temp 98.4 F 03/26/19 07:34 Pulse 70 03/26/19 07:34 Resp 18 03/26/19 07:34 BP 133/53 03/26/19 07:34 Pulse Ox 92 L 03/26/19 07:34 Intake & Output 03/25/19 03/26/19 03/26/19 18:59 06:59 18:59 Intake Total 300 250 Output Total 300 Balance 0 250 Weight 62.142 kg Intake: Intake, IV Titration 250 Amount Sodium Chloride 0.9% 1, 250 000 ml @ 50 mls/hr IV . Q20H [facility] Rx#:[id number] Hemodialysis 300 Output: Hemodialysis 300 Other: Voiding Method Urinal # Voids 3 1 # Bowel Movements 6 1 - Constitutional General appearance: Present: cooperative, no acute distress - EENT Eyes: Present: normal appearance - Respiratory Respiratory: bilateral: CTA - Cardiovascular Rhythm: regular Heart sounds: normal: S1, S2 - Gastrointestinal General gastrointestinal: Present: normal bowel sounds, soft - Labs CBC & Chem 7: 03/26/19 07:29 03/26/19 07:29 Labs: Abnormal Lab Results - Last 24 Hours (Table) 03/26/19 03/26/19 Range/Units 07:29 07:29 WBC 11.3 H (3.8-10.6) k/uL RBC 3.00 L (4.30-5.90) m/uL Hgb 9.4 L (13.0-17.5) gm/dL Hct 30.1 L (39.0-53.0) % MCV 100.4 H (80.0-100.0) fL RDW 16.9 H (11.5-15.5) % Neutrophils # 8.5 H (1.3-7.7) k/uL Monocytes # 1.1 H (0-1.0) k/uL Chloride 111 H (98-107) mmol/L BUN 41 H (9-20) mg/dL Creatinine 2.83 H (0.66-1.25) mg/dL Calcium 7.4 L (8.4-10.2) mg/dL Microbiology - Last 24 Hours (Table) 03/24/19 22:42 Blood Culture - Preliminary Blood No Growth after 24 hours 03/25/19 04:40 Urine Culture - Preliminary Urine,Clean Catch Assessment and Plan Assessment: 1. ESRD- MWF 2. Metabolic Acidosis secondary to Cdiff and ESRD - - improved. 3. Cdiff Colitis 4. HTN with ESRD 5. Anemia with ESRD. - - decrease in Hb to 9.4 over past two days. - - On Eliquis. 6. MBD Plan: 1. Will stop IVFs. 2. Discontinue sodium bicarbonate. 3. Plan for dialysis today. 4. Monitor Hb. On Eliquis. No active signs of bleeding.
[2019-03-26 15:17] LABS: T4, Free (Free Thyroxine) 1.75 ng/dL (0.78-2.19)
--- NOTE | 2019-03-26 16:49 | PN ---
PROGRESS NOTE DATE OF SERVICE: 03/26/2019 DATE OF SERVICE: This 83-year-old gentleman who was admitted with severe weakness and diarrhea secondary to C difficile colitis also complained of generalized weakness and tiredness. The patient is also on hemodialysis. Possible ECF rehab is also being planned. No chest pain. No palpitations. No fever. EXAM: Alert and oriented x2. Pulse is 70. Blood pressure 130/50, respiration 18, temperature 98.4, pulse ox 98% on room air. HEENT: Conjunctivae normal. NECK: No jugular venous distention. CARDIOVASCULAR: S1, S2 muffled. RESPIRATIONS: Breath sounds diminished in the bases. A few scattered rhonchi and crackles. ABDOMEN: Soft. Mild diffuse distention. Mildly obese, otherwise no mass palpable. No tenderness. LEGS: No edema. No swelling. Healing cellulitis on the left lower leg present. NERVOUS SYSTEM: No focal deficits. LABS: WBC 11.3, hemoglobin 9.2, sodium 140, potassium 3.5, creatinine is 2.83. ASSESSMENT: 1. Severe weakness secondary to diarrhea, dehydration. 2. Acute C difficile colitis producing diarrhea and weakness. 3. Increased WBC secondary to C difficile colitis. 4. History of recent left leg cellulitis. 5. Anemia. 6. Chronic renal failure. 7. History of renal disease, end stage renal disease, on hemodialysis. 8. Troponin 0.06 indeterminate. 9. Low TSH 0.171. 10.Asthma. 11.Chronic obstructive pulmonary disease. 12.Diabetes mellitus type 2. 13.Hypertension. 14.Hyperlipidemia. 15.History of degenerative joint disease. 16.History of hypothyroidism. 17.History of peripheral neuropathy. 18.History of cholecystectomy. 19.History of PermCath. 20.History of recently created AV graft on the left forearm. RECOMMENDATIONS AND DISCUSSION: Recommend to continue current medications, management, and symptomatic treatment. Otherwise at this time, we will continue to monitor. I would also order a free T3 and free T4 and further recommendations to follow. MMODL / IJN: [id number] /
[2019-03-26] MEDS: ASPIRIN 81 MG PO SCH (18:19)
[2019-03-26 21:55] VITALS: RESP 16
--- NOTE | 2019-03-27 00:12 | P.PN ---
Subjective Progress Note Date: 03/26/19 83 year old male with ESRD on dialysis via permcath chest wall With a left arm fistula that is not yet matured to be used for dialysis. The patient has difficulty with lower extremity edema and ulcerations. He's had treatment to the lower extremities with local wound care as well as antibiotic therapy. Did receive a dose of antibiotic therapy for the fistula placement. The patient relates that he has been having weakness in the day since. He is developed significant diarrhea increasing dehydration and feeling very ill. If her dialysis he actually had fall because was brought in the hospital. He has some relative hypotension and evidence of diarrhea. C. difficile toxin was positive and the consult was requested. The patient relates that he's tolerating dialysis today without great difficulties. No fevers or chills. 03/26/2019 patient had 11 stools yesterday for so far today. He does feel slightly better. Objective - Vital Signs Vital signs: Vital Signs Temp 100.0 F H 03/26/19 19:48 Pulse 78 03/26/19 20:15 Resp 16 03/26/19 23:45 BP 120/57 03/26/19 19:48 Pulse Ox 96 03/26/19 19:48 Intake & Output 03/26/19 03/26/19 03/27/19 06:59 18:59 06:59 Intake Total 250 250 650 Output Total 0 Balance 250 250 650 Intake: Intake, IV Titration 250 250 Amount Sodium Chloride 0.9% 1, 250 250 000 ml @ 50 mls/hr IV . Q20H [facility] Rx#:[id number] Oral 650 Output: Hemodialysis 0 Other: Voiding Method Urinal Urinal Urinal # Voids 1 1 # Bowel Movements 1 - Exam 83-year-old male supine and comfortable HEENT: Anicteric conjunctiva are pink and moist nasal mucosa grossly intact without significant lesions, there is no thrush. Neck: The neck is supple without significant lymphadenopathy or thyromegaly. Lungs: Good bilateral air entry without significant crackles or wheezing. There is no significant bronchial sounds. There is no egophony or dullness. Heart: Regular rate and rhythm with an audible S1-S2, no S3 no S4. There is no significant murmur click or rub, PMI was nondisplaced. Abdomen: Bowel sounds are noted, there is some generalized tenderness to the abdominal exam without cintia guarding or rebound no palpable masses nor organomegaly Extremities: Some generalized edema is noted. Lower extremities evidence of the chronic skin changes likely related to his end-stage renal disease. He has had some pruritus and there are some scratches that are present. He has some difficulty with some ulceration to the left leg that has been somewhat difficult for him to care for. Neuro: Awake alert oriented to person place and time. There are no acute new gross focal sensory motor deficits. - Labs CBC & Chem 7: 03/26/19 07:29 03/26/19 07:29 Labs: Abnormal Lab Results - Last 24 Hours (Table) 03/26/19 03/26/19 03/26/19 Range/Units 07:29 07:29 07:29 WBC 11.3 H (3.8-10.6) k/uL RBC 3.00 L (4.30-5.90) m/uL Hgb 9.4 L (13.0-17.5) gm/dL Hct 30.1 L (39.0-53.0) % MCV 100.4 H (80.0-100.0) fL RDW 16.9 H (11.5-15.5) % Neutrophils # 8.5 H (1.3-7.7) k/uL Monocytes # 1.1 H (0-1.0) k/uL Chloride 111 H (98-107) mmol/L BUN 41 H (9-20) mg/dL Creatinine 2.83 H (0.66-1.25) mg/dL Calcium 7.4 L (8.4-10.2) mg/dL Free T3 pg/mL 2.4 L (2.8-5.3) pg/ml Microbiology - Last 24 Hours (Table) 03/25/19 04:40 Urine Culture - Preliminary Urine,Clean Catch Gram Neg Bacilli 03/24/19 22:42 Blood Culture - Preliminary Blood No Growth after 24 hours Laboratory Results WBC 11.3 k/uL (3.8-10.6) H 03/26/19 07:29 RBC 3.00 m/uL (4.30-5.90) L 03/26/19 07:29 Hgb 9.4 gm/dL (13.0-17.5) L 03/26/19 07:29 Hct 30.1 % (39.0-53.0) L 03/26/19 07:29 MCV 100.4 fL (80.0-100.0) H 03/26/19 07:29 MCH 31.4 pg (25.0-35.0) 03/26/19 07:29 MCHC 31.3 g/dL (31.0-37.0) 03/26/19 07:29 RDW 16.9 % (11.5-15.5) H 03/26/19 07:29 Plt Count 222 k/uL (150-450) 03/26/19 07:29 Neutrophils % 75 % 03/26/19 07:29 Lymphocytes % 11 % 03/26/19 07:29 Monocytes % 9 % 03/26/19 07: Eosinophils % 2 % 03/26/19 07: Basophils % 0 % 03/26/19 07:29 Neutrophils # 8.5 k/uL (1.3-7.7) H 03/26/19 07:29 Lymphocytes # 1.2 k/uL (1.0-4.8) 03/26/19 07:29 Monocytes # 1.1 k/uL (0-1.0) H 03/26/19 07:29 Eosinophils # 0.2 k/uL (0-0.7) 03/26/19 07:29 Basophils # 0.0 k/uL (0-0.2) 03/26/19 07:29 Hypochromasia Slight 03/26/19 07:29 Anisocytosis Slight 03/26/19 07:29 Macrocytosis Slight 03/26/19 07:29 PT 10.8 sec (9.0-12.0) 03/24/19 17:41 INR 1.0 (<1.2) 03/24/19 17:41 APTT 29.8 sec (22.0-30.0) 03/24/19 17:41 Sodium 141 mmol/L (137-145) 03/26/19 07:29 Potassium 3.5 mmol/L (3.5-5.1) 03/26/19 07:29 Chloride 111 mmol/L (98-107) H 03/26/19 07:29 Carbon Dioxide 25 mmol/L (22-30) 03/26/19 07:29 Anion Gap 5 mmol/L 03/26/19 07:29 BUN 41 mg/dL (9-20) H 03/26/19 07:29 Creatinine 2.83 mg/dL (0.66-1.25) H 03/26/19 07:29 Est GFR (CKD-EPI)AfAm 23 (>60 ml/min/1.73 sqM) 03/26/19 07:29 Est GFR (CKD-EPI)NonAf 20 (>60 ml/min/1.73 sqM) 03/26/19 07:29 Glucose 94 mg/dL (74-99) 03/26/19 07:29 Plasma Lactic Acid [place] 1.0 mmol/L (0.7-2.0) 03/24/19 17:41 Calcium 7.4 mg/dL (8.4-10.2) L 03/26/19 07:29 Phosphorus 6.4 mg/dL (2.5-4.5) H 03/24/19 17:41 Magnesium 2.1 mg/dL (1.6-2.3) 03/24/19 17:41 Total Bilirubin 0.6 mg/dL (0.2-1.3) 03/24/19 17:41 AST 62 U/L (17-59) H 03/24/19 17:41 ALT 18 U/L (21-72) L 03/24/19 17:41 Alkaline Phosphatase 83 U/L (38-126) 03/24/19 17:41 Troponin I 0.066 ng/mL (0.000-0.034) H* 03/24/19 17:41 Total Protein 6.4 g/dL (6.3-8.2) 03/24/19 17:41 Albumin 3.6 g/dL (3.5-5.0) 03/24/19 17:41 TSH 0.171 mIU/L (0.465-4.680) L 03/24/19 17:41 Free T4 1.75 ng/dL (0.78-2.19) 03/26/19 07:29 Free T3 pg/mL 2.4 pg/ml (2.8-5.3) L 03/26/19 07:29 Urine Color Yellow 03/25/19 04:40 Urine Appearance Clear (Clear) 03/25/19 04:40 Urine pH 5.5 (5.0-8.0) 03/25/19 04:40 Ur Specific [place] 1.015 (1.001-1.035) 03/25/19 04:40 Urine Protein 2+ (Negative) H 03/25/19 04:40 Urine Glucose (UA) Negative (Negative) 03/25/19 04:40 Urine Ketones Negative (Negative) 03/25/19 04:40 Urine Blood Small (Negative) H 03/25/19 04:40 Urine Nitrite Negative (Negative) 03/25/19 04:40 Urine Bilirubin Negative (Negative) 03/25/19 04:40 Urine Urobilinogen <2.0 mg/dL (<2.0) 03/25/19 04:40 Ur Leukocyte Esterase Negative (Negative) 03/25/19 04:40 Urine RBC 2 /hpf (0-5) 03/25/19 04:40 Urine WBC 3 /hpf (0-5) 03/25/19 04:40 Urine WBC Clumps Rare /hpf (None) H 03/25/19 04:40 Ur Squamous Epith Cells 1 /hpf (0-4) 03/25/19 04:40 Amorphous Sediment Rare /hpf (None) H 03/25/19 04:40 Urine Bacteria Rare /hpf (None) H 03/25/19 04:40 Urine Mucus Rare /hpf (None) H 03/25/19 04:40 C. difficile (EIA) Intrp Positive (Negative) A 03/25/19 04:40 Microbiology 03/25/19 04:40 Urine,Clean Catch Urine Culture - Preliminary Gram Neg Bacilli 03/24/19 22:42 Blood Blood Culture - Preliminary No Growth after 24 hours Assessment and Plan (1) Clostridium difficile colitis Narrative/Plan: 83-year-old male with multiple medical troubles that includes end- stage renal disease on hemodialysis via PermCath while his fistula matures in his left arm. Patient relates that he's had difficulties with some lower extremity ulcerations that is treated with local care and recently some antibiotics. It is likely his recent antibiotics or the etiology of his current Clostridium difficile colitis. Oral vancomycin therapy has or even started. Rocephin is discontinued trying to limit other antibiotic exposures. Local wound care with therahoney will be applied to the ulcerations the left leg. We'll monitor response to therapy. March 26, 2019 patient is to feel slowly better today. The therahoney is soothing to the leg ulceration. Oral vancomycin continues in treatment of C. diff. Probiotic if tolerated. Work with his nephrology team to ensure adequate hydration with his current diarrhea. He fortunately is not a significant amount of pain. Diet as tolerated. Current Visit: Yes Status: Acute Code(s): A04.72 - ENTEROCOLITIS D/T CLOSTRIDIUM DIFFICILE, NOT SPCF RECUR SNOMED Code(s): 460584335 (2) End stage renal disease on dialysis Current Visit: Yes Status: Chronic Code(s): N18.6 - END STAGE RENAL DISEASE; Z99.2 - DEPENDENCE ON RENAL DIALYSIS SNOMED Code(s): 019311174 (3) Dehydration Current Visit: Yes Status: Acute Code(s): E86.0 - DEHYDRATION SNOMED Code(s): 29703271 (4) Leukocytosis Current Visit: Yes Status: Acute Code(s): D72.829 - ELEVATED WHITE BLOOD C ELL COUNT, UNSPECIFIED SNOMED Code(s): 828391690
[2019-03-27] MEDS: VANCOMYCIN ORAL SOLUTION 250 MG/5 ML BOTTLE PO SCH ×3 (01:02→12:05)
[2019-03-27] MEDS: CALCITRIOL 0.25 MCG CAP PO SCH (01:03)
[2019-03-27] MEDS: LEVOTHYROXINE 75 MCG TAB PO SCH (06:45)
[2019-03-27 07:05] VITALS: BP 130/55; PULSE 65; TEMP 99
[2019-03-27 08:25] LABS: Anisocytosis Slight; Basophils % (A) 0 %; Eosinophils # (A) 0.4 k/uL (0-0.7); Eosinophils % (A) 3 %; HCT 30.7 % (39.0-53.0); HGB 9.6 gm/dL (13.0-17.5); Hypochromasia Slight; Lymphocytes # (A) 0.9 k/uL (1.0-4.8); Lymphocytes % (A) 9 %; MCH 31.3 pg (25.0-35.0); MCHC 31.3 g/dL (31.0-37.0); MCV 99.8 fL (80.0-100.0); Macrocytosis Slight; Mean Platelet Volume 7.5; Monocytes # (A) 0.9 k/uL (0-1.0); Monocytes % (A) 8 %; Neutrophils # (A) 8.1 k/uL (1.3-7.7); Neutrophils % (A) 76 %; Platelet Count 241 k/uL (150-450); RBC 3.07 m/uL (4.30-5.90); RDW 16.3 % (11.5-15.5); WBC 10.6 k/uL (3.8-10.6)
[2019-03-27] MEDS: APIXABAN 2.5 MG TABLET PO SCH (08:54)
[2019-03-27] MEDS: GABAPENTIN 300 MG CAP PO SCH (08:54)
[2019-03-27] MEDS: PANTOPRAZOLE 40 MG TABLET PO SCH (08:54)
[2019-03-27] MEDS: METOPROLOL TARTRATE 50 MG TAB PO SCH (08:54)
[2019-03-27 09:01] LABS: Calcium 7.3 mg/dL (8.4-10.2); Potassium 3.3 mmol/L (3.5-5.1)
--- NOTE | 2019-03-27 11:33 | P.DS ---
Providers Date of admission: 03/27/19 07:57 Attending physician: Mimi Reese Consults: 03/24/19 19:35 Consult Physician Routine Consulting Provider: Mari Oro Consult Reason/Comments: arf Do you want consulting provider notified?: Yes 03/25/19 11:07 Consult Physician Routine Consulting Provider: Steven Nieves Consult Reason/Comments: c diff Do you want consulting provider notified?: Yes Primary care physician: [facility] Course: 83-year-old the male was admitted secondary to C. diff colitis improved diarrhea patient has semisolid stools today and wants stool. Patient is end-stage renal disease on hemodialysis. Patient will be discharged on oral vancomycin. Please refer to dictation from Dr. Reese for further details of hospitalization course and other chronic medical problems that were addressed. PHYSICAL EXAMINATION: GENERAL: The patient is alert and oriented x2, which appears to be his baseline, not in any acute distress. Well developed, well nourished. HEENT: Pupils are round and equally reacting to light. EOMI. No scleral icterus. No conjunctival pallor. Normocephalic, atraumatic. No pharyngeal erythema. No thyromegaly. CARDIOVASCULAR: S1 and S2 present. No murmurs, rubs, or gallops. PULMONARY: Chest is clear to auscultation, no wheezing or crackles. ABDOMEN: Soft, nontender, nondistended, normoactive bowel sounds. No palpable organomegaly. MUSCULOSKELETAL: No joint swelling or deformity. EXTREMITIES: No cyanosis, clubbing, or pedal edema. NEUROLOGICAL: Gross neurological examination did not reveal any focal deficits. SKIN: No rashes. Patient Condition at Discharge: Fair Plan - Discharge Summary Discharge Rx Participant: No New Discharge Prescriptions: New Vancomycin Oral Solution 250 mg PO Q6HR 12 Days ml Apixaban [Eliquis] 2.5 mg PO BID@0800,1700 tablet Continue Garlic 1 tab PO DAILY@1700 Simvastatin 20 mg PO HS Vit C/E/Zn/Coppr/Lutein/Zeaxan [Preservision Areds 2 Softgel] 2 cap PO DAILY@1700 Aspirin [Adult Low Dose Aspirin EC] 81 mg PO DAILY@1700 Levothyroxine Sodium [Synthroid] 150 mcg PO DAILY@0600 Calcitriol [Rocaltrol] 0.25 mcg PO MOWEFR Ergocalciferol (Vitamin D2) [Vitamin D2] 50,000 unit PO Q30D Calcium Acetate [PhosLo] 667 mg PO DAILY@1700 Sodium Bicarbonate Tab 1,300 mg PO BID@0800,1700 B Complex & C No.20/Folic Acid [Nephrocaps Softgel] 1 mg PO DAILY@1700 Metoprolol Tartrate [Lopressor] 25 mg PO BID Furosemide [Lasix] 40 mg PO BID Gabapentin [Neurontin] 300 mg PO BID #20 cap Discontinued Apixaban [Eliquis] 5 mg PO BID@0800,1700 Discharge Medication List Garlic 1 tab PO DAILY@1700 07/16/15 [History] Simvastatin 20 mg PO HS 07/16/15 [History] Aspirin [Adult Low Dose Aspirin EC] 81 mg PO DAILY@17007/18/18 [History] Vit C/E/Zn/Coppr/Lutein/Zeaxan [Preservision Areds 2 Softgel] 2 cap PO DAILY@17007/18/18 [History] Calcitriol [Rocaltrol] 0.25 mcg PO MOWEFR 12/18/18 [History] Calcium Acetate [PhosLo] 667 mg PO DAILY@1700 12/18/18 [History] Ergocalciferol (Vitamin D2) [Vitamin D2] 50,000 unit PO Q30D 12/18/18 [History] Levothyroxine Sodium [Synthroid] 150 mcg PO DAILY@0600 12/18/18 [History] B Complex & C No.20/Folic Acid [Nephrocaps Softgel] 1 mg PO DAILY@1700 01/05/19 [History] Sodium Bicarbonate Tab 1,300 mg PO BID@0800,1700 01/05/19 [History] Furosemide [Lasix] 40 mg PO BID 03/24/19 [History] Metoprolol Tartrate [Lopressor] 25 mg PO BID 03/24/19 [History] Apixaban [Eliquis] 2.5 mg PO BID@0800,1700 tablet 03/27/19 [Rx] Gabapentin [Neurontin] 300 mg PO BID #20 cap 03/27/19 [Rx] Vancomycin Oral Solution 250 mg PO Q6HR 12 Days ml 03/27/19 [Rx] Follow up Appointment(s)/Referral(s): Steven Nieves MD [STAFF PHYSICIAN] - 2 Weeks Shannan Jean [NON-STAFF] - As Needed Carmelo Matamoros MD [Primary Care Provider] - 1-2 days Patient Instructions/Handouts: C Diff (Clostridium Difficile) Infection (ED) Activity/Diet/Wound Care/Special Instructions: Daily dressing changes with therahoney to the leg ulcerations cover with non stick then roll guaze to secure Discharge Disposition: TRANSFER TO SNF/ECF
--- NOTE | 2019-03-27 17:36 | PN ---
PROGRESS NOTE Patient is seen for followup for end-stage renal disease. This morning he states he is feeling better, although he continues to have some diarrhea. He is able to tolerate oral intake. On examination, blood pressure was 130/55, heart rate 65 per minute. He is afebrile. EXAMINATION OF THE HEART: S1 and S2. EXAMINATION OF LUNGS: Decreased breath sounds at the bases. ABDOMEN: Soft, non-tender. Examination of lower extremities shows no evidence of edema. Labs show hemoglobin 9.6, sodium 135, potassium 3.3. ASSESSMENT: 1. End-stage renal disease, on hemodialysis on a Sunday, Sunday, Sunday schedule. Patient will be dialyzed tomorrow. 2. Clostridium difficile colitis, maintained on oral vancomycin. 3. Hypokalemia. Patient is advised to increase his oral potassium intake. We will monitor the potassium as outpatient as well. He was dialyzed on a 3K bath yesterday. 4. Chronic kidney disease mineral bone disorder, maintained on Rocaltrol. PLAN: Follow up as outpatient for hemodialysis tomorrow. Otherwise, patient will be dialyzed in the hospital. MMODL / IJN: [id number] /
== END 2019-03-27 13:27 | DRG 371 ==
LOC: EC 17:03 → 4SSUR 19:36 → OBSVTOIN 03-27 07:57
PROVIDERS: ADMIT Hospitalist; ATTEND Hospitalist
PROC: 5A1D70Z Performance of Urinary Filtration, Intermittent, Less than 6 Hours Per Day (ICD-10-PCS; principal; 2019-03-27)
DX: A04.72 Enterocolitis due to Clostridium difficile, not specified as recurrent (principal); N18.6 End stage renal disease; E87.2 Acidosis; I12.0 Hypertensive chronic kidney disease with stage 5 chronic kidney disease or end stage renal disease; N17.9 Acute kidney failure, unspecified; E11.22 Type 2 diabetes mellitus with diabetic chronic kidney disease; E78.5 Hyperlipidemia, unspecified; M19.90 Unspecified osteoarthritis, unspecified site; E03.9 Hypothyroidism, unspecified; D63.1 Anemia in chronic kidney disease; E86.0 Dehydration; E86.1 Hypovolemia; E87.6 Hypokalemia; E11.42 Type 2 diabetes mellitus with diabetic polyneuropathy; M10.9 Gout, unspecified; E83.9 Disorder of mineral metabolism, unspecified; J44.9 Chronic obstructive pulmonary disease, unspecified; R77.8 Other specified abnormalities of plasma proteins; Z60.2 Problems related to living alone; Z99.2 Dependence on renal dialysis; Z79.01 Long term (current) use of anticoagulants; Z79.82 Long term (current) use of aspirin; Z79.890 Hormone replacement therapy; Z80.3 Family history of malignant neoplasm of breast; Z79.899 Other long term (current) drug therapy; Z88.8 Allergy status to other drugs, medicaments and biological substances; Z88.1 Allergy status to other antibiotic agents; Z87.440 Personal history of urinary (tract) infections; Z90.49 Acquired absence of other specified parts of digestive tract; Z87.891 Personal history of nicotine dependence; Z80.42 Family history of malignant neoplasm of prostate; Z85.828 Personal history of other malignant neoplasm of skin; Z86.19 Personal history of other infectious and parasitic diseases
CPT/HCPCS: 36415; 70450; 71045; 74022; 80048; 80053; 81001; 83605; 83735; 84100; 84439; 84443; 84481; 84484; 85025; 85610; 85730; 87040; 87077; 87086; 87186; 87324; 90935; 93005; 96361; 96374; 99285

== ENCOUNTER 2019-11-25 20:20 | Emergency (ER) | payer MEDICARE ==
[~2019-11-25 20:20] MED LIST: EPINEPHrine 10 ML SYRINGE (0.1 MG/ML) ONE; SODIUM BICARB 8.4% 50 ML SYR (1 MEQ/ML) ONE
[2019-11-25 20:38] VITALS: BP 145/84; RESP 12
[2019-11-25] MEDS ORDERED: SODIUM CHLORIDE 0.9% 1,000 ML IV STA (20:38)
[2019-11-25] MEDS ORDERED: NOREPINEPHRINE 4 MG in SODIUM CHLORIDE 0.9% 250 ML IV SCH (21:00)
--- NOTE | 2019-11-25 21:11 | XR ---
EXAMINATION TYPE: XR chest 1V portable DATE OF EXAM: 11/25/2019 COMPARISON: 03/24/2019 HISTORY: Short of breath TECHNIQUE: FINDINGS: There is pulmonary interstitial and alveolar edema. There are chest leads. Heart is probabl y enlarged. There is some lucency on the lateral margin of the liver that could relate to a right-denzel ed pneumothorax. Endotracheal tube is 4.5 cm from the tiffany in good position. IMPRESSION: right-sided pneumothorax. Pulmonary edema. Pulmonary edema is new compared to old exam. Exam was discussed with ER physician at 9:15 PM.
[2019-11-25 21:13] LABS: Appearance,Urine Clear (Clear); Bilirubin,Urine Negative (Negative); Blood,Urine Small (Negative); Color,Urine Yellow; Glucose,Urine (UA) Negative (Negative); Hyaline Casts,Urine 40 /lpf (0-2); Ketones,Urine Negative (Negative); Leukocyte Esterase,Urine Negative (Negative); Mucus,Urine Rare /hpf; Nitrite,Urine Negative (Negative); Protein,Urine 2+ (Negative); RBC,Urine 42 /hpf (0-5); Specific Gravity,Urine 1.008 (1.001-1.035); Urobilinogen,Urine <2.0 mg/dL (<2.0); WBC,Urine 3 /hpf (0-5)
[2019-11-25 21:47] LABS: Anisocytosis Slight; Basophils # (A) 0.1 k/uL (0-0.2); Basophils % (A) 1 %; Eosinophils # (A) 0.4 k/uL (0-0.7); Eosinophils % (A) 3 %; HCT 31.2 % (39.0-53.0); HGB 9.2 gm/dL (13.0-17.5); Hypochromasia Marked; Lymphocytes # (A) 3.3 k/uL (1.0-4.8); Lymphocytes % (A) 29 %; MCH 31.6 pg (25.0-35.0); MCHC 29.4 g/dL (31.0-37.0); Macrocytosis Marked; Mean Platelet Volume 8.3; Monocytes # (A) 0.6 k/uL (0-1.0); Monocytes % (A) 5 %; Neutrophils # (A) 6.6 k/uL (1.3-7.7); Neutrophils % (A) 58 %; Platelet Count 220 k/uL (150-450); RBC 2.91 m/uL (4.30-5.90); RDW 16.3 % (11.5-15.5); WBC 11.3 k/uL (3.8-10.6)
[2019-11-25 21:59] LABS: INR 1.1 (<1.2); Prothrombin Time 11.7 sec (9.0-12.0)
--- NOTE | 2019-11-25 22:04 | ED ---
CPR HPI - General Chief Complaint: Cardiac Arrest/CPR Stated Complaint: Cardiac Arrest Time Seen by Provider: 11/25/19 20:37 Source: EMS, RN notes reviewed, old records reviewed Mode of arrival: EMS Limitations: altered mental status - History of Present Illness Initial Comments: This is a 84-year-old male who presents here for evaluation. Patient presents today for evaluation regards to cardiovascular cardiac arrest. Patient's brought in from [facility] secondary to cardiac arrest. Unknown downtime patient initially found down by staff EMS call patient was intubated CPR was administered CPR initially was unsuccessful then patient late in the CPS spelled return of spontaneous circulation at that time recommence transport to emergency department. Patient again has lost pulses since and is presented ER with no pulse in PE, history obtained from EMS and patient staffers at bedside MD Complaint: found unresponsive, unknown -: unknown Place: DC/SNF Bystander CPR Performed: No AED Applied by Bystander/Flight Crew Scheduler: Yes Shock Advised: No Initial Findings in the Field: unresponsive, no respirations, no pulse, PEA ROSC in the Field: Yes Associated Injuries: No Treatments Prior to Arrival: intubation, other airway device, chest compressions, epinephrine mgs # - Related Data Home Medications Medication Instructions Recorded Confirmed Garlic 1 tab PO DAILY@0 07/16/15 03/24/19 Simvastatin 20 mg PO HS 07/16/15 03/24/19 Aspirin [Adult Low Dose Aspirin EC] 81 mg PO DAILY@169907/18/18 03/24/19 Vit C/E/Zn/Coppr/Lutein/Zeaxan 2 cap PO DAILY@169907/18/18 03/24/19 [Preservision Areds 2 Softgel] Calcitriol [Rocaltrol] 0.25 mcg PO MOWEFR 12/18/18 03/24/19 Calcium Acetate [PhosLo] 667 mg PO DAILY@0 12/18/18 03/24/19 Ergocalciferol (Vitamin D2) 50,000 unit PO Q30D 12/18/18 03/24/19 [Vitamin D2] Levothyroxine Sodium [Synthroid] 150 mcg PO DAILY@0600 12/18/18 03/24/19 B Complex & C No.20/Folic Acid 1 mg PO DAILY@1700 01/05/19 03/24/19 [Nephrocaps Softgel] Sodium Bicarbonate Tab 1,300 mg PO BID@0800,1700 01/05/19 03/24/19 Furosemide [Lasix] 40 mg PO BID 03/24/19 03/24/19 Metoprolol Tartrate [Lopressor] 25 mg PO BID 03/24/19 03/24/19 Previous Rx's Medication Instructions Recorded Apixaban [Eliquis] 2.5 mg PO BID@0800,1700 tablet 03/27/19 Gabapentin [Neurontin] 300 mg PO BID #20 cap 03/27/19 Vancomycin Oral Solution 250 mg PO Q6HR 12 Days ml 03/27/19 Allergies Allergy/AdvReac Type Severity Reaction Status Date / Time lisinopril Allergy Unknown Verified 03/24/19 17:33 metformin Allergy Unknown Verified 03/24/19 17:33 ciprofloxacin [From Cipro] AdvReac Nausea & Verified 03/24/19 17:33 Vomiting Review of Systems ROS Statement: Those systems with pertinent positive or pertinent negative responses have been documented in the HPI. ROS Other: All systems not noted in ROS Statement are negative. Past Medical History Past Medical History: Asthma, Cancer, COPD, Diabetes Mellitus, Hyperlipidemia, Hypertension, Osteoarthritis (OA), Renal Disease, Thyroid Disorder Additional Past Medical History / Comment(s): NIDDM type II, neuropathy bilateral legs and feet, current sores bilateral lower legs, current "corn" bottom R foot, CKD stage III/diabetic nephropathy, UTI, gout feet years ago, skin cancer removals, pancreatitis, hypothyroid. History of Any Multi-Drug Resistant Organisms: None Reported Past Surgical History: Cholecystectomy Additional Past Surgical History / Comment(s): colonoscopy with polypectomy, skin cancer removed from forehead. Past Anesthesia/Blood Transfusion Reactions: No Reported Reaction Additional Past Anesthesia/Blood Transfusion Reaction / Comment(s): Pt states he has never recieved blood. Past Psychological History: No Psychological Hx Reported Smoking Status: Former smoker Past Alcohol Use History: None Reported Past Drug Use History: None Reported - Past Family History Father Family Medical History: Cancer Additional Family Medical History / Comment(s): Father of prostate cancer. He was an alcoholic Mother Family Medical History: Cancer Additional Family Medical History / Comment(s): Mother of some kind of cancer pt unsure which kind. He states he knows she had breast cancer as well. General Exam Limitations: altered mental status General appearance: obtunded, other (A shunt is not responsive) Head exam: Present: atraumatic, normocephalic, normal inspection Eye exam: Present: normal appearance, other (Pupils are fixed and dilated). Absent: scleral icterus, conjunctival injection, periorbital swelling ENT exam: Present: normal exam, mucous membranes moist Neck exam: Present: normal inspection. Absent: tenderness, meningismus, lymphadenopathy Respiratory exam: Present: rhonchi, other (Course breath sounds with ET tube placement). Absent: respiratory distress, wheezes, rales, stridor Cardiovascular Exam: Present: normal heart sounds, other (PEA and arrival in the ER). Absent: systolic murmur, diastolic murmur, rubs, gallop, clicks GI/Abdominal exam: Present: soft, normal bowel sounds. Absent: distended, tenderness, guarding, rebound, rigid Extremities exam: Present: normal inspection, full ROM, normal capillary refill. Absent: tenderness, pedal edema, joint swelling, calf tenderness Back exam: Present: normal inspection Skin exam: Present: intact, pallor, mottled. Absent: rash Course Vital Signs 11/25/19 20:23 Pulse Rate 61 Respiratory 12 Rate Blood Pressure 145/84 O2 Sat by Pulse 97 Oximetry - Reevaluation(s) Reevaluation #1: 11/25/19 21:10 Medical record is reviewed Spoke with family at bedside they do present patient's end-of-life wishes, this is DO NOT RESUSCITATE with no code life support cares withdrawn Patient was no responsiveness no heartbeat no breathing. Patient pronounced 2128 Medical Decision Making - Medical Decision Making A 4 male the ER for evaluation patient had prolonged cardiac arrest with prolonged under prolonged ACLS protocol Petrilli 2-3 hours. Upon family arrival emergency room patient is present with DO NOT RESUSCITATE no CODE STATUS. Carriage withdrawn and patient Yoni for final cardiac arrest. Patient showed no neurological activity throughout ER stay. Patient pronounced at 2128 - Lab Data Result diagrams: 11/25/19 20:35 Lab Results 11/25/19 11/25/19 Range/Units 20:35 20:43 WBC 11.3 H (3.8-10.6) k/uL RBC 2.91 L (4.30-5.90) m/uL Hgb 9.2 L (13.0-17.5) gm/dL Hct 31.2 L (39.0-53.0) % MCV 107.4 H D (80.0-100.0) fL MCH 31.6 (25.0-35.0) pg MCHC 29.4 L (31.0-37.0) g/dL RDW 16.3 H (11.5-15.5) % Plt Count 220 (150-450) k/uL Hypochromasia Marked Anisocytosis Slight Macrocytosis Marked A Urine Color Yellow Urine Appearance Clear (Clear) Urine pH 8.0 (5.0-8.0) Ur Specific [place] 1.008 (1.001-1.035) Urine Protein 2+ H (Negative) Urine Glucose (UA) Negative (Negative) Urine Ketones Negative (Negative) Urine Blood Small H (Negative) Urine Nitrite Negative (Negative) Urine Bilirubin Negative (Negative) Urine Urobilinogen <2.0 (<2.0) mg/dL Ur Leukocyte Esterase Negative (Negative) Urine RBC 42 H (0-5) /hpf Urine WBC 3 (0-5) /hpf Hyaline Casts 40 H (0-2) /lpf Urine Mucus Rare H (None) /hpf - EKG Data -: EKG Interpreted by Me (EKG shows A. fib rate of 57, QRS 170, QTc 636 significantly wide QRS) - Radiology Data Radiology results: report reviewed (Chest x-ray shows positive pneumothorax positive ET tube), image reviewed Critical Care Time Critical Care Time: Yes Total Critical Care Time: 31 Disposition Clinical Impression: Cardiac arrest Disposition: Condition: Critical Is patient prescribed a controlled substance at d/c from ED?: No Referrals: Pasha Morgan DO [Primary Care Provider] - 1-2 days Preliminary Cause of : CPA
[2019-11-25 22:06] LABS: MCV 107.4 fL (80.0-100.0)
[2019-11-25 22:07] LABS: Albumin 3.1 g/dL (3.5-5.0); Phosphorus 6.8 mg/dL (2.5-4.5); Total Bilirubin 0.6 mg/dL (0.2-1.3); Total Protein 5.9 g/dL (6.3-8.2)
[2019-11-25 22:14] LABS: Potassium 5.4 mmol/L (3.5-5.1)
[2019-11-25 22:16] LABS: Creatine Kinase MB 2.9 ng/mL (0.0-2.4)
[2019-11-25 22:20] LABS: Troponin I 0.095 ng/mL (0.000-0.034)
[2019-11-25 22:24] LABS: Magnesium 2.7 mg/dL (1.6-2.3)
[2019-11-26 02:15] LABS: Polychromasia Present
[2019-11-26 02:17] LABS: Poikilocytosis (M) Present
[2019-11-26 03:09] VITALS: PULSE 0
== END 2019-11-25 23:20 | disposition expired ==
LOC: EC 20:20
DX: I46.9 Cardiac arrest, cause unspecified (principal); E11.22 Type 2 diabetes mellitus with diabetic chronic kidney disease; I12.9 Hypertensive chronic kidney disease with stage 1 through stage 4 chronic kidney disease, or unspecified chronic kidney disease; N18.3 Chronic kidney disease, stage 3 (moderate); E78.5 Hyperlipidemia, unspecified; E03.9 Hypothyroidism, unspecified; Z79.82 Long term (current) use of aspirin; Z79.890 Hormone replacement therapy; Z79.899 Other long term (current) drug therapy; Z88.1 Allergy status to other antibiotic agents; Z88.8 Allergy status to other drugs, medicaments and biological substances; Z87.891 Personal history of nicotine dependence; Z66 Do not resuscitate
CPT/HCPCS: 99291; 92950; 96365; 36415; 93005; 80053; 82550; 82553; 83735; 84100; 84484; 85025; 85610; 85730; 81001; 71045; J0171